=== PATIENT | male | born 1945 | race Caucasian/White ===

== ENCOUNTER 2021-06-12 15:45 | Emergency (ER) | payer MEDICARE, SELFPAY ==
--- NOTE | 2021-06-12 16:05 | XRR_ITS ---
PROCEDURE INFORMATION: Exam: XR Chest Exam date and time: 06/12/2021 4:05 PM Age: 75 years old Clinical indication: Angina pectoris. Chest pain. Altered mental status. TECHNIQUE: Imaging protocol: XR of the chest. Views: 1 view. COMPARISON: CR Chest 1 [place] [id number] 04/17/2017 2:41 PM FINDINGS: Lungs: Unchanged nodules in the left upper lobe that are likely calcified. These likely reflect granulomata. Possible left basilar/retrocardiac opacity that could reflect pneumonia. Pleural spaces: No pleural effusion.. No pneumothorax. Heart/Mediastinum: The cardiac silhouette is unchanged. No gross evidence of pneumomediastinum. Bones/joints: No gross fracture. XR/XR chest 1V portable [id number] IMPRESSION: Possible left basilar/retrocardiac opacity that could reflect pneumonia. Consider CT to further assess if clinically warranted. Radiation Dose CTDIVOL = (mGy): DLP = (mGy-cm)
--- NOTE | 2021-06-12 16:05 | CTR_ITS ---
PROCEDURE INFORMATION: Exam: CT Head Without Contrast Exam date and time: 06/12/2021 4:05 PM Age: 75 years old Clinical indication: Altered mental status/memory loss; Additional info: AMS TECHNIQUE: Imaging protocol: Computed tomography of the head without contrast. Sagittal and coronal reformatted images were created and reviewed. Radiation optimization: All CT scans at this facility use at least one of these dose optimization techniques: automated exposure control; mA and/or kV adjustment per patient size (includes targeted exams where dose is matched to clinical indication); or iterative reconstruction. COMPARISON: No relevant prior studies available. RADIATION DOSE METRICS: Total DLP (mGy-cm): 963.61 FINDINGS: Brain: No intra-axial or extra-axial masses. Valdes-white matter differentiation is preserved. No cerebral edema. No extra-axial fluid collections. No evidence for Chiari 1 malformation. No acute intracranial hemorrhage. No acute infarct. No midline shift. Mild atrophy of the brain parenchyma. Mildly decreased attenuation in the deep white matter, consistent with mild chronic microangiopathic change. Cerebral ventricles: No hydrocephalus. Paranasal sinuses: Visualized paranasal sinuses are clear. Mastoid air cells: Visualized mastoid air cells are clear. Orbital cavity: No acute abnormality in the visualized orbits. Vasculature: Atherosclerotic changes in the visualized arteries. Bones/joints: No acute fracture. Soft tissues: No acute abnormality of the extracranial soft tissues. CT/CT head wo con* [id number] IMPRESSION: 1. No acute abnormality of the brain. 2. Mild atrophy of the brain parenchyma. 3. Mild chronic white matter microangiopathic change. 4. Incidental/nonacute findings are listed in the report. Radiation Dose CTDIVOL = (mGy): DLP = 963.61 (mGy-cm)
--- NOTE | 2021-06-12 16:09 | ED_ITS ---
HPI - Altered Mental Status General: Chief Complaint: Weakness Stated Complaint: AMS Time Seen by Provider: 06/12/21 16:05 History of Present Illness: HPI narrative: Mr. Moreno is a 75-year-old gentleman with significant past medical history of diabetes who presents emergency department due to altered mental status. He was last known well at 1345. He reportedly went to play pool and was normal for period of time until he felt lightheaded and off. He had previously taken his insulin and thought that maybe that would make him feel better. He denies focal weakness, headache, speech difficulty. He has not had similar episodes in past. Upon arrival he reports feeling generally unwell but no focal symptoms. He otherwise denies changes in health, specific known exacerbating, provoking, or alleviating factors. Review of Systems General: Reports: 10 or more systems reviewed and unremarkable except in HPI and below PFSH ED PFSH: Medical History BPH loc w urin obs/LUTS Other specified urinary incontinence Family History Father , 60 Hypertension CAD (coronary artery disease) Mother Cancer Social History Smoking and tobacco status: current some day smoker cigars Alcohol intake: never Marital status: Physical Exam Narrative: EXAM NARRATIVE: GENERAL/CONSTITUTIONAL -somewhat ill appearing. No acute distress. Eyes - PERRL, no conjunctival injection ENMT - Atraumatic external nose and ears. Moist mucous membranes NECK - supple. trachea midline CARDIOVASCULAR - regular rate and rhythm. RESPIRATORY -clear to auscultation bilaterally. ABDOMEN/GI - Nontender, Nondistended. MSK - Extremities without obvious deformity or tenderness to palpation SKIN - Warm, Dry NEURO - alert and appropriately oriented. Cranial nerves II through XII intact strength and sensation intact. Moves all extremities equally. Mildly slowed responses however NIHSS 0 Course ED course: - Patient was seen and evaluated by me at bedside - Patient placed on cardiac monitors, IV access obtained - Initial evaluation notable for somewhat ill appearance, NIHSS 0 - Labs notable for minimal leukocytosis. No acute metabolic abnormality to explain patient's symptoms, creatinine elevated with unclear baseline. Patient does not provide clinical history consistent for concern over SCOTT - Imaging notable for no acute intracranial hemorrhage or mass. Scattered intracranial and extracranial vessel disease which is mild - Orthostatics positive. Fluids given - Upon serial reexamination after treatment the patient was improved - Discussed with neurology on-call - Based on patient history, evaluation, labs, and imaging as interpreted the most likely cause of the patient's condition is unclear TIA like episode, Dehydration with positive orthostasis though this may be chronic secondary to baseline medical conditions. - The results of ED evaluation were discussed with the patient including prescriptions and/or symptomatic cares (if applicable) including appropriate and responsible use, followup plan, and return precautions. The patient verbalized understanding and felt safe for discharge. - Patient discharged in satisfactory condition. Vital Signs: Vital signs: Vital Signs Temperature 98.2 F 06/12/21 16:25 Pulse Rate 74 06/12/21 23:01 Respiratory Rate 18 06/12/21 23:01 Blood Pressure 162/98 06/12/21 23:01 Pulse Oximetry 94 06/12/21 23:01 MDM - Altered Mental Status Medical Records: Attestation: I reviewed the patient's medical records. Lab Data: Attestation: I reviewed the patient's lab results. Labs: Lab Results 06/12/21 06/12/21 06/12/21 17:15 17:15 17:15 WBC 10.9 10^3/uL H 10 ^3/uL (4.0-10.0) RBC 4.53 10^6/uL 10^6 /uL (4.1-5.3) Hgb 13.2 g/dL g/dL (11.7-16.6) Hct 41.4 % L % (42.0-52.0) MCV 91.4 fl fl (80-94) MCH 29.1 pg pg (28.0-34.0) MCHC 31.9 g/dL g/dL (30.0-36.0) RDW 14.0 % % (12.1-15.1) Plt Count 190 10^3/cmm 10^3 /cmm (130-400) MPV 10.6 fL H fL (7.4-10.4) Neut % (Auto) 76.1 % % Lymph % (Auto) 15.0 % % [place] % (Auto) 7.7 % % Eos % (Auto) 0.3 % % Baso % (Auto) 0.5 % % Neut # (Auto) 8.33 10^3/uL H 10 ^3/uL (1.8-7.7) Lymph # (Auto) 1.6 10^3/uL 10^3/ uL (0.8-4.8) [place] # (Auto) 0.8 10^3/uL 10^3/ uL (0.2-0.9) Eos # (Auto) 0.0 10^3/uL 10^3/ uL (0.0-0.8) Baso # (Auto) 0.1 10^3/uL 10^3/ uL (0.0-0.1) Nucleated RBC % (a uto) 0 % % Nucleated RBCs # 0.0 /100WBC /100W BC PT INR APTT Sodium 135 mmol/L L mmol /L (136-145) Potassium 5.3 mmol/L H mmol /L (3.5-5.1) Chloride 99 mmol/L mmol/L (98-107) Carbon Dioxide 22 mmol/L mmol/L (22-29) Anion Gap 19.3 H (5-19) BUN 37 mg/dL H mg/dL (8-23) Creatinine 2.2 mg/dL H mg/dL (0.7-1.2) GFR Calculation Not Reportable Glucose 212 mg/dL H mg/dL (65-115) Calculated Osmolal ity 295 mOsm/kg mOsm/ kg (285-295) Lactic Acid 2.9 mmol/L H mmol /L (0.5-2.2) Lactic Acid (Sepsi s) Calcium 8.5 mg/dL mg/dL (8.5-10.5) Total Bilirubin 0.4 mg/dL mg/dL (0.15-1.2) AST 11 U/L U/L (0-40) ALT 10 U/L U/L (0-41) Alkaline Phosphata se 55 IU/L IU/L (40-130) Troponin T Baselin e Troponin T 120 Min [place] Troponin T Total Protein 6.1 g/dL L g/dL (6.6-8.7) Albumin 3.9 g/dL g/dL (3.5-5.2) Globulin 2.2 g/dL g/dL (1.3-4.6) TSH 3.57 uIU/mL uIU/m L (0.27-4.20) Urine Color Urine Appearance Urine pH Ur Specific Gravit y Urine Protein Urine Glucose (UA) Urine Ketones Urine Blood Urine Nitrate Urine Bilirubin Urine Urobilinogen Ur Leukocyte Joyce ase Urine RBC Urine WBC Ur Squamous Epith Cells Ur Renal Epithelia l Cell Amorphous Sediment Urine Bacteria Urine Mucus Urine Opiates Scre en Ur Barbiturates Sc reen Ur Phencyclidine S crn Ur Amphetamines Sc reen U Benzodiazepines Scrn Urine Cocaine Scre en U Marijuana (THC) Screen Serum Ketones 06/12/21 06/12/21 06/12/21 17:15 17:15 17:15 WBC RBC Hgb Hct MCV MCH MCHC RDW Plt Count MPV Neut % (Auto) Lymph % (Auto) [place] % (Auto) Eos % (Auto) Baso % (Auto) Neut # (Auto) Lymph # (Auto) [place] # (Auto) Eos # (Auto) Baso # (Auto) Nucleated RBC % (a uto) Nucleated RBCs # PT Cancelled INR Cancelled APTT Cancelled Sodium Potassium Chloride Carbon Dioxide Anion Gap BUN Creatinine GFR Calculation Glucose Calculated Osmolal ity Lactic Acid Lactic Acid (Sepsi s) Calcium Total Bilirubin AST ALT Alkaline Phosphata se Troponin T Baselin e 22 ng/L H ng/L (0-15) Troponin T 120 Min [place] Troponin T Total Protein Albumin Globulin TSH Urine Color Urine Appearance Urine pH Ur Specific Gravit y Urine Protein Urine Glucose (UA) Urine Ketones Urine Blood Urine Nitrate Urine Bilirubin Urine Urobilinogen Ur Leukocyte Joyce ase Urine RBC Urine WBC Ur Squamous Epith Cells Ur Renal Epithelia l Cell Amorphous Sediment Urine Bacteria Urine Mucus Urine Opiates Scre en Ur Barbiturates Sc reen Ur Phencyclidine S crn Ur Amphetamines Sc reen U Benzodiazepines Scrn Urine Cocaine Scre en U Marijuana (THC) Screen Serum Ketones Negative (Negative) 06/12/21 06/12/21 06/12/21 17:44 17:44 18:34 WBC RBC Hgb Hct MCV MCH MCHC RDW Plt Count MPV Neut % (Auto) Lymph % (Auto) Huntington % (Auto) Eos % (Auto) Baso % (Auto) Neut # (Auto) Lymph # (Auto) [place] # (Auto) Eos # (Auto) Baso # (Auto) Nucleated RBC % (a uto) Nucleated RBCs # PT INR APTT Sodium Potassium Chloride Carbon Dioxide Anion Gap BUN Creatinine GFR Calculation Glucose Calculated Osmolal ity Lactic Acid Lactic Acid (Sepsi s) Calcium Total Bilirubin AST ALT Alkaline Phosphata se Troponin T Baselin e Troponin T 120 Min [place] 17.99 ng/L H ng/L (0-15) Delta Troponin T -4.01 ABS# L ABS# (0-10) Total Protein Albumin Globulin TSH Urine Color Yellow (Yellow) Urine Appearance Hazy A (CLEAR) Urine pH 5 (5-7) Ur Specific Gravit y 1.020 (1.005-1.030) Urine Protein 1+ H (Negative) Urine Glucose (UA) 2+ H (Normal) Urine Ketones Negative (Negative) Urine Blood Neg (Negative) Urine Nitrate Negative (Negative) Urine Bilirubin 1+ H (Negative) Urine Urobilinogen Norm mg/dL mg/dL (Negative) Ur Leukocyte Joyce ase Negative (Negative) Urine RBC 0-4 /hpf H /hpf (0-2) Urine WBC 0-4 /hpf H /hpf (0-5) Ur Squamous Epith Cells 5-10 /hpf H /hpf (0-5) Ur Renal Epithelia l Cell 0-4 /hpf /hpf Amorphous Sediment 2+ /hpf /hpf Urine Bacteria 1+ /hpf H /hpf (NONE) Urine Mucus Trace /hpf /hpf Urine Opiates Scre en Negative ng/mL ng /mL (Negative) Ur Barbiturates Sc reen Negative ng/mL ng /mL (Negative) Ur Phencyclidine S crn Negative ng/mL ng /mL (Negative) Ur Amphetamines Sc reen Negative ng/mL ng /mL (Negative) U Benzodiazepines Scrn Negative ng/mL ng /mL (Negative) Urine Cocaine Scre en Negative ng/mL ng /mL (Negative) U Marijuana (THC) Screen Negative ng/mL ng /mL (Negative) Serum Ketones 06/12/21 06/12/21 18:34 18:34 WBC RBC Hgb Hct MCV MCH MCHC RDW Plt Count MPV Neut % (Auto) Lymph % (Auto) [place] % (Auto) Eos % (Auto) Baso % (Auto) Neut # (Auto) Lymph # (Auto) [place] # (Auto) Eos # (Auto) Baso # (Auto) Nucleated RBC % (a uto) Nucleated RBCs # PT 14.00 SECONDS SEC ONDS (12.1-14.9) INR 1.05 (0.8-1.2) APTT 29.7 SECONDS SECO NDS (23.9-36.7) Sodium Potassium Chloride Carbon Dioxide Anion Gap BUN Creatinine GFR Calculation Glucose Calculated Osmolal ity Lactic Acid Lactic Acid (Sepsi s) 1.2 mmol/L mmol/L (0.5-2.2) Calcium Total Bilirubin AST ALT Alkaline Phosphata se Troponin T Baselin e Troponin T 120 Min [place] Troponin T Total Protein Albumin Globulin TSH Urine Color Urine Appearance Urine pH Ur Specific Gravit y Urine Protein Urine Glucose (UA) Urine Ketones Urine Blood Urine Nitrate Urine Bilirubin Urine Urobilinogen Ur Leukocyte Joyce ase Urine RBC Urine WBC Ur Squamous Epith Cells Ur Renal Epithelia l Cell Amorphous Sediment Urine Bacteria Urine Mucus Urine Opiates Scre en Ur Barbiturates Sc reen Ur Phencyclidine S crn Ur Amphetamines Sc reen U Benzodiazepines Scrn Urine Cocaine Scre en U Marijuana (THC) Screen Serum Ketones EKG Data^: EKG 1: Attestation: I personally reviewed and interpreted this EKG as follows: EKG interpretation date: 06/12/21 EKG interpretation time: 18:59 Interpretation: Twelve-lead EKG shows a regular rhythm at a rate of 62. WI interval 159, QRS duration 107, QTc 413. Normal axis. Interpretation: Sinus rhythm EKG 2: Attestation: I personally reviewed and interpreted this EKG as follows: EKG interpretation date: 06/12/21 EKG interpretation time: 22:15 Interpretation: Twelve-lead EKG shows a regular rhythm at a rate of 57. WI interval 174, QRS duration 101, QTc 384. Normal axis. Interpretation: Sinus rhythm Discharge Plan Discharge Patient Disposition: Home Clinical Impression: Stroke-like episode, Creatinine elevation, Malaise and fatigue, Orthostatic hypotension, Hypertension Condition: Stable Prescriptions: New aspirin 81 mg tablet,delayed release (DR/EC) 81 mg PO DAILY Qty: 30 RF: 0 Plavix 75 mg tablet 75 mg PO DAILY Qty: 30 RF: 0 Discharge Orders: Discharge ED (Routine); Ordered 06/12/21 Ordered By: Gino Rutledge Referrals: Ramón Dean, [Primary Care Provider] - Discharge Diet: Advance as tolerated and Clear Liquid Discharge Activity: Resume usual activity Activity Restrictions/Additional Instructions: Thank you for visiting the emergency department. You were seen and evaluated for sudden onset generalized symptoms. The exact cause of the symptoms is unclear. Your creatinine is elevated and you are likely somewhat dehydrated. No other clear source of infection was identified. You were noted to have atherosclerosis of your blood vessels to your brain. Please follow-up with your primary care provider. You require repeat labs within 1 week to evaluate creatinine. Please follow-up with neurology. Please return to the emergency department for anything as discussed including new neurologic symptoms, or anything else that you are concerned about and feel needs emergency department evaluation. Coding Level of Care Code ED Hog Killer for Clement Delarosa
--- NOTE | 2021-06-12 16:19 | CTR_ITS ---
PROCEDURE INFORMATION: Exam: CT Angiography Head With Contrast, Arteriography Exam date and time: 06/12/2021 4:19 PM Age: 75 years old Clinical indication: Weakness and other: Confusion TECHNIQUE: Imaging protocol: Computed tomography angiography of the head with contrast. Exam focused on the arteries. 3D rendering (Not supervised by radiologist): MIP and/or 3D reconstructed images were created by the technologist. Radiation optimization: All CT scans at this facility use at least one of these dose optimization techniques: automated exposure control; mA and/or kV adjustment per patient size (includes targeted exams where dose is matched to clinical indication); or iterative reconstruction. Contrast material: VISI 320; Contrast volume: 95 ml; Contrast route: INTRAVENOUS (IV); COMPARISON: CT head wo con* [id number] 06/12/2021 5:59 PM RADIATION DOSE METRICS: Total DLP (mGy-cm): 2593.26 FINDINGS: ANTERIOR CIRCULATION: Right internal carotid artery: Noncalcified plaque with up to 25% stenosis at the mastoid segment. Calcified plaque and noncalcified plaque without significant stenosis at the cavernous and supraclinoid segments. No occlusion, thrombosis, extravasation, dissection, or aneurysm. Right middle cerebral artery: Unremarkable. No occlusion, thrombosis, stenosis, extravasation, dissection, or aneurysm. Right anterior cerebral artery: Unremarkable. No occlusion, thrombosis, stenosis, extravasation, dissection, or aneurysm. Anterior communicating artery: The anterior communicating artery is unremarkable. Left internal carotid artery: Mild noncalcified plaque at the horizontal segment. Mild calcified plaque at the cavernous and supraclinoid segments. No occlusion, thrombosis, stenosis, extravasation, dissection, or aneurysm. Left middle cerebral artery: Unremarkable. No occlusion, thrombosis, stenosis, extravasation, dissection, or aneurysm. Left anterior cerebral artery: Mild noncalcified plaque at the A1 segment with 20% stenosis. No occlusion, thrombosis, extravasation, dissection, or aneurysm. POSTERIOR CIRCULATION: Right vertebral artery: Noncalcified plaque at the level of the foramen magnum with 25% stenosis. No occlusion, thrombosis, extravasation, dissection, or aneurysm. Left vertebral artery: Unremarkable. No occlusion, thrombosis, stenosis, extravasation, dissection, or aneurysm. Basilar artery: Unremarkable. No occlusion, thrombosis, stenosis, extravasation, dissection, or aneurysm. Right posterior cerebral artery: Unremarkable. No occlusion, thrombosis, stenosis, dissection, or aneurysm. Left posterior cerebral artery: Unremarkable. No occlusion, thrombosis, stenosis, extravasation, dissection, or aneurysm. Right posterior communicating artery: The right posterior communicating artery is not visualized. The right posterior communicating artery may be congenitally absent, or may be too small for the resolution capabilities of this study. Left posterior communicating artery: The left posterior communicating artery is not visualized. The left posterior communicating artery may be congenitally absent, or may be too small for the resolution capabilities of this study. Brain: No definite mass, mass effect, or midline shift. Cerebral ventricles: No hydrocephalus. Orbital cavity: Globes and lenses, extraocular muscles, and optic nerves are intact bilaterally. No acute intraorbital abnormality. Bones/joints: No acute fracture. Mastoid air cells: Mastoid air cells are clear bilaterally. Soft tissues: No acute abnormality of the extracranial soft tissues. Paranasal sinuses: Paranasal sinuses are clear. IMPRESSION: Atherosclerotic disease. Mild stenoses in the right internal carotid artery, right vertebral artery, and left anterior cerebral artery. No occlusion, thrombosis, extravasation, dissection, or aneurysm. PROCEDURE INFORMATION: Exam: CT Angiography Neck With Contrast Exam date and time: 06/12/2021 4:19 PM Age: 75 years old Clinical indication: Weakness and other: Confusion TECHNIQUE: Imaging protocol: Computed tomography angiography of the neck with contrast. 3D rendering (Not supervised by radiologist): MIP and/or 3D reconstructed images were created by the technologist. Radiation optimization: All CT scans at this facility use at least one of these dose optimization techniques: automated exposure control; mA and/or kV adjustment per patient size (includes targeted exams where dose is matched to clinical indication); or iterative reconstruction. Contrast material: VISI 320; Contrast volume: 95 ml; Contrast route: INTRAVENOUS (IV); COMPARISON: CT head wo con* [id number] 06/12/2021 5:59 PM RADIATION DOSE METRICS: Total DLP (mGy-cm): 2593.26 FINDINGS: Right common carotid artery: Minimal calcified plaque at the carotid bulb. No occlusion, thrombosis, stenosis, extravasation, dissection, or aneurysm. Right internal carotid artery: .Right internal carotid artery: Unremarkable. No occlusion, thrombosis, stenosis, extravasation, dissection, or aneurysm. Right external carotid artery: Unremarkable. No occlusion, thrombosis, stenosis, extravasation, dissection, or aneurysm. Left common carotid artery: Moderate calcified plaque at the distal left common carotid artery with 20% stenosis. No occlusion, thrombosis, extravasation, dissection, or aneurysm. Left internal carotid artery: Unremarkable. No occlusion, thrombosis, stenosis, extravasation, dissection, or aneurysm. Mild to moderate calcified plaque at the origin with 31% stenosis using NASCET criteria. No occlusion, thrombosis, extravasation, dissection, or aneurysm. Left external carotid artery: Mild calcified and noncalcified plaque at the origin.. No occlusion, thrombosis, stenosis, extravasation, dissection, or aneurysm. Right vertebral artery: Unremarkable. No occlusion, thrombosis, stenosis, extravasation, dissection, or aneurysm. Left vertebral artery: Mild calcified plaque at the origin and in the distal cervical segment. No occlusion, thrombosis, stenosis, extravasation, dissection, or aneurysm. Brachiocephalic artery: Unremarkable. No occlusion, thrombosis, stenosis, extravasation, dissection, or aneurysm. Subclavian arteries: Mild calcified plaque at the origin of the right subclavian artery and in the proximal left subclavian artery. No occlusion, thrombosis, stenosis, extravasation, dissection, or aneurysm. Aorta: Mild calcified plaque in the visualized proximal descending thoracic aorta. No occlusion, thrombosis, stenosis, extravasation, dissection, or aneurysm. Lymph nodes: Calcified mediastinal and bilateral hilar lymph nodes. No lymphadenopathy. Soft tissues: No soft tissue swelling. No radiopaque foreign body. Bones/joints: Multilevel degenerative changes of varying severity in the visualized spine. Lungs: Visualized lungs are clear. CT/CT angio headneck* [id number] IMPRESSION: 1. Mild atherosclerotic disease. Mild stenoses in the right common carotid artery and left internal carotid artery. No occlusion, thrombosis, extravasation, dissection, or aneurysm. 2. Incidental/nonacute findings are listed in the report. REFERENCES: NASCET CRITERIA. The degree of internal carotid artery stenosis is based on NASCET criteria. Normal is no stenosis. Mild is less than 50% stenosis. Moderate is 50-69% stenosis. Severe is 70% to 99% stenosis. Total occlusion is no detectable patent lumen. Radiation Dose CTDIVOL = (mGy): DLP = 2593.26~2593.26 (mGy-cm)
[2021-06-12 16:25] VITALS: BP 85/47; PULSE 67; RESP 18; TEMP 36.8; O2SAT 94; BMI 34.2
[2021-06-12 17:40] LABS: Basophils # 0.1 10^3/uL (0.0-0.1); Basophils % 0.5 %; Eosinophils % 0.3 %; Hematocrit 41.4 % (42.0-52.0); Hemoglobin 13.2 g/dL (11.7-16.6); Lymphocytes # 1.6 10^3/uL (0.8-4.8); Mean Corpuscular HGB Conc 31.9 g/dL (30.0-36.0); Mean Corpuscular Hemoglobin 29.1 pg (28.0-34.0); Mean Corpuscular Volume 91.4 fl (80-94); Mean Platelet Volume 10.6 fL (7.4-10.4); Monocytes # 0.8 10^3/uL (0.2-0.9); Monocytes % 7.7 %; Neutrophils # 8.33 10^3/uL (1.8-7.7); Neutrophils % 76.1 %; Nucleated Red Blood Cells % 0 %; Platelet Count 190 10^3/cmm (130-400); Red Blood Count 4.53 10^6/uL (4.1-5.3); White Blood Count 10.9 10^3/uL (4.0-10.0)
[2021-06-12 17:56] LABS: Ketone (Acetest) Serum Negative (Negative)
[2021-06-12 18:01] VITALS: BP 136/98; PULSE 98; RESP 16; O2SAT 94
[2021-06-12 18:01] LABS: Lactic Sepsis W/Reflex 2.9 mmol/L (0.5-2.2)
[2021-06-12 18:04] LABS: Troponin(5th) Baseline 22 ng/L (0-15)
[2021-06-12] MEDS: sodium chloride 0.9% 1,000 ML 999 ML IV (18:05)
[2021-06-12 18:14] LABS: Alanine Aminotransferase 10 U/L (0-41); Albumin Level 3.9 g/dL (3.5-5.2); Alkaline Phosphatase 55 IU/L (40-130); Anion Gap 19.3 (5-19); Aspartate Amino Transferase 11 U/L (0-40); Blood Urea Nitrogen 37 mg/dL (8-23); Calcium 8.5 mg/dL (8.5-10.5); Carbon Dioxide 22 mmol/L (22-29); Chloride 99 mmol/L (98-107); Globulin 2.2 g/dL (1.3-4.6); Glucose 212 mg/dL (65-115); Osmolality Calculated 295 mOsm/kg (285-295); Potassium 5.3 mmol/L (3.5-5.1); Sodium 135 mmol/L (136-145); Thyroid Stimulating Hormone 3.57 uIU/mL (0.27-4.20); Total Bilirubin 0.4 mg/dL (0.15-1.2); Total Protein 6.1 g/dL (6.6-8.7)
--- NOTE | 2021-06-12 18:20 | ECG_ITS ---
[facility] Test Date: 2021-06-12 Pat Name: Medardo Moreno Department: Room: Gender: Male Gray Tender: : 1945 Requested By: Gino Rutledge Order Number: [id number] Neftali MD: Memo De Leon M.D. Measurements Intervals [place] Rate: 62 P: 26 CA: 159 QRS: 37 QRSD: 107 T: 78 QT: 405 QTc: 413 Interpretive Statements SINUS RHYTHM NONSPECIFIC T-WAVE ABNORMALITY Compared to ECG 04/17/2017 14:56:44 T-wave abnormality now present Myocardial infarct finding no longer present Electronically Signed On 06-13-2021 22:48:48 PATCH WORKER by Memo De Leon M.D. [id number]
[2021-06-12 18:24] VITALS: BP 158/93; PULSE 70; RESP 16; O2SAT 99
[2021-06-12 19:01] LABS: Urine Appearance Hazy (CLEAR); Urine Color Yellow (Yellow)
[2021-06-12 19:02] LABS: Add Urine Microscopic? YES; Bilirubin Urine 1+ (Negative); Blood Urine Neg (Negative); Glucose Urine UA 2+ (Normal); Ketones Urine Negative (Negative); Leukocyte Esterase Urine Negative (Negative); Nitrate Urine Negative (Negative); Protein Urine 1+ (Negative); RBC Urine 0-4 /hpf (0-2); Urobilinogen Urine Norm (Negative); WBC Urine 0-4 /hpf (0-5); pH Urine 5 (5-7)
[2021-06-12 19:03] LABS: Add Urine Culture? No; Amorphous Sediment Urine 2+ /hpf; Bacteria Urine 1+ /hpf; Mucus Urine TRACE /hpf; Renal Epithelial Cells Urine 0-4 /hpf
[2021-06-12 19:04] LABS: Amphetamines Screen Urine Negative (Negative); Barbiturates Screen Urine Negative (Negative); Benzodiazepines Screen Urine Negative (Negative); Cocaine Screen Urine Negative (Negative); Opiate Screen Urine Negative (Negative); PCP Screen Urine Negative (Negative); THC Screen Urine Negative (Negative)
[2021-06-12 19:19] LABS: Reflex Lactate Order REFLEX LACTIC ORDERD
--- NOTE | 2021-06-12 19:42 | PC.NURSE ---
Orthostatics: Lying 66, 171/109 Sitting 69, 163/82 Stand 79 116/73
[2021-06-12 19:43] VITALS: BP 130/76; PULSE 79; RESP 18; O2SAT 94
[2021-06-12 19:51] LABS: INR 1.05 (0.8-1.2)
[2021-06-12 19:52] LABS: Partial Thromboplastin Time 29.7 SECONDS (23.9-36.7)
[2021-06-12 19:58] LABS: Lactic Acid level (Lactate) 1.2 mmol/L (0.5-2.2)
[2021-06-12 20:03] LABS: Troponin 5 2HR 17.99 ng/L (0-15)
[2021-06-12 20:04] LABS: Troponin 5 2HR Delta -4.01 ABS# (0-10)
[2021-06-12] MEDS: lactated ringers 1,000 ML 999 ML IV (20:32)
[2021-06-12 22:00] VITALS: BP 146/104; BP 166/99; BP 167/108; PULSE 62; PULSE 63; PULSE 71
--- NOTE | 2021-06-12 22:20 | ECG_ITS ---
[facility] Test Date: 2021-06-12 Pat Name: Medardo Moreno Department: Room: Gender: Male Manager Emergency: : 1945 Requested By: Gino Rutledge Order Number: [id number] Neftali MD: Memo De Leon M.D. Measurements Intervals [place] Rate: 57 P: 31 MI: 174 QRS: 37 QRSD: 101 T: 126 QT: 393 QTc: 384 Interpretive Statements SINUS BRADYCARDIA NONSPECIFIC T-WAVE ABNORMALITY Compared to ECG 06/12/2021 18:49:47 Sinus rhythm no longer present T-wave abnormality still present Electronically Signed On 06-13-2021 22:49:23 DIGITAL ADVERTISING SPECIALIST by Memo De Leon M.D. [id number]
[2021-06-12] MEDS: aspirin 81 mg Chew Tablet 324 MG PO (22:36)
[2021-06-12] MEDS: clopidogrel 300 mg Tablet PO (22:37)
[2021-06-12 23:01] VITALS: BP 162/98; PULSE 74; RESP 18; O2SAT 94
--- NOTE | 2021-06-13 09:56 | DCPLANNER ---
retail district manager had message to schedule a follow up appointment for patient with neurology. retail district manager emailed patients information to the neurology clinic. Patients information will be printed and reviewed. Clinic will call patient with appointment information.
--- NOTE | 2021-07-12 07:29 | DCPLANNER ---
manager development checked with the office of Dr. Pérez concerning follow up appointment. manager development was told by Elayne Wilson that when clinic contacted patient to schedule a follow up appointment that patient requested to see [facility] NURSE PRACTITIONER Rogelio Reyna. It is understood that he will not be back in the office until July, and that an appointment will be scheduled for patient at that time.
== END 2021-06-12 22:46 | disposition home or self-care (01) ==
PROVIDERS: Physician Assistant; Emergency Provider Emergency Medicine; PCP Internal Medicine
DX: R53.81 Other malaise (principal); R53.83 Other fatigue; I95.1 Orthostatic hypotension; I10 Essential (primary) hypertension; R79.9 Abnormal finding of blood chemistry, unspecified; Z79.82 Long term (current) use of aspirin; Z79.02 Long term (current) use of antithrombotics/antiplatelets; F17.210 Nicotine dependence, cigarettes, uncomplicated
CPT/HCPCS: 70450; 70496; 70498; 71045; 80053; 80306; 81001; 82009; 83605; 84443; 84484; 85025; 85610; 85730; 87040; 93005; 96360; 96361; 99284; J7030

== ENCOUNTER 2021-11-02 14:02 | Inpatient (IN) | payer MEDICARE, SELFPAY ==
[2021-11-02] VITALS (7 sets, daily range): BP systolic 103–169; BP diastolic 72–97; PULSE 58–84; RESP 14–20; TEMP 36.4–36.8; O2SAT 92–95; BMI 36.9; BMI 35.2
--- NOTE | 2021-11-02 14:11 | ED_ITS ---
HPI - Syncope General: Chief Complaint: Syncope Stated Complaint: SYNCOPAL EPISODE Time Seen by Provider: 11/02/21 14:11 Source: patient Mode of arrival: EMS Limitations: no limitations History of Present Illness: 76-year-old male who was at a local senior center was playing pool he had sat down and was waiting for his turn became lightheaded and dizzy and fell out of his chair. He was down for 30 seconds to a minute according the local bystanders he denies any chest pain. He is not having shortness of breath at this time. Not had any vomiting or diaphoresis. MD complaint: collapsed Onset (ago): minute(s) Duration of episode: 60 -: second(s) Description of event: post-event confusion (Mild) Prodromal symptoms: lightheaded Witnessed: Yes - by Bystander Context: at rest Injuries sustained associated with event: none Associated symptoms: Reports lightheadedness; Deny abdominal pain, chest pain, fever(s), headache(s), nausea, short of breath, vertigo or weakness Treatments prior to arrival: none Review of Systems Const: Reports: chills; Denies: fever(s) ENMT: Denies: throat pain, ear or mastoid pain, nasal discharge or nasal congestion Card: Reports: lightheadedness; Denies: chest pain or palpitations Resp: Denies: dyspnea, productive cough or non-productive cough GI: Denies: abdominal pain, nausea or vomiting : Denies: flank pain, dysuria, urinary frequency or urinary urgency Skin/Breast: Denies: rash or pruritus Neuro: Denies: headache(s) or vertigo PFSH ED PFSH: Medical History Acute lower UTI BPH loc w urin obs/LUTS Diabetes Gait instability Microhematuria Neurogenic bladder Other specified urinary incontinence Surgical History S/P tonsillectomy Family History Father , 60 Hypertension CAD (coronary artery disease) Mother Cancer Social History Smoking and tobacco status: current some day smoker cigars Alcohol intake: never Marital status: Physical Exam Const: GENERAL APPEARANCE: cooperative and comfortable ORIENTATION/CONSCIOUSNESS: Yes awake, Yes oriented to person, Yes oriented to place and Yes oriented to time HENMT: COMMON NORMALS: normocephalic, atraumatic, hearing grossly normal bilaterally, external ears normal, EAC's normal, TM's normal bilaterally, Normal nasal mucous membranes and turbinates present, moist oral mucous membranes and oropharynx normal HEAD & SCALP: normocephalic and atraumatic NOSE: Normal nasal mucous membranes and turbinates present EXTERNAL EAR: Yes external ears normal EXTERNAL AUDITORY CANAL: EAC's normal TYMPANIC MEMBRANE: TM's normal bilaterally Eye: COMMON NORMALS: Equal, round and reactive pupils present, EOMs intact bilaterally, conjunctivae normal and no scleral icterus CONJUNCTIVA: Yes conjunctivae normal PUPIL: Yes Equal, round and reactive pupils present Neck/C-Spine: COMMON NORMALS: full ROM, no lymphadenopathy, supple and no JVD Lymph: LYMPHATIC: no lymphadenopathy noted and no lymphedema noted Resp: COMMON NORMALS: normal respiratory effort, No retractions, No use of accessory muscles and clear to auscultation bilaterally AUSCULTATION: clear to auscultation bilaterally Cardio: COMMON NORMALS: no JVD, regular rate, regular rhythm and No murmurs present (Cardio) RATE: regular rate RHYTHM: regular rhythm GI: COMMON NORMALS: Soft to palpation and No hepatosplenomegaly present AUSCULTATION: Yes normoactive bowel sounds PALPATION: Yes Soft to palpation, No Tenderness to palpation present (GI), No Guarding due to palpation present (GI) and Yes No hepatosplenomegaly present Extremity: COMMON NORMALS: normal to inspection, capillary refill normal, no clubbing, cyanosis or edema, no calf tenderness and no pedal edema Neuro: SENSORIUM/ORIENTATION: Yes oriented to person, Yes oriented to place and Yes oriented to time Skin: COMMON NORMALS: no rashes or lesions noted GENERAL SKIN EXAM: no rashes or lesions noted Course Vital Signs: Vital signs: Vital Signs Temperature 97.5 F L 11/02/21 15:03 Pulse Rate 58 L 11/02/21 17:37 Respiratory Rate 14 11/02/21 17:37 Blood Pressure 127/80 11/02/21 17:37 Pulse Oximetry 94 11/02/21 17:37 MDM - Syncope Medical Decision Making Syncopal episode unknown etiology. We will go ahead and admit the patient further evaluate including echocardiogram and carotid. Additionally she has hyponatremia hyperkalemia mild chronic renal disease. EKG and troponins unremarkable. Medical Records I reviewed the patient's medical records. Lab Data I reviewed the patient's lab results. : 11/02/21 14:38 11/02/21 14:38 Radiology Impressions Chest X-Ray 11/02/21 14:12 IMPRESSION: No acute chest abnormality. Head CT 11/02/21 16:18 IMPRESSION: 1. Negative for intracranial hemorrhage or mass effect 2. Mild diffuse ventricular prominence similar to prior exam may be related to chronic underlying age-related parenchymal atrophy. 3. Mild diffuse white matter disease likely reflecting chronic microvascular ischemic changes Laboratory Results WBC 8.5 10^3/uL (4.0-10.0) 11/02/21 14:38 RBC 5.19 10^6/uL (4.1-5.3) 11/02/21 14:38 Hgb 15.3 g/dL (11.7-16.6) 11/02/21 14:38 Hct 46.5 % (42.0-52.0) 11/02/21 14:38 MCV 89.6 fl (80-94) 11/02/21 14:38 MCH 29.5 pg (28.0-34.0) 11/02/21 14:38 MCHC 32.9 g/dL (30.0-36.0) 11/02/21 14:38 RDW 13.8 % (12.1-15.1) 11/02/21 14:38 Plt Count 231 10^3/cmm (130-400) 11/02/21 14:38 MPV 10.0 fL (7.4-10.4) 11/02/21 14:38 Neut % (Auto) 76.5 % 11/02/21 14:38 Lymph % (Auto) 16.5 % 11/02/21 14:38 C[place] % (Auto) 5.5 % 11/02/21 14:38 Eos % (Auto) 0.6 % 11/02/21 14:38 Baso % (Auto) 0.5 % 11/02/21 14:38 Neut # (Auto) 6.50 10^3/uL (1.8-7.7) 11/02/21 14:38 Lymph # (Auto) 1.4 10^3/uL (0.8-4.8) 11/02/21 14:38 [place]es # (Auto) 0.5 10^3/uL (0.2-0.9) 11/02/21 14:38 Eos # (Auto) 0.1 10^3/uL (0.0-0.8) 11/02/21 14:38 Baso # (Auto) 0.0 10^3/uL (0.0-0.1) 11/02/21 14:38 Nucleated RBC % (auto) 0 % 11/02/21 14:38 Nucleated RBCs # 0.0 /100WBC 11/02/21 14:38 D-Dimer 1.98 ug/mIFEU (0-0.59) H 11/02/21 14:38 Sodium 133 mmol/L (136-145) L 11/02/21 14:38 Potassium 5.6 mmol/L (3.5-5.1) H 11/02/21 14:38 Chloride 97 mmol/L (98-107) L 11/02/21 14:38 Carbon Dioxide 24 mmol/L (22-29) 11/02/21 14:38 Anion Gap 17.6 (5-19) 11/02/21 14:38 BUN 26 mg/dL (8-23) H 11/02/21 14:38 Creatinine 1.3 mg/dL (0.7-1.2) H 11/02/21 14:38 GFR Calculation Not Reportable 11/02/21 14:38 Glucose 389 mg/dL (65-115) H 11/02/21 14:38 Calculated Osmolality 297 mOsm/kg (285-295) H 11/02/21 14:38 Calcium 9.3 mg/dL (8.5-10.5) 11/02/21 14:38 Total Bilirubin 0.6 mg/dL (0.15-1.2) 11/02/21 14:38 AST 11 U/L (0-40) 11/02/21 14:38 ALT 10 U/L (0-41) 11/02/21 14:38 Alkaline Phosphatase 81 IU/L (40-130) 11/02/21 14:38 Troponin T Baseline 18 ng/L (0-15) H 11/02/21 14:38 Total Protein 6.6 g/dL (6.6-8.7) 11/02/21 14:38 Albumin 4.2 g/dL (3.5-5.2) 11/02/21 14:38 Globulin 2.4 g/dL (1.3-4.6) 11/02/21 14:38 Discharge Plan Discharge Patient Disposition: Admitted As Inpatient Admit Provider: Ismael Espinoza Clinical Impression: Syncope and collapse, Hyperkalemia, SCOTT (acute kidney injury), BPH loc w urin obs/LUTS Condition: Stable Coding Level of Care Code 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
--- NOTE | 2021-11-02 14:12 | XR_ITS ---
WS: [id number] XR chest 1V portable [id number] REASON FOR EXAM: dyspnea/cough FINDINGS: The chest is unchanged compared to 06/12/2021. Moderate tortuosity and ectasia of the thoracic aorta. Mild dilatation of the ascending thoracic aort a. The heart size is within normal limits. Calcified granulomatous disease in both hemithoraces. No active pulmonary parenchymal or pleural disease. Moderate to severe degenerative spondylosis in the mid and lower thoracic spine. XR/XR chest 1V portable [id number] IMPRESSION: No acute chest abnormality.
--- NOTE | 2021-11-02 14:13 | ECG_ITS ---
[facility] Test Date: 2021-11-02 Pat Name: Medardo Moreno Department: Room: Gender: Male Hoseman: : 1945 Requested By: Foreign Rizzo Order Number: [id number] Neftali MD: Sarbjit Kendrick M.D. Measurements Intervals [place] Rate: 65 P: 21 MN: 145 QRS: 37 QRSD: 103 T: 78 QT: 410 QTc: 426 Interpretive Statements SINUS RHYTHM NONSPECIFIC T-WAVE ABNORMALITY Compared to ECG 06/12/2021 22:10:40 Sinus bradycardia no longer present T-wave abnormality still present Electronically Signed On 11-02-2021 16:00:26 CDT by Sarbjit Kendrick M.D. [id number]
[2021-11-02 14:45] LABS: Basophils % 0.5 %; Eosinophils # 0.1 10^3/uL (0.0-0.8); Eosinophils % 0.6 %; Hematocrit 46.5 % (42.0-52.0); Hemoglobin 15.3 g/dL (11.7-16.6); Lymphocytes # 1.4 10^3/uL (0.8-4.8); Lymphocytes % 16.5 %; Mean Corpuscular HGB Conc 32.9 g/dL (30.0-36.0); Mean Corpuscular Hemoglobin 29.5 pg (28.0-34.0); Mean Corpuscular Volume 89.6 fl (80-94); Monocytes # 0.5 10^3/uL (0.2-0.9); Monocytes % 5.5 %; Neutrophils % 76.5 %; Nucleated Red Blood Cells % 0 %; Platelet Count 231 10^3/cmm (130-400); Red Blood Count 5.19 10^6/uL (4.1-5.3); Red Cell Distribution Width 13.8 % (12.1-15.1); White Blood Count 8.5 10^3/uL (4.0-10.0)
--- NOTE | 2021-11-02 14:49 | PC.PHAR ---
pt states he takes care of his own medications-pt states he is not taking plavix rx last filled 06/13/21 30d/s for 75mg daily with no refills-pt states he uses tresiba flextouch u-200 26 units daily rx last filled 05/28/21 for 34 units hs-
[2021-11-02 15:05] LABS: Alanine Aminotransferase 10 U/L (0-41); Albumin Level 4.2 g/dL (3.5-5.2); Alkaline Phosphatase 81 IU/L (40-130); Anion Gap 17.6 (5-19); Aspartate Amino Transferase 11 U/L (0-40); Blood Urea Nitrogen 26 mg/dL (8-23); Calcium 9.3 mg/dL (8.5-10.5); Carbon Dioxide 24 mmol/L (22-29); Chloride 97 mmol/L (98-107); Globulin 2.4 g/dL (1.3-4.6); Glucose 389 mg/dL (65-115); Osmolality Calculated 297 mOsm/kg (285-295); Potassium 5.6 mmol/L (3.5-5.1); Sodium 133 mmol/L (136-145); Total Bilirubin 0.6 mg/dL (0.15-1.2); Total Protein 6.6 g/dL (6.6-8.7)
[2021-11-02 15:06] LABS: Troponin(5th) Baseline 18 ng/L (0-15)
--- NOTE | 2021-11-02 16:13 | ECG_ITS ---
[facility] Test Date: 2021-11-02 Pat Name: Medardo Moreno Department: Room: Gender: Male Mail Rider: : 1945 Requested By: Foreign Rizzo Order Number: [id number] Neftali MD: Sarbjit Kendrick M.D. Measurements Intervals [place] Rate: 63 P: 34 OK: 167 QRS: 48 QRSD: 98 T: 85 QT: 407 QTc: 417 Interpretive Statements SINUS RHYTHM Compared to ECG 11/02/2021 14:39:01 T-wave abnormality no longer present Electronically Signed On 11-02-2021 22:45:32 CDT by Sarbjit Kendrick M.D. [email or web address].[id number]
--- NOTE | 2021-11-02 16:18 | CTR_ITS ---
PROCEDURE INFORMATION: Exam: CT Head Without Contrast Exam date and time: 11/02/2021 4:28 PM Age: 76 years old Clinical indication: Syncope and collapse; Patient HX: Syncope episode - C/O bump R forehead; Additional info: Loc/fall TECHNIQUE: Imaging protocol: Computed tomography of the head without contrast. Radiation optimization: All CT scans at this facility use at least one of these dose optimization techniques: automated exposure control; mA and/or kV adjustment per patient size (includes targeted exams where dose is matched to clinical indication); or iterative reconstruction. COMPARISON: CT head wo con* [id number] 06/12/2021 5:59 PM RADIATION DOSE METRICS: Total DLP (mGy-cm): 959.24 FINDINGS: Brain: Mild diffuse white matter disease likely reflecting chronic microvascular ischemic changes Cerebral ventricles: Mild diffuse ventricular prominence similar to prior exam may be related to chronic underlying age-related parenchymal atrophy. Paranasal sinuses: Visualized sinuses are unremarkable. No fluid levels. Mastoid air cells: Visualized mastoid air cells are well aerated. Bones/joints: Unremarkable. No acute fracture. Soft tissues: Unremarkable. CT/CT head wo con* [id number] IMPRESSION: 1. Negative for intracranial hemorrhage or mass effect 2. Mild diffuse ventricular prominence similar to prior exam may be related to chronic underlying age-related parenchymal atrophy. 3. Mild diffuse white matter disease likely reflecting chronic microvascular ischemic changes
--- NOTE | 2021-11-02 16:27 | PM.HP ---
Providers/Chief Complaint Primary Care Provider: Ramón Dean DO Chief Complaint: SYNCOPAL EPISODE History of Present Illness Medardo Moreno is a 76 year old male who carries history of poorly controlled diabetes, presents today after an episode of syncopal event. Patient was at [facility] when all of a sudden he lost consciousness, fell on the ground and hit his head on the right side. He did not get any warning symptoms, no previous history of seizure, IL, CHF or coronary artery disease. Patient is stating that he stayed on the floor for about a minute and when he woke up he did not notice any tongue bite, urinary or fecal incontinence. He did not experience any chest pain. Blood sugar was not checked at that time. EMS was called who brought him to the ER. In the ER he was hemodynamically stable, EKG showed sinus rhythm. Afebrile, CT head has been requested During my evaluation patient's was at the bedside, she raised questions regarding his gait instability, bladder distention, nocturia, his nocturia is very bad, he can tell when he has to go to the bathroom at all, he has been seeing Dr. España, he has been diagnosed with BPH I do not see any BPH medication however seems very concerned that on daily basis he has been swallowing his bedsheet and that is a real problem which she thinks has not been addressed. Patient is denying history of malignancy, no recent back trauma, he is endorsing gait instability, has good sensations of the inside of his thighs, not endorsing back pain, I did discuss the possibility of neuropathy related to poorly controlled diabetes and neurogenic bladder, self cath might be an option which has not been discussed with Dr. España yet with him as of now I am going to go ahead order echo, carotid Doppler, CT scan of lumbar and thoracic area Check PSA Admit to telemetry floor Diagnosed with SCOTT Patient is stating that for last few months he has been experiencing loose stools he tries to drink a lot of fluid not to keep his blood sugar under control and keep himself hydrated but it is very easy for him to get dehydrated Review of Systems Const: Denies: fever(s) Eyes: Denies: change in vision ENMT: Denies: throat pain Card: Reports: lightheadedness and syncope; Denies: chest pain Resp: Denies: dyspnea GI: Denies: abdominal pain : Reports: urinary incontinence Musc: Denies: neck pain Skin/Breast: Reports: dry skin Neuro: Denies: headache(s) Psych: Denies: anxiety Endo: Reports: polyuria Gerson/Lymph: Denies: easy bruising All/Imm: Denies: urticaria Medications/Allergies Home Medications Medication Instructions Recorded Confirmed Last Taken Type aspirin 81 mg tablet,delayed 81 mg PO QAM 11/02/21 11/02/21 11/02/21 10:00 History release atorvastatin 20 mg tablet 20 mg PO BEDTIME 11/02/21 11/02/21 11/01/21 History insulin degludec 200 unit/mL (3 26 unit SUBCUT DAILY 11/02/21 11/02/21 11/01/21 History mL) subcutaneous pen (Tresiba see pharmacy FlexTouch U-200 insulin) comment lisinopril 20 mg tablet 20 mg PO QAM 11/02/21 11/02/21 11/02/21 10:00 History metformin 500 mg tablet,extended 1,000 mg PO BID 11/02/21 11/02/21 11/02/21 10:00 History release 24 hr Allergies Allergy/AdvReac Type Severity Reaction Status Date / Time No Known Allergies Allergy Verified 11/02/21 14:46 PFSH Acute PFSH: Medical History Acute lower UTI BPH loc w urin obs/LUTS Diabetes Gait instability Microhematuria Neurogenic bladder Other specified urinary incontinence Surgical History S/P tonsillectomy Family History Father , 60 Hypertension CAD (coronary artery disease) Mother Cancer Social History Smoking and tobacco status: current some day smoker cigars Alcohol intake: never Marital status: Vitals/I&O/Wt Last Vital Signs Temp 97.5 F L 11/02/21 15:03 Pulse 58 L 11/02/21 15:52 Resp 14 11/02/21 15:03 BP 127/80 11/02/21 15:52 Pulse Ox 94 11/02/21 15:03 Weight last 48 hrs Weight 127.006 kg Physical Exam Narrative: Alert pleasant cooperative male Who is laying flat Has good sensations inside of his thighs Good motor strength of upper and lower extremity S1, S2 No murmur appreciated Looks dehydrated Dry skin Hemodynamically stable at the bedside Abdomen soft distended visceral obesity Bowel sounds present Breathing well, saturating well on room air Nonlabored breathing Data : 11/02/21 14:38 11/02/21 14:38 A&P Assessment and plan (1) Syncope and collapse: Status: Acute (2) SCOTT (acute kidney injury): Status: Acute (3) Hyperkalemia: Status: Acute Plan Syncope Rule out cardiogenic etiology, request echo Check TSH Check magnesium level Admit to telemetry floor Continue IV fluids overnight Check orthostatics before starting IV fluids EKG without QTC prolongation Sinus rhythm on EKG No previous history of IL or CHF Neurogenic bladder We will do bladder scan every 4 hours, I am not sure why he has been dealing with over distended bladder without any sensation to void which is making his quality of life very poor, my concern is related diabetic neuropathy is denying back pain, prostate cancer, previous colonoscopies unremarkable as per the patient and his , He is endorsing gait instability No signs of cauda equina I will go ahead order CT scan of lumbar and thoracic area No active back pain SCOTT related to dehydration and drugs Related to dehydration Hyperkalemia: Give Kayexalate Continue IV fluids Discontinue lisinopril Poorly controlled diabetes check A1c level He has been started on insulin lately Full code Cardiac consistent carb diet Echo in the morning Carotid Doppler CT scan of back Attestations Medical Necessity Statement*: Patient needs work-up for syncope, CT scan of back for gait instability, neurogenic bladder, need less than 2 midnights in the hospital for further evaluation Time Spent in Patient Care: 40mins Coding Level of Care Code 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
[2021-11-02 17:15] LABS: Troponin 5 2HR 17.55 ng/L (0-15)
[2021-11-02 17:18] LABS: Troponin 5 2HR Delta -0.45 ABS# (0-10)
[2021-11-02 17:31] LABS: Ketone (Acetest) Serum Negative (Negative)
[2021-11-02 17:55] LABS: Vitamin B12 484 pg/mL (232-1245)
--- NOTE | 2021-11-02 18:04 | CTR_ITS ---
PROCEDURE INFORMATION: Exam: CT Thoracic Spine Without Contrast Exam date and time: 11/02/2021 6:20 PM Age: 76 years old Clinical indication: Weakness; Additional info: Neurogenic bladder TECHNIQUE: Imaging protocol: Computed tomography images of the thoracic spine without contrast. Radiation optimization: All CT scans at this facility use at least one of these dose optimization techniques: automated exposure control; mA and/or kV adjustment per patient size (includes targeted exams where dose is matched to clinical indication); or iterative reconstruction. COMPARISON: CR XR chest 1V portable [id number] 11/02/2021 2:27 PM RADIATION DOSE METRICS: Total DLP (mGy-cm): 2525.28 FINDINGS: Vertebrae: No acute fracture. Normal alignment. Diffuse mild degenerative changes are noted with endplate osteophytes and sclerosis. Discs/Spinal canal/Neural foramina: No si there is mild dextroscoliosis. gnificant disc protrusion. No severe spinal canal stenosis. No significant neural foraminal narrowing. Soft tissues: There is an incidental fat containing left sided Bochdalek's hernia. Lungs: There is some hazy density in the dependent lung bases compatible with atelectasis or mild pneumonitis. This could simply be compressive atelectasis from the Bochdalek's hernia. CT/CT thoracic spin wo con* [id number] IMPRESSION: 1. No acute bony abnormality. 2. Hazy density in the lung bases left greater than right that may reflect atelectasis or mild pneumonitis. There is a left-sided fat containing Bochdalek's hernia in this may simply be compressive atelectasis from the hernia.
--- NOTE | 2021-11-02 18:04 | USR_ITS ---
PROCEDURE INFORMATION: Exam: US Duplex Bilateral Extracranial Arteries, Carotid Arteries Exam date and time: 11/02/2021 7:26 PM Age: 76 years old Clinical indication: Syncope and collapse; Additional info: Syncope, patient in CT @1830 TECHNIQUE: Imaging protocol: Real-time Duplex ultrasound scan of the bilateral carotid and vertebral arteries combining strong scale, color Doppler and spectral waveform analysis. Bilateral exam. Exam focused on the carotid arteries. COMPARISON: CT angio headneck* [id number] 06/12/2021 6:02 PM FINDINGS: Right common carotid artery: Mild atherosclerotic plaque. No occlusion or stenosis. Waveforms are normal. Peak velocity 109.2 cm/s. Right internal carotid artery: Moderate atherosclerotic plaque. No occlusion or stenosis. Waveforms are normal. Right ICA/CCA ratio: Within normal limits. ICA/CCA PS 0.83 and ICA/CCA ED 0.75 Right external carotid artery: No stenosis in the origin. Right vertebral artery: Unremarkable. Antegrade flow. Left common carotid artery: Mild atherosclerotic plaque. Peak velocity is 113 cm/s proximal and 59.8 centimeter/seconds mid Common carotid artery. No occlusion or critical stenosis. Waveforms are normal. Left internal carotid artery: Moderate atherosclerotic plaque. No occlusion or stenosis. Waveforms are normal. Left ICA/CCA ratio: ICA/CCA PS 0.61 and ICA/CCA ED 0.91 Left external carotid artery: Prominent atherosclerotic plaque Left vertebral artery: Unremarkable. Antegrade flow. US/CV carotid duplex BI* [id number] IMPRESSION: No significant right carotid arterial stenosis. There is stenosis of the left common carotid artery measuring 52 69% with marked decrease in the velocity in the proximal to mid left common carotid artery and elevated ED ratio. REFERENCES: SRU CRITERIA. The degree of internal carotid artery stenosis is based on criteria defined by the Society of Radiologists in Ultrasound (SRU). Normal is no stenosis. Mild is less than 50% stenosis. Moderate is 50-69% stenosis. Severe is greater than 69% stenosis to near occlusion. Near occlusion is a markedly narrowed lumen. Total occlusion is no detectable patent lumen.
--- NOTE | 2021-11-02 18:04 | CTR_ITS ---
PROCEDURE INFORMATION: Exam: CT Lumbar Spine Without Contrast Exam date and time: 11/02/2021 6:23 PM Age: 76 years old Clinical indication: Weakness; Additional info: Syncope , neurogenic bladder TECHNIQUE: Imaging protocol: Computed tomography images of the lumbar spine without contrast. Radiation optimization: All CT scans at this facility use at least one of these dose optimization techniques: automated exposure control; mA and/or kV adjustment per patient size (includes targeted exams where dose is matched to clinical indication); or iterative reconstruction. COMPARISON: CT thoracic spin wo con* [id number] 11/02/2021 6:20 PM RADIATION DOSE METRICS: Total DLP (mGy-cm): 2221.59 FINDINGS: Vertebrae: There is no acute fracture. Moderate to severe diffuse facet degenerative changes are noted especially in the lower lumbar spine. There is disc space narrowing with vacuum disc and mild degenerative retrolisthesis of L 3 on L4. Discs/Spinal canal/Neural foramina: At L2-L3, there is a tiny disc bulge without significant stenosis. At L4-L5, there is a right paracentral disc protrusion resulting in moderate narrowing of the central canal and bilateral foraminal narrowing right greater than left accentuated by facet and ligamentum flavum hypertrophy. At L3-L4, there is less prominent mild to moderate narrowing of the central canal and symmetric moderate bilateral foraminal narrowing due to endplate osteophytes, small broad-based disc bulge and marked facet and ligamentum flavum hypertrophy. At L5-S1, there is a tiny disc bulge but no stenosis or significant foraminal narrowing. Kidneys and ureters: There is left nephrolithiasis. There is no evidence of hydronephrosis. Vasculature: The aorta demonstrates mild atherosclerotic calcification. Soft tissues: Unremarkable. CT/CT lumbar spine wo con* [id number] IMPRESSION: 1. At L4-L5, there is a right paracentral disc protrusion resulting in moderate narrowing of the central canal and bilateral foraminal narrowing right greater than left accentuated by facet and ligamentum flavum hypertrophy. 2. At L3-L4, there is less prominent mild to moderate narrowing of the central canal and symmetric moderate bilateral foraminal narrowing due to endplate osteophytes, small broad-based disc bulge and marked facet and ligamentum flavum hypertrophy. 3. Moderate degenerative changes. No acute bony abnormality.
--- NOTE | 2021-11-02 18:04 | USCV_ITS ---
Medardo Moreno Age: 76 Gender: M : 1945 Exam Date: 11/02/2021 19:56 Ordering Phys: Ismael Espinoza MD Technologist: Jhony Dickerson Exam Location: [facility] [place] Indication: syncope BP: 127 / 80 HR: 74 Rhythm: Sinus Technical Quality: Adequate MEASUREMENTS (Male / Female) Normal Values 2D ECHO LV Diastolic Diameter PLAX 3.0 cm 4.2 - 5.9 / 3.9 - 5.3 cm LV Systolic Diameter PLAX 2.0 cm IVS Diastolic Thickness 2.2 cm 0.6 - 1.0 / 0.6 - 0.9 cm IVS Systolic Thickness 2.6 cm LVPW Diastolic Thickness 1.3 cm 0.6 - 1.0 / 0.6 - 0.9 cm LVPW Systolic Thickness 1.8 cm LVOT Diameter 2.2 cm LV Ejection Fraction 2D Teich 57.9 % LV Ejection Fraction MOD 2C 62.0 % LV Ejection Fraction 2C AL 60.3 % LA Diameter 3.2 cm LA Width 4.7 cm LA Height 4.7 cm RA Width 4.6 cm RA Height 6.3 cm Aorta at Sinotubular Diameter 3.1 cm M-MODE Aortic Annulus Diameter 3.8 cm LA Ao Ratio MM 0.9 DOPPLER AV Peak Velocity 147.5 cm/s LVOT Peak Velocity 168.0 cm/s AV Area Cont Eq vti 3.1 cm squared AV Area Cont Eq pk 4.3 cm squared MV Area PHT 4.5 cm squared Mitral E to A Ratio 1.2 MV E' Velocity 36.5 cm/s Mitral E to MV E' Ratio 9.3 Mitral E to LV E' Lateral Ratio 6.7 Mitral E to LV E' Septal Ratio 15.9 Right Atrial Pressure 5.0 mmHg PV Peak Velocity 134.0 cm/s FINDINGS Left Ventricle Normal left ventricular size and systolic function, EF 60%. Moderate concentric left ventricular hypertrophy.Grade I/IV diastolic dysfunction (abnormal relaxation filling pattern), normal to mildly elevated filling pressures. Right Ventricle The right ventricle is normal in size and function. Right Atrium The right atrium is normal in size. Left Atrium Mildly increased left atrial size. Mitral Valve Thickened mitral valve. Aortic Valve Thickened aortic valve. Tricuspid Valve Tricuspid valve not well visualized. Pulmonic Valve Pulmonic valve not well visualized. Pericardium Normal pericardium without effusion. Aorta Normal ascending aorta dimension. CONCLUSIONS Normal left ventricular size and systolic function, EF 60%. Moderate concentric left ventricular hypertrophy.Grade I/IV diastolic dysfunction (abnormal relaxation filling pattern), normal to mildly elevated filling pressures. Minimally thickened aortic and mitral valves. There is no pericardial effusion. Technically difficult study because of the poor ultrasonic window. Dr Memo De Leon MD FACC (Electronically Signed) Final Date: 03 November 2021 14:44 S
[2021-11-02 18:08] LABS: Glucose Point of Care 334 mg/dL (70-110)
[2021-11-02 18:15] LABS: D Dimer 1.98 ug/mIFEU (0-0.59)
[2021-11-02] MEDS: insulin lispro 100 unit/1 mL SUBCUT (18:27)
[2021-11-02] MEDS: sodium polystyrene sulfonate 15 gm/60 mL Btl PO (19:24)
[2021-11-02] MEDS: sodium chloride 0.9% 1,000 ML 75 ML IV (19:33)
[2021-11-02 19:58] LABS: Estmated Average Glucose 220; Hemoglobin A1C 9.3 % (4.0-6.0)
[2021-11-02] MEDS: atorvastatin 40 mg Tablet 20 MG PO (20:03)
--- NOTE | 2021-11-02 20:13 | ECG_ITS ---
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 Measurements Intervals [place] Rate: 70 P: 22 IA: 142 QRS: 30 QRSD: 109 T: 83 QT: 367 QTc: 396 Interpretive Statements SINUS RHYTHM POSSIBLE LEFT ATRIAL ENLARGEMENT [-0.1mV P-WAVE IN V1/V2] NONSPECIFIC ST & T-WAVE ABNORMALITY Compared to ECG 11/02/2021 16:21:20 T-wave abnormality now present Electronically Signed On 11-02-2021 22:41:57 CDT by Sarbjit Kendrick M.D. [id number]
[2021-11-02 21:15] LABS: Glucose Point of Care 333 mg/dL (70-110)
[2021-11-02 21:41] LABS: Anion Gap 18.4 (5-19); Blood Urea Nitrogen 33 mg/dL (8-23); Calcium 9.3 mg/dL (8.5-10.5); Carbon Dioxide 24 mmol/L (22-29); Chloride 95 mmol/L (98-107); Glucose 296 mg/dL (65-115); Osmolality Calculated 294 mOsm/kg (285-295); Potassium 4.4 mmol/L (3.5-5.1); Sodium 133 mmol/L (136-145)
[2021-11-02 21:42] LABS: Troponin 5 6HR 19.33 ng/L (0-15)
[2021-11-02 21:49] LABS: Troponin 5 6HR Delta 1.33 ng/L (0-12)
[2021-11-03] VITALS (8 sets, daily range): BP systolic 121–161; BP diastolic 67–94; PULSE 62–91; RESP 16–17; TEMP 36.4–37.1; O2SAT 91–97
[2021-11-03] MEDS: acetaminophen 500 mg Tablet PO (04:26)
[2021-11-03 04:32] LABS: Add Urine Microscopic? YES; Bilirubin Urine Neg (Negative); Blood Urine Neg (Negative); Glucose Urine UA 4+ (Normal); Ketones Urine 1+ (Negative); Leukocyte Esterase Urine Negative (Negative); Nitrate Urine Negative (Negative); Protein Urine 1+ (Negative); Urine Appearance Clear (CLEAR); Urine Color Yellow (Yellow); Urobilinogen Urine Norm (Negative); pH Urine 5 (5-7)
[2021-11-03 04:33] LABS: Basophils % 0.2 %; Eosinophils % 0.1 %; Hematocrit 41.3 % (42.0-52.0); Hemoglobin 13.5 g/dL (11.7-16.6); Lymphocytes # 1.2 10^3/uL (0.8-4.8); Lymphocytes % 11.1 %; Mean Corpuscular HGB Conc 32.7 g/dL (30.0-36.0); Mean Corpuscular Hemoglobin 28.9 pg (28.0-34.0); Mean Corpuscular Volume 88.4 fl (80-94); Mean Platelet Volume 10.8 fL (7.4-10.4); Monocytes # 0.7 10^3/uL (0.2-0.9); Monocytes % 6.1 %; Neutrophils # 8.71 10^3/uL (1.8-7.7); Neutrophils % 82.1 %; Nucleated Red Blood Cells % 0 %; Platelet Count 198 10^3/cmm (130-400); Red Blood Count 4.67 10^6/uL (4.1-5.3); White Blood Count 10.6 10^3/uL (4.0-10.0)
[2021-11-03 04:37] LABS: Add Urine Culture? No; Bacteria Urine TRACE /hpf; Mucus Urine 4+ /hpf; RBC Urine 0-4 /hpf (0-2); Squamous Epithelial Cell Urine 0-4 /hpf (0-5); WBC Urine 0-4 /hpf (0-5)
[2021-11-03 04:51] LABS: Alanine Aminotransferase 10 U/L (0-41); Albumin Level 4.1 g/dL (3.5-5.2); Alkaline Phosphatase 74 IU/L (40-130); Anion Gap 15.1 (5-19); Aspartate Amino Transferase 12 U/L (0-40); Blood Urea Nitrogen 34 mg/dL (8-23); Calcium 9.2 mg/dL (8.5-10.5); Carbon Dioxide 26 mmol/L (22-29); Chloride 96 mmol/L (98-107); Globulin 2.2 g/dL (1.3-4.6); Glucose 336 mg/dL (65-115); Magnesium 1.9 mg/dL (1.7-2.3); Osmolality Calculated 295 mOsm/kg (285-295); Potassium 5.1 mmol/L (3.5-5.1); Sodium 132 mmol/L (136-145); Total Bilirubin 0.5 mg/dL (0.15-1.2); Total Protein 6.3 g/dL (6.6-8.7)
[2021-11-03] MEDS: aspirin 81 mg EC Tablet PO (05:12)
--- NOTE | 2021-11-03 05:32 | PC.NURSE ---
Patient AAOx4, elevated BP and asymptomatic, no c/o pain but once during shift to left shoulder which is a chronic pain. Patient OOB to bathroom with loose stools. No new events or concerns at this time. Room is clean and clutter free with call light in reach. Will report and handoff at shift change to oncoming nurse. Wallet locked in [employer] with cohen.
[2021-11-03] MEDS: sodium chloride 0.9% 1,000 ML 75 ML IV ×2 (06:34→20:30)
[2021-11-03 06:42] LABS: Glucose Point of Care 278 mg/dL (70-110)
[2021-11-03] MEDS: insulin lispro 100 unit/1 mL SUBCUT ×3 (08:55→17:25)
[2021-11-03 11:52] LABS: Glucose Point of Care 221 mg/dL (70-110)
--- NOTE | 2021-11-03 14:05 | P.PN_ITS ---
Subjective Subjective: CT scan findings reviewed, hemoglobin A1c 9.3, patient may need long-term insulin, D-dimer high, will do VQ scan once kidney function is slightly better, SCOTT improved with IV fluids Left-sided carotid disease will need outpatient evaluation by Dr. Harris, orthostatic positive Continue IV fluids Still having loose stools, check C. difficile, echo still pending Vitals/I&O/Wt Last Vital Signs Temp 98.5 F 11/03/21 11:34 Pulse 62 11/03/21 11:34 Resp 16 11/03/21 11:34 BP 125/76 11/03/21 11:34 Pulse Ox 93 11/03/21 11:34 11/02/21 11/03/21 11/03/21 22:59 06:59 14:59 Intake Total 200 / 200 946.25 / 1146.25 Output Total 200 / 200 Balance 200 / 200 746.25 / 946.25 Weight last 48 hrs Weight 117.39 kg Weight 117.934 kg Weight 127.006 kg Physical Exam Narrative: Patient was able to walk to the bathroom on his own without much assistance Romberg negative Nonfocal neuro exam Hydration status improved Abdomen soft S1, S2 EOMI, PERRLA Saturating well on room air at the bedside Data : 11/03/21 03:50 11/03/21 03:50 A&P Assessment and plan (1) Hyperkalemia: Status: Acute (2) SCOTT (acute kidney injury): Status: Acute (3) Syncope and collapse: Status: Acute (4) Other specified urinary incontinence: Status: Acute (5) BPH loc w urin obs/LUTS: Status: Acute Plan Syncopal event, orthostatic positive Continue IV fluid SCOTT: Improving with IV fluids, hyperkalemia: Treated Secondary to high D-dimer I would like to rule out PE, will request VQ scan on Friday, if creatinine is better might be able to pursue CTA chest Hemoglobin A1c 9.3, will need long-term insulin that he has recently started at home Sinus rhythm noted, no QTC prolongation Will need event monitor at the time of discharge No signs of cauda equina, patient did not retain urine overnight, bladder scan done twice, CT scan of spine noted, no significant changes noted other than osteoarthritis He is able to walk, no sensory abnormality, no signs of cauda equina Nonfocal neuro exam I do believe he does have underlying neuropathy which causes over distended bladder, overflow incontinence Diarrhea: Rule out C. difficile Patient is full code Consistent carb diet Echo report is still pending Patient will stay in the hospital until Friday for the VQ scan Attestations Medical Necessity Statement*: Continue hospitalization Time Spent in Patient Care: 30mins Coding Level of Care Code Acute Receptionist Secretary for Chg Fwd Diagnoses Hyperkalemia E87.5 SCOTT (acute kidney injury) N17.9 Syncope and collapse R55 Other specified urinary incontinence N39.498 BPH loc w urin obs/LUTS N40.1
[2021-11-03 16:35] LABS: Glucose Point of Care 189 mg/dL (70-110)
[2021-11-03] MEDS: atorvastatin 40 mg Tablet 20 MG PO (20:17)
[2021-11-04] VITALS (14 sets, daily range): BP systolic 94–175; BP diastolic 54–103; PULSE 58–115; RESP 13–24; TEMP 36.4–36.9; O2SAT 91–95
[2021-11-04 04:21] LABS: Anion Gap 14.3 (5-19); Blood Urea Nitrogen 24 mg/dL (8-23); Calcium 8.7 mg/dL (8.5-10.5); Carbon Dioxide 25 mmol/L (22-29); Chloride 104 mmol/L (98-107); Glucose 226 mg/dL (65-115); Osmolality Calculated 299 mOsm/kg (285-295); Potassium 4.3 mmol/L (3.5-5.1); Sodium 139 mmol/L (136-145)
[2021-11-04] MEDS: aspirin 81 mg EC Tablet PO (05:45)
--- NOTE | 2021-11-04 05:58 | PC.NURSE ---
PATIENT ENCOURAGED TO GET IN CHAIR THIS MORNING. VERBALIZED UNDERSTANDING AND STATED HE WOULD GET IN CHAIR ONCE HIS BREAKFAST ARRIVED.
[2021-11-04 06:45] LABS: Glucose Point of Care 224 mg/dL (70-110)
--- NOTE | 2021-11-04 07:28 | USR_ITS ---
PROCEDURE INFORMATION: Exam: US Duplex Lower Extremity Veins, Bilateral Exam date and time: 11/04/2021 7:43 AM Age: 76 years old Clinical indication: Other: Syncope with pe TECHNIQUE: Imaging protocol: Real-time Duplex ultrasound of the bilateral extremities with 2-D strong scale, color Doppler flow and spectral waveform analysis with image documentation. Complete exam focused on the bilateral lower extremity veins. COMPARISON: [facility] [place] Knees AP Standing 12/24/2018 11:17 AM FINDINGS: Right deep veins: Eccentric, echogenic debris noted within the right common femoral, proximal right superficial femoral vein, popliteal and peroneal calf veins. The mid and distal superficial femoral vein is occluded. Right superficial veins: Saphenofemoral junction is patent without thrombus. 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 Left deep veins: Eccentric, echogenic debris noted within the left common femoral through the superficial femoral, popliteal, and peroneal calf veins. Left superficial veins: Saphenofemoral junction is patent without thrombus. Soft tissues: Suspected Mays cyst in the right popliteal fossa measuring up to 2.8 cm in length. US/[place] [id number] IMPRESSION: 1. Nonocclusive thrombus within the right common femoral, proximal superficial femoral, and popliteal and peroneal calf veins. The mid and distal superficial femoral vein is occluded. The clot appears chronic. 2. Nonocclusive thrombus from the left common femoral vein through the superficial femoral vein, popliteal vein, and into the peroneal calf veins. This also appears chronic. 3. 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
--- NOTE | 2021-11-04 07:28 | CTR_ITS ---
PROCEDURE INFORMATION: Exam: CTA Chest With Contrast Exam date and time: 11/04/2021 9:53 AM Age: 76 years old Clinical indication: Syncope TECHNIQUE: Imaging protocol: Computed tomographic angiography of the chest with contrast. 3D rendering (Not supervised by radiologist): MIP and/or 3D reconstructed images were created by the technologist. Radiation optimization: All CT scans at this facility use at least one of these dose optimization techniques: automated exposure control; mA and/or kV adjustment per patient size (includes targeted exams where dose is matched to clinical indication); or iterative reconstruction. Contrast material: OMNI 350; Contrast volume: 80 ml; Contrast route: INTRAVENOUS (IV); COMPARISON: CR XR chest 1V portable [id number] 11/02/2021 2:27 PM RADIATION DOSE METRICS: Total DLP (mGy-cm): 562.83 FINDINGS: Pulmonary arteries: Assessment for pulmonary embolus is compromised by motion artifact. Small pulmonary embolus in a branch of the left pulmonary artery to the lingula. Aorta: There is aneurysmal dilatation of the ascending thoracic aorta measuring 5 cm. There is no gross evidence of rupture or dissection. Lungs: There is mild peribronchial wall thickening. Foci of subsegmental atelectasis in the lower lobes. Calcified granulomata in the left upper lobe. No pulmonary mass. Pleural spaces: No pleural effusion. No pneumothorax. Heart: Coronary arterial calcifications are noted. No pericardial effusion. Heart RV/LV ratio: The RV to LV ratio is Lymph nodes: A periportal lymph node measures 1.1 x 1.3 cm. There are calcified mediastinal and bilateral hilar lymph nodes. Diaphragm: No hiatal hernia. Spleen: The spleen is enlarged measuring at least 14.4 cm. Simple right hepatic cyst measuring 0.8 cm. Indeterminate right adrenal nodule measuring 2.3 cm. Simple right renal cyst measuring 3.2 cm. Nonobstructive right renal stone. Bones/joints: No acute fracture is identified. Soft tissues: Small fat containing diaphragmatic hernia on the left. CT/CT angio chest PE protcl [id number] IMPRESSION: 1. Assessment for pulmonary embolus is compromised by motion artifact. Small pulmonary embolus in a branch of the left pulmonary artery to the lingula. There is no evidence of right heart strain. 2. There is aneurysmal dilatation of the ascending thoracic aorta measuring 5 cm. There is no gross evidence of rupture or dissection. 3. There is mild peribronchial wall thickening; query viral infection/bronchitis, chronic bronchitis and/or asthma. 4. Splenomegaly with mild periportal lymphadenopathy. 5. Indeterminate right adrenal nodule. Recommend nonemergent MR abdomen to better characterize. 6. Nonobstructive right renal stone. 7. Small fat containing diaphragmatic hernia on the left. 8. Coronary artery disease. COMMENTS: Consistent with the [employer]'s Incidental Findings Committee white paper (J Am Yu Radiol 2018): Any incidental renal lesion less than 1 cm or classified as too small to characterize, or any incidental cystic renal lesion characterized as simple-appearing, is likely benign. No follow-up imaging is recommended for these lesions per consensus recommendations based on imaging criteria.
--- NOTE | 2021-11-04 07:31 | CTR_ITS ---
PROCEDURE INFORMATION: Exam: CT Angiography Head With Contrast, Arteriography Exam date and time: 11/04/2021 9:57 AM Age: 76 years old Clinical indication: Other: Syncope; Additional info: Syncope, can do with cta chest TECHNIQUE: Imaging protocol: Computed tomography angiography of the head with contrast. Exam focused on the arteries. 3D rendering (Not supervised by radiologist): MIP and/or 3D reconstructed images were created by the technologist. Radiation optimization: All CT scans at this facility use at least one of these dose optimization techniques: automated exposure control; mA and/or kV adjustment per patient size (includes targeted exams where dose is matched to clinical indication); or iterative reconstruction. Contrast material: OMNI 350; Contrast volume: 70 ml; Contrast route: INTRAVENOUS (IV); COMPARISON: 1. CT angio headneck* [id number] 06/12/2021 6:02 PM 2. US CV carotid duplex BI* [id number] 11/02/2021 7:26 PM RADIATION DOSE METRICS: Total DLP (mGy-cm): 2715.91 FINDINGS: ANTERIOR CIRCULATION: Right internal carotid artery: Unremarkable. Intracranial segment is patent with no significant stenosis. No aneurysm. Right middle cerebral artery: Unremarkable. No occlusion or significant stenosis. No aneurysm. Right anterior cerebral artery: Unremarkable. No occlusion or significant stenosis. No aneurysm. Left internal carotid artery: Unremarkable. Intracranial segment is patent with no significant stenosis. No aneurysm. Left middle cerebral artery: Unremarkable. No occlusion or significant stenosis. No aneurysm. Left anterior cerebral artery: Unremarkable. No occlusion or significant stenosis. No aneurysm. POSTERIOR CIRCULATION: Right vertebral artery: Unremarkable. No occlusion or significant stenosis. No aneurysm. Left vertebral artery: Unremarkable. No occlusion or significant stenosis. No aneurysm. Basilar artery: Unremarkable. No occlusion or significant stenosis. No aneurysm. Right posterior cerebral artery: Unremarkable. No occlusion or significant stenosis. No aneurysm. Left posterior cerebral artery: Unremarkable. No occlusion or significant stenosis. No aneurysm. Brain: Probable meningioma along the right frontal parafalcine region appears similar to prior and measures up to 1.2 cm. No evidence of acute large vascular territory ischemia by CT. No acute hemorrhage, mass effect or midline shift. Cerebral ventricles: Ventricular enlargement may reflect ex vacuo dilation, similar to prior. Bones/joints: Unremarkable. No acute fracture. Soft tissues: Unremarkable. PROCEDURE INFORMATION: Exam: CT Angiography Neck With Contrast Exam date and time: 11/04/2021 9:57 AM Age: 76 years old Clinical indication: Other: Syncope; Additional info: Syncope, can do with cta chest TECHNIQUE: Imaging protocol: Computed tomography angiography of the neck with contrast. 3D rendering (Not supervised by radiologist): MIP and/or 3D reconstructed images were created by the technologist. Radiation optimization: All CT scans at this facility use at least one of these dose optimization techniques: automated exposure control; mA and/or kV adjustment per patient size (includes targeted exams where dose is matched to clinical indication); or iterative reconstruction. Contrast material: OMNI 350; Contrast volume: 70 ml; Contrast route: INTRAVENOUS (IV); COMPARISON: 1. CT angio headneck* [id number] 06/12/2021 6:02 PM 2. US CV carotid duplex BI* [id number] 11/02/2021 7:26 PM RADIATION DOSE METRICS: Total DLP (mGy-cm): 2715.91 FINDINGS: Right common carotid artery: No stenosis. No dissection or occlusion. Right internal carotid artery: No stenosis of the extracranial segment. No dissection or occlusion. Right external carotid artery: No occlusion or stenosis of the origin. Left common carotid artery: No stenosis. No dissection or occlusion. Left internal carotid artery: No stenosis of the extracranial segment. No dissection or occlusion. Left external carotid artery: No occlusion or stenosis of the origin. Right vertebral artery: No stenosis. No dissection or occlusion. Left vertebral artery: Mild luminal irregularity of the left V3 segment appears similar to 06/12/2021 and may reflect changes of atherosclerotic disease versus a chronic dissection. There is no significant stenosis, occlusion or aneurysm. Soft tissues: Normal. No significant soft tissue swelling. Bones/joints: No acute fracture. Lungs: Calcified granulomas are seen in the lungs bilaterally. CT/CT angio headneck* [id number] IMPRESSION: No large vessel stenosis or occlusion. IMPRESSION: No significant stenosis or occlusion. REFERENCES: NASCET CRITERIA. The degree of internal carotid artery stenosis is based on NASCET criteria. Normal is no stenosis. Mild is less than 50% stenosis. Moderate is 50-69% stenosis. Severe is 70% to 99% stenosis. Total occlusion is no detectable patent lumen.
[2021-11-04] MEDS: lisinopril 10 mg Tablet PO (07:56)
[2021-11-04] MEDS: insulin lispro 100 unit/1 mL SUBCUT ×3 (07:56→17:31)
[2021-11-04 08:44] LABS: Glucose Point of Care 228 mg/dL (70-110)
--- NOTE | 2021-11-04 09:27 | PM.PN ---
Subjective Subjective: This morning venous Doppler revealed bilateral DVT I have requested CTA chest, echo is showing grade 1 diastolic dysfunction, no signs of AAS, EF 60% No syncope. Patient is not endorsing any complaints Laying supine On room air Hypertensive, he was taking lisinopril secondary to high creatinine, add lisinopril today We will give IV push of hydralazine Bradycardia noted overnight Patient was orthostatic positive Patient has been able to void on his own No urine retention Vitals/I&O/Wt Last Vital Signs Temp 97.9 F 11/04/21 07:18 Pulse 58 L 11/04/21 07:18 Resp 16 11/04/21 07:18 BP 175/103 11/04/21 07:18 Pulse Ox 93 11/04/21 07:18 11/03/21 11/04/21 11/04/21 22:59 06:59 14:59 Intake Total 1050 / 1050 Output Total 450 / 450 Balance 1050 / 1050 -450 / 600 Weight last 48 hrs Weight 117.39 kg Weight 117.934 kg Weight 127.006 kg Physical Exam Narrative: Patient is pleasant and cooperative Nonfocal neuro exam Bilateral lower extremity trace edema Right-sided popliteal aneurysm Looks euvolemic otherwise Abdomen soft S1, S2 Saturating well on room air Nonfocal neuro exam Data : 11/03/21 03:50 11/04/21 02:58 A&P Assessment and plan (1) Hyperkalemia: Status: Acute (2) SCOTT (acute kidney injury): Status: Acute (3) Syncope and collapse: Status: Acute (4) Other specified urinary incontinence: Status: Acute (5) BPH loc w urin obs/LUTS: Status: Acute (6) DVT (deep venous thrombosis): Status: Acute (7) Carotid arterial disease: Status: Acute (8) Popliteal aneurysm: Status: Acute Plan 76-year-old male who presented to hospital after 1 syncopal event, patient was playing pool with his friends, fell on the floor, no seizure-like activity,, he was orthostatic positive, dehydrated, SCOTT improved with IV fluid hydration has been diagnosed with DVT on 11/04, requested venous Doppler and CTA because of high D-dimer, echo did not show any aortic stenosis or remarkable findings other than EF 60% grade 1 diastolic function Syncopal event Related to dehydration Rule out PE Positive bilateral DVT No arrhythmia noted on telemetry Isolated findings of bradycardia, sinus bradycardia, He is not on any AV germán blocking agent Bradycardia could be related to vagal tone overnight Will need event monitor at the time of discharge He was orthostatic positive Bilateral DVT Sedentary lifestyle Start Eliquis 10 mg twice daily loading dose for 7 days then 5 mg twice daily for at least 3 months, he will need outpatient reevaluation after 3 months Rule out PE, CTA chest requested SCOTT: Improved with IV fluids Started lisinopril today Hypertensive: Hydralazine IV as needed, started lisinopril, discontinue IV fluids which most likely is the cause of hypertension, avoid AV germán blocking agent, at the time of discharge we can continue his lisinopril, may add hydralazine BPH Follows with Dr. España Diabetic neuropathy which results in over distended bladder sometimes No signs of cauda equina Lumbar spine unremarkable Did not retain urine during hospitalization, bladder scan unremarkable Patient has been having diarrhea As per the he drinks 1 gallon of milk every day, patient counseled, less likely to be C. difficile Arterial disease: Popliteal and carotid disease We will need outpatient evaluation by Dr. Harris for carotid disease and popliteal aneurysm Dimensions of aneurysms are large, and now we are starting on Eliquis, will need closer follow-up plan with Dr. Harris Blood pressure control, Poorly controlled type 2 diabetes recently started insulin as per his , hemoglobin A1c is 9.3 Has been hyperglycemic here, he might need to increase long-acting insulin dose to 30 units Full code Cardiac diet Attestations Medical Necessity Statement*: Discharge on Friday if stable Time Spent in Patient Care: 30mins Coding Level of Care Code Acute Oracle Data Warehouse Developer for Chg Fwd Diagnoses Hyperkalemia E87.5 SCOTT (acute kidney injury) N17.9 Syncope and collapse R55 Other specified urinary incontinence N39.498 BPH loc w urin obs/LUTS N40.1 DVT (deep venous thrombosis) I82.409 Carotid arterial disease I77.9 Popliteal aneurysm I72.4
[2021-11-04] MEDS: iohexol 350 mg/mL 100 mL Btl IV ×2 (10:02→10:04)
[2021-11-04] MEDS: apixaban 5 mg Tablet 10 MG PO (10:03)
[2021-11-04] MEDS: NON-FORMULARY MEDICATION (Insulin Degludec [Tresiba Flextouch U-200] 200 unit/mL (3 mL) in 26 EACH SUBCUT (10:04)
--- NOTE | 2021-11-04 10:05 | PC.NURSE ---
back from CT
[2021-11-04] MEDS: isosorbide mononitrate ER 30 mg Tablet PO (10:24)
--- NOTE | 2021-11-04 11:37 | PC.NURSE ---
Patient transferred to [facility] room 108. Report called and then moved to room by this nurse and the tech. All personal items sent with gathered and sent with patient
[2021-11-04 12:10] LABS: Glucose Point of Care 232 mg/dL (70-110)
--- NOTE | 2021-11-04 15:42 | PC.NURSE ---
Counted money in wallet it RN from med surg. Patient has $276 in his wallet. Wallet was placed in pyxis in CSU med room.
[2021-11-04 17:14] LABS: Glucose Point of Care 250 mg/dL (70-110)
[2021-11-04 19:40] LABS: Glucose Point of Care 255 mg/dL (70-110)
[2021-11-04] MEDS: atorvastatin 40 mg Tablet 20 MG PO (21:17)
[2021-11-04] MEDS: enoxaparin 120 mg/0.8 mL Syringe SUBCUT (21:18)
[2021-11-05] VITALS (11 sets, daily range): BP systolic 134–161; BP diastolic 82–101; PULSE 61–111; RESP 12–26; TEMP 36.3–36.6; O2SAT 92–95
[2021-11-05] MEDS: acetaminophen 500 mg Tablet PO (03:00)
[2021-11-05 04:18] LABS: Basophils # 0.1 10^3/uL (0.0-0.1); Basophils % 0.6 %; Eosinophils # 0.2 10^3/uL (0.0-0.8); Eosinophils % 1.8 %; Hematocrit 36.9 % (42.0-52.0); Hemoglobin 12.3 g/dL (11.7-16.6); Lymphocytes # 1.9 10^3/uL (0.8-4.8); Lymphocytes % 22.6 %; Mean Corpuscular HGB Conc 33.3 g/dL (30.0-36.0); Mean Corpuscular Hemoglobin 29.7 pg (28.0-34.0); Mean Corpuscular Volume 89.1 fl (80-94); Mean Platelet Volume 11.2 fL (7.4-10.4); Monocytes # 0.7 10^3/uL (0.2-0.9); Monocytes % 7.6 %; Neutrophils # 5.71 10^3/uL (1.8-7.7); Neutrophils % 66.9 %; Nucleated Red Blood Cells % 0 %; Platelet Count 146 10^3/cmm (130-400); Red Blood Count 4.14 10^6/uL (4.1-5.3); Red Cell Distribution Width 13.9 % (12.1-15.1); White Blood Count 8.5 10^3/uL (4.0-10.0)
[2021-11-05 04:36] LABS: Blood Urea Nitrogen 24 mg/dL (8-23); Calcium 8.7 mg/dL (8.5-10.5); Carbon Dioxide 26 mmol/L (22-29); Chloride 101 mmol/L (98-107); Glucose 199 mg/dL (65-115); Osmolality Calculated 292 mOsm/kg (285-295); Sodium 136 mmol/L (136-145)
[2021-11-05 06:21] LABS: Glucose Point of Care 221 mg/dL (70-110)
[2021-11-05] MEDS: insulin lispro 100 unit/1 mL SUBCUT ×3 (07:51→17:30)
[2021-11-05] MEDS: clopidogrel 75 mg Tablet PO (07:52)
[2021-11-05] MEDS: isosorbide mononitrate ER 30 mg Tablet PO (07:52)
[2021-11-05] MEDS: lisinopril 10 mg Tablet PO ×2 (07:52→20:14)
[2021-11-05] MEDS: NON-FORMULARY MEDICATION (Insulin Degludec [Tresiba Flextouch U-200] 200 unit/mL (3 mL) in 26 EACH SUBCUT (09:32)
[2021-11-05] MEDS: enoxaparin 120 mg/0.8 mL Syringe SUBCUT ×2 (09:33→20:14)
--- NOTE | 2021-11-05 09:55 | PC.CHAP ---
Pastoral Care Encounter/Spiritual Assessment Type of Contact [] Declined service desk associate visit [] Patient/Family/Request visit [] Outpatient visit [] Follow-up visit [] Physician referral [] Code/Alert [x] Routine visit [] Staff referral [] Actively dying [] Patient sleeping [] Family support [] [] Out of room [] Palliative care [] [x] Receiving care in room [] Pre-surgical visit [] Trauma [] Long length of stay [] ICU visit [] Other: Relational/Emotional Strength [] Patient feels connected with others/family/visitors/staff [] Distress [] Loneliness/isolation [] Abandonment Spirituality of Patient [] Person of Mary [] Attends Yarsanism of their Mary [] Believes in Prayer [] Reads Bible or Baptist materials [] There are Spiritual issues to be addressed Veterinary Practitioner Interventions [x] Prayer [] Active listening [] Non-anxious presence [] Spiritual/emotional support [] Crisis/trauma care [] Spiritual counseling [] Bereavement support [] Provided bereavement packet [] Provided Bible/devotional materials [] Provided toy/stuffed animal, coloring book to patient or family member [] Provided Communion [] Anointing/[place] [] Salvation [x] Completed spiritual assessment [] Other: Impact on Illness or Injury [] Angry [] Fearful [] Anxious [] Often cries [] Exhaustion [] Unable to work [] Unable to attend druze [] Unable to walk/stand [] Unable to read [] Unable to drive [] Unable to eat/drink [] Unable to sleep [] Unable to be with family [] Patient intubated [] Other: Summary Time spent with patient
--- NOTE | 2021-11-05 10:29 | CT_ITS ---
WS: [id number] CT ABDOMEN AND PELVIS WITH CONTRAST HISTORY: rule out malignancy, Pt has PE, DVT, TECHNIQUE: Imaging performed of the abdomen and pelvis with IV contrast. Single phase imaging of the abdomen. Coronal and sagittal reformats are submitted. All CT scans at [facility] use at [address] one of these dose optimization techniques: automated exposure control; mA and/or kV adjustment per patient size (includes targeted exams where dose is matched to clinical indication); or iterative re construction. IV CONTRAST: Omnipaque 300; 95 mL IV. Oral contrast: No DLP: 2109.29 mGy.cm COMPARISON: CT thoracic spine 11/02/2021 Lower thorax: LEFT Bochdalek hernia. There is omental fat in the posterior LEFT thorax with adjacent minimal atelectasis. Heart is normal size. No hiatal hernia. Liver/biliary system: 9 mm area of decreased attenuation in the superior RIGHT liver just beneath the diaphragm. 2 small to characterize completely. No additional abnormalities. Portal vein is normal. Gallbladder: Normal. No gallstones or wall thickening. No pericholecystic fluid. Pancreas: Normal size pancreas and pancreatic duct. No adjacent inflammation. Spleen: Normal size spleen. No mass or infarct. Adrenal glands: Well-circumscribed nodule RIGHT adrenal gland measures 18 x 14 mm. Hounsfield units a re very slightly elevated. With no history of malignancy this is probably an adenoma. LEFT adrenal gl and is normal. Right kidney: Exophytic cyst upper pole extends posterior measures 3.1 x 2.3 cm. Very minimal perinep hric stranding. No obstruction. Left kidney: Mild perinephric stranding with no obstruction. Aorta: Mild atherosclerosis with no aneurysm. Limited enhancement and opacification of the celiac axi s and SMA. No filling defect identified. IVC: There is mixed enhancement within the infrarenal IVC. Area of decreased enhancement extends into the IVC bifurcation and the LEFT common and external iliac arteries. Lymphadenopathy: None. Free fluid: None. GI tract: Nondistended stomach. No small bowel obstruction. Mild variable density within the lumen of the proximal small bowel. Very nonspecific. No obstructive pattern. The appendix is not definitely i dentified. No inflammatory changes. Mild tortuosity of the distal colon and fecal retention. Abdominal wall: Fat containing umbilical hernia. Pelvis: Moderately enlarged prostate gland extends over length of 5.4 cm x 5.8 x 4.0 cm with central calcifications. There is encroachment into the urinary bladder. Diffuse bladder wall thickening with a small diverticulum at the apex measuring 13 mm. There is high density contrast filling the urinary bladder which is from the contrast injection on 11/04/2021. Bones: Mild straightening of the normal lumbar lordosis. Disc space narrowing and osteophytosis. Bone island in the RIGHT femoral neck. CT/CT abdomen pelvis w con* [id number] IMPRESSION: 1. LEFT Bochdalek hernia. 2. Highly suspicious for thrombus partially occluding the infrarenal IVC with extension into the LEFT common iliac artery and probably within the LEFT [employer] passenger train al iliac artery. 3. Low-attenuation, too small to characterize 9 mm lesion in the liver. May be a very small hepatic cysts. Early metastatic lesion would appear similar. 4. RIGHT adrenal mass measures 1.8 x 1.4 cm. With no history of malignancy thi s is statistically benign. 5. No pancreatic mass. 6. RIGHT renal cyst. 7. Prostate gland enlargement and heterogeneity with encroachment into the bas e of the urinary bladder. 8. Small bladder diverticulum at the bladder apex with diffuse bladder wall th ickening. No focal thickening. Probably due to partial outlet obstruction. 9. No splenomegaly. 10. No ascites or adenopathy.
--- NOTE | 2021-11-05 10:31 | P.PN_ITS ---
Subjective Subjective: Patient was seen and examined this morning. He appears in good spirits. Denies any shortness of breath, chest pain, nausea, vomiting. Patient's mother had pancreatic cancer. Patient does have a small pulmonary embolism and bilateral DVT as evidenced on venous Dopplers. There is also presence of large popliteal aneurysm and aortic thoracic aneurysm. Blood pressure 145/98 early this morning. Vitals/I&O/Wt Last Vital Signs Temp 97.8 F 11/05/21 07:38 Pulse 70 11/05/21 08:35 Resp 16 11/05/21 08:35 BP 145/98 11/05/21 07:38 Pulse Ox 93 11/05/21 08:35 11/04/21 11/05/21 11/05/21 22:59 06:59 14:59 Intake Total 480 / 720 0 / 720 236 / 236 Output Total 150 / 150 650 / 800 Balance 330 / 570 -650 / -80 236 / 236 Physical Exam Narrative: General: Alert oriented x3, patient seen sitting up in bed appearing comfortable, large obese male. HEENT:EOMI, breathing normally. Cardio: Regular rate rhythm, normal S1-S2, no gross murmurs Respiratory: Good bilateral air entry, no wheezes no rhonchi appreciated GI: Abdomen soft, nontender, bowel sounds present, obese abdomen Behavior: Appropriate and cooperative Extremities: Trace edema Data : 11/05/21 02:52 11/05/21 02:52 A&P Assessment and plan (1) Popliteal aneurysm: Status: Acute (2) Carotid arterial disease: Status: Acute (3) DVT (deep venous thrombosis): Status: Acute (4) Hyperkalemia: Status: Acute (5) SCOTT (acute kidney injury): Status: Acute (6) Syncope and collapse: Status: Acute (7) Other specified urinary incontinence: Status: Acute (8) BPH loc w urin obs/LUTS: Status: Acute Plan 76-year-old male who presented to hospital after 1 syncopal event, patient was playing pool with his friends, fell on the floor, no seizure-like activity,, he was orthostatic positive, dehydrated, SCOTT improved with IV fluid hydration has been diagnosed with DVT on 11/04, requested venous Doppler and CTA because of high D-dimer, echo did not show any aortic stenosis or remarkable findings other than EF 60% grade 1 diastolic function #Syncopal event #Bilateral DVT #Acute kidney injury?resolved #BPH?follows with Dr. 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 ?Patient has not experienced any syncope while in the hospital and this could very well be related to dehydration. ?He does have a small PE and branch of left pulmonary artery to the lingula, popliteal artery aneurysm. ?He has been started on Lovenox full dose twice daily. Will transition to Eliquis at discharge. ?Overnight bradycardia was noted in previous days. Patient will be requiring an event monitor at discharge ?Orthostatic positive on admission which is now resolved. ?He has also been hypertensive during hospital stay. IV fluids were discon tinued yesterday. Lisinopril was added. This morning he was again hypertensive but had not had his morning lisinopril yet. Will monitor blood pressure for now. ?SCOTT improved with fluids. -Diarrhea reported on admission has also resolved at this point. ?Continue insulin for diabetes. He will need close follow-up with primary care physician for optimization of his diabetes regimen. ?I will consult Dr. Harris for patient's arterial disease. -Patient has a family history of pancreatic cancer. His mother had it. Patient also has report of splenomegaly on CT chest. I will order CT abdomen with contrast to rule out abdominal pathology given his presentation of bilateral DVT, PE and family history. ?Patient was updated at bedside. Full code Cardiac diet Attestations Medical Necessity Statement*: Requires cardiothoracic consultation blood pressure regimen optimization. Expected to stay another 24 hours. Time Spent in Patient Care: 20 Coding Level of Care Code Established Pt Acute Russian Language Instructor for Chg Fwd Patient Type Established Exam Expanded Problem Focused Diagnoses Popliteal aneurysm I72.4 Carotid arterial disease I77.9 DVT (deep venous thrombosis) I82.409 Hyperkalemia E87.5 SCOTT (acute kidney injury) N17.9 Syncope and collapse R55 Other specified urinary incontinence N39.498 BPH loc w urin obs/LUTS N40.1 Time Spent (min) 25
[2021-11-05] MEDS: iohexol 300 mg/mL 100 mL Btl IV (11:09)
[2021-11-05 11:38] LABS: Glucose Point of Care 234 mg/dL (70-110)
--- NOTE | 2021-11-05 15:59 | PC.NURSE ---
Physician Orders Discontinue Q4h bladder scan and straight cath
--- NOTE | 2021-11-05 16:13 | PC.NURSE ---
unable to measure rest of urine output, accidentally spilled urinal prior to measuring.
[2021-11-05 16:18] LABS: Glucose Point of Care 143 mg/dL (70-110)
[2021-11-05] MEDS: chlorthalidone 25 mg Tablet 12.5 MG PO (20:13)
[2021-11-05] MEDS: atorvastatin 40 mg Tablet 20 MG PO (20:14)
[2021-11-05 20:15] LABS: Glucose Point of Care 180 mg/dL (70-110)
[2021-11-05] MEDS: LORazepam 2 mg/mL INJ 1 mL 0.5 MG IVP (20:15)
[2021-11-06] VITALS (15 sets, daily range): BP systolic 104–170; BP diastolic 66–117; PULSE 59–75; RESP 14–24; TEMP 36.6–37.1; O2SAT 20–95
[2021-11-06] MEDS: labetalol 5 mg/mL SDV 20mL 10 MG IVP (02:06)
[2021-11-06] MEDS: acetaminophen 500 mg Tablet PO (02:13)
[2021-11-06] MEDS: hyDRALAzine 20 mg/mL INJ 1 mL 10 MG IVP (03:54)
--- NOTE | 2021-11-06 04:23 | PC.NURSE ---
Pt incontinent of urine. Pt cleaned, dried and changed. Bed linens changed. Pt now lying in bed resting with eyes closed. No c/o pain or discomfort at the present time. No needs voiced. Call light in reach.
[2021-11-06 05:00] LABS: Basophils % 0.4 %; Eosinophils # 0.1 10^3/uL (0.0-0.8); Eosinophils % 1.2 %; Hematocrit 38.8 % (42.0-52.0); Hemoglobin 12.9 g/dL (11.7-16.6); Lymphocytes # 1.3 10^3/uL (0.8-4.8); Lymphocytes % 15.5 %; Mean Corpuscular HGB Conc 33.2 g/dL (30.0-36.0); Mean Corpuscular Hemoglobin 29.5 pg (28.0-34.0); Mean Corpuscular Volume 88.8 fl (80-94); Mean Platelet Volume 10.2 fL (7.4-10.4); Monocytes # 0.7 10^3/uL (0.2-0.9); Monocytes % 7.9 %; Neutrophils # 6.19 10^3/uL (1.8-7.7); Neutrophils % 74.6 %; Nucleated Red Blood Cells % 0 %; Platelet Count 177 10^3/cmm (130-400); Red Blood Count 4.37 10^6/uL (4.1-5.3); Red Cell Distribution Width 13.7 % (12.1-15.1); White Blood Count 8.3 10^3/uL (4.0-10.0)
--- NOTE | 2021-11-06 05:10 | PC.NURSE ---
Unable to measure urine output. Patient had incontinent episode in bed.
[2021-11-06 05:23] LABS: Anion Gap 12.9 (5-19); Blood Urea Nitrogen 15 mg/dL (8-23); Calcium 9.1 mg/dL (8.5-10.5); Carbon Dioxide 24 mmol/L (22-29); Chloride 102 mmol/L (98-107); Glucose 175 mg/dL (65-115); Magnesium 2.1 mg/dL (1.7-2.3); Osmolality Calculated 285 mOsm/kg (285-295); Potassium 3.9 mmol/L (3.5-5.1); Sodium 135 mmol/L (136-145)
--- NOTE | 2021-11-06 05:35 | PC.NURSE ---
Dr. Walker notified that blood pressure lowered for short period of time after receiving IV Hydralazine. Notified that blood pressure is currently back up to 187/104. Ordered to give 0900 PO blood pressure medications now.
[2021-11-06] MEDS: chlorthalidone 25 mg Tablet PO (05:45)
[2021-11-06] MEDS: isosorbide mononitrate ER 30 mg Tablet PO (05:46)
[2021-11-06] MEDS: lisinopril 20 mg Tablet PO ×2 (05:46→17:12)
--- NOTE | 2021-11-06 06:09 | P.CONIM_ITS ---
Providers/Reason For Consult Consulting Physician/Specialty*: Dr. Harris/cardiothoracic surgery Reason for Consult*: 1. Ascending aortic aneurysm 2. Right popliteal artery aneurysm #3. Syncopal episode #4. DVT #5. Segmental PE Requesting Physician: Dr. Cartagena Attending Physician: Pilar Cartagena MD Primary Care Provider: Ramón Dean DO History of Present Illness History of Present Illness Medardo Moreno is a 76 year old male with a long history of diabetes mellitus. He was admitted after presenting to the emergency department on November 02 with a syncopal episode while playing billiards. This was witnessed and lasted appr oximately 30 seconds. There were no focal or localizing signs reported. No nausea/vomiting, chest pain, dyspnea, or visual disturbances. Upon evaluation by Dr. Camp from our emergency room department upon presentation, he was alert and oriented. He did complain of fatigue and malaise. He was noted to have some acute kidney injury as documented by a BUN of 26 and creatinine 1.3 which was not his normal baseline. He also had mild hyperkalemia at 5.6. Initial evaluation including CT scan of the head was negative for acute findings, hemorrhage/infarction. Chest x-ray was clear. He was subcu admitted for further evaluation and hydration. His evaluation has included a venous duplex study of November 04 which revealed: 1. Nonocclusive thrombus within the right common femoral, proximal superficial femoral, and popliteal and peroneal calf veins. The mid and distal superficial femoral vein is occluded. The clot appears chronic. 2. Nonocclusive thrombus from the left common femoral vein through the superficial femoral vein, popliteal vein, and into the peroneal calf veins. This also appears chronic. 3. 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 Transthoracic echo of November 02 reveals preserved LV function with thickened aortic valve but no substantial aortic insufficiency noted. Carotid duplex study of November 02 revealed normal ICA/CCA ratios on both sides though there was suggestion of left common carotid artery stenosis of 50/69%. This was not described on the CTA of the chest. Chest CTA of November 04 revealed: 1. Assessment for pulmonary embolus is compromised by motion artifact. Small pulmonary embolus in a branch of the left pulmonary artery to the lingula. There is no evidence of right heart strain. 2. There is aneurysmal dilatation of the ascending thoracic aorta measuring 5 cm. There is no gross evidence of rupture or dissection. 3. There is mild peribronchial wall thickening; query viral infection/bronchitis, chronic bronchitis and/or asthma. 4. Splenomegaly with mild periportal lymphadenopathy. 5. Indeterminate right adrenal nodule. Recommend nonemergent MR abdomen to better characterize. 6. Nonobstructive right renal stone. 7. Small fat containing diaphragmatic hernia on the left. 8. Coronary artery disease Head/neck CTA of November 04 demonstrated no significant stenoses of the common or extracranial carotid arteries on either side. Vertebral arteries were unremarkable as was the right and left posterior cerebral arteries and basilar arteries. Also unremarkable including the middle cerebral and anterior cerebral arteries and the intracranial carotid arteries. Anterior circulation was also u nremarkable Abdomen/pelvis CT scan of November 05 noted: . 1.? LEFT Bochdalek hernia. 2.? Highly suspicious for thrombus partially occluding the infrarenal IVC with extension into the LEFT common iliac artery and probably within the LEFT external iliac artery. 3.? Low-attenuation, too small to characterize 9 mm lesion in the liver. May be a very small hepatic cysts. Early metastatic lesion would appear similar. 4.? RIGHT adrenal mass measures 1.8 x 1.4 cm. With no history of malignancy this is? statistically benign. 5.? No pancreatic mass. 6.? RIGHT renal cyst. 7.? Prostate gland enlargement and heterogeneity with encroachment into the base of the urinary bladder. 8.? Small bladder diverticulum at the bladder apex with diffuse bladder wall thickening. No focal thickening. Probably due to partial outlet obstruction. 9.? No splenomegaly. 10.? No ascites or adenopathy. ? I believe there is a misprint on the report of the abdomen/pelvis CT scan does have thrombus of the infrarenal IVC I believe extends into the left common iliac vein and left external iliac vein (not artery) Renal function has normalized since admission. He currently is on 1120 mg subcu every 12 hours. Work continues to normalize and stabilize his blood pressure, currently being on lisinopril, labetalol as needed, hydralazine as needed, nicardipine as needed and chlorthalidone. Patient was not tentatively plan for discharge yesterday, though he and his son elected to wait until they could speak with me concerning the ascending aortic aneurysm and popliteal artery aneurysm. Mr. Moreno was asleep on my morning rounds. I will return later this morning when he is awake and hopefully his son is present. Medications/Allergies Home Medications Medication Instructions Recorded Confirmed Last Taken Type aspirin 81 mg tablet,delayed 81 mg PO QAM 11/02/21 11/02/21 11/02/21 10:00 History release atorvastatin 20 mg tablet 20 mg PO BEDTIME 11/02/21 11/02/21 11/01/21 History insulin degludec 200 unit/mL (3 26 unit SUBCUT DAILY 11/02/21 11/02/21 11/01/21 History mL) subcutaneous pen ([facility] FlexTouch U-200 insulin) comment lisinopril 20 mg tablet 20 mg PO QAM 11/02/21 11/02/21 11/02/21 10:00 History metformin 500 mg tablet,extended 1,000 mg PO BID 11/02/21 11/02/21 11/02/21 10:00 History release 24 hr Allergies Allergy/AdvReac Type Severity Reaction Status Date / Time No Known Allergies Allergy Verified 11/02/21 14:46 Current Medications Generic Name Dose Route Start Last Admin Trade Name Freq PRN Reason Stop Dose Admin Acetaminophen 500 mg 11/02/21 18:04 11/06/21 02:13 Acetaminophen 500 Mg Tablet PO 500 mg Q4H PRN Administration fever Atorvastatin Calcium 20 mg 11/02/21 21:00 11/05/21 20:14 Atorvastatin 40 Mg Tablet PO 20 mg BEDTIME LYNNETTE Administration Chlorthalidone 25 mg 11/06/21 09:00 11/06/21 05:45 Chlorthalidone 25 Mg Tablet PO 25 mg DAILY LYNNETTE Administration Enoxaparin Sodium 120 mg 11/04/21 22:00 11/05/21 20:14 Enoxaparin 120 Mg/0.8 Ml Syringe SUBCUT 120 mg Q12H LYNNETTE Administration Hydralazine HCl 10 mg 11/06/21 03:38 11/06/21 03:54 Hydralazine 20 Mg/Ml Inj 1 Ml IVP 10 mg Q4H PRN Administration HYPERTENSION Insulin Human Lispro 0 unit 11/02/21 18:04 11/05/21 17:30 Insulin Lispro 100 Unit/1 Ml SUBCUT 2 unit TIDWM LYNNETTE Administration Protocol Isosorbide Mononitrate 30 mg 11/04/21 09:40 11/06/21 05:46 Isosorbide Mononitrate Er 30 Mg Tablet PO 30 mg DAILY LYNNETTE Administration Labetalol HCl 10 mg 11/04/21 09:45 11/06/21 02:06 Labetalol 5 Mg/Ml Sdv 20ml IVP 10 mg Q4H PRN Administration bp >170/100 Lisinopril 20 mg 11/06/21 09:00 11/06/21 05:46 Lisinopril 20 Mg Tablet PO 20 mg BID LYNNETTE Administration Lorazepam 0.5 mg 11/05/21 17:55 11/05/21 20:15 Lorazepam 2 Mg/Ml Inj 1 Ml IVP 0.5 mg Q4H PRN Administration ANXIETY Non-Formulary Medication 26 unit 11/03/21 09:00 11/05/21 09:32 Insulin Degludec [Tresiba Flextouch U-200] SUBCUT 26 unit DAILY LYNNETTE Administration PFSH Acute PFSH: Medical History Acute lower UTI BPH loc w urin obs/LUTS Diabetes Gait instability Microhematuria Neurogenic bladder Other specified urinary incontinence Surgical History S/P tonsillectomy Family History Father , 60 Hypertension CAD (coronary artery disease) Mother Cancer Social History Smoking and tobacco status: current some day smoker cigars Alcohol intake: never Marital status: Vitals/I&O/Wt Last Vital Signs Temp 97.9 F 11/06/21 03:16 Pulse 64 11/06/21 04:23 Resp 23 H 11/06/21 03:16 BP 145/89 11/06/21 03:16 Pulse Ox 90 11/06/21 03:16 11/05/21 11/05/21 11/06/21 14:59 22:59 06:59 Intake Total 956 / 956 290 / 1246 100 / 1346 Output Total 300 / 300 175 / 475 250 / 725 Balance 656 / 656 115 / 771 -150 / 621 Physical Exam Const: COMMON NORMALS: patient oriented x3 HENMT: COMMON NORMALS: normocephalic, atraumatic, hearing grossly normal bilaterally and external ears normal HEAD & SCALP: normocephalic and atraumatic EXTERNAL EAR: Yes external ears normal Eye: COMMON NORMALS: Equal, round and reactive pupils present, EOMs intact bilaterally and no scleral icterus PUPIL: Yes Equal, round and reactive pupils present Neck/C-Spine: COMMON NORMALS: full ROM Resp: COMMON NORMALS: normal respiratory effort, No retractions and No use of accessory muscles GI: INSPECTION: Yes central obesity Extremity: NARRATIVE EXTREMITY EXAM: 1+ bilateral pretibial edema Neuro: COMMON NORMALS: patient oriented x3, moves all extremities, no focal motor deficits and no sensory deficits noted Psych: COMMON NORMALS: mental status grossly normal, Normal thought process present and speech normal SPEECH: Yes normal speech THOUGHT PROCESS: Normal thought process present Data : 11/06/21 04:24 11/06/21 04:24 A&P Assessment and plan (1) Ascending aortic aneurysm: We can continue follow-up of the ascending aortic aneurysm on outpatient basis. In the interim, he will need consistent and meticulous blood pressure control. I have recommended that he keep a blood pressure diary at home with daily recordings to be reviewed with his primary care provider, Dr. Dean. He will also need continued anticoagulation related to his bilateral DVTs, left segmental lingular pulmonary embolism, and potential inferior vena cava thrombus. We can discuss further on outpatient setting concerning his right popliteal artery aneurysm and options for management which may include open bypass or endovascular technique. Given his comorbidities, it may be advisable to seek tertiary referral for endovascular options. I did confer with Mr. Tran this evening, with family member present. His son, unfortunately, could not be at bedside due to prior commitment. In relation to his hypertensive medical management, I have asked he and his family to confer with his primary care physician, Dr. Dean as well as with our hospitalist colleagues. Status: Acute Consult Attestations Medical Necessity Statement: 5 cm ascending aortic aneurysm; right popliteal artery aneurysm at 3 cm, bilateral DVT, left lingula pulmonary embolism Time Spent in Patient Care: Greater than 35 minutes Coding Level of Care Code Acute Payment Collector for Chg Fwd Diagnoses Ascending aortic aneurysm I71.2
[2021-11-06 06:32] LABS: Glucose Point of Care 180 mg/dL (70-110)
[2021-11-06] MEDS: insulin lispro 100 unit/1 mL SUBCUT ×3 (08:00→17:11)
[2021-11-06] MEDS: NON-FORMULARY MEDICATION (Insulin Degludec [Tresiba Flextouch U-200] 200 unit/mL (3 mL) in 26 EACH SUBCUT (08:02)
--- NOTE | 2021-11-06 08:36 | PC.SOCIAL ---
IMM Update Pg. 2 of IMM updated and reviewed with patient, who verbalized understanding. Copy provided.
[2021-11-06] MEDS: enoxaparin 120 mg/0.8 mL Syringe SUBCUT ×2 (10:38→21:19)
[2021-11-06 11:28] LABS: Glucose Point of Care 260 mg/dL (70-110)
[2021-11-06] MEDS: amlodipine 10 mg Tablet PO (11:43)
--- NOTE | 2021-11-06 12:17 | P.PN_ITS ---
Subjective Subjective: Seen this AM. Patient had episode of high blood pressure overnight 170/133. He was given hydralazine and labetalol IV push. Pt's son states pt has anxiety and depression. He was given ativan yesterday evening. Pt is not feeling anxious at this time and has no complaints to offer. He said he did not sleep well due to being woken to take BP. He is waiting to see Dr. Shields today. Vitals/I&O/Wt Last Vital Signs Temp 97.9 F 11/06/21 03:16 Pulse 71 11/06/21 08:00 Resp 20 H 11/06/21 08:00 BP 117/68 11/06/21 08:00 Pulse Ox 94 11/06/21 07:40 11/05/21 11/06/21 11/06/21 22:59 06:59 14:59 Intake Total 290 / 1246 100 / 1346 Output Total 175 / 475 250 / 725 Balance 115 / 771 -150 / 621 Physical Exam Narrative: General: Alert oriented x3, patient seen sitting laying in bed appearing comfortable, large obese male. HEENT:EOMI, breathing normally. Cardio: Regular rate rhythm, normal S1-S2, no gross murmurs Respiratory: Good bilateral air entry, no wheezes no rhonchi appreciated GI: Abdomen soft, nontender, bowel sounds present, obese abdomen Behavior: Appropriate and cooperative Extremities: Trace edema Data : 11/06/21 04:24 11/06/21 04:24 A&P Assessment and plan (1) Ascending aortic aneurysm: Status: Acute (2) Popliteal aneurysm: Status: Acute (3) Carotid arterial disease: Status: Acute (4) DVT (deep venous thrombosis): Status: Acute (5) SCTOT (acute kidney injury): Status: Acute (6) Syncope and collapse: Status: Acute Plan 76-year-old male who presented to hospital after 1 syncopal event, patient was playing pool with his friends, fell on the floor, no seizure-like activity,, he was orthostatic positive, dehydrated, SCOTT improved with IV fluid hydration has been diagnosed with DVT on 11/04, requested venous Doppler and CTA because of high D-dimer, echo did not show any aortic stenosis or remarkable findings other than EF 60% grade 1 diastolic function #Syncopal event #Bilateral DVT #Acute kidney injury?resolved #BPH?follows with Dr. 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 #Anxiety ?Patient has not experienced any syncope while in the hospital and this could very well be related to dehydration vs arrythmia. ?He does have a small PE and branch of left pulmonary artery to the lingula, popliteal artery aneurysm. ?He has been started on Lovenox full dose twice daily.? Will transition to Eliquis at discharge. ?Overnight bradycardia was noted in previous days.? We will set up event monitor at discharge. ?Orthostatic vitals this morning negative. ?He has had uncontrolled hypertension during hospital stay. Patient currently on lisinopril 20 mg twice daily, chlorthalidone 25 daily, Imdur 30 daily. I will add amlodipine 10 mg daily starting today. I believe anxiety is playing a part in hypertensive episodes. Would also use Ativan as needed. Patient would benefit from Lexapro as a long-term treatment for his anxiety and depression. I will discuss this with the patient. Patient son was updated over the phone. He stated he will also talk to his father regarding anxiety medication. ?CT abdomen pelvis did not show any apparent mass. Patient will need to follow- up with his primary care doctor after discharge. ?I would also refer him to hematology oncology for further work-up of his splenomegaly and hypercoagulable state as an outpatient. ?Awaiting cardiothoracic surgery consult. Full code Cardiac diet Attestations Medical Necessity Statement*: Cardiothoracic consult pending Coding Level of Care Code Acute Clinical Account Executive for g Fwd Diagnoses Ascending aortic aneurysm I71.2 Popliteal aneurysm I72.4 Carotid arterial disease I77.9 DVT (deep venous thrombosis) I82.409 SCOTT (acute kidney injury) N17.9 Syncope and collapse R55 Time Spent (min) 25
--- NOTE | 2021-11-06 14:58 | PC.NURSE ---
patient is incontinent of large amts urine.unable to measure urine output
[2021-11-06 16:49] LABS: Glucose Point of Care 164 mg/dL (70-110)
[2021-11-06 19:29] LABS: Glucose Point of Care 279 mg/dL (70-110)
[2021-11-06] MEDS: atorvastatin 40 mg Tablet 20 MG PO (20:19)
[2021-11-06] MEDS: LORazepam 2 mg/mL INJ 1 mL 0.5 MG IVP (20:23)
[2021-11-06 21:23] LABS: Glucose Point of Care 212 mg/dL (70-110)
[2021-11-07] VITALS (12 sets, daily range): BP systolic 83–171; BP diastolic 48–103; PULSE 56–110; RESP 18–22; TEMP 36.6–36.7; O2SAT 89–94
[2021-11-07 06:29] LABS: Glucose Point of Care 131 mg/dL (70-110)
[2021-11-07 06:41] LABS: Basophils # 0.1 10^3/uL (0.0-0.1); Basophils % 0.6 %; Eosinophils # 0.2 10^3/uL (0.0-0.8); Eosinophils % 2.4 %; Hematocrit 40.2 % (42.0-52.0); Hemoglobin 13.1 g/dL (11.7-16.6); Lymphocytes # 1.8 10^3/uL (0.8-4.8); Mean Corpuscular HGB Conc 32.6 g/dL (30.0-36.0); Mean Corpuscular Hemoglobin 29.1 pg (28.0-34.0); Mean Corpuscular Volume 89.3 fl (80-94); Mean Platelet Volume 11.2 fL (7.4-10.4); Monocytes # 0.6 10^3/uL (0.2-0.9); Monocytes % 7.8 %; Neutrophils # 5.13 10^3/uL (1.8-7.7); Neutrophils % 65.8 %; Nucleated Red Blood Cells % 0 %; Platelet Count 187 10^3/cmm (130-400); Red Cell Distribution Width 13.8 % (12.1-15.1); White Blood Count 7.8 10^3/uL (4.0-10.0)
[2021-11-07 06:59] LABS: Blood Urea Nitrogen 16 mg/dL (8-23); Carbon Dioxide 25 mmol/L (22-29); Chloride 102 mmol/L (98-107); Glucose 133 mg/dL (65-115); Osmolality Calculated 287 mOsm/kg (285-295); Sodium 137 mmol/L (136-145)
[2021-11-07] MEDS: isosorbide mononitrate ER 30 mg Tablet PO (09:07)
[2021-11-07] MEDS: amlodipine 10 mg Tablet PO (09:09)
[2021-11-07] MEDS: chlorthalidone 25 mg Tablet PO (09:10)
[2021-11-07] MEDS: enoxaparin 120 mg/0.8 mL Syringe SUBCUT (09:11)
[2021-11-07] MEDS: lisinopril 20 mg Tablet PO ×2 (09:11→17:41)
[2021-11-07 11:13] LABS: Glucose Point of Care 233 mg/dL (70-110)
--- NOTE | 2021-11-07 11:52 | P.PN_ITS ---
Subjective Subjective: Seen this morning. Patient states he does not feel ready to go home yet since he is worried about his blood pressure. Blood pressure trend all evening yesterday has been normal range 140/80, 125/88 with 1 spike of 171/101. This morning when seen blood pressure was 115/77. Not require any IV medication overnight for blood pressure. Patient also saw Dr. Harris yesterday who recommended outpatient follow-up of his aneurysms. Vitals/I&O/Wt Last Vital Signs Temp 97.8 F 11/07/21 07:55 Pulse 110 H 11/07/21 11:12 Resp 22 H 11/07/21 11:12 BP 83/48 11/07/21 11:12 Pulse Ox 91 11/07/21 11:12 11/06/21 11/07/21 11/07/21 22:59 06:59 14:59 Intake Total 360 / 600 358 / 358 Output Total 400 / 400 170 / 170 Balance -40 / 200 188 / 188 Physical Exam Narrative: General: Alert oriented x3, patient seen sitting laying in bed appearing comfortable, large obese male. HEENT:EOMI, breathing normally. Cardio: Regular rate rhythm, normal S1-S2, no gross murmurs Respiratory: Good bilateral air entry, no wheezes no rhonchi appreciated GI: Abdomen soft, nontender, bowel sounds present, obese abdomen Behavior: Appropriate and cooperative Extremities: Trace edema Neuro: Nonfocal Data : 11/07/21 05:49 11/07/21 05:49 A&P Assessment and plan (1) Ascending aortic aneurysm: Status: Acute (2) Popliteal aneurysm: Status: Acute (3) Carotid arterial disease: Status: Acute (4) DVT (deep venous thrombosis): Status: Acute (5) SCOTT (acute kidney injury): Status: Acute (6) Syncope and collapse: Status: Acute Plan 76-year-old male who presented to hospital after 1 syncopal event, patient was playing pool with his friends, fell on the floor, no seizure-like activity,, he was orthostatic positive, dehydrated, SCOTT improved with IV fluid hydration has been diagnosed with DVT on 11/04, requested venous Doppler and CTA because of high D-dimer, echo did not show any aortic stenosis or remarkable findings other than EF 60% grade 1 diastolic function. Patient is now on full dose Lovenox which will be transitioned to Eliquis at discharge. For his uncontrolled hypertensive episodes he was optimized on lisinopril 20 twice daily, chlorthalidone 25 daily, Imdur 30 daily. He will be receiving an event monitor at discharge. Patient will need hematology oncology referral for further work- up of splenomegaly and hypercoagulable state as an outpatient. He will also need to follow-up with cardiothoracic surgery as an outpatient for follow-up on his thoracic aneurysm and popliteal aneurysm and further management. He will need close follow-up with primary care doctor for management of hypertension. #Syncopal event #Bilateral DVT #Acute kidney injury?resolved #BPH?follows with Dr. 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 #Anxiety ?Patient has not experienced any syncope while in the hospital and this could very well be related to dehydration vs occult arrythmia. ?He does have a small PE and branch of left pulmonary artery to the lingula, popliteal artery aneurysm. ?I will stop Lovenox and switch to Eliquis today. ?Overnight bradycardia was noted in previous days.? We will set up event monitor at discharge. ?Orthostatic vitals have been negative. ?He has had uncontrolled hypertension during hospital stay.? Patient currently on lisinopril 20 mg twice daily, chlorthalidone 25 daily, Imdur 30 daily.? Amlodipine 10 mg daily was added yesterday. Patient's blood pressure was a lot better after 1 dose yesterday. Today after second dose of amlodipine blood pressure dropped down to 83/48. I will decrease amlodipine to 5 mg daily. I did discuss with the patient regarding his anxiety and depression and to maybe start an antidepressant. He asked me to discuss this with his son. I believe he would benefit from Lexapro. I would encourage him to follow-up with his primary care physician regarding this. ?CT abdomen pelvis did not show any apparent mass.? Patient will need to follow- up with his primary care doctor after discharge. ?I would also refer him to hematology oncology for further work-up of his splenomegaly and hypercoagulable state as an outpatient. -Patient seen by CT surgery. Outpatient follow-up recommended at this time. Full code Cardiac diet Attestations Medical Necessity Statement*: Blood pressure medication adjustments have been made today we will need to monitor patient for blood pressure optimization. Discharge tomorrow. Coding Level of Care Code Acute It Network Architect for Chg Fwd Diagnoses Ascending aortic aneurysm I71.2 Popliteal aneurysm I72.4 Carotid arterial disease I77.9 DVT (deep venous thrombosis) I82.409 SCOTT (acute kidney injury) N17.9 Syncope and collapse R55
[2021-11-07] MEDS: insulin lispro 100 unit/1 mL SUBCUT ×2 (11:56→17:41)
[2021-11-07] MEDS: sodium chloride 0.9% 500 ML 250 ML IV (14:47)
--- NOTE | 2021-11-07 15:07 | PC.NURSE ---
pt's bp's became soft approx 2 hours after a.m. meds given.dr lion notified and she ordered a 500 cc ns bolus.bp's improved rapidly.
--- NOTE | 2021-11-07 16:22 | PC.NURSE ---
stool sample sent for occult blood.lab called unit and stated test could not be performed on hard,dry stool.
[2021-11-07 16:40] LABS: Glucose Point of Care 163 mg/dL (70-110)
[2021-11-07] MEDS: docusate sodium 100 mg Capsule PO (17:41)
[2021-11-07] MEDS: atorvastatin 40 mg Tablet 20 MG PO (19:38)
[2021-11-07] MEDS: apixaban 5 mg Tablet 10 MG PO (19:38)
[2021-11-07] MEDS: acetaminophen 500 mg Tablet PO (19:42)
[2021-11-07 20:05] LABS: Glucose Point of Care 276 mg/dL (70-110)
[2021-11-07 21:52] LABS: Basophils % 0.5 %; Eosinophils # 0.2 10^3/uL (0.0-0.8); Eosinophils % 2.6 %; Hematocrit 36.3 % (42.0-52.0); Hemoglobin 11.8 g/dL (11.7-16.6); Lymphocytes % 25.7 %; Mean Corpuscular HGB Conc 32.5 g/dL (30.0-36.0); Mean Corpuscular Hemoglobin 29.4 pg (28.0-34.0); Mean Corpuscular Volume 90.5 fl (80-94); Mean Platelet Volume 10.2 fL (7.4-10.4); Monocytes # 0.6 10^3/uL (0.2-0.9); Neutrophils # 4.78 10^3/uL (1.8-7.7); Neutrophils % 62.5 %; Nucleated Red Blood Cells % 0 %; Platelet Count 210 10^3/cmm (130-400); Red Blood Count 4.01 10^6/uL (4.1-5.3); Red Cell Distribution Width 13.9 % (12.1-15.1); White Blood Count 7.6 10^3/uL (4.0-10.0)
[2021-11-08] VITALS (10 sets, daily range): BP systolic 113–148; BP diastolic 77–88; PULSE 56–68; RESP 16–22; TEMP 36.2–37; O2SAT 92–99
--- NOTE | 2021-11-08 01:50 | ECG_ITS ---
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 Measurements Intervals [place] Rate: 57 P: 26 AL: 182 QRS: 36 QRSD: 109 T: 127 QT: 414 QTc: 406 Interpretive Statements SINUS BRADYCARDIA NONSPECIFIC T-WAVE ABNORMALITY Compared to ECG 11/02/2021 20:03:16 Sinus rhythm no longer present T-wave abnormality still present Electronically Signed On 11-08-2021 18:14:55 CDT by Sarbjit Kendrick M.D. [id number]
[2021-11-08 06:01] LABS: Glucose Point of Care 141 mg/dL (70-110)
[2021-11-08] MEDS: apixaban 5 mg Tablet 10 MG PO ×2 (08:59→19:05)
[2021-11-08] MEDS: lisinopril 20 mg Tablet PO ×2 (08:59→17:29)
[2021-11-08] MEDS: chlorthalidone 25 mg Tablet PO (09:00)
[2021-11-08] MEDS: isosorbide mononitrate ER 30 mg Tablet PO (09:00)
[2021-11-08] MEDS: insulin lispro 100 unit/1 mL SUBCUT ×3 (09:00→17:28)
[2021-11-08] MEDS: NON-FORMULARY MEDICATION (Insulin Degludec [Tresiba Flextouch U-200] 200 unit/mL (3 mL) in 26 EACH SUBCUT (09:02)
[2021-11-08 10:52] LABS: Glucose Point of Care 204 mg/dL (70-110)
--- NOTE | 2021-11-08 10:53 | PC.SOCIAL ---
IMM update IMM updated with patient. Verbalized an understanding. Copy Pg 2 provided. Initialled, dated, timed, and placed in chart.
--- NOTE | 2021-11-08 12:45 | P.DS_ITS ---
Discharge Providers Date of Admission: 11/03/21 14:10 Date of Discharge: November 08, 2021 Attending Provider at Admission: Ismael Paz MD Attending Provider at Discharge: Pilar Cartagena MD Primary Care Provider: Ramón Dean DO Diagnoses at Discharge Discharge Diagnosis (1) Ascending aortic aneurysm: Status: Acute (2) Popliteal aneurysm: Status: Acute (3) Carotid arterial disease: Status: Acute (4) DVT (deep venous thrombosis): Status: Acute (5) SCOTT (acute kidney injury): Status: Acute (6) Syncope and collapse: Status: Acute Reason for Visit Reason for Visit: SYNCOPAL EPISODE Brief History: HPI as per Dr. Alexis Batres Brain Moreno is a 76 year old male who carries history of poorly controlled diabetes, presents today after an episode of syncopal event.? Patient [facility] in [facility] when all of a sudden he lost consciousness, fell on the ground and hit his head on the right side.? He did not get any warning symptoms, no previous history of seizure, MT, CHF or coronary artery disease.? Patient is stating that he stayed on the floor for about a minute and when he woke up he did not notice any tongue bite, urinary or fecal incontinence.? He did not experience any chest pain.? Blood sugar was not checked at that time.? EMS was called who brought him to the ER.? In the ER he was hemodynamically stable, EKG showed sinus rhythm.? Afebrile, CT head has been requested During my evaluation patient's was at the bedside, she raised questions regarding his gait instability, bladder distention, nocturia, his nocturia is very bad, he can tell when he has to go to the bathroom at all, he has been seeing Dr. España, he has been diagnosed with BPH I do not see any BPH medication however seems very concerned that on daily basis he has been swallowing his bedsheet and that is a real problem which she thinks has not been addressed. Patient is denying history of malignancy, no recent back trauma, he is endorsing gait instability, has good sensations of the inside of his thighs, not endorsing back pain, I did discuss the possibility of neuropathy related to poorly controlled diabetes and neurogenic bladder, self cath might be an option which has not been discussed with Dr. España yet with him as of now I am going to go ahead order echo, carotid Doppler, CT scan of lumbar and thoracic area Check PSA Admit to telemetry floor Diagnosed with SCOTT Patient is stating that for last few months he has been experiencing loose stools he tries to drink a lot of fluid not to keep his blood sugar under control and keep himself hydrated but it is very easy for him to get dehydrated Hospital Course Hospital Course 76-year-old male who presented to hospital after 1 syncopal event, patient was playing pool with his friends, fell on the floor, no seizure-like activity,, he was orthostatic positive, dehydrated, SCOTT improved with IV fluid hydration has been diagnosed with DVT on 11/04, requested venous Doppler and CTA because of high D-dimer, echo did not show any aortic stenosis or remarkable findings other than EF 60% grade 1 diastolic function.? She received full dose Lovenox for 3 days and then was transitioned to Eliquis. He will need follow-up with Dr. Quiñones for further hypercoagulable work-up including a splenomegaly. CT abdomen did not show any suspicious mass. During hospital stay patient experienced uncontrolled hypertension and he was finally optimized on lisinopril 20 twice daily, chlorthalidone 25 daily, Imdur 30 daily. He will need tight blood pressure control due to his 5 cm thoracic aneurysm and popliteal aneurysm. Patient was seen by Dr. Harris as an inpatient in consult who recommended outpatient follow-up with him in his clinic. Patient's family (, son) or updated quite frequently during patient's hospital stay and all questions were answered to their satisfaction. Patient will be requiring an event monitor at discharge to rule out occult arrhythmia as cause of his syncope. Please see previous progress notes for further detail. Patient will be discharged home in stable condition today with follow-up with primary care, hematology, cardiothoracic surgery. There was a question of anxiety and depression. Overall and patient's elevated blood pressure. I have advised patient to follow-up with his primary care doctor in regards to that. Evaluation was done prior to discharge and patient did not qualify for home oxygen. I attempted to call his primary care physician to discuss transition of care however he was unavailable today. was updated over the phone today. Physical Exam Narrative: General: Alert oriented x3, patient seen sitting laying in bed appearing comfortable, large obese male. HEENT:EOMI, breathing normally on room air Cardio: Regular rate rhythm, normal S1-S2, no gross murmurs Respiratory: Good bilateral air entry, no wheezes no rhonchi appreciated GI: Abdomen soft, nontender, bowel sounds present, obese abdomen Behavior: Appropriate and cooperative Extremities: Trace edema Neuro: Nonfocal Discharge Data Studies Completed and Pending Completed Studies During Hospitalization Category Date Time Status CT abdomen pelvis w con* [id number] Urgent Cat Scan 11/05/21 10:[address] head wo con* [id number] Stat Cat Scan 11/02/21 16:[address] lumbar spine wo con* [id number] Urgent Cat Scan 11/02/21 18:[address] thoracic spine wo con [CT thoracic spin wo con* Cat Scan 11/02/21 18:04 Completed [id number]] Urgent CTA chest [CT angio chest PE protcl [id number]] Stat Cat Scan 11/04/21 07:28 Completed CTA head neck [CT angio headneck* [id number]] Stat Cat Scan 11/04/21 07:31 Completed XR chest 1V portable [id number] Stat Exams 11/02/21 14:12 Completed CV carotid duplex BI* [id number] Urgent Ultrasound 11/02/21 18:04 Completed CV. echo complete* [id number] Routine Ultrasound 11/02/21 18:04 Completed US venous duplex lower extremity bilat [CV venous Ultrasound 11/04/21 07:28 [place] [id number]] Routine Pending at discharge Category Date Time Status MCT/Event Monitor 21 Days Routine Exams 11/05/21 14:52 Ordered Radiology Impressions Chest X-Ray 11/02/21 14:12 IMPRESSION: No acute chest abnormality. Head CT 11/02/21 16:18 IMPRESSION: 1. Negative for intracranial hemorrhage or mass effect 2. Mild diffuse ventricular prominence similar to prior exam may be related to chronic underlying age-related parenchymal atrophy. 3. Mild diffuse white matter disease likely reflecting chronic microvascular ischemic changes Carotid Doppler Study 11/02/21 18:04 IMPRESSION: No significant right carotid arterial stenosis. There is stenosis of the left common carotid artery measuring 52 69% with marked decrease in the velocity in the proximal to mid left common carotid artery and elevated ED ratio. REFERENCES: SRU CRITERIA. The degree of internal carotid artery stenosis is based on criteria defined by the Society of Radiologists in Ultrasound (SRU). Normal is no stenosis. Mild is less than 50% stenosis. Moderate is 50-69% stenosis. Severe is greater than 69% stenosis to near occlusion. Near occlusion is a markedly narrowed lumen. Total occlusion is no detectable patent lumen. Lumbar Spine CT 11/02/21 18:04 IMPRESSION: 1. At L4-L5, there is a right paracentral disc protrusion resulting in moderate narrowing of the central canal and bilateral foraminal narrowing right greater than left accentuated by facet and ligamentum flavum hypertrophy. 2. At L3-L4, there is less prominent mild to moderate narrowing of the central canal and symmetric moderate bilateral foraminal narrowing due to endplate osteophytes, small broad-based disc bulge and marked facet and ligamentum flavum hypertrophy. 3. Moderate degenerative changes. No acute bony abnormality. Thoracic Spine CT 11/02/21 18:04 IMPRESSION: 1. No acute bony abnormality. 2. Hazy density in the lung bases left greater than right that may reflect atelectasis or mild pneumonitis. There is a left-sided fat containing Bochdalek's hernia in this may simply be compressive atelectasis from the hernia. Chest CTA 11/04/21 07:28 IMPRESSION: 1. Assessment for pulmonary embolus is compromised by motion artifact. Small pulmonary embolus in a branch of the left pulmonary artery to the lingula. There is no evidence of right heart strain. 2. There is aneurysmal dilatation of the ascending thoracic aorta measuring 5 cm. There is no gross evidence of rupture or dissection. 3. There is mild peribronchial wall thickening; query viral infection/bronchitis, chronic bronchitis and/or asthma. 4. Splenomegaly with mild periportal lymphadenopathy. 5. Indeterminate right adrenal nodule. Recommend nonemergent MR abdomen to better characterize. 6. Nonobstructive right renal stone. 7. Small fat containing diaphragmatic hernia on the left. 8. Coronary artery disease. COMMENTS: Consistent with the [employer]'s Incidental Findings Committee white paper (J Am Yu Radiol 2018): Any incidental renal lesion less than 1 cm or classified as too small to characterize, or any incidental cystic renal lesion characterized as simple-appearing, is likely benign. No follow-up imaging is recommended for these lesions per consensus recommendations based on imaging criteria. ADDENDUM: 11/04/21 1113 Findings discussed with ISMAEL PAZ at 11/04/2021 11:11 AM CDT. Venous Duplex 11/04/21 07:28 IMPRESSION: 1. Nonocclusive thrombus within the right common femoral, proximal superficial femoral, and popliteal and peroneal calf veins. The mid and distal superficial femoral vein is occluded. The clot appears chronic. 2. Nonocclusive thrombus from the left common femoral vein through the superficial femoral vein, popliteal vein, and into the peroneal calf veins. This also appears chronic. 3. 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 ADDENDUM: 11/04/21 0914 Findings were discussed with Kris Barnett RN at 11/04/2021 9:11 AM CDT. Head/Neck CTA 11/04/21 07:31 IMPRESSION: No large vessel stenosis or occlusion. IMPRESSION: No significant stenosis or occlusion. REFERENCES: NASCET CRITERIA. The degree of internal carotid artery stenosis is based on NASCET criteria. Normal is no stenosis. Mild is less than 50% stenosis. Moderate is 50-69% stenosis. Severe is 70% to 99% stenosis. Total occlusion is no detectable patent lumen. Abdomen/Pelvis CT 11/05/21 10:29 IMPRESSION: 1. LEFT Bochdalek hernia. 2. Highly suspicious for thrombus partially occluding the infrarenal IVC with extension into the LEFT common iliac artery and probably within the LEFT external iliac artery. 3. Low-attenuation, too small to characterize 9 mm lesion in the liver. May be a very small hepatic cysts. Early metastatic lesion would appear similar. 4. RIGHT adrenal mass measures 1.8 x 1.4 cm. With no history of malignancy this is statistically benign. 5. No pancreatic mass. 6. RIGHT renal cyst. 7. Prostate gland enlargement and heterogeneity with encroachment into the base of the urinary bladder. 8. Small bladder diverticulum at the bladder apex with diffuse bladder wall thickening. No focal thickening. Probably due to partial outlet obstruction. 9. No splenomegaly. 10. No ascites or adenopathy. Laboratory Results WBC 7.6 10^3/uL (4.0-10.0) 11/07/21 21:40 RBC 4.01 10^6/uL (4.1-5.3) L 11/07/21 21:40 Hgb 11.8 g/dL (11.7-16.6) 11/07/21 21:40 Hct 36.3 % (42.0-52.0) L 11/07/21 21:40 MCV 90.5 fl (80-94) 11/07/21 21:40 MCH 29.4 pg (28.0-34.0) 11/07/21 21:40 MCHC 32.5 g/dL (30.0-36.0) 11/07/21 21:40 RDW 13.9 % (12.1-15.1) 11/07/21 21:40 Plt Count 210 10^3/cmm (130-400) 11/07/21 21:40 MPV 10.2 fL (7.4-10.4) 11/07/21 21:40 Neut % (Auto) 62.5 % 11/07/21 21:40 Lymph % (Auto) 25.7 % 11/07/21 21:40 Towner % (Auto) 8.0 % 11/07/21 21:40 Eos % (Auto) 2.6 % 11/07/21 21:40 Baso % (Auto) 0.5 % 11/07/21 21:40 Neut # (Auto) 4.78 10^3/uL (1.8-7.7) 11/07/21 21:40 Lymph # (Auto) 2.0 10^3/uL (0.8-4.8) 11/07/21 21:40 Towner # (Auto) 0.6 10^3/uL (0.2-0.9) 11/07/21 21:40 Eos # (Auto) 0.2 10^3/uL (0.0-0.8) 11/07/21 21:40 Baso # (Auto) 0.0 10^3/uL (0.0-0.1) 11/07/21 21:40 Nucleated RBC % (auto) 0 % 11/07/21:40 Nucleated RBCs # 0.0 /100WBC 11/07/21 21:40 D-Dimer 1.98 ug/mIFEU (0-0.59) H 11/02/21 14:38 Sodium 137 mmol/L (136-145) 11/07/21 05:49 Potassium 4.0 mmol/L (3.5-5.1) 11/07/21 05:49 Chloride 102 mmol/L (98-107) 11/07/21 05:49 Carbon Dioxide 25 mmol/L (22-29) 11/07/21 05:49 Anion Gap 14.0 (5-19) 11/07/21 05:49 BUN 16 mg/dL (8-23) 11/07/21 05:49 Creatinine 0.8 mg/dL (0.7-1.2) 11/07/21 05:49 GFR Calculation Not Reportable 11/07/21 05:49 Glucose 133 mg/dL (65-115) H 11/07/21 05:49 POC Glucose 204 mg/dL (70-110) H 11/08/21 10:44 Estimat Average Glucose 220 11/02/21 16:50 Hemoglobin A1c 9.3 % (4.0-6.0) H 11/02/21 16:50 Calculated Osmolality 287 mOsm/kg (285-295) 11/07/21 05:49 Calcium 9.0 mg/dL (8.5-10.5) 11/07/21 05:49 Magnesium 2.1 mg/dL (1.7-2.3) 11/06/21 04:24 Total Bilirubin 0.5 mg/dL (0.15-1.2) 11/03/21 03:50 AST 12 U/L (0-40) 11/03/21 03:50 ALT 10 U/L (0-41) 11/03/21 03:50 Alkaline Phosphatase 74 IU/L (40-130) 11/03/21 03:50 Troponin T Baseline 18 ng/L (0-15) H 11/02/21 14:38 Troponin T 120 Minute 17.55 ng/L (0-15) H 11/02/21 16:50 Delta Troponin T -0.45 ABS# (0-10) L 11/02/21 16:50 Troponin T Hi Sens 6Hr 19.33 ng/L (0-15) H 11/02/21 21:16 Troponin T Hi Sens 6Hr Delta 1.33 ng/L (0-12) 11/02/21 21:16 Total Protein 6.3 g/dL (6.6-8.7) L 11/03/21 03:50 Albumin 4.1 g/dL (3.5-5.2) 11/03/21 03:50 Globulin 2.2 g/dL (1.3-4.6) 11/03/21 03:50 Vitamin B12 484 pg/mL (232-1245) 11/02/21 16:50 Prolactin 15.50 ng/mL (4.0-15.2) H 11/02/21 16:50 Urine Color Yellow (Yellow) 11/03/21 04:15 Urine Appearance Clear (CLEAR) 11/03/21 04:15 Urine pH 5 (5-7) 11/03/21 04:15 Ur Specific Kimball 1.020 (1.005-1.030) 11/03/21 04:15 Urine Protein 1+ (Negative) H 11/03/21 04:15 Urine Glucose (UA) 4+ (Normal) H 11/03/21 04:15 Urine Ketones 1+ (Negative) H 11/03/21 04:15 Urine Blood Neg (Negative) 11/03/21 04:15 Urine Nitrate Negative (Negative) 11/03/21 04:15 Urine Bilirubin Neg (Negative) 11/03/21 04:15 Urine Urobilinogen Norm mg/dL (Negative) 11/03/21 04:15 Ur Leukocyte Esterase Negative (Negative) 11/03/21 04:15 Urine RBC 0-4 /hpf (0-2) H 11/03/21 04:15 Urine WBC 0-4 /hpf (0-5) H 11/03/21 04:15 Ur Squamous Epith Cells 0-4 /hpf (0-5) H 11/03/21 04:15 Amorphous Sediment Not Reportable 11/03/21 04:15 Urine Bacteria Trace /hpf (NONE) 11/03/21 04:15 Hyaline Casts 10-15 /lpf H 11/03/21 04:15 Urine Mucus 4+ /hpf 11/03/21 04:15 Serum Ketones Negative (Negative) 11/02/21 16:50 Vitals Last Vital Signs Temp 97.1 F L 11/08/21 11:59 Pulse 61 11/08/21 11:56 Resp 20 H 11/08/21 11:56 BP 113/77 11/08/21 11:56 Pulse Ox 94 11/08/21 12:14 Discharge Plan Discharge Patient Disposition: Home Condition: Stable Prescriptions: New lisinopril 20 mg Tablet 20 mg PO BID 30 Days Qty: 60 0RF isosorbide mononitrate 30 mg Tablet Extended Release 24 Hr 30 mg PO DAILY 30 Days Qty: 30 0RF chlorthalidone 25 mg Tablet 25 mg PO DAILY 30 Days Qty: 30 0RF Eliquis 5 mg tablet 5 mg PO .custom 30 Days Qty: 60 1RF Rx Instructions: 10 mg twice a day for 3 days 5 mg twice a day thereafter Continued atorvastatin 20 mg tablet 20 mg PO BEDTIME 0RF metformin 500 mg tablet extended release 24 hr 1,000 mg PO BID 0RF Tresiba FlexTouch U-200 200 unit/mL (3 mL) insulin pen 26 unit SUBCUT DAILY 0RF Discontinued lisinopril 20 mg tablet 20 mg PO QAM 0RF aspirin 81 mg tablet,delayed release (DR/EC) 81 mg PO QAM 0RF Discharge Orders: Discharge Order (Routine); Ordered 11/08/21 Ordered By: Pilar Cartagena Other Ambulatory Orders: MCT/Event Monitor 21 Days (Routine) Timeframe: 1 Day Facility: [facility] - Location: Radiology Ordered By: Pilar Cartagena Referrals: Angel Harris MD [Physician] - 11/22/21 11:15 am (You have an appointment at [facility] with Dr. Harris on November 22 at 11:15am) Rosette Wilkes MD [Physician] - 2 weeks (Cardiac event monitor follow up) Scarlett Quiñones MD [Staff Physician] - 1 week (Splenomegaly and b/l DVT and PE. Hypercoagulable state. Will need further workup. Thank you. ) Ramón Dean DO [Primary Care Provider] - 11/14/21 10:00 am (You have an appointment at [facility] with Dr. Dean on November 23 at 10:00am) Discharge Diet: Cardiac Discharge Activity: Increase activity as tolerated Patient Instructions: Atenolol/Chlorthalidone (By mouth) (Tenoretic 100, Tenoretic 50), Lisinopril (By mouth) (Prinivil, Zestril), Isosorbide Mononitrate (By mouth) (Imdur, Imdur ER, Ismo), Apixaban (By mouth) (Eliquis), Opioid Safety Activity Restrictions/Additional Instructions: Please follow up closely with your primary care doctor and attend all your appointments. Please check your blood pressure at home and keep a log sheet to take to your pcp for your follow up. If you develop symptoms including but not limited to chest pain, shortness of breath, lightheadedness, passing out, please check blood pressure, pulse and call your PCP or go to the nearest ER. Discharge Attestations Time Spent in Discharge Care*: greater than 30 min Quality Metrics Clinical Quality Measures [ No reported AMI, CVA or VTE this stay] Coding Level of Care Code Acute Chg FW DC note Diagnoses Ascending aortic aneurysm I71.2 Popliteal aneurysm I72.4 Carotid arterial disease I77.9 DVT (deep venous thrombosis) I82.409 SCOTT (acute kidney injury) N17.9 Syncope and collapse R55
[2021-11-08 16:52] LABS: Glucose Point of Care 163 mg/dL (70-110)
[2021-11-08] MEDS: atorvastatin 40 mg Tablet 20 MG PO (19:04)
--- NOTE | 2021-11-09 11:35 | PC.NURSE ---
pharmacy called 11/09 in am rgarding eliquis rx. pts insurance would not cover for less than 400/mo. They requested switch to xarelto. I contacted dr Cartagena via phone and she said that was indeed ok and voalted over the rx order. I called back to pts pharmacy and verbally gave xarelto order per Dr. Cartagena's instructions.
== END 2021-11-08 19:10 | disposition home or self-care (01) | DRG 683 ==
LOC: ER 15:20 → MEDSURG 18:26 → CSU 11-04 11:28
PROVIDERS: Admitting Provider Internal Medicine; Emergency Provider Family Medicine; PCP Internal Medicine; Visit Provider Internal Medicine
DX: N17.9 Acute kidney failure, unspecified (principal); I82.403 Acute embolism and thrombosis of unspecified deep veins of lower extremity, bilateral; E11.9 Type 2 diabetes mellitus without complications; N40.1 Benign prostatic hyperplasia with lower urinary tract symptoms; R35.1 Nocturia; E86.0 Dehydration; I71.2 Thoracic aortic aneurysm, without rupture; I72.4 Aneurysm of artery of lower extremity; I77.9 Disorder of arteries and arterioles, unspecified; F17.290 Nicotine dependence, other tobacco product, uncomplicated; E87.5 Hyperkalemia; I50.9 Heart failure, unspecified; I25.10 Atherosclerotic heart disease of native coronary artery without angina pectoris; I95.1 Orthostatic hypotension; N39.498 Other specified urinary incontinence; F41.9 Anxiety disorder, unspecified; I11.0 Hypertensive heart disease with heart failure; Z79.4 Long term (current) use of insulin; Z79.84 Long term (current) use of oral hypoglycemic drugs; Z79.82 Long term (current) use of aspirin
CPT/HCPCS: 36415; 36416; 51798; 70450; 70496; 70498; 71045; 71275; 72128; 72131; 74177; 80048; 80053; 81001; 82009; 82607; 82962; 83036; 83735; 84146; 84484; 85025; 85378; 93005; 93228; 93306; 93880; 93970; 96372; 99285; G0378; J0360; J1650; J1815; J2060; J3490; J7030; J7040; Q9967

== ENCOUNTER 2021-11-14 10:19 | Emergency (ER) | payer MEDICARE, SELFPAY ==
[2021-11-14 10:45] VITALS: BP 82/51; PULSE 69; RESP 20; TEMP 36.4; O2SAT 92; BMI 39.3
--- NOTE | 2021-11-14 10:47 | CT_ITS ---
WS: [id number] CT HEAD TECHNIQUE: Noncontrast CT of the head obtained from the skullbase to the vertex. CLINICAL INFORMATION: AMS COMPARISON: CT November 02, 2021 DLP: 1274.[address] scans at [facility] use at least one of these dose optimization techniques: automated e xposure control; mA and/or kV adjustment per patient size (includes targeted exams where dose is matc hed to clinical indication); or iterative reconstruction. FINDINGS: No evidence of intracranial hemorrhage or mass effect. Ventricular system and basal cisterns are mendoza nt. Mild small vessel changes with moderate parenchymal volume loss. A few tiny chronic lacunar infar cts in the basal ganglia. Intracranial vascular calcification. No extra-axial fluid collections. No e vidence of mass or mass effect. Paranasal sinuses and mastoid air cells are well aerated. .Normal visualized soft tissues. CT/CT head wo con* [id number] IMPRESSION: 1. No evidence of intracranial hemorrhage or mass effect. 2. Mild small vessel changes. Moderate RIGHT, volume loss. 3. A few tiny chronic lacunar infarcts in the basal ganglia. 4. No significant changes since November 02, 2021
--- NOTE | 2021-11-14 10:47 | ECG_ITS ---
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 Measurements Intervals [place] Rate: 71 P: 27 [place]: 156 QRS: 44 QRSD: 118 T: 78 QT: 395 QTc: 430 Interpretive Statements SINUS RHYTHM MODERATE INTRAVENTRICULAR CONDUCTION DELAY [110+ ms QRS DURATION] NONSPECIFIC T-WAVE ABNORMALITY Compared to ECG 11/08/2021 01:58:47 Intraventricular conduction delay now present Sinus bradycardia no longer present T-wave abnormality still present Electronically Signed On 11-14-2021 22:15:03 CDT by Sarbjit Kendrick M.D. [id number]
[2021-11-14] MEDS: lactated ringers 1,000 ML 999 ML IV (11:00)
--- NOTE | 2021-11-14 11:00 | ED_ITS ---
HPI - SOB/Dyspnea General: Chief Complaint: Syncope Stated Complaint: Weakness, confusions Time Seen by Provider: 11/14/21 10:45 Source: patient Mode of arrival: wheelchair Limitations: no limitations History of Present Illness: HPI Narrative: 76-year-old male presents emergency room with weakness and confusion. He was going to his primary care doctor's office, very weak and confused was directed to the emergency room. On arrival here he is extremely hypotensive. He was r ecently hospitalized on a DVT acute kidney injury after a syncopal episode. He does have an aortic aneurysm is about 5 cm he is in a follow-up with Dr. Harris with that he denies any chest pain or shortness of breath at this time just very weak. Still mildly confused as well he is on Eliquis. No hematochezia melena hematemesis coffee-ground emesis no fever sweats or chills. Timing: intermittent Severity: moderate Exacerbating factors: movement (Change in posture) Relieving factors: rest Associated symptoms: Deny abdominal pain, chest congestion, chest pain, cough, diaphoresis, dizziness, extremity pain, fever(s), hemoptysis, lightheadedness, myalgias, nausea, orthopnea, palpitations, paresthesias, polydipsia, polyuria, rash, sense of impending doom, syncope or vomiting Treatment prior to arrival: none Review of Systems Const: Denies: fever(s) or diaphoresis ENMT: Denies: throat pain, ear or mastoid pain, nasal discharge or nasal congestion Card: Denies: chest pain, palpitations, lightheadedness, syncope or orthopnea Resp: Denies: hemoptysis or chest congestion GI: Denies: abdominal pain, nausea or vomiting : Denies: flank pain, dysuria, urinary frequency or urinary urgency Musc: Denies: extremity pain Skin/Breast: Denies: rash or pruritus Neuro: Denies: dizziness Endo: Denies: polyuria or polydipsia PFSH ED PFSH: Medical History Acute lower UTI BPH loc w urin obs/LUTS Diabetes Gait instability Microhematuria Neurogenic bladder Other specified urinary incontinence Surgical History S/P tonsillectomy Family History Father , 60 Hypertension CAD (coronary artery disease) Mother Cancer Social History Smoking and tobacco status: current some day smoker cigars Alcohol intake: never Marital status: Physical Exam Const: GENERAL APPEARANCE: cooperative and comfortable ORIENTATION/CONSCIOUSNESS: Yes awake, Yes oriented to person, Yes oriented to place and Yes oriented to time HENMT: COMMON NORMALS: normocephalic, atraumatic and hearing grossly normal bilaterally HEAD & SCALP: normocephalic and atraumatic Eye: COMMON NORMALS: Equal, round and reactive pupils present, EOMs intact bilaterally, conjunctivae normal and no scleral icterus CONJUNCTIVA: Yes conjunctivae normal PUPIL: Yes Equal, round and reactive pupils present Neck/C-Spine: COMMON NORMALS: full ROM, no lymphadenopathy, supple and no JVD Lymph: LYMPHATIC: no lymphadenopathy noted and no lymphedema noted Resp: COMMON NORMALS: normal respiratory effort, No retractions, No use of accessory muscles and clear to auscultation bilaterally AUSCULTATION: clear to auscultation bilaterally Cardio: COMMON NORMALS: no JVD, regular rate, regular rhythm and No murmurs present (Cardio) RATE: regular rate RHYTHM: regular rhythm GI: COMMON NORMALS: Soft to palpation and No hepatosplenomegaly present AUSCULTATION: Yes normoactive bowel sounds PALPATION: Yes Soft to palpation, No Tenderness to palpation present (GI), No Guarding due to palpation present (GI) and Yes No hepatosplenomegaly present Extremity: COMMON NORMALS: normal to inspection, capillary refill normal, no clubbing, cyanosis or edema, no calf tenderness and no pedal edema Neuro: SENSORIUM/ORIENTATION: Yes oriented to person, Yes oriented to place and Yes oriented to time Skin: COMMON NORMALS: no rashes or lesions noted GENERAL SKIN EXAM: no rashes or lesions noted Course Vital Signs: Vital signs: Vital Signs Temperature 97.5 F L 11/14/21 10:45 Pulse Rate 63 11/14/21 14:56 Respiratory Rate 18 11/14/21 14:56 Blood Pressure 129/73 11/14/21 14:56 Pulse Oximetry 94 11/14/21 14:56 MDM - SOB/Dyspnea Medical Decision Making Patient improved after fluids. He still somewhat postural. Harsha have him hold his chlorthalidone. 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 Any worsening or change symptoms return return. Time discharge he has no focal neurologic deficits he has no chest pain or discomfort his breathing is normal exam is normal. Medical Records I reviewed the patient's medical records. Lab Data I reviewed the patient's lab results. : 11/14/21 10:57 11/14/21 10:57 Labs/Radiology: Radiology Impressions Head CT 11/14/21 10:47 IMPRESSION: 1. No evidence of intracranial hemorrhage or mass effect. 2. Mild small vessel changes. Moderate RIGHT, volume loss. 3. A few tiny chronic lacunar infarcts in the basal ganglia. 4. No significant changes since November 02, 2021 Laboratory Results WBC 8.8 10^3/uL (4.0-10.0) 11/14/21 10:57 RBC 4.39 10^6/uL (4.1-5.3) 11/14/21 10:57 Hgb 12.8 g/dL (11.7-16.6) 11/14/21 10:57 Hct 38.9 % (42.0-52.0) L 11/14/21 10:57 MCV 88.6 fl (80-94) 11/14/21 10:57 MCH 29.2 pg (28.0-34.0) 11/14/21 10:57 MCHC 32.9 g/dL (30.0-36.0) 11/14/21 10:57 RDW 13.6 % (12.1-15.1) 11/14/21 10:57 Plt Count 257 10^3/cmm (130-400) 11/14/21 10:57 MPV 10.2 fL (7.4-10.4) 11/14/21 10:57 Neut % (Auto) 69.0 % 11/14/21 10:57 Lymph % (Auto) 23.2 % 11/14/21 10:57 [place] % (Auto) 5.9 % 11/14/21 10:57 Eos % (Auto) 0.7 % 11/14/21 10:57 Baso % (Auto) 0.7 % 11/14/21 10:57 Neut # (Auto) 6.09 10^3/uL (1.8-7.7) 11/14/21 10:57 Lymph # (Auto) 2.1 10^3/uL (0.8-4.8) 11/14/21 10:57 [place] # (Auto) 0.5 10^3/uL (0.2-0.9) 11/14/21 10:57 Eos # (Auto) 0.1 10^3/uL (0.0-0.8) 11/14/21 10:57 Baso # (Auto) 0.1 10^3/uL (0.0-0.1) 11/14/21 10:57 Nucleated RBC % (auto) 0 % 11/14/21 10:57 Nucleated RBCs # 0.0 /100WBC 11/14/21 10:57 Specimen Type Arterial 11/14/21 10:57 Sample Site Radial, right 11/14/21 10:57 ABG pH 7.39 (7.35-7.45) 11/14/21 10:57 ABG pCO2 35.6 mmHg (35-45) 11/14/21 10:57 ABG pO2 105.0 mmHg (80.0-100.0) H 11/14/21 10:57 ABG HCO3 21.4 mmol/L (22-26) L 11/14/21 10:57 ABG O2 Saturation 98.7 11/14/21 10:57 ABG Base Excess -3.0 mmol/L (-2.0-2.0) L 11/14/21 10:57 Narayan Test Pos 11/14/21 10:57 A-a O2 Gradient 17.5 mmHg (5-10) H 11/14/21 10:57 Hematocrit 40.4 % (42-52) L 11/14/21 10:57 Hgb O2 Saturation 96.8 % (95-100) 11/14/21 10:57 Carboxyhemoglobin 1.0 %THgb (0.4-20.1) 11/14/21 10:57 Methemoglobin 0.9 % (0.4-1.5) 11/14/21 10:57 Total Hemoglobin 13.2 g/dL (14-18) L 11/14/21 10:57 Sodium 136.0 mmol/L (131-143) 11/14/21 10:57 Potassium 4.0 mmol/L (3.5-5.0) 11/14/21 10:57 Glucose 212.0 mg/dL (70-115) H 11/14/21 10:57 Ionized Calcium 1.2 mmol/L (1.1-1.4) 11/14/21 10:57 O2 Delivery Device Nc 11/14/21 10:57 O2 Liters/Min 5.0 % 11/14/21 10:57 FiO2 40.0 % 11/14/21 10:57 Investigative Agent ID Monro 11/14/21 10:57 Sodium 139 mmol/L (136-145) 11/14/21 10:57 Potassium 4.4 mmol/L (3.5-5.1) 11/14/21 10:57 Chloride 101 mmol/L (98-107) 11/14/21 10:57 Carbon Dioxide 23 mmol/L (22-29) 11/14/21 10:57 Anion Gap 19.4 (5-19) H 11/14/21 10:57 BUN 38 mg/dL (8-23) H 11/14/21 10:57 Creatinine 1.2 mg/dL (0.7-1.2) 11/14/21 10:57 GFR Calculation Not Reportable 11/14/21 10:57 Glucose 202 mg/dL (65-115) H 11/14/21 10:57 Calculated Osmolality 303 mOsm/kg (285-295) H 11/14/21 10:57 Lactic Acid 2.0 mmol/L (0.5-2.2) 11/14/21 11:06 Calcium 9.7 mg/dL (8.5-10.5) 11/14/21 10:57 Total Bilirubin 0.5 mg/dL (0.15-1.2) 11/14/21 10:57 AST 11 U/L (0-40) 11/14/21 10:57 ALT 12 U/L (0-41) 11/14/21 10:57 Alkaline Phosphatase 61 IU/L (40-130) 11/14/21 10:57 Creatine Kinase 32 U/L (39-308) L 11/14/21 10:57 Troponin T Baseline 22 ng/L (0-15) H 11/14/21 10:57 Troponin T 120 Minute 19.38 ng/L (0-15) H 11/14/21 12:35 Delta Troponin T -2.62 ABS# (0-10) L 11/14/21 12:35 Total Protein 7.2 g/dL (6.6-8.7) 11/14/21 10:57 Albumin 4.1 g/dL (3.5-5.2) 11/14/21 10:57 Globulin 3.1 g/dL (1.3-4.6) 11/14/21 10:57 Urine Color Yellow (Yellow) 11/14/21 13:05 Urine Appearance Clear (CLEAR) 11/14/21 13:05 Urine pH 5 (5-7) 11/14/21 13:05 Ur Specific [place] 1.015 (1.005-1.030) 11/14/21 13:05 Urine Protein Neg (Negative) 11/14/21 13:05 Urine Glucose (UA) Trace (Normal) H 11/14/21 13:05 Urine Ketones Negative (Negative) 11/14/21 13:05 Urine Blood Neg (Negative) 11/14/21 13:05 Urine Nitrate Negative (Negative) 11/14/21 13:05 Urine Bilirubin Neg (Negative) 11/14/21 13:05 Urine Urobilinogen Norm mg/dL (Negative) 11/14/21 13:05 Ur Leukocyte Esterase Negative (Negative) 11/14/21 13:05 Coronavirus 229E (PCR) Not detected (NOT DETECT) 11/14/21 11:09 SARS-CoV-2 (PCR) Not detected (NOT DETECT) 11/14/21 11:09 Discharge Plan Discharge Patient Disposition: Home Clinical Impression: Syncope due to orthostatic hypotension, DVT (deep venous thrombosis) Condition: Stable Prescriptions: Discontinued chlorthalidone 25 mg tablet 25 mg PO QAM 0RF No Action atorvastatin 20 mg tablet 20 mg PO BEDTIME 0RF metformin 500 mg tablet extended release 24 hr 1,000 mg PO BID 0RF Tresiba FlexTouch U-200 200 unit/mL (3 mL) insulin pen 26 unit SUBCUT QAM 0RF lisinopril 20 mg tablet 20 mg PO DAILY 0RF tamsulosin 0.4 mg capsule 0.4 mg PO BEDTIME 0RF Xarelto 15 mg tablet 15 mg PO BID 0RF Rx Instructions: for 18 days isosorbide mononitrate 30 mg tablet extended release 24 hr 30 mg PO QAM 0RF Discharge Orders: Discharge ED (Routine); Ordered 11/14/21 Ordered By: Foreign Tafoya Referrals: Ramón Dean DO [Primary Care Provider] - Discharge Diet: Usual diet Discharge Activity: Limit activity as instructed Patient Instructions: Opioid Safety Activity Restrictions/Additional Instructions: Follow-up with your doctor within the next 2 days. Coding Level of Care Code ED Councilperson for [facility]
[2021-11-14 11:08] LABS: ABG PCO2 35.6 mmHg (35-45); ABG PH Result 7.39 (7.35-7.45); Alveolar-Arterial Oxygen Gradi 17.5 mmHg (5-10); Arterial Blood Gas Hematocrit 40.4 % (42-52); Basophils # 0.1 10^3/uL (0.0-0.1); Basophils % 0.7 %; Blood Gas Allen Test Pos; Blood Gas Operator Identificat MONRO; Blood Gas Sample Site Radial, right; Blood Gas Sample Type Arterial; Eosinophils # 0.1 10^3/uL (0.0-0.8); Eosinophils % 0.7 %; HCO3 ABG 21.4 mmol/L (22-26); HGB O2 Sat 96.8 % (95-100); Hematocrit 38.9 % (42.0-52.0); Hemoglobin 12.8 g/dL (11.7-16.6); Ionized Calcium Level - ABG 1.2 mmol/L (1.1-1.4); Lymphocytes # 2.1 10^3/uL (0.8-4.8); Lymphocytes % 23.2 %; Mean Corpuscular HGB Conc 32.9 g/dL (30.0-36.0); Mean Corpuscular Hemoglobin 29.2 pg (28.0-34.0); Mean Corpuscular Volume 88.6 fl (80-94); Mean Platelet Volume 10.2 fL (7.4-10.4); Methemoglobin 0.9 % (0.4-1.5); Monocytes # 0.5 10^3/uL (0.2-0.9); Monocytes % 5.9 %; Neutrophils # 6.09 10^3/uL (1.8-7.7); Nucleated Red Blood Cells % 0 %; Oxygen Device NC; Oxygen Saturation ABG 98.7; Platelet Count 257 10^3/cmm (130-400); Red Blood Count 4.39 10^6/uL (4.1-5.3); Red Cell Distribution Width 13.6 % (12.1-15.1); Total Hemoglobin 13.2 g/dL (14-18); White Blood Count 8.8 10^3/uL (4.0-10.0)
[2021-11-14 11:34] LABS: Troponin(5th) Baseline 22 ng/L (0-15)
[2021-11-14 11:38] LABS: Alanine Aminotransferase 12 U/L (0-41); Albumin Level 4.1 g/dL (3.5-5.2); Alkaline Phosphatase 61 IU/L (40-130); Anion Gap 19.4 (5-19); Aspartate Amino Transferase 11 U/L (0-40); Blood Urea Nitrogen 38 mg/dL (8-23); Calcium 9.7 mg/dL (8.5-10.5); Carbon Dioxide 23 mmol/L (22-29); Chloride 101 mmol/L (98-107); Creatine Phosphokinase 32 U/L (39-308); Globulin 3.1 g/dL (1.3-4.6); Glucose 202 mg/dL (65-115); Osmolality Calculated 303 mOsm/kg (285-295); Potassium 4.4 mmol/L (3.5-5.1); Sodium 139 mmol/L (136-145); Total Bilirubin 0.5 mg/dL (0.15-1.2); Total Protein 7.2 g/dL (6.6-8.7)
[2021-11-14 12:39] VITALS: BP 123/70; PULSE 71; RESP 19; O2SAT 99
--- NOTE | 2021-11-14 12:47 | ECG_ITS ---
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 Measurements Intervals [place] Rate: 58 P: 24 [place]: 174 QRS: 40 QRSD: 114 T: 79 QT: 405 QTc: 400 Interpretive Statements SINUS BRADYCARDIA MODERATE INTRAVENTRICULAR CONDUCTION DELAY [110+ ms QRS DURATION] NONSPECIFIC T-WAVE ABNORMALITY Compared to ECG 11/14/2021 10:45:40 Sinus rhythm no longer present T-wave abnormality still present Electronically Signed On 11-14-2021 22:26:59 CDT by Sarbjit Kendrick M.D. [id number]
[2021-11-14 13:06] VITALS: BP 107/60; PULSE 54; RESP 20; O2SAT 99
[2021-11-14 13:08] LABS: Add Urine Microscopic? NO; Charge for UA Resulting for Rev
[2021-11-14 13:11] LABS: Troponin 5 2HR 19.38 ng/L (0-15)
[2021-11-14 13:14] LABS: Adenovirus Not Detected (NOT DETECT); Chlamydia Pneumoniae Not Detected (NOT DETECT); Coronavirus 229E,HKU1,NL63,OC4 Not Detected (NOT DETECT); Human Metapneumovirus Not Detected (NOT DETECT); Human Rhinovirus/Enterovirus Not Detected (NOT DETECT); Influenza A Not Detected (NOT DETECT); Influenza A H1 Not Detected (NOT DETECT); Influenza A H1-2009 Not Detected (NOT DETECT); Influenza A H3 Not Detected (NOT DETECT); Influenza B Not Detected (NOT DETECT); Mycoplasma Pneumoniae Not Detected (NOT DETECT); Parainfluenza Virus Type 1 Not Detected (NOT DETECT); Parainfluenza Virus Type 2 Not Detected (NOT DETECT); Parainfluenza Virus Type 3 Not Detected (NOT DETECT); Parainfluenza Virus Type 4 Not Detected (NOT DETECT); Respiratory Syncytial Virus A Not Detected (NOT DETECT); Respiratory Syncytial Virus B Not Detected (NOT DETECT); SARS-COV-2 Not Detected (NOT DETECT)
[2021-11-14 13:18] LABS: Bilirubin Urine Neg (Negative); Blood Urine Neg (Negative); Glucose Urine UA Trace (Normal); Ketones Urine Negative (Negative); Leukocyte Esterase Urine Negative (Negative); Nitrate Urine Negative (Negative); Protein Urine Neg (Negative); Specific Gravity, Urine 1.015 (1.005-1.030); Urine Appearance Clear (CLEAR); Urine Color Yellow (Yellow); Urobilinogen Urine Norm (Negative); pH Urine 5 (5-7)
[2021-11-14 13:20] LABS: Troponin 5 2HR Delta -2.62 ABS# (0-10)
[2021-11-14 13:44] VITALS: BP 102/67; BP 128/74; BP 92/60; BP 97/62; PULSE 62; PULSE 65; PULSE 75; PULSE 79; RESP 21; O2SAT 95
[2021-11-14 14:56] VITALS: BP 129/73; PULSE 63; RESP 18; O2SAT 94
== END 2021-11-14 14:57 | disposition home or self-care (01) ==
PROVIDERS: Emergency Provider Family Medicine; PCP Internal Medicine
DX: I95.1 Orthostatic hypotension (principal); F17.210 Nicotine dependence, cigarettes, uncomplicated; Z79.84 Long term (current) use of oral hypoglycemic drugs; Z79.01 Long term (current) use of anticoagulants; I71.4 Abdominal aortic aneurysm, without rupture; E11.9 Type 2 diabetes mellitus without complications
CPT/HCPCS: 36415; 36600; 51701; 70450; 80051; 80053; 81003; 82330; 82550; 82805; 83605; 84484; 85025; 87040; 87205; 87635; 93005; 96360; 99284

== ENCOUNTER 2021-11-16 12:45 | Emergency (ER) | payer MEDICARE, SELFPAY ==
[2021-11-16 13:08] VITALS: BP 115/66; PULSE 93; RESP 20; TEMP 36.6; O2SAT 97; BMI 35.6
--- NOTE | 2021-11-16 15:35 | ECG_ITS ---
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 Measurements Intervals [place] Rate: 61 P: 9 [place]: 156 QRS: -1 QRSD: 114 T: -9 QT: 393 QTc: 398 Interpretive Statements SINUS RHYTHM MODERATE INTRAVENTRICULAR CONDUCTION DELAY [110+ ms QRS DURATION] NONSPECIFIC T-WAVE ABNORMALITY Compared to ECG 11/14/2021 12:55:41 Sinus bradycardia no longer present T-wave abnormality still present Electronically Signed On 11-16-2021 23:34:17 CDT by Memo De Leon M.D. [id number]
[2021-11-16 16:14] VITALS: BP 145/85; PULSE 62; RESP 16; O2SAT 97
--- NOTE | 2021-11-16 16:28 | PC.PHAR ---
PTS STATES PT STILL TAKES ATORVASTATIN AND METFORMIN, [facility] LAST FILLED BOTH MEDICATIONS 07/24/21 FOR 90 DS. PTS HAD ELIQUIS 5MG WRITTEN ON HUSBANDS MED LIST BUT [facility] HAS NEVER FILLED THIS MED FOR THIS PATIENT. UNSURE IF HE TAKES IT OR NOT.
[2021-11-16 16:43] LABS: Basophils % 0.3 %; Eosinophils # 0.1 10^3/uL (0.0-0.8); Eosinophils % 0.5 %; Hematocrit 40.2 % (42.0-52.0); Hemoglobin 13.3 g/dL (11.7-16.6); Lymphocytes # 1.6 10^3/uL (0.8-4.8); Lymphocytes % 14.9 %; Mean Corpuscular HGB Conc 33.1 g/dL (30.0-36.0); Mean Corpuscular Hemoglobin 29.6 pg (28.0-34.0); Mean Corpuscular Volume 89.5 fl (80-94); Mean Platelet Volume 10.1 fL (7.4-10.4); Monocytes # 0.5 10^3/uL (0.2-0.9); Monocytes % 4.9 %; Neutrophils # 8.39 10^3/uL (1.8-7.7); Neutrophils % 78.8 %; Nucleated Red Blood Cells % 0 %; Platelet Count 285 10^3/cmm (130-400); Red Blood Count 4.49 10^6/uL (4.1-5.3); Red Cell Distribution Width 13.8 % (12.1-15.1); White Blood Count 10.6 10^3/uL (4.0-10.0)
--- NOTE | 2021-11-16 16:55 | ED_ITS ---
HPI - Weakness General: Chief complaint: Weakness Stated complaint: vomiting/low BP/ slow thinking Time Seen by Provider: 11/16/21 16:05 [facility]: Medical History Acute lower UTI BPH loc w urin obs/LUTS Diabetes Gait instability Microhematuria Neurogenic bladder Other specified urinary incontinence Surgical History S/P tonsillectomy Family History Father , 60 Hypertension CAD (coronary artery disease) Mother Cancer Social History Smoking and tobacco status: current some day smoker cigars Alcohol intake: never Marital status: Course Vital Signs: Vital signs: Vital Signs Temperature 97.9 F 11/16/21 13:08 Pulse Rate 62 11/16/21 16:14 Respiratory Rate 16 11/16/21 16:14 Blood Pressure 145/85 11/16/21 16:14 Pulse Oximetry 97 11/16/21 16:14 MDM - Weakness Lab Data : 11/16/21 16:22 11/16/21 16:22 Laboratory Results WBC 10.6 10^3/uL (4.0-10.0) H 11/16/21 16:22 RBC 4.49 10^6/uL (4.1-5.3) 11/16/21 16:22 Hgb 13.3 g/dL (11.7-16.6) 11/16/21 16:22 Hct 40.2 % (42.0-52.0) L 11/16/21 16:22 MCV 89.5 fl (80-94) 11/16/21 16:22 MCH 29.6 pg (28.0-34.0) 11/16/21 16:22 MCHC 33.1 g/dL (30.0-36.0) 11/16/21 16:22 RDW 13.8 % (12.1-15.1) 11/16/21 16:22 Plt Count 285 10^3/cmm (130-400) 11/16/21 16:22 MPV 10.1 fL (7.4-10.4) 11/16/21 16: Neut % (Auto) 78.8 % 11/16/21 16: Lymph % (Auto) 14.9 % 11/16/21 16:22 [place] % (Auto) 4.9 % 11/16/21 16: Eos % (Auto) 0.5 % 11/16/21 16: Baso % (Auto) 0.3 % 11/16/21 16: Neut # (Auto) 8.39 10^3/uL (1.8-7.7) H 11/16/21 16: Lymph # (Auto) 1.6 10^3/uL (0.8-4.8) 11/16/21 16: [place] # (Auto) 0.5 10^3/uL (0.2-0.9) 11/16/21 16: Eos # (Auto) 0.1 10^3/uL (0.0-0.8) 11/16/21 16: Baso # (Auto) 0.0 10^3/uL (0.0-0.1) 11/16/21 16: Nucleated RBC % (auto) 0 % 11/16/21 16: Nucleated RBCs # 0.0 /100WBC 11/16/21 16:22 Discharge Plan Discharge Condition: Stable Prescriptions: No Action atorvastatin 20 mg tablet 20 mg PO BEDTIME 0RF metformin 500 mg tablet extended release 24 hr 1,000 mg PO BID 0RF Tresiba FlexTouch U-200 200 unit/mL (3 mL) insulin pen 26 unit SUBCUT QAM 0RF lisinopril 20 mg tablet 20 mg PO DAILY 0RF tamsulosin 0.4 mg capsule 0.4 mg PO BEDTIME 0RF Xarelto 15 mg tablet 15 mg PO BID 0RF Rx Instructions: for 18 days isosorbide mononitrate 30 mg tablet extended release 24 hr 30 mg PO QAM 0RF Referrals: Ramón Dean DO [Primary Care Provider] - Coding Level of Care Code 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
--- NOTE | 2021-11-16 16:58 | ED_ITS ---
HPI - General Adult General: Chief complaint: Weakness Stated complaint: vomiting/low BP/ slow thinking Time Seen by Provider: 11/16/21 16:05 History of Present Illness: Patient is a 76-year-old male with history of UTI, diabetes, gait instability, aortic aneurysm follow-up with Dr. Harris presenting to the emergency room for multiple complaints today including low blood pressure, transient lightheadedness, nausea and vomiting. Patient tells me that he was seen initially 3 days ago for similar complaints. At that point time, patient was had an FEN monitor that was placed for low blood pressure. Since then, patient states that he continues to have intermittent low blood pressure. Earlier today around 12:00 patient was eating lunch when he suddenly vomited. Patient denies choking on food but reports nausea and vomiting. Patient also reported having low blood pressure at home of 90/50. Patient went to Dr. Dietz's clinic for reassessment noticed the blood pressure was again low. Patient was then told to come to the emergency room for further evaluation. On arrival, patient denies any acute abdominal pain, nausea/vomiting fever/chills, chest pain, shortness or palpitation. Patient has had multiple blood pressure reading in the ER as normotensive. Patient denies any melena/hematochezia, urinary complaints, focal neurological weakness, or other complaints at this time. Onset: 3 days ago Duration:ongoing Location:home Severity:moderate Associated symptoms: Reports nausea and vomiting (1 episode of vomiting); Deny chest pain, dyspnea, rash or palpitations Review of Systems 2 Const: Reports: fatigue; Denies: fever(s) or chills Eyes: Denies: change in vision ENMT: Denies: mouth pain Card: Denies: chest pain or palpitations Resp: Denies: dyspnea or non-productive cough GI: Reports: nausea and vomiting (1 episode of vomiting); Denies: abdominal pain or diarrhea : Denies: dysuria Musc: Denies: extremity pain Skin/Breast: Denies: rash or new lesions Neuro: Denies: weakness in extremities Psych: Reports: other (Normal mood) Gerson/Lymph: Denies: easy bruising PFSH ED 2 PFSH: Medical History Anxiety and depression Ascending aortic aneurysm 11/04/21 - 5 cm Bochdalek hernia BPH loc w urin obs/LUTS Carotid arterial disease 11/02/21 - By ultrasound 52-69% stenosis of left common carotid artery with decreased velocity and elevated ED ratio, but CTA head/neck 11/04/21 with no stenosis noted in same vessel, mild luminal irregularities of V3 branch of left vertebral artery COVID-19 vaccine administered [employer] History of echocardiogram 10/2021 - Normal left ventricular size and systolic function, EF 60%. Moderate concentric left ventricular hypertrophy. Grade I/IV diastolic dysfunction. 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 Right adrenal mass 11/16 1.8 x 1.4 cm Sleep apnea Type 2 diabetes mellitus treated with insulin 11/16 - A1c 9.3 Surgical History History of colonoscopy 2013 - colon polyps S/P tonsillectomy Family History Father , 60 Hypertension CAD (coronary artery disease) Mother Cancer Social History Smoking and tobacco status: former smoker Alcohol intake: former Former alcohol use details: some years ago, previous drank 6 pack per day, none now Substance/Drug Use: never Household members: spouse Marital status: 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 NO guarding rebound, guarding, rigidity. No CVA tenderness to percussion. Neg Mcclelland/Neg McBurney's point tenderness, no suprabupic tenderness to palpation. Extremity: COMMON NORMALS: full ROM Neuro: SENSORIUM/ORIENTATION: Yes alert MOTOR EXAM: No Abnormal motor strength present and Other motor observations present (no focal motor deficits) OTHER: Mental status? Awake, alert, and oriented to self, year, month, location, and situation.? Following simple axial and appendicular commands.? Has appropriate fund of knowledge, comprehension, and insight.? Able to recall and understands pertinent aspects of medical history and current treatment status.? ? Language? Speech is fluent without word-finding difficulties.? 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 ? Cranial nerves? 2,3,4,6: PERRL, EOMI with no nystagmus. 5: Intact sensation to light touch, symmetric? 7: Smile symmetrical, no facial droop.? 8: Hearing grossly intact.? 9,10: Normal palate movement.? 11: Normal strength in trapezius bilaterally 12: Tongue protrudes midline.? ? Motor examination? Normal bulk & tone. Strength as follows (R/L): Delts (5/5), Biceps (5/5), Triceps (5/5), Wrist ext (5/5), hip flexors (5/5), plantarflexors (5/5), dorsiflexors (5/5). Sensation? Light Touch: Grossly intact and equal in upper and lower extremities bilaterally? Romberg: Negative.? Distal joint position sense intact ? Coordination? Tjdwyu-nw-pfwu-finger movements intact without dysmetria or past-pointing.? Rapid fingertaps: preserved amplitude without decriment.? No tremor, myoclonus or truncal ataxia.? ? Gait/stance? Steady, normal narrow base gait with appropriate arm swing and turning.? Tandem gait without hesitation or loss of balance. Psych: COMMON NORMALS: speech normal SPEECH: Yes normal speech MOOD & AFFECT: Yes euthymic mood Course Vital Signs: Vital signs: Vital Signs Temperature 97.9 F 11/16/21 13:08 Pulse Rate 80 11/16/21 21:12 Respiratory Rate 16 11/16/21 21:12 Blood Pressure 155/86 11/16/21 21:12 Pulse Oximetry 94 11/16/21 21:12 MDM - General Adult Medical Decision Making 76M w/ hx of UTI, diabetes, gait instability, aortic aneurysm follow-up with Dr. Harris presenting to the emergency room for multiple complaints today including low blood pressure, transient lightheadedness, nausea and vomiting. BP normal on arrival. Received IVF and continues to be stable. Troponins x 2 wnl. EKG is non ischemic. Cr of 1.5 up from baseline, s/p repletion of IVF. Instructed to follow up with PCP for evaluation of low BP of unknown etiology. Disposition: Discharge. Patient counseled regarding diagnostic impression, treatment plan. Patient given ED strict return precautions to return for continuation, worsening, or development of new symptoms. Instructed to f/u w/ PCP regarding symptoms today. Patient verbalized understanding. Lab Data : 11/16/21 16:22 11/16/21 16: Laboratory Results WBC 10.6 10^3/uL (4.0-10.0) H 11/16/21 16: RBC 4.49 10^6/uL (4.1-5.3) 11/16/21 16: Hgb 13.3 g/dL (11.7-16.6) 11/16/21 16: Hct 40.2 % (42.0-52.0) L 11/16/21 16: MCV 89.5 fl (80-94) 11/16/21 16: MCH 29.6 pg (28.0-34.0) 11/16/21 16: MCHC 33.1 g/dL (30.0-36.0) 11/16/21 16: RDW 13.8 % (12.1-15.1) 11/16/21 16: Plt Count 285 10^3/cmm (130-400) 11/16/21 16: MPV 10.1 fL (7.4-10.4) 11/16/21 16: Neut % (Auto) 78.8 % 11/16/21 16: Lymph % (Auto) 14.9 % 11/16/21 16: [place] % (Auto) 4.9 % 11/16/21 16: Eos % (Auto) 0.5 % 11/16/21 16: Baso % (Auto) 0.3 % 11/16/21 16: Neut # (Auto) 8.39 10^3/uL (1.8-7.7) H 11/16/21 16: Lymph # (Auto) 1.6 10^3/uL (0.8-4.8) 11/16/21 16:22 [place] # (Auto) 0.5 10^3/uL (0.2-0.9) 11/16/21 16:22 Eos # (Auto) 0.1 10^3/uL (0.0-0.8) 11/16/21 16:22 Baso # (Auto) 0.0 10^3/uL (0.0-0.1) 11/16/21 16:22 Nucleated RBC % (auto) 0 % 11/16/21 16:22 Nucleated RBCs # 0.0 /100WBC 11/16/21 16:22 Sodium 132 mmol/L (136-145) L 11/16/21 16:22 Potassium 5.0 mmol/L (3.5-5.1) 11/16/21 16:22 Chloride 94 mmol/L (98-107) L 11/16/21 16:22 Carbon Dioxide 24 mmol/L (22-29) 11/16/21 16:22 Anion Gap 19.0 (5-19) 11/16/21 16:22 BUN 28 mg/dL (8-23) H 11/16/21 16:22 Creatinine 1.5 mg/dL (0.7-1.2) H 11/16/21 16:22 GFR Calculation Not Reportable 11/16/21 16:22 Glucose 173 mg/dL (65-115) H 11/16/21 16:22 Calculated Osmolality 284 mOsm/kg (285-295) L 11/16/21 16:22 Calcium 8.6 mg/dL (8.5-10.5) 11/16/21 16:22 Total Bilirubin 0.6 mg/dL (0.15-1.2) 11/16/21 16:22 AST 14 U/L (0-40) 11/16/21 16:22 ALT 13 U/L (0-41) 11/16/21 16:22 Alkaline Phosphatase 61 IU/L (40-130) 11/16/21 16:22 Troponin T Baseline 17 ng/L (0-15) H 11/16/21 16:22 Troponin T 120 Minute 16.52 ng/L (0-15) H 11/16/21 18:28 Delta Troponin T -0.48 ABS# (0-10) L 11/16/21 18:28 Total Protein 7.4 g/dL (6.6-8.7) 11/16/21 16:22 Albumin 4.2 g/dL (3.5-5.2) 11/16/21 16:22 Globulin 3.2 g/dL (1.3-4.6) 11/16/21 16:22 Lipase 58 U/L (13-60) 11/16/21 16:22 Urine Color Yellow (Yellow) 11/16/21 Unknown Urine Appearance Clear (CLEAR) 11/16/21 Unknown Urine pH 5 (5-7) 11/16/21 Unknown Ur Specific [place] 1.015 (1.005-1.030) 11/16/21 Unknown Urine Protein Neg (Negative) 11/16/21 Unknown Urine Glucose (UA) Trace (Normal) H 11/16/21 Unknown Urine Ketones Negative (Negative) 11/16/21 Unknown Urine Blood Neg (Negative) 11/16/21 Unknown Urine Nitrate Negative (Negative) 11/16/21 Unknown Urine Bilirubin Neg (Negative) 11/16/21 Unknown Urine Urobilinogen Norm mg/dL (Negative) 11/16/21 Unknown Ur Leukocyte Esterase Negative (Negative) 11/16/21 Unknown Discharge Plan Discharge Patient Disposition: Home Clinical Impression: Blood pressure alteration Condition: Stable Prescriptions: No Action atorvastatin 20 mg tablet 20 mg PO BEDTIME 0RF metformin 500 mg tablet extended release 24 hr 1,000 mg PO BID 0RF Tresiba FlexTouch U-200 200 unit/mL (3 mL) insulin pen 26 unit SUBCUT QAM 0RF lisinopril 20 mg tablet 5 mg PO BID 0RF tamsulosin 0.4 mg capsule 0.4 mg PO BEDTIME 0RF Xarelto 15 mg tablet 15 mg PO BID 0RF Rx Instructions: for 18 days isosorbide mononitrate 30 mg tablet extended release 24 hr 30 mg PO QAM 0RF Discharge Orders: Discharge ED (Routine); Ordered 11/16/21 Ordered By: Paulina Bejarano Referrals: Ramón Dean DO [Primary Care Provider] - Discharge Diet: Advance as tolerated Discharge Activity: Increase activity as tolerated Activity Restrictions/Additional Instructions: Please follow-up with Dr. Dean for reevaluation of your low blood pressure. Please lower your dose of lisinopril to 10 mg morning and night. Come back to the emergency room if he has any chest pain, shortness breath, focal weakness, nausea/vomiting fever/chills, or any new concerning complaints. Coding Level of Care Code ED Principal Software Engineer for Clement Delarosa Exam Comprehensive
[2021-11-16 17:02] LABS: Alanine Aminotransferase 13 U/L (0-41); Albumin Level 4.2 g/dL (3.5-5.2); Alkaline Phosphatase 61 IU/L (40-130); Aspartate Amino Transferase 14 U/L (0-40); Blood Urea Nitrogen 28 mg/dL (8-23); Calcium 8.6 mg/dL (8.5-10.5); Carbon Dioxide 24 mmol/L (22-29); Chloride 94 mmol/L (98-107); Globulin 3.2 g/dL (1.3-4.6); Glucose 173 mg/dL (65-115); Lipase 58 U/L (13-60); Osmolality Calculated 284 mOsm/kg (285-295); Sodium 132 mmol/L (136-145); Total Bilirubin 0.6 mg/dL (0.15-1.2); Total Protein 7.4 g/dL (6.6-8.7)
[2021-11-16 17:04] LABS: Troponin(5th) Baseline 17 ng/L (0-15)
[2021-11-16 17:41] VITALS: BP 126/80; PULSE 60; RESP 16; O2SAT 93
[2021-11-16 18:58] LABS: Troponin 5 2HR 16.52 ng/L (0-15)
[2021-11-16 18:59] LABS: Troponin 5 2HR Delta -0.48 ABS# (0-10)
[2021-11-16 19:04] VITALS: BP 140/92; PULSE 61; RESP 20; O2SAT 97
[2021-11-16 19:26] LABS: Add Urine Microscopic? NO; Charge for UA Resulting for Rev
[2021-11-16 19:34] LABS: Specific Gravity, Urine 1.015 (1.005-1.030); Urine Appearance Clear (CLEAR); Urine Color Yellow (Yellow); pH Urine 5 (5-7)
[2021-11-16 19:35] LABS: Bilirubin Urine Neg (Negative); Blood Urine Neg (Negative); Glucose Urine UA Trace (Normal); Ketones Urine Negative (Negative); Leukocyte Esterase Urine Negative (Negative); Nitrate Urine Negative (Negative); Protein Urine Neg (Negative); Urobilinogen Urine Norm (Negative)
[2021-11-16 20:48] VITALS: BP 155/86; PULSE 80; RESP 16; O2SAT 94
[2021-11-16 21:12] VITALS: BP 155/86; PULSE 80; RESP 16; O2SAT 94
== END 2021-11-16 21:15 | disposition home or self-care (01) ==
PROVIDERS: Emergency Provider Emergency Medicine; PCP Internal Medicine
DX: I95.9 Hypotension, unspecified (principal); Z87.440 Personal history of urinary (tract) infections; E11.9 Type 2 diabetes mellitus without complications; R26.89 Other abnormalities of gait and mobility; I71.4 Abdominal aortic aneurysm, without rupture; R42 Dizziness and giddiness; R11.2 Nausea with vomiting, unspecified; Z87.891 Personal history of nicotine dependence
CPT/HCPCS: 80053; 81003; 83690; 84484; 85025; 93005; 99284

== ENCOUNTER 2021-11-21 09:36 | Observation (INO) | payer MEDICARE, SELFPAY ==
[2021-11-21] VITALS (9 sets, daily range): BP systolic 80–163; BP diastolic 54–88; PULSE 55–68; RESP 12–18; TEMP 36.3–36.4; O2SAT 92–97; BMI 36.1
--- NOTE | 2021-11-21 09:38 | ECG_ITS ---
[facility] Test Date: 2021-11-21 Pat Name: Medardo Moreno Department: Room: Gender: Male Communication Assistant: : 1945 Requested By: Foreign Rizzo Order Number: [id number] Neftali MD: Jose Mccauley M.D. Measurements Intervals [place] Rate: 55 P: 43 AK: 148 QRS: 30 QRSD: 118 T: 83 QT: 432 QTc: 416 Interpretive Statements SINUS BRADYCARDIA WITH OCCASIONAL VENTRICULAR PREMATURE COMPLEXES MODERATE INTRAVENTRICULAR CONDUCTION DELAY [110+ ms QRS DURATION] NONSPECIFIC T-WAVE ABNORMALITY Compared to ECG 11/16/2021 16:21:58 Ventricular premature complex(es) now present Sinus rhythm no longer present T-wave abnormality still present Electronically Signed On 11-21-2021 16:53:04 CDT by Jose Mccauley M.D. [id number]
--- NOTE | 2021-11-21 09:38 | CT_ITS ---
WS: [id number] CT HEAD NONCONTRAST HISTORY: AMS TECHNIQUE: Contiguous axial imaging performed through the brain in 2.5 mm imaging. Bone and soft tiss ue windows. Sagittal and coronal reformats reviewed. All CT scans at [facility] use at least one of these dose optimization techniques: automated exposure control; mA and/or kV adjustment per pa tient size (includes targeted exams where dose is matched to clinical indication); or iterative recon struction. DLP: 1015.94 mGy.cm COMPARISON: 11/14/2021 No acute intracranial hemorrhage, midline shift or mass effect. Mild atrophy and small vessel ischemic disease. There are a few very tiny lacunar infarcts in the bas al ganglia as described on the prior study. No large infarct. No focal area of sulcal effacement. Ventricles: Mild prominence of ventricular system on the basis of atrophy. Heavy calcification in the intracranial carotid arteries. Paranasal sinuses: As visualized are clear. Mastoid air cells: Well pneumatized. Calvarium and scalp: Skull is intact with no soft tissue edema or swelling. CT/CT head wo con* [id number] IMPRESSION: 1. No acute intracranial hemorrhage or edema. 2. Stable noncontrast head CT since 11/14/2021. 3. Atrophy with small vessel ischemic disease.
--- NOTE | 2021-11-21 09:38 | XR_ITS ---
WS: [id number] Portable AP upright chest, 11/21/2021 Clinical Data: dyspnea/cough Comparison: Portable chest, 11/02/2021. Findings: No nodules, masses or effusions are seen. The heart is normal. The pulmonary vascularity is not increased. No pneumonia or pneumothorax is seen. The aortic arch and descending thoracic aorta s how tortuosity. Monitor leads are on the chest wall. XR/XR chest 1V portable [id number] Impression: Atherosclerosis.
--- NOTE | 2021-11-21 09:51 | ED_ITS ---
HPI - Syncope General: Chief Complaint: Syncope Stated Complaint: PERIODOF UNRESPONSIVENESS Time Seen by Provider: 11/21/21 09:38 Source: patient Limitations: no limitations History of Present Illness: 76-year-old male presents emergency room via EMS. Is been seen several times recently he has been hypotensive he [employer] is near syncopal episodes we initially decreased his chlorthalidone and then decreased his lisinopril. Prior to that he had a syncopal episode and he was admitted he was found to have a DVT is small PE and an aortic aneurysm. Before the patient arrived today family member came to the ER asking about transfer to tertiary care. He mentioned that previously it had been suggested to them. I do find a note from Dr. Harris about referring him to tertiary care at a later date to further evaluate the clot and the aneurysm does not look like anything was suggested emergently. On arrival here patient is awake and alert and oriented he can recall getting to the doctor's office he states when he went to get out of the vehicle he started lightheaded dizzy does not really remember much until the ambulance brought him here. He has a Holter monitor in place. He states he has made the recommended adjustments to his medications previously is hypotensive on arrival. I talked his primary care doctor who called that they were sending him here by ambulance. He was completely nonresponsive at the doctor's office. Although he reports that the blood pressure was stable at the doctor's office on arrival here he is 80/54 with a heart rate of 60. He is denying any chest pain or shortness of breath any abdominal pain leg pain headache nausea vomiting diarrhea any change in vision or speech. Initial eval uation he has no facial asymmetry or droop, no pronator drift and can do leg lifts without any difficulty. There are no focal neurologic deficits. There was no seizure-like activity. MD complaint: loss of consciousness Onset (ago): minute(s) -: minutes(s) Prodromal symptoms: none Witnessed: Yes - by Bystander Context: standing up Injuries sustained associated with event: none Associated symptoms: Reports lightheadedness and weakness; Deny abdominal pain, chest pain, fever(s), headache(s), nausea, short of breath or vertigo History: previous syncopal episode Treatments prior to arrival: IV fluids Review of Systems Const: Denies: fever(s) ENMT: Denies: throat pain, ear or mastoid pain, nasal discharge or nasal congestion Card: Reports: lightheadedness; Denies: chest pain Resp: Denies: dyspnea, productive cough or non-productive cough GI: Denies: abdominal pain or nausea : Denies: flank pain, dysuria, urinary frequency or urinary urgency Skin/Breast: Denies: rash or pruritus Neuro: Denies: headache(s) or vertigo PFSH ED PFSH: Medical History Anxiety and depression Ascending aortic aneurysm 11/04/21 - 5 cm Bochdalek hernia BPH loc w urin obs/LUTS Carotid arterial disease 11/02/21 - By ultrasound 52-69% stenosis of left common carotid artery with decreased velocity and elevated ED ratio, but CTA head/neck 11/04/21 with no stenosis noted in same vessel, mild luminal irregularities of V3 branch of left vertebral artery COVID-19 vaccine administered [employer] History of echocardiogram 10/2021 - Normal left ventricular size and systolic function, EF 60%. Moderate concentric left ventricular hypertrophy. Grade I/IV diastolic dysfunction. 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 Right adrenal mass 11/16 1.8 x 1.4 cm Sleep apnea Type 2 diabetes mellitus treated with insulin 11/16 - A1c 9.3 Surgical History History of colonoscopy 2013 - colon polyps S/P tonsillectomy Family History Father , 60 Hypertension CAD (coronary artery disease) Mother Cancer Social History Smoking and tobacco status: former smoker Alcohol intake: former Former alcohol use details: some years ago, previous drank 6 pack per day, none now Substance/Drug Use: never Household members: spouse Marital status: 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 Exam Const: GENERAL APPEARANCE: cooperative and comfortable ORIENTATION/CONSCIOUSNESS: Yes awake, Yes oriented to person, Yes oriented to place and Yes oriented to time HENMT: COMMON NORMALS: normocephalic, atraumatic and hearing grossly normal bilaterally HEAD & SCALP: normocephalic and atraumatic Eye: COMMON NORMALS: Equal, round and reactive pupils present, EOMs intact bilaterally, conjunctivae normal and no scleral icterus CONJUNCTIVA: Yes conjunctivae normal PUPIL: Yes Equal, round and reactive pupils present Neck/C-Spine: COMMON NORMALS: no JVD Resp: COMMON NORMALS: normal respiratory effort, No retractions, No use of accessory muscles and clear to auscultation bilaterally AUSCULTATION: clear to auscultation bilaterally Cardio: COMMON NORMALS: no JVD, regular rate, regular rhythm and No murmurs present (Cardio) RATE: regular rate RHYTHM: regular rhythm GI: COMMON NORMALS: Soft to palpation and No hepatosplenomegaly present AUSCULTATION: Yes normoactive bowel sounds PALPATION: Yes Soft to palpation, No Tenderness to palpation present (GI), No Guarding due to palpation present (GI) and Yes No hepatosplenomegaly present Extremity: COMMON NORMALS: normal to inspection, capillary refill normal, no clubbing, cyanosis or edema, no calf tenderness and no pedal edema Neuro: SENSORIUM/ORIENTATION: Yes oriented to person, Yes oriented to place and Yes oriented to time Skin: COMMON NORMALS: no rashes or lesions noted GENERAL SKIN EXAM: no rashes or lesions noted Course Vital Signs: Vital signs: Vital Signs Temperature 97.9 F 11/22/21 07:48 Pulse Rate 63 11/22/21 08:21 Respiratory Rate 16 11/22/21 07:48 Blood Pressure 107/63 11/22/21 07:48 Pulse Oximetry 92 11/22/21 08:21 MDM - Syncope Medical Decision Making Patient has had a couple of syncopal episodes seems to be recurrent regularly when he goes to stand. She has a Holter monitor on but unfortunately it was not recording while this episode happened. Discussed with hospitalist will put him on observation for further evaluation suspect he will need further adjustment of his medications he is still on antihypertensives which I think are contributing to this including his isosorbide and tamsulosin 1 as well as lisinopril. Discussed with the family. He has no focal neurologic deficits at this time. Medical Records I reviewed the patient's medical records. Lab Data I reviewed the patient's lab results. : 11/21/21 09:27 11/22/21 06:10 Radiology Impressions Chest X-Ray 11/21/21 09:38 Impression: Atherosclerosis. Head CT 11/21/21 09:38 IMPRESSION: 1. No acute intracranial hemorrhage or edema. 2. Stable noncontrast head CT since 11/14/2021. 3. Atrophy with small vessel ischemic disease. Laboratory Results WBC 10.2 10^3/uL (4.0-10.0) H 11/21/21 09:27 RBC 4.52 10^6/uL (4.1-5.3) 11/21/21 09: Hgb 13.1 g/dL (11.7-16.6) 11/21/21 09: Hct 39.4 % (42.0-52.0) L 11/21/21 09: MCV 87.2 fl (80-94) 11/21/21 09: MCH 29.0 pg (28.0-34.0) 11/21/21 09: MCHC 33.2 g/dL (30.0-36.0) 11/21/21 09: RDW 13.6 % (12.1-15.1) 11/21/21 09: Plt Count 242 10^3/cmm (130-400) 11/21/21 09: MPV 11.1 fL (7.4-10.4) H 11/21/21 09:27 Neut % (Auto) 72.4 % 11/21/21 09:27 Lymph % (Auto) 20.2 % 11/21/21 09:27 [place] % (Auto) 5.7 % 11/21/21 09:27 Eos % (Auto) 0.7 % 11/21/21 09:27 Baso % (Auto) 0.5 % 11/21/21 09:27 Neut # (Auto) 7.37 10^3/uL (1.8-7.7) 11/21/21 09: Lymph # (Auto) 2.1 10^3/uL (0.8-4.8) 11/21/21 09:27 [place] # (Auto) 0.6 10^3/uL (0.2-0.9) 11/21/21 09:27 Eos # (Auto) 0.1 10^3/uL (0.0-0.8) 11/21/21 09:27 Baso # (Auto) 0.1 10^3/uL (0.0-0.1) 11/21/21 09:27 Nucleated RBC % (auto) 0 % 11/21/21 09:27 Nucleated RBCs # 0.0 /100WBC 11/21/21 09:27 Specimen Type Arterial 11/21/21 09:48 Sample Site Brachial, left 11/21/21 09:48 ABG pH 7.37 (7.35-7.45) 11/21/21 09:48 ABG pCO2 39.8 mmHg (35-45) 11/21/21 09:48 ABG pO2 60.7 mmHg (80.0-100.0) L 11/21/21 09:48 ABG HCO3 22.8 mmol/L (22-26) 11/21/21 09:48 ABG O2 Saturation 91.7 11/21/21 09:48 ABG Base Excess -2.4 mmol/L (-2.0-2.0) L 11/21/21 09:48 Narayan Test N/a 11/21/21 09:48 A-a O2 Gradient 5.4 mmHg (5-10) 11/21/21 09:48 Hematocrit 38.3 % (42-52) L 11/21/21 09:48 Hgb O2 Saturation 90.0 % (95-100) L 11/21/21 09:48 Carboxyhemoglobin 1.1 %THgb (0.4-20.1) 11/21/21 09:48 Methemoglobin 0.7 % (0.4-1.5) 11/21/21 09:48 Total Hemoglobin 12.5 g/dL (14-18) L 11/21/21 09:48 Sodium 138.0 mmol/L (131-143) 11/21/21 09:48 Potassium 3.8 mmol/L (3.5-5.0) 11/21/21 09:48 Glucose 169.0 mg/dL (70-115) H 11/21/21 09:48 Ionized Calcium 1.2 mmol/L (1.1-1.4) 11/21/21 09:48 O2 Delivery Device Room air 11/21/21 09:48 FiO2 21.0 % 11/21/21 09:48 Caustic Plant Worker ID Amh 11/21/21 09:48 Sodium 138 mmol/L (136-145) 11/21/21 09:27 Potassium 4.2 mmol/L (3.5-5.1) 11/21/21 09:27 Chloride 101 mmol/L (98-107) 11/21/21 09:27 Carbon Dioxide 23 mmol/L (22-29) 11/21/21 09:27 Anion Gap 18.2 (5-19) 11/21/21 09:27 BUN 24 mg/dL (8-23) H 11/21/21 09:27 Creatinine 1.1 mg/dL (0.7-1.2) 11/21/21 09:27 GFR Calculation Not Reportable 11/21/21 09:27 Glucose 164 mg/dL (65-115) H 11/21/21 09:27 Calculated Osmolality 294 mOsm/kg (285-295) 11/21/21 09:27 Calcium 8.6 mg/dL (8.5-10.5) 11/21/21 09:27 Magnesium 1.6 mg/dL (1.7-2.3) L 11/21/21 09:27 Total Bilirubin 0.5 mg/dL (0.15-1.2) 11/21/21 09:27 AST 13 U/L (0-40) 11/21/21 09:27 ALT 9 U/L (0-41) 11/21/21 09:27 Alkaline Phosphatase 62 IU/L (40-130) 11/21/21 09:27 Troponin T Baseline 18 ng/L (0-15) H 11/21/21 09:27 Troponin T 120 Minute 14.94 ng/L (0-15) 11/21/21 11:40 Delta Troponin T -3.06 ABS# (0-10) L 11/21/21 11:40 Total Protein 6.5 g/dL (6.6-8.7) L 11/21/21 09:27 Albumin 4.1 g/dL (3.5-5.2) 11/21/21 09:27 Globulin 2.4 g/dL (1.3-4.6) 11/21/21 09:27 Procalcitonin 0.09 ng/mL (0-0.5) 11/21/21 09:27 Random Cortisol 26.34 ug/dL (2.47-19.5) H 11/21/21 09:27 Discharge Plan Discharge Patient Disposition: Admitted As Inpatient Admit Provider: Tessa Saha Clinical Impression: Syncope due to orthostatic hypotension, Gait instability, Pulmonary embolus, left, Chronic anticoagulation, Deep vein thrombosis of bilateral lower extremities, Type 2 diabetes mellitus treated with insulin, Ascending aortic aneurysm, BPH loc w urin obs/LUTS, Labile blood pressure Condition: Stable Coding Level of Care Code ED Professional Builder for Chg Fwd Exam Comprehensive
[2021-11-21 09:55] LABS: Basophils # 0.1 10^3/uL (0.0-0.1); Basophils % 0.5 %; Eosinophils # 0.1 10^3/uL (0.0-0.8); Eosinophils % 0.7 %; Hematocrit 39.4 % (42.0-52.0); Hemoglobin 13.1 g/dL (11.7-16.6); Lymphocytes # 2.1 10^3/uL (0.8-4.8); Lymphocytes % 20.2 %; Mean Corpuscular HGB Conc 33.2 g/dL (30.0-36.0); Mean Corpuscular Volume 87.2 fl (80-94); Mean Platelet Volume 11.1 fL (7.4-10.4); Monocytes # 0.6 10^3/uL (0.2-0.9); Monocytes % 5.7 %; Neutrophils # 7.37 10^3/uL (1.8-7.7); Neutrophils % 72.4 %; Nucleated Red Blood Cells % 0 %; Platelet Count 242 10^3/cmm (130-400); Red Blood Count 4.52 10^6/uL (4.1-5.3); Red Cell Distribution Width 13.6 % (12.1-15.1); White Blood Count 10.2 10^3/uL (4.0-10.0)
[2021-11-21 10:00] LABS: ABG PCO2 39.8 mmHg (35-45); ABG PH Result 7.37 (7.35-7.45); Alveolar-Arterial Oxygen Gradi 5.4 mmHg (5-10); Arterial Blood Gas Hematocrit 38.3 % (42-52); Base Excess ABG -2.4 mmol/L (-2.0-2.0); Blood Gas Operator Identificat AMH; Blood Gas Sample Site Brachial, left; Blood Gas Sample Type Arterial; Carboxyhemoglobin 1.1 %THgb (0.4-20.1); HCO3 ABG 22.8 mmol/L (22-26); Ionized Calcium Level - ABG 1.2 mmol/L (1.1-1.4); Methemoglobin 0.7 % (0.4-1.5); Oxygen Device ROOM AIR; Oxygen Saturation ABG 91.7; PO2 ABG 60.7 mmHg (80.0-100.0); Potassium Level - ABG 3.8 mmol/L (3.5-5.0); Total Hemoglobin 12.5 g/dL (14-18)
--- NOTE | 2021-11-21 10:07 | PC.PHAR ---
pts son verified pts medications-pts son states changed lisinopril to 10mg bid-ext med history shows last filled 11/08/21 30d/s for 20mg bid-pts son states the 81mg aspirin and the chllorthalidone 25mg daily was dced-notes are made in the pharmacy comments
[2021-11-21 10:20] LABS: Troponin(5th) Baseline 18 ng/L (0-15)
[2021-11-21 10:21] LABS: Alanine Aminotransferase 9 U/L (0-41); Albumin Level 4.1 g/dL (3.5-5.2); Alkaline Phosphatase 62 IU/L (40-130); Anion Gap 18.2 (5-19); Aspartate Amino Transferase 13 U/L (0-40); Blood Urea Nitrogen 24 mg/dL (8-23); Calcium 8.6 mg/dL (8.5-10.5); Carbon Dioxide 23 mmol/L (22-29); Chloride 101 mmol/L (98-107); Globulin 2.4 g/dL (1.3-4.6); Glucose 164 mg/dL (65-115); Magnesium 1.6 mg/dL (1.7-2.3); Osmolality Calculated 294 mOsm/kg (285-295); Potassium 4.2 mmol/L (3.5-5.1); Sodium 138 mmol/L (136-145); Total Bilirubin 0.5 mg/dL (0.15-1.2); Total Protein 6.5 g/dL (6.6-8.7)
--- NOTE | 2021-11-21 10:32 | PC.NURSE ---
cardiology notified and they will review monitor, then update ED physician.
--- NOTE | 2021-11-21 10:44 | PC.NURSE ---
patient ok this morning, transferred to a wheelchair d/t weakness, seen by PCP (Dr Dean) then had an unresponsive episode, then EMS was called- information per and son
--- NOTE | 2021-11-21 11:17 | PC.NURSE ---
EKG done at 1115
[2021-11-21 11:24] LABS: Procalcitonin 0.09 ng/mL (0-0.5)
--- NOTE | 2021-11-21 11:38 | ECG_ITS ---
[facility] Test Date: 2021-11-21 Pat Name: Medardo Moreno Department: Room: Gender: Male Post Commander: : 1945 Requested By: Foreign Rizzo Order Number: [id number] Neftali MD: Jose Mccauley M.D. Measurements Intervals [place] Rate: 52 P: 46 NM: 158 QRS: 42 QRSD: 113 T: 73 QT: 437 QTc: 410 Interpretive Statements SINUS BRADYCARDIA WITH OCCASIONAL VENTRICULAR PREMATURE COMPLEXES MODERATE INTRAVENTRICULAR CONDUCTION DELAY [110+ ms QRS DURATION] Compared to ECG 11/21/2021 09:49:11 T-wave abnormality no longer present Electronically Signed On 11-21-2021 17:04:17 CDT by Jose Mccauley M.D. [id number]
[2021-11-21 12:11] LABS: Troponin 5 2HR 14.94 ng/L (0-15)
--- NOTE | 2021-11-21 13:12 | PC.NURSE ---
report to [facility] nurse- Nurse tech is taking to floor via cart
[2021-11-21 13:41] LABS: Troponin 5 2HR Delta -3.06 ABS# (0-10)
--- NOTE | 2021-11-21 15:25 | PM.HP ---
Providers/Chief Complaint Admitting Physician: Tessa Saha MD Primary Care Provider: Ramón Dean DO Chief Complaint: PERIOD OF UNRESPONSIVENESS History of Present Illness Medardo Moreno is a 76 year old male who presented to the emergency room via EMS from Dr. Dean's office. He was going to see Dr. Dean for follow-up from recent hospitalizations and ED visits. He has a complex recent history which I will describe below. Today seem like a normal day when he woke up. He was able to attend to all of his activities of daily living himself unassisted. He got up earlier than usual because the doctor's appointment was scheduled for 8:30 AM. He took his morning medications which include isosorbide, a decreased dose of lisinopril, metformin, Xarelto and Tresiba about that time. Blood sugar this morning when he got up was 90 prior to him eating. Blood pressure was within normal range though does not recall the exact numbers. Mr. Moreno was able to walk and get himself into the car. He ate breakfast for the first part of the drive in the car. It takes about 30 minutes usually to get into town from [place]. Patient is not normally very conversive during this ride. His who was with him did not think anything of him not responding. She did not notice any abnormal movements. In talking with Medardo however he remembers being in the car sometime before they actually made it within the [place] but he does not recall actually getting into [place]. He does not recall arriving at [facility], being helped inside or seeing Dr. Dean. His next recollection is being in an ambulance on the way to the emergency room. He does not recall getting into the ambulance or EMS evaluating him. According to his , he was there but not responding when they got to the clinic. He required full assistance to get out of the car. At one time it looks like he might of been trying to do something with his arms to help but nothing was productive in that regards. Patient continued to be awake but not there in the clinic. It is reported that blood pressure and blood sugar were okay though I do not have values. Patient actually had drooling out of his mouth while in the exam room and had 1 episode of vomiting a large volume of clear liquid. His eyes rolled back in his head, his chin hit the chest and his face was blue . This was witnessed by Dr. Dean. Medardo did not lose pulse and maintained spontaneous respirations. No seizure-like movements were noted. He wears depends and they appear to still be dry with no evidence indicating loss of bowel or bladder function. On arrival here today, blood pressures were 80/54 and pulse was 56. Clinically felt to again of had orthostatic hypotension. Understanding was that syncope or syncope-like state was associated with position change. Given comorbid conditions and recurrent episode he is being admitted for further evaluation and treatment as indicated. Patient's is understandably scared by the repeated events. She states that this was the worst one and that each episode seems to be getting progressively worse. She is scared that the next one be even worse. Presently patient is resting in bed without any complaints acutely beyond no recall of the days events that led to him being back in the hospital. Patient has a chronic history of diabetes, hypertension and hyperlipidemia as well as prostatic hypertrophy and incontinence. To the emergency room on November 02 after an episode of syncope while playing pool. He had no preceding symptoms at the time. He was noted to be orthostatic with acute kidney injury in the emergency room. Blood pressure and renal function improved with fluids. Further work-up during that hospital stay however revealed evidence of extensive bilateral PEs, small pulmonary embolism in a branch of the left pulmonary artery extending to the lingula, 5 cm a sending aortic aneurysm as well as a popliteal aneurysm. Antihypertensives were initially held due to findings at presentation. His home lisinopril dosing of 20 mg once daily was ultimately restarted. Blood pressures however were subsequently noted to be as high as 170s over 100s. Lisinopril dosing was subsequently increased to 20 mg twice a day, Imdur was added, chlorthalidone was added and then amlodipine was added. Patient developed hypotension while in the hospital and was ultimately discharged on lisinopril 20 mg twice daily, isosorbide mononitrate 30 mg daily and chlorthalidone 25 mg daily on November 08. In addition he was started on Xarelto for bilateral DVT and small PE. His usual Flomax dosing was continued. Acute kidney injury resolved with hydration. Work-up during this hospital stay included head CT without contrast, carotid Doppler, lumbar and thoracic spine CTs, CTA of the chest, bilateral lower extremity venous duplex, CTA of the head and neck, CT of the abdomen and pelvis. CT of the chest indicated possibility of splenomegaly however this was not noted on dedicated CT of the abdomen and pelvis. No obvious foci of malignancy was identified on imaging studies. Incidental right adrenal nodule and right nonobstructing renal stone as well as a fat-containing diaphragmatic hernia on the left were also found. There was concern during this hospital stay for anxiety and depression contributing particularly to elevated blood pressures. Consideration was given to initiation of antidepressant however none were initiated by patient preference. On November 14, patient was on his way to see his doctor. That day he was very weak and confused and was directed to go to the emergency room for evaluation. On arrival in the emergency room his blood pressures were again found to be low and he was documented as being orthostatic. He received fluids in the emergency room. Chlorthalidone was stopped. He overall improved and was discharged home with planned outpatient follow-up. On November 16, patient again was not doing as well and had noted some low blood pressures at home. This was subsequently followed by an episode of dizziness and nausea and vomiting. Again patient on arrival to the emergency room was orthostatic and hypotensive. He received IV fluids with clinical improvement. Lisinopril dosing was lowered at this point in time and patient was discharged home with outpatient follow-up. He had been doing better somewhat since then and his actually had hoped that he might make it to a follow-up appointment without an acute event today given how good things seemed this morning. Reports that they have been recording his blood pressure regularly at home. They do not currently have the blood pressure log here for me to review but state that blood pressure in the morning is always a little bit higher than the rest of the day but generally all have been recently within a normal range. He has not had high nor low blood pressures identified outside of clinical settings with the exception of prior to one of the ER visits. He has had vomiting associated with episodes on the and today the . No complaints of chest pain or worsening dyspnea, diaphoresis, palpitations. He did get an event monitor placed after last admission. The type that was placed is actually an event recorder that requires manual activation to capture rhythms. It was not activated during today's or prior days' events so no rhythm strips are available to review. Patient has been taking his medications correctly by report. This includes his anticoagulant. He has not had wide variations in blood sugars noted. He continues to have difficulties with incontinence and sounds like enuresis. He has known prostatic hypertrophy with chronic lower urinary tract symptoms that do seem to be progressing. He is on Flomax. He sent dosage changes. Had seen Dr. España in the past with last note that I found indicating recommendation to start him on finasteride though I am not seeing follow-up since then. No report of any recent fevers. Echocardiogram done during last hospital stay showed normal ejection fraction, normal diastolic dysfunction although some left ventricular hypertrophy. No wall motion abnormalities or valvular abnormalities described although was a technically difficult study because of poor ultrasonic windows. Dr. Harris saw Mr. Moreno in consultation with recommendations to monitor aneurysm both in the ascending aorta and popliteal area outpatient with no emergent indications for intervention. Follow-up appointment with Dr. Harris was scheduled for tomorrow. He had previously been referred to cardiology but has not seen them yet due to missing appointment from ER visits. EKG has at times demonstrated sinus bradycardia including today. He was transiently on beta-blockade during initial hospitalization at the first of the month but has not been on beta-blockade outside of the hospital setting. No ST elevation has been noted on any EKGs but he has had some nonspecific ST segment changes. PVCs and conduction delays have been present. In addition to missing cardiology role, patient missed an appointment with hematology/oncology as well due to ED visit. Referral was for aberrant finding of splenomegaly on CT of the chest (no splenomegaly noted on dedicated CT of the abdomen) and newly identified extensive DVT/PE. Looks like patient's last colonoscopy report available here is from 2013. It mentions colon polyps but I do not have any pathology reports available to review. Patient has no known personal history of cancer. Review of Systems Const: Reports: fatigue; Denies: fever(s) or chills Eyes: Denies: change in vision or blurry vision ENMT: Reports: other (drooling noted today with event); Denies: hoarseness, oral sores (no bites dawson) or nasal discharge Card: Denies: chest pain, palpitations, edema or orthopnea Resp: Denies: dyspnea, productive cough or non-productive cough GI: Reports: nausea and vomiting; Denies: abdominal pain, diarrhea, constipation, hematochezia or melena : Reports: urinary frequency, urinary urgency, urinary dribbling, difficulty starting urination, nocturia (Including enuresis), urinary incontinence and other (Does not seem to be aware of when he needs to urinate) Musc: Reports: neck pain (Mild, related to injury from initial syncope, improving) and extremity pain (Right shoulder, related to injury from initial syncope, improving) Skin/Breast: Reports: dry skin and other (acrocyanosis today with event); Denies: sores Neuro: Reports: weakness in extremities (General rather than focal), dizziness and confusion; Denies: headache(s) or involuntary movements Psych: Reports: anxiety, depression and memory loss Gerson/Lymph: Denies: easy bruising or easy bleeding Medications/Allergies Home Medications Medication Instructions Recorded Confirmed Last Taken Type atorvastatin 20 mg tablet 20 mg PO BEDTIME 11/02/21 11/21/21 11/13/21 History insulin degludec 200 unit/mL (3 26 unit SUBCUT QA 11/02/21 11/21/21 11/14/21 History mL) subcutaneous pen (Tresiba FlexTouch U-200 insulin) metformin 500 mg tablet,extended 1,000 mg PO BID 11/02/21 11/21/21 11/14/21 History release 24 hr isosorbide mononitrate 30 mg 30 mg PO QAM 11/14/21 11/21/21 11/14/21 History tablet,extended release 24 hr rivaroxaban 15 mg tablet (Xarelto) 15 mg PO BID 11/14/21 11/21/21 11/14/21 08:30 History tamsulosin 0.4 mg capsule 0.4 mg PO BEDTIME 11/14/21 11/21/21 11/13/21 History lisinopril 20 mg tablet 5 mg PO BID 11/16/21 11/21/21 Unknown History Allergies Allergy/AdvReac Type Severity Reaction Status Date / Time No Known Allergies Allergy Verified 11/21/21 10:04 PFSH Acute PFSH: Medical History (Updated 11/21/21 @ 20:25 by Tessa Saha MD) Anxiety and depression Ascending aortic aneurysm 11/04/21 - 5 cm [place] hernia BPH loc w urin obs/LUTS Carotid arterial disease 11/02/21 - By ultrasound 52-69% stenosis of left common carotid artery with decreased velocity and elevated ED ratio, but CTA head/neck 11/04/21 with no stenosis noted in same vessel, mild luminal irregularities of V3 branch of left vertebral artery COVID-19 vaccine administered [employer] [facility] History of echocardiogram 10/2021 - Normal left ventricular size and systolic function, EF 60%. Moderate concentric left ventricular hypertrophy. Grade I/IV diastolic dysfunction. 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 Right adrenal mass 11/16 1.8 x 1.4 cm Sleep apnea Type 2 diabetes mellitus treated with insulin 11/16 - A1c 9.3 Surgical History (Updated 11/21/21 @ 18:04 by Tessa Saha MD) History of colonoscopy 2013 - colon polyps S/P tonsillectomy Family History Father , 60 Hypertension CAD (coronary artery disease) Mother Cancer Social History (Updated 11/21/21 @ 19:07 by Tessa Saha MD) Smoking and tobacco status: former smoker Alcohol intake: former Former alcohol use details: some years ago, previous drank 6 pack per day, none now Substance/Drug Use: never Household members: spouse Marital status: 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 Vitals/I&O/Wt Last Vital Signs Temp 97.6 F 11/21/21 09:39 Pulse 56 L 11/21/21 10:22 Resp 16 11/21/21 10:22 BP 107/66 11/21/21 10:22 Pulse Ox 96 11/21/21 10:22 Weight last 48 hrs Weight 120.656 kg Physical Exam Narrative: Constitutional: Awake and alert, soft-spoken but cooperative HEENT: Normocephalic, atraumatic, pupils are equally reactive, extraocular movements are intact, no nystagmus is noted, nasopharynx is clear, oropharynx with moist mucous membranes, no tongue lesions or other oral sores noted Neck: Good range of motion Respiratory: Clear to auscultation bilaterally without any rales rhonchi or wheezes noted Cardiovascular: Regular bradycardic rhythm, heart sounds are slightly distant, no murmurs noted, no rubs or gallops Abdomen: Soft, nontender, positive bowel sounds Extremities: Edema 2+, no focal calf tenderness noted Skin: Dry and in areas desquamating skin on the lower extremities, not warm or erythematous, capillary refill noted Neuro: Speech clear, face symmetric, handgrip equal, no clonus, toes downgoing Psych: Mildly flat but generally normal affect Data : 11/21/21 09:27 11/21/21 09:27 Other Labs: Radiology Impressions Chest X-Ray 11/21/21 09:38 Impression: Atherosclerosis. Head CT 11/21/21 09:38 IMPRESSION: 1. No acute intracranial hemorrhage or edema. 2. Stable noncontrast head CT since 11/14/2021. 3. Atrophy with small vessel ischemic disease. Laboratory Results WBC 10.2 10^3/uL (4.0-10.0) H 11/21/21 09: RBC 4.52 10^6/uL (4.1-5.3) 11/21/21 09: Hgb 13.1 g/dL (11.7-16.6) 11/21/21 09: Hct 39.4 % (42.0-52.0) L 11/21/21 09: MCV 87.2 fl (80-94) 11/21/21 09: MCH 29.0 pg (28.0-34.0) 11/21/21 09: MCHC 33.2 g/dL (30.0-36.0) 11/21/21 09: RDW 13.6 % (12.1-15.1) 11/21/21 09: Plt Count 242 10^3/cmm (130-400) 11/21/21 09: MPV 11.1 fL (7.4-10.4) H 11/21/21 09:27 Neut % (Auto) 72.4 % 11/21/21 09:27 Lymph % (Auto) 20.2 % 11/21/21 09:27 Gilliam % (Auto) 5.7 % 11/21/21 09: Eos % (Auto) 0.7 % 11/21/21 09: Baso % (Auto) 0.5 % 11/21/21 09:27 Neut # (Auto) 7.37 10^3/uL (1.8-7.7) 11/21/21 09: Lymph # (Auto) 2.1 10^3/uL (0.8-4.8) 11/21/21 09:27 Gilliam # (Auto) 0.6 10^3/uL (0.2-0.9) 11/21/21 09:27 Eos # (Auto) 0.1 10^3/uL (0.0-0.8) 11/21/21 09:27 Baso # (Auto) 0.1 10^3/uL (0.0-0.1) 11/21/21 09:27 Nucleated RBC % (auto) 0 % 11/21/21 09:27 Nucleated RBCs # 0.0 /100WBC 11/21/21 09:27 Specimen Type Arterial 11/21/21 09:48 Sample Site Brachial, left 11/21/21 09:48 ABG pH 7.37 (7.35-7.45) 11/21/21 09:48 ABG pCO2 39.8 mmHg (35-45) 11/21/21 09:48 ABG pO2 60.7 mmHg (80.0-100.0) L 11/21/21 09:48 ABG HCO3 22.8 mmol/L (22-26) 11/21/21 09:48 ABG O2 Saturation 91.7 11/21/21 09:48 ABG Base Excess -2.4 mmol/L (-2.0-2.0) L 11/21/21 09:48 Narayan Test N/a 11/21/21 09:48 A-a O2 Gradient 5.4 mmHg (5-10) 11/21/21 09:48 Hematocrit 38.3 % (42-52) L 11/21/21 09:48 Hgb O2 Saturation 90.0 % (95-100) L 11/21/21 09:48 Carboxyhemoglobin 1.1 %THgb (0.4-20.1) 11/21/21 09:48 Methemoglobin 0.7 % (0.4-1.5) 11/21/21 09:48 Total Hemoglobin 12.5 g/dL (14-18) L 11/21/21 09:48 Sodium 138.0 mmol/L (131-143) 11/21/21 09:48 Potassium 3.8 mmol/L (3.5-5.0) 11/21/21 09:48 Glucose 169.0 mg/dL (70-115) H 11/21/21 09:48 Ionized Calcium 1.2 mmol/L (1.1-1.4) 11/21/21 09:48 O2 Delivery Device Room air 11/21/21 09:48 FiO2 21.0 % 11/21/21 09:48 Investigator ID Amh 11/21/21 09:48 Sodium 138 mmol/L (136-145) 11/21/21 09:27 Potassium 4.2 mmol/L (3.5-5.1) 11/21/21 09:27 Chloride 101 mmol/L (98-107) 11/21/21 09:27 Carbon Dioxide 23 mmol/L (22-29) 11/21/21 09:27 Anion Gap 18.2 (5-19) 11/21/21 09:27 BUN 24 mg/dL (8-23) H 11/21/21 09:27 Creatinine 1.1 mg/dL (0.7-1.2) 11/21/21 09:27 GFR Calculation Not Reportable 11/21/21 09:27 Glucose 164 mg/dL (65-115) H 11/21/21 09:27 Calculated Osmolality 294 mOsm/kg (285-295) 11/21/21 09:27 Calcium 8.6 mg/dL (8.5-10.5) 11/21/21 09:27 Magnesium 1.6 mg/dL (1.7-2.3) L 11/21/21 09:27 Total Bilirubin 0.5 mg/dL (0.15-1.2) 11/21/21 09:27 AST 13 U/L (0-40) 11/21/21 09:27 ALT 9 U/L (0-41) 11/21/21 09:27 Alkaline Phosphatase 62 IU/L (40-130) 11/21/21 09:27 Troponin T Baseline 18 ng/L (0-15) H 11/21/21 09:27 Troponin T 120 Minute 14.94 ng/L (0-15) 11/21/21 11:40 Delta Troponin T -3.06 ABS# (0-10) L 11/21/21 11:40 Total Protein 6.5 g/dL (6.6-8.7) L 11/21/21 09:27 Albumin 4.1 g/dL (3.5-5.2) 11/21/21 09:27 Globulin 2.4 g/dL (1.3-4.6) 11/21/21 09:27 Procalcitonin 0.09 ng/mL (0-0.5) 11/21/21 09:27 Previous Visit Laboratory Tests 11/02/21 11/02/21 11/02/21 14:38 16:50 16:50 D-Dimer 1.98 H Hemoglobin A1c 9.3 H Prolactin 15.50 H 11/14/21 11/16/21 11:09 16:22 Lipase 58 SARS-CoV-2 (PCR) Not detected Other data: Prior or outside records reviewed: All recent ED visits as well as prior hospital stay this month, all imaging studies done this month and overall review of labs Discussed with other providers: ED provider regarding admission, Dr. Pérez with neurology & Dr. Ross with cardiology for consultations and Dr. Harris with CT surgery as patient has an appointment scheduled for tomorrow that will be missed due to hospitalization. A&P Assessment and plan (1) Seizure: Based on description from particularly of patient being awake but not there and is having no recollection of a specified period of time, clinically appears to be having absence seizure's. Event at the clinic's office was witnessed by his PCP who from provided, appears to have been concerned about the same diagnosis. Initial event same sudden onset and occurred while Mr. Tran was playing pool. Subsequent work-up after that hospital stay identified multiple etiologies including extensive bilateral DVTs/small PE, acute kidney injury, orthostasis and hypotension, ascending aortic aneurysm, episodes of significant hypertension and uncontrolled diabetes. The events preceding ED visits are accompanied with confusion and weakness that could be consistent with an absence seizure although that was not the clinical impression at the time. I am concerned that there is something contributing to development of seizures that is being missed or underappreciated. Recurrent PE, even micro emboli, could do this. Arrhythmia is high on differential and patient does in fact have an event monitor but nothing has yet been triggered demonstrating abnormalities. He was noted to have some bradycardia, sinus, during hospital stay but had been on as needed beta-blockade. Sinus bradycardia is again noted today while not on beta-blockade also. Undiagnosed coronary artery disease in a patient with diabetes, hypertension, hyperlipidemia, obesity also has to be considered even in the absence of chest pain. Seems less likely to be psychosomatic from information I have available but it appears that has been at least a transient thought at some point in time. Medication effect particularly Flomax and antihypertensives. Denies any illicit substance use. Vagal events related to bladder issues or even to vomiting is another diagnosis to consider but from best of her recollection, reports episodes have not been chronologically associated with bathroom habits, medication ingestion, or vomiting every time (1 episode had vomiting preceding it and patient did have some vomiting today after acutely worsening). Status: Acute (2) Labile blood pressure: During acute events and within clinical settings. At home all blood pressures have been recorded as generally within normal range though I have not personally visualized the logbook they are keeping at home. With each healthcare encounter recently, patient has had significant hypotension initially. During his hospital stay he developed subsequent significant hypertension. With identification of 5 cm ascending aortic aneurysm blood pressure control became a paramount intervention. On November 01, patient was on lisinopril 20 mg a day for blood pressure control and had been since about this time last year at least. Over the past month he has had several new medications added to achieve increased blood pressure control, but with each episode of hypotension he has had subsequent removal or decreased dosing of antihypertensives secondary to presentations. Clinically there was some consideration of anxiety contributing to some hypertensive episodes during last hospital stay so cannot rule out a whitecoat component. While pressures have been definitively labile, I get a sense that they are secondary to what ever else is going on rather than being the cause of the problem from history obtained today. Status: Acute (3) Pulmonary embolus, left: Small PE noted in a branch of the left pulmonary artery to the lingula earlier this month, not requiring oxygen, on anticoagulation presently with Xarelto. Other than acute events not really describing increasing difficulty breathing or pleurisy, no hemoptysis. Status: Acute (4) Deep vein thrombosis of bilateral lower extremities: Extensive DVT in both lower extremities identified earlier this month etiology of extensive DVTs unclear, occult malignancy probably highest in differential. Has thus far had CT imaging of head neck chest abdomen and pelvis without clear identification of a mass. Looks like last colonoscopy was in 2013 with some colon polyps although pathology on those unknown. On Xarelto for about 1 month now. Denies increase pain or swelling in his legs. Status: Acute Qualifiers: Affected thrombotic vein of extremity: other lower extremity vein Chronicity: acute Qualified Code(s): I82.493 - Acute embolism and thrombosis of other specified deep vein of lower extremity, bilateral (5) Chronic anticoagulation: Started on Xarelto this month for above Status: Chronic (6) Type 2 diabetes mellitus treated with insulin: A1c 9.3 this month, chronically on Tresiba and metformin Status: Chronic (7) Ascending aortic aneurysm: [address] imaging earlier this month Status: Chronic (8) Popliteal aneurysm: Identified in the right lower extremity on venous duplex of the lower extremities earlier this month measuring approximately 2 x 3 x 4 cm Status: Chronic (9) BPH loc w urin obs/LUTS: Chronically on Flomax, no recent dosage changes, symptoms have been progressively worsening over time and associated with significant incontinence. Has had significant urge incontinence problems in the past per review of old records. Status: Chronic (10) Hyperlipidemia: Chronically on statin therapy Status: Chronic Qualifiers: Hyperlipidemia type: mixed hyperlipidemia Qualified Code(s): E78.2 - Mixed hyperlipidemia (11) BMI 36.0-36.9,adult: Status: Chronic Plan Hypomagnesemia Reported gait instability Incidental finding of adrenal mass last admission Reported anxiety and depression History of sleep apnea Inpatient admission Neurology consultation, appreciate Dr. Pérez's assistance Outpatient EEG Start Keppra 500 mg p.o. twice daily Seizure precautions Serial neuro exams Fall precautions Cardiology consultation, appreciate Dr. Ross's assistance Telemetry monitoring Continue serial cardiac enzymes and EKGs Need to see if there is an alternative monitor we can get a range that does not require self activation for ambulatory arrhythmia monitoring Replace magnesium Presently I am going to continue isosorbide and hold lisinopril; need to see blood pressure logs to get a better idea of what ambulatory blood pressures have been doing to come up with disposition medication management. We need to strike a balance between appropriate blood pressure control given the finding of aneurysm but decreasing potential for episodes of acute hypotension contributing to repeated events Continue home atorvastatin Has had echocardiogram this month Has had recent A1c; will check lipid panel Check TSH Check cortisol level Continue Xarelto Check urinalysis I have continued Flomax for now given what sounds like seizure activity today though we may still have to consider holding it with recurrent episodes of syncope or near syncope or syncope like spells. Could consider addition of finasteride or other agents but with everything going on right now I do not want to add another medication to the mix. Check PSA PT/OT evaluations Consider further noninvasive/invasive evaluation pending follow-up of above Lantus and sliding scale insulin for diabetes, hold home metformin PPI for GI prophylaxis Xarelto prescribed at treatment dose for known small PE/DVT bilaterally present on admission Supportive care otherwise Findings, concerns and plans as well as my understanding of prior history were reviewed with patient and his . Both were given an opportunity to ask questions. I also spoke to patient's son who is director of home health care here and updated him on plans. Anticipate discharge home with attempt again at close follow-up; follow-up has been subverted by repeat ED visits since initial discharge from hospital the first half of the month Will need close follow up with Dr Dena Has an appointment scheduled with Dr. Wilkes on December [address] Kendrick here in the hospital and may need sooner follow up depending on clinical course Need to evaluate for alternative outpatient arrhythmia monitor that does not require manual activation Will need outpatient follow-up with Dr. Pérez as per her consultation along with outpatient EEG Will need to have follow-up appointment with Dr. Harris rescheduled for a later date for aneurysms Needs appointment with Dr Mcleod rescheduled for extensive DVT/PE without clear source Will need eventual screenings for cancer done though cannot come off of anticoagulation presently Full code Attestations Medical Necessity Statement*: Currently anticipate an observation level stay less than 2 midnights pending results of above but high potential for transition to inpatient status given repeated events in a short period of time and other complicating issues as described above. 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
--- NOTE | 2021-11-21 15:38 | ECG_ITS ---
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 Measurements Intervals [place] Rate: P: UT: QRS: QRSD: T: QT: QTc: Interpretive Statements SINUS BRADYCARDIA Compared to ECG 11/21/2021 11:13:47 Ventricular premature complex(es) no longer present Intraventricular conduction delay no longer present Electronically Signed On 11-22-2021 17:16:54 CDT by Sarbjit Kendrick M.D. [id number]
[2021-11-21] MEDS: sodium chlor 0.9% + KCl 20 mEq 20 MEQ/1,000 ML BAG 75 MEQ IV (15:56)
[2021-11-21] MEDS: magnesium sulfate premix 2 GM/50 ML PIGGYBACK IV (15:57)
[2021-11-21 16:41] LABS: Troponin 5 6HR 15.11 ng/L (0-15)
[2021-11-21 16:42] LABS: Troponin 5 6HR Delta -2.89 ng/L (0-12)
[2021-11-21 17:19] LABS: Glucose Point of Care 165 mg/dL (70-110)
--- NOTE | 2021-11-21 17:37 | P.CONIM_ITS ---
Providers/Reason For Consult Consulting Physician/Specialty*: Sarbjit Kendrick MD/ Cardiology Reason for Consult*: Syncope Requesting Physician: Dr Saha Attending Physician: Tessa Saha MD Primary Care Provider: Ramón Dean DO History of Present Illness History of Present Illness Medardo Moreno is a 76 year old male with PMH of hypertension, diabetes, DVT, PE on anticoagulation presented with episode of confusion, staring and unresponsiveness that was witnessed by his PCP. Symptoms consistent with seizures and patient has been evaluated by the neurology team ad started on Keppra. He was wearing event monitor and no arrhythmias/pauses have been documented. He is on telemetry now. Troponins have been negative and no EKG changes suggestive of ischemia. Recent echo showed normal LV systolic function. He has thoracic aortic aneurysm and a popliteal artery aneurysm followed by Dr Harris. He had orthostatic hypoten son documented in the past Review of Systems Const: Denies: fever(s) ENMT: Denies: throat pain, ear or mastoid pain, nasal discharge or nasal congestion Card: Reports: lightheadedness; Denies: chest pain Resp: Denies: dyspnea, productive cough or non-productive cough GI: Denies: abdominal pain or nausea : Denies: flank pain, dysuria, urinary frequency or urinary urgency Skin/Breast: Denies: rash or pruritus Neuro: Denies: headache(s) or vertigo Medications/Allergies Home Medications Medication Instructions Recorded Confirmed Last Taken Type atorvastatin 20 mg tablet 20 mg PO BEDTIME 11/02/21 11/21/21 11/13/21 History insulin degludec 200 unit/mL (3 26 unit SUBCUT QA 11/02/21 11/21/21 11/14/21 History mL) subcutaneous pen (Tresiba FlexTouch U-200 insulin) metformin 500 mg tablet,extended 1,000 mg PO BID 11/02/21 11/21/21 11/14/21 History release 24 hr isosorbide mononitrate 30 mg 30 mg PO QAM 11/14/21 11/21/21 11/14/21 History tablet,extended release 24 hr rivaroxaban 15 mg tablet (Xarelto) 15 mg PO BID 11/14/21 11/21/21 11/14/21 08:30 History tamsulosin 0.4 mg capsule 0.4 mg PO BEDTIME 11/14/21 11/21/21 11/13/21 History lisinopril 20 mg tablet 5 mg PO BID 11/16/21 11/21/21 Unknown History Allergies Allergy/AdvReac Type Severity Reaction Status Date / Time No Known Allergies Allergy Verified 11/21/21 10:04 Current Medications Generic Name Dose Route Start Last Admin Trade Name Freq PRN Reason Stop Dose Admin Potassium Chloride/Sodium Chloride 20 meq in 1,000 mls @ 75 mls/hr 11/21/21 15:15 11/21/21 15:56 Sodium Chlor 0.9% + Kcl 20 Meq IV 11/22/21 04:34 75 mls/hr .[id number] LYNNETTE Administration PFSH Acute PFSH: Medical History Anxiety and depression Ascending aortic aneurysm 11/04/21 - 5 cm [place] hernia BPH loc w urin obs/LUTS Carotid arterial disease 11/02/21 - By ultrasound 52-69% stenosis of left common carotid artery with decreased velocity and elevated ED ratio, but CTA head/neck 11/04/21 with no stenosis noted in same vessel, mild luminal irregularities of V3 branch of left vertebral artery COVID-19 vaccine administered [facility] History of echocardiogram 10/2021 - Normal left ventricular size and systolic function, EF 60%. Moderate concentric left ventricular hypertrophy. Grade I/IV diastolic dysfunction. 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 Right adrenal mass 11/16 1.8 x 1.4 cm Sleep apnea Type 2 diabetes mellitus treated with insulin 11/16 - A1c 9.3 Surgical History History of colonoscopy 2013 - colon polyps S/P tonsillectomy Family History Father , 60 Hypertension CAD (coronary artery disease) Mother Cancer Social History Smoking and tobacco status: former smoker Alcohol intake: former Former alcohol use details: some years ago, previous drank 6 pack per day, none now Substance/Drug Use: never Household members: spouse Marital status: 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 Vitals/I&O/Wt Last Vital Signs Temp 97.4 F L 11/21/21 15:09 Pulse 55 L 11/21/21 15:47 Resp 12 11/21/21 15:47 BP 159/88 11/21/21 15:47 Pulse Ox 93 11/21/21 15:47 Weight last 48 hrs Weight 266 lb Physical Exam Const: COMMON NORMALS: no acute distress and patient oriented x3 HENMT: COMMON NORMALS: normocephalic HEAD & SCALP: normocephalic Neck/C-Spine: COMMON NORMALS: no JVD Resp: COMMON NORMALS: normal respiratory effort and clear to auscultation bilaterally AUSCULTATION: clear to auscultation bilaterally Cardio: COMMON NORMALS: no JVD, regular rate, regular rhythm, S1 normal heart sound present and S2 normal heart sound present RATE: regular rate RHYTHM: regular rhythm HEART SOUNDS: S1 normal heart sound present and S2 normal heart sound present GI: COMMON NORMALS: Normal to inspection, nondistended, normoactive bowel sounds present Extremity: COMMON NORMALS: normal to inspection and no pedal edema Neuro: COMMON NORMALS: patient oriented x3 Data : 11/21/21 09:27 11/21/21 09:27 A&P Assessment and plan (1) Ascending aortic aneurysm: Status: Chronic (2) Popliteal aneurysm: Status: Chronic (3) Deep vein thrombosis of bilateral lower extremities: Status: Acute Qualifiers: Affected thrombotic vein of extremity: other lower extremity vein Chronicity: acute Qualified Code(s): I82.493 - Acute embolism and thrombosis of other specified deep vein of lower extremity, bilateral (4) Chronic anticoagulation: Status: Chronic (5) Pulmonary embolus, left: Status: Acute (6) Seizure: Status: Acute (7) Labile blood pressure: Status: Acute Plan Patient has likely seizure episodes,started on medications. No evidecen of pause s/ arrhythmias so far. Keep on Tele monitoring and we will monitor him overnight Continue current medications including anticoagulation Avoid rate controlling medications Thank you for involving us with care of this patient. We will continue to follow. 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
[2021-11-21 17:44] LABS: Add Urine Microscopic? NO; Charge for UA Resulting for Rev
[2021-11-21 17:46] LABS: Bilirubin Urine Neg (Negative); Blood Urine Neg (Negative); Glucose Urine UA 1+ (Normal); Ketones Urine Negative (Negative); Leukocyte Esterase Urine Negative (Negative); Nitrate Urine Negative (Negative); Protein Urine Neg (Negative); Urine Appearance Clear (CLEAR); Urine Color Yellow (Yellow); Urobilinogen Urine Norm (Negative); pH Urine 5 (5-7)
[2021-11-21] MEDS: rivaroxaban 10 mg Tablet 15 MG PO (17:47)
[2021-11-21] MEDS: insulin lispro 100 unit/1 mL SUBCUT ×2 (17:47→20:58)
[2021-11-21] MEDS: levETIRAcetam 500 mg Tablet PO (17:47)
--- NOTE | 2021-11-21 18:38 | P.CONIM_ITS ---
Providers/Reason For Consult Consulting Physician/Specialty*: Dr. Saha/hospitalist Reason for Consult*: Possible seizure Attending Physician: Tessa Saha MD Primary Care Provider: Ramón Dean DO History of Present Illness History of Present Illness Medardo Moreno is a 76 year old man who has had an episode today that was thought to be a seizure. This is not the first time this happened and I went over previous reports in detail. He came to the ER 06/12/2021 with somewhat nonspecific symptoms. He was playing pool and was fine and then suddenly felt lightheaded and off . He reported having had similar episodes prior to that. He was seen by Dr. Rutledge and his la boratory exam was unremarkable. 11/02/2021 he was playing pool at the [employer] [place] when he sat down, felt lightheaded and dizzy and fell out of his chair. He was down for as long as a minute according to witnesses and he was a little bit confused afterwards. His labs were remarkable for mild hyponatremia (sodium 133) potassium 5.[address] of the head showed white matter changes. He was put in and managed by the hospitalists. His commented that he has chronic gait instability. He was found to be orthostatic. His renal function improved with hydration. CT of the abdomen was negative. Echocardiogram was unremarkable. Doppler venous ultrasound of the legs showed a nonocclusive thrombus within the right femoral, popliteal, superficial femoral and peroneal calf veins. For that he was started on blood thinner. CTA suggested a PE of the left pulmonary artery lingula. There was aneurysmal dilation of the ascending thoracic aorta. There was a question of a right adrenal nodule an MRI of the abdomen was recommended for follow-up. During that hospitalization he had a head and neck CTA that showed no sign of stenosis in the posterior or anterior circulation. Abdomen pelvis CT showed a more extensive thrombus in the venous circulation occluding the infrarenal IVC and extending into the left common iliac artery and probably within the left external iliac artery (presumably vein was intended based on the images). 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 Angel Swann 11/06/2021. The patient stayed in the hospital from 11/02/2021 through 11/08/2021 and did not have any syncopal episodes in the hospital. 11/14/2021 he presented with weakness and confusion referred by his primary care physician. On arrival he was extremely hypotensive. His neurologic exam was nonfocal and his labs were unremarkable. CT of the head again showed diffuse white matter changes. He was put on an event detector that showed some runs of sinus tachycardia but so far no other changes but his detector was not triggered by the episode that he had today. 11/16/2021 he was back in the emergency department complaining of vomiting, low blood pressure and slow thinking. He was complaining of lightheadedness, nausea and vomiting. He said that he was eating lunch when he suddenly vomited. He was choking on his food. He went to Dr. Dietz's office where his blood pressure was reportedly low. His blood pressure in the ER was 155/86. His laboratory exam was unremarkable and he was sent home with a diagnosis of transient hypotension. Today he arrived by EMS complaining of lightheadedness and dizziness. Reportedly he was unresponsive at his physician's office. I have tried to contact his physician but have not been able. On arrival to the emergency department today his blood pressure was 80/54 with a heart rate of 60. He had no focal neurologic deficit and no seizure activity was witnessed. The patient is on Xarelto 15 mg twice daily for DVT. He is diabetic on metformin at 1000 mg twice daily. He suffers from hypertension for which he is on lisinopril 5 mg twice daily (dosage reduced) and isosorbide 30 mg in the morning. For prostatism he is on tamsulosin 0.4 mg at at bedtime. I reviewed all of the recorded blood pressures including orthostatic blood pressures from his multiple stays here. Orthostatics from 11/02/2021 showed a 28 mm drop from supine to standing which is barely significant. Orthostatic vitals from 11/06/2021 showed a drop from 117 systolic to 104 systolic from supine to standing. 11/14/2021 102 systolic supine, 97 systolic standing. Documented blood pressure 80/54 on arrival at the emergency department 0939 here today. I reviewed all of his laboratory studies from multiple stays. His creatinine was up to 2.2 on his first visit in May, gradually came down to 1.6 on 11/03 and then has been more or less normal since then. TSH 3.57. B12 484. Hemoglo bin A1c 9.3. I reviewed his CT scans of the head head. 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 Dr. Dean witnessed most of 1 of these episodes. The patient was not feeling anything abnormal when he left the house with his . His realized that something was wrong and drove him to Dr. Dean. and friend helped him into a wheelchair. On arrival to the clinic his blood pressure was unremarkable with a systolic somewhere between 110 and 120. He was seen immediately by Dr. Dean. He had a blank stare but it looks like he was listening to Dr. Dean. Slowly his eyes closed, and he started drooling, drooping down into his chair. He had no response to sternal rub. Normal cardiac exam and normal sinus rhythm. No seizure activity. He was with Dr. Dean for 15 minutes and was basically comatose throughout visit. He was not pale. He was not diaphoretic. Dr. Dean called EMS and while his back was turned the patient's wheeled him across the clinic for the ambulance to pick him up. Dr. Dean ran down to that part of the building and as he arrived, the patient vomited several times and when he finished vomiting he then woke up. I visited with the patient in room 275 this evening. His son Medardo was available by phone and was able to describe an episode that he witnessed a week ago. The patient was scheduled for a follow-up visit with Dr. Dean and his drove him to [facility] but he could not get out of the car. Medardo got there and describes that the patient had a 1000 mile stare and although his eyes were open he was not responding. He was taken to the emergency room and other details are above. Medardo reviewed the patient's medications. He had not been on Flomax or insulin at the time that he was hospitalized 11/02. That was the second episode so it occurred when he was not on Flomax. He is famously noncompliant on his diabetic treatment. He says that since he has been on Flomax he does not think he is any more likely to be continent than he was before. He has had previous postvoid residual that was pretty high. I could not find the actual number it was inappropriately high and he was diagnosed with possible neurogenic bladder at that time. The patient has noticed that his memory might not be quite as good as it used to be. When no one else is noticed or commented. Medardo is noticed that his memory seems to correlate with these episodes and that he seems to do a lot worse during the episodes around the episode. He graduated undergraduate school in [place] and went on to get a masters in administration. 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 He is always been very good pool and paid for some of his undergraduate school through the game. Medications/Allergies Home Medications Medication Instructions Recorded Confirmed Last Taken Type atorvastatin 20 mg tablet 20 mg PO BEDTIME 11/02/21 11/21/21 11/13/21 History insulin degludec 200 unit/mL (3 26 unit SUBCUT QAM 11/02/21 11/21/21 11/14/21 History mL) subcutaneous pen (Tresiba FlexTouch U-200 insulin) metformin 500 mg tablet,extended 1,000 mg PO BID 11/02/21 11/21/21 11/14/21 History release 24 hr isosorbide mononitrate 30 mg 30 mg PO QAM 11/14/21 11/21/21 11/14/21 History tablet,extended release 24 hr rivaroxaban 15 mg tablet (Xarelto) 15 mg PO BID 11/14/21 11/21/21 11/14/21 08:30 History tamsulosin 0.4 mg capsule 0.4 mg PO BEDTIME 11/14/21 11/21/21 11/13/21 History lisinopril 20 mg tablet 5 mg PO BID 11/16/21 11/21/21 Unknown History Allergies Allergy/AdvReac Type Severity Reaction Status Date / Time No Known Allergies Allergy Verified 11/21/21 10:04 Current Medications Generic Name Dose Route Start Last Admin Trade Name Freq PRN Reason Stop Dose Admin Potassium Chloride/Sodium Chloride 20 meq in 1,000 mls @ 75 mls/hr 11/21/21 15:15 11/21/21 15:56 Sodium Chlor 0.9% + Kcl 20 Meq IV 11/22/21 04:34 75 mls/hr .[id number] LYNNETTE Administration Insulin Human Lispro 0 unit 11/21/21 18:00 11/21/21 17:47 Insulin Lispro 100 Unit/1 Ml SUBCUT 2 unit TIDWM LYNNETTE Administration Protocol Levetiracetam 500 mg 11/21/21 18:00 11/21/21 17:47 Levetiracetam 500 Mg Tablet PO 500 mg BID LYNNETTE Administration Rivaroxaban 15 mg 11/21/21 18:00 11/21/21 17:47 Rivaroxaban 10 Mg Tablet PO 15 mg BID LYNNETTE Administration PFSH Acute PFSH: Medical History Anxiety and depression Ascending aortic aneurysm 11/04/21 - 5 cm [place]k hernia BPH loc w urin obs/LUTS Carotid arterial disease 11/02/21 - By ultrasound 52-69% stenosis of left common carotid artery with decreased velocity and elevated ED ratio, but CTA head/neck 11/04/21 with no stenosis noted in same vessel, mild luminal irregularities of V3 branch of left vertebral artery COVID-19 vaccine administered [employer] History of echocardiogram 10/2021 - Normal left ventricular size and systolic function, EF 60%. Moderate concentric left ventricular hypertrophy. Grade I/IV diastolic dysfunction. 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 Right adrenal mass 11/16 1.8 x 1.4 cm Sleep apnea Type 2 diabetes mellitus treated with insulin 11/16 - A1c 9.3 Surgical History History of colonoscopy 2013 - colon polyps S/P tonsillectomy Family History Father , 60 Hypertension CAD (coronary artery disease) Mother Cancer Social History Smoking and tobacco status: former smoker Alcohol intake: former Former alcohol use details: some years ago, previous drank 6 pack per day, none now Substance/Drug Use: never Household members: spouse Marital status: 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 MENTAL STATUS: Grossly he appears to be of above average intelligence. Despite this, he did not know the month and thought it was November. He was oriented to the year but had no idea of the date. He was incorrect on the day of the week. He remembered 3 objects for 3 minutes. I fara a the [place] and he was able to correctly place the numbers but he placed the hands incorrectly at the 10 and the 11 (4 11:10). He was apractic on simple motor commands. He could perform serial sevens but he was distracted, started over and was again correct starting from 99. He was able to spell the word world backward. CRANIAL NERVES: Visual acuity was not tested. Visual triplett were full to confrontation, direct and consensual. Extraocular movements were full without nystagmus. He has visual motor apraxia and saccades to a target. PERRLA. Face was symmetric at rest and with grimace. Hearing was intact to soft spoken voice.. Tongue and palate were midline at rest and with protrusion of the tongue and elevation of the palate. Shoulders were symmetric at rest and with shoulder shrug. MOTOR: There was no drift of the extended arms. He was able on his own power and stand at the bedside and march in place. SENSATION: He has distal vibratory loss, mild. I did not check a Romberg as he is very tall and slightly unsteady. Pin was intact throughout subjectively. COORDINATION: No tremor. No myoclonus. He could maintain stance at the bedside with his eyes open. DEEP TENDON REFLEXES: Absent GAIT: Not tested. He could stand at the bedside. HEENT: Normocephalic without dysmorphic features. Conjunctivae were not injected and sclerae were nonicteric. NECK: Carotid upstroke was strong bilaterally without bruits. The thyroid was not enlarged and there were no palpable lymph nodes. CHEST: Clear to auscultation. CARDIOVASCULAR: The heart sounds were normal without murmur or gallop. Regular rate and rhythm. EXTREMITIES: There was no edema or cyanosis. The skin was unremarkable. The spine exhibited normal thoracic kyphosis and normal lumbar lordosis without deformities. Data : 11/21/21 09:27 11/21/21 09:27 A&P Assessment and plan (1) Neurogenic bladder: I do not know if his high postvoid residual is secondary to neurogenic cause or prostate. This needs to be followed and addressed. He is still incontinent and it might not be a bad idea to get a postvoid ultrasound while he is here and see how he is doing on current treatment. Status: Acute (2) Labile blood pressure: Today he has cognitive dysfunction that may be residual from his earlier event. I have some concern that this could be a progressive multisystem neurologic disorder of degenerative type with Shy-Drager but I am hopeful that seizures explain these events. I am concerned about his neurogenic bladder. Clearly, decompressing his bladder has improved his kidney function. I was concerned that Flomax might be contributing to his orthostatic hypotension but I gather that his first several episodes occurred without Flomax. Status: Acute (3) Seizure: Decision is extremely complicated 76-year-old diabetic who has had recurrent episodes of prolonged alteration of mental status accompanied by reduced postural tone, definitely on multiple occasions found to have hypotension that was moderate but probably not sufficient to account for his symptoms. It sounds like he is having partial complex or focus based seizures with impairment of consciousness. These may be of temporal lobe origin judging by the dry mouth that is his only warning and the diffuse drooling and sometimes vomiting associated with the end of these. We can hope that anticonvulsant therapy will have an influence. It would seem best to start 500 mg of Keppra twice a day and if he tolerates several doses of that I would increase to 750 mg twice daily. If he does well on that I would let him go home day after tomorrow. I reviewed that plan with the patient and his son. I would recommend scheduling MRI of the brain as an outpatient and EEG. We will try to work him in for an EEG as soon as possible after discharge and I will see him back in the office within a couple of weeks. I spent almost 2 hours reviewing this patient's chart. I spent another hour in his company. 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
--- NOTE | 2021-11-21 19:21 | PC.NURSE ---
i reported low pulse 58 to nurse
--- NOTE | 2021-11-21 20:13 | PC.NURSE ---
Patient awake and alert. Dr Pérez in room performing assessment at this time.
[2021-11-21 20:40] LABS: Cortisol Random 26.34 ug/dL (2.47-19.5)
[2021-11-21 20:43] LABS: Glucose Point of Care 247 mg/dL (70-110)
[2021-11-21] MEDS: tamsulosin 0.4 mg Capsule PO (20:57)
[2021-11-21] MEDS: atorvastatin 40 mg Tablet 20 MG PO (20:57)
[2021-11-21] MEDS: insulin glargine 100 units/1 mL 15 UNIT SUBCUT (20:58)
[2021-11-22] VITALS (10 sets, daily range): BP systolic 107–167; BP diastolic 56–97; PULSE 47–66; RESP 16–18; TEMP 36.6–36.9; O2SAT 92–98
[2021-11-22] MEDS: isosorbide mononitrate ER 30 mg Tablet PO (05:59)
[2021-11-22 06:30] LABS: Glucose Point of Care 75 mg/dL (70-110)
[2021-11-22 07:04] LABS: Albumin Level 4.2 g/dL (3.5-5.2); Alkaline Phosphatase 57 IU/L (40-130); Blood Urea Nitrogen 21 mg/dL (8-23); Calcium 8.1 mg/dL (8.5-10.5); Carbon Dioxide 22 mmol/L (22-29); Chloride 102 mmol/L (98-107); Globulin 1.9 g/dL (1.3-4.6); Glucose 68 mg/dL (65-115); Osmolality Calculated 287 mOsm/kg (285-295); Sodium 138 mmol/L (136-145); Total Bilirubin 0.4 mg/dL (0.15-1.2); Total Protein 6.1 g/dL (6.6-8.7)
[2021-11-22 07:05] LABS: Alanine Aminotransferase 10 U/L (0-41); Anion Gap 18.9 (5-19); Aspartate Amino Transferase 21 U/L (0-40); Potassium 4.9 mmol/L (3.5-5.1)
[2021-11-22 07:23] LABS: Chol HDL Ratio 1.45 mg/dL (1.0-5.00); Cholesterol 80 mg/dL (0-200); HDL Cholesterol 55 mg/dL (60-100); LDL Cholesterol Calculated 9 mg/dL (50-129); LDL HDL Ratio 0.16 RATIO (0.00-3.22); Triglycerides 79 mg/dL (0-150)
[2021-11-22 07:35] LABS: Thyroid Stimulating Hormone 1.53 uIU/mL (0.27-4.20)
--- NOTE | 2021-11-22 09:32 | PM.PN ---
Subjective Subjective: Patient is doing well. No more unresponsive episodes. No significant abnormalities on the telemetry noted Vitals/I&O/Wt Last Vital Signs Temp 97.9 F 11/22/21 07:48 Pulse 63 11/22/21 08:21 Resp 16 11/22/21 07:48 BP 107/63 11/22/21 07:48 Pulse Ox 92 11/22/21 08:21 11/21/21 11/22/21 11/22/21 22:59 06:59 14:59 Intake Total 230 / 230 1000 / 1230 Output Total 200 / 200 Balance 230 / 230 800 / 1030 Weight last 48 hrs Weight 266 lb Physical Exam Const: COMMON NORMALS: no acute distress and patient oriented x3 HENMT: COMMON NORMALS: normocephalic HEAD & SCALP: normocephalic Neck/C-Spine: COMMON NORMALS: no JVD Resp: COMMON NORMALS: normal respiratory effort and clear to auscultation bilaterally AUSCULTATION: clear to auscultation bilaterally Cardio: COMMON NORMALS: no JVD, regular rate, regular rhythm, S1 normal heart sound present and S2 normal heart sound present RATE: regular rate RHYTHM: regular rhythm HEART SOUNDS: S1 normal heart sound present and S2 normal heart sound present GI: COMMON NORMALS: Normal to inspection, nondistended, normoactive bowel sounds present Extremity: COMMON NORMALS: normal to inspection and no pedal edema Neuro: COMMON NORMALS: patient oriented x3 Data : 11/22/21 10:35 11/22/21 06:10 A&P Assessment and plan (1) Ascending aortic aneurysm: Status: Chronic (2) Popliteal aneurysm: Status: Chronic (3) Deep vein thrombosis of bilateral lower extremities: Status: Acute (4) Chronic anticoagulation: Status: Chronic (5) Pulmonary embolus, left: Status: Acute (6) Seizure: Status: Acute (7) Labile blood pressure: Status: Acute Plan Patient has likely seizure episodes,started on medications. No evidecen of pauses/ arrhythmias so far. No events noted on overnight tele monitoring Continue current medications including anticoagulation Avoid rate controlling medications For the aortic aneurysm, patient is following with Dr Harris in the office. Thank you for involving us with care of this patient. We will continue to follow. Please call with questions Attestations Medical Necessity Statement*: Care expected to cross 2 midnights, Coding Level of Care Code Acute Senior Administrative Associate for [facility] Fwd Diagnoses Ascending aortic aneurysm I71.2 Popliteal aneurysm I72.4 Deep vein thrombosis of bilateral lower extremities I82.403 Chronic anticoagulation Z79.01 Pulmonary embolus, left I26.99 Seizure R56.9 Labile blood pressure R09.89
[2021-11-22] MEDS: pantoprazole DR 40 mg Tablet PO (09:39)
[2021-11-22] MEDS: levETIRAcetam 500 mg Tablet PO ×2 (09:39→18:31)
[2021-11-22] MEDS: rivaroxaban 10 mg Tablet 15 MG PO ×2 (09:39→18:31)
[2021-11-22 10:13] LABS: Magnesium 1.6 mg/dL (1.7-2.3)
--- NOTE | 2021-11-22 10:50 | PC.CHAP ---
Pastoral Care Encounter/Spiritual Assessment Type of Contact [] Declined manager sign visit [] Patient/Family/Request visit [] Outpatient visit [] Follow-up visit [] Physician referral [] Code/Alert [x] Routine visit [] Staff referral [] Actively dying [] Patient sleeping [] Family support [] [] Out of room [] Palliative care [] [x] Receiving care in room [] Pre-surgical visit [] Trauma [] Long length of stay [] ICU visit [x] Other: Special care Relational/Emotional Strength [] Patient feels connected with others/family/visitors/staff [] Distress [] Loneliness/isolation [] Abandonment Spirituality of Patient [x] Person of Mary [] Attends Anglican of their Mary [] Believes in Prayer [] Reads Bible or Muslim materials [] There are Spiritual issues to be addressed Sheet Roller Operator Interventions [x] Prayer [] Active listening [] Non-anxious presence [] Spiritual/emotional support [] Crisis/trauma care [] Spiritual counseling [] Bereavement support [] Provided bereavement packet [] Provided Bible/devotional materials [] Provided toy/stuffed animal, coloring book to patient or family member [] Provided Communion [] Anointing/[place] [] Salvation [] Completed spiritual assessment [] Other: Impact on Illness or Injury [] Angry [] Fearful [] Anxious [] Often cries [] Exhaustion [] Unable to work [] Unable to attend confucianism [] Unable to walk/stand [] Unable to read [] Unable to drive [] Unable to eat/drink [] Unable to sleep [] Unable to be with family [] Patient intubated [] Other: Summary Special care Time spent with patient 5 mins
[2021-11-22 11:17] LABS: Basophils % 0.4 %; Eosinophils # 0.1 10^3/uL (0.0-0.8); Eosinophils % 1.2 %; Hematocrit 34.2 % (42.0-52.0); Hemoglobin 11.1 g/dL (11.7-16.6); Lymphocytes # 1.5 10^3/uL (0.8-4.8); Lymphocytes % 21.3 %; Mean Corpuscular HGB Conc 32.5 g/dL (30.0-36.0); Mean Corpuscular Hemoglobin 28.8 pg (28.0-34.0); Mean Corpuscular Volume 88.6 fl (80-94); Mean Platelet Volume 10.2 fL (7.4-10.4); Monocytes # 0.4 10^3/uL (0.2-0.9); Neutrophils # 4.86 10^3/uL (1.8-7.7); Neutrophils % 70.8 %; Nucleated Red Blood Cells % 0 %; Platelet Count 190 10^3/cmm (130-400); Red Blood Count 3.86 10^6/uL (4.1-5.3); Red Cell Distribution Width 13.5 % (12.1-15.1); White Blood Count 6.9 10^3/uL (4.0-10.0)
[2021-11-22 11:20] LABS: Glucose Point of Care 169 mg/dL (70-110)
[2021-11-22] MEDS: insulin lispro 100 unit/1 mL SUBCUT ×2 (11:52→21:57)
--- NOTE | 2021-11-22 13:52 | PC.NURSE ---
Pt voided 180 cc in the urinal. bladder scan post void obtained, resulted [address] Sparks notified.
--- NOTE | 2021-11-22 16:42 | PC.OT ---
OT EVALUATION ATTEMPTED TWICE. A.M. PATIENT IS WITH DOCTOR P.M. PATIENT RECEIVING EEG TESTING WILL ATTEMPT AGAIN TOMORROW.
[2021-11-22 17:28] LABS: Glucose Point of Care 98 mg/dL (70-110)
--- NOTE | 2021-11-22 19:01 | P.PN_ITS ---
Subjective Subjective: He feels pretty well. He has not had any spells today. Physical therapy took him for a walk. Maybe he feels a little bit drowsy but its not bad. Vitals/I&O/Wt Last Vital Signs Temp 98.5 F 11/22/21 16:00 Pulse 54 L 11/22/21 16:00 Resp 18 11/22/21 16:00 BP 167/97 11/22/21 16:00 Pulse Ox 96 11/22/21 16:00 11/22/21 11/22/21 11/22/21 06:59 14:59 22:59 Intake Total 1000 / 1230 354 / 354 200 / 554 Output Total 200 / 200 180 / 180 350 / 530 Balance 800 / 1030 174 / 174 -150 / 24 Weight last 48 hrs Weight 266 lb Physical Exam Narrative: He is awake and alert with clear speech. He does not remember my name. I did not do full mental status testing today. He still a little apractic. No motor deficit. No signs of seizure activity. Data : 11/22/21 10:35 11/22/21 06:10 Other Labs: Random cortisol 26.3 which is high normal A&P Assessment and plan (1) Seizure: Repeated episodes of staring without response, sometimes followed by gastrointestinal dysfunction such as vomiting, often followed by hypotension. These are probably focus based seizures with impairment of consciousness, presumably temporal lobe. CAT scan of the head has been normal repeatedly. Since I mention doing an MRI he wants it done now and I will go ahead and order it. I think he should go home tomorrow. He apparently had an EEG today and I have not looked at it yet but will review it in the morning. Increase Keppra 750 mg twice daily. Status: Acute Attestations Medical Necessity Statement*: Repeated episodes of unresponsiveness Coding Level of Care Code Acute Clerical Transcriber for [facility] Diagnoses Seizure R56.9
--- NOTE | 2021-11-22 19:41 | P.PN_ITS ---
Subjective Subjective: He had just finished having his visit with the vp information technology. He reports he is doing fine. Denies any pain or discomfort. Denies any recurrence of symptoms. We discussed recommendations of cardiology, as well as neurology. She and family denied any additional questions. Indicated by his family that he has been feeling anxious. She reports his anxiety about a 6 with fluctuation. He and family are agreeable with follow-up with [facility] for assessment and treatment considerations. Vitals/I&O/Wt Last Vital Signs Temp 98.5 F 11/22/21 16:00 Pulse 54 L 11/22/21 16:00 Resp 18 11/22/21 16:00 BP 167/97 11/22/21 16:00 Pulse Ox 96 11/22/21 16:00 11/22/21 11/22/21 11/22/21 06:59 14:59 22:59 Intake Total 1000 / 1230 354 / 354 200 / 554 Output Total 200 / 200 180 / 180 350 / 530 Balance 800 / 1030 174 / 174 -150 / 24 Weight last 48 hrs Weight 120.656 kg Physical Exam Narrative: and son at bedside. Const: COMMON NORMALS: alert GENERAL APPEARANCE: cooperative ORIENTATION/CONSCIOUSNESS: Yes awake OTHER: Reclined in bed. Gives short answers to questions. HENMT: COMMON NORMALS: normocephalic, EAC's normal, Normal external nose present and moist oral mucous membranes HEAD & SCALP: normocephalic NOSE: Normal external nose present EXTERNAL AUDITORY CANAL: EAC's normal Neck/C-Spine: COMMON NORMALS: no meningeal signs Chest: CHEST: Yes Symmetrical chest wall rise Resp: COMMON NORMALS: clear to auscultation bilaterally AUSCULTATION: clear to auscultation bilaterally Cardio: COMMON NORMALS: regular rate, regular rhythm and No murmurs present (Cardio) RATE: regular rate RHYTHM: regular rhythm GI: COMMON NORMALS: Normal to inspection, nondistended, normoactive bowel sounds present, Soft to palpation and non-tender PALPATION: Yes Soft to palpation Extremity: COMMON NORMALS: no pedal edema Neuro: COMMON NORMALS: moves all extremities SENSORIUM/ORIENTATION: Yes alert MENINGEAL SIGNS: Yes no meningeal signs Psych: COMMON NORMALS: mental status grossly normal Skin: COMMON NORMALS: no wounds RASHES: no rashes Data : 11/22/21 10:35 11/22/21 06:10 A&P Assessment and plan (1) Seizure: Episodes of unresponsiveness with following confusion. Cardiology and neurology evaluations appreciated. MRI ordered for outpatient side, however, I see as per additional discussion it is now to be done inpatient. Likelihood of cardiac etiology of episodes at this time considered low. Keppra dose increased to 750 mg twice daily. Pending EEG. Orthostatic precautions with history of orthostatic hypotension. Status: Acute (2) BPH loc w urin obs/LUTS: Concern for possible neurogenic bladder. Bladder scan assessed today post void was 289 mL. Straight cath obtained with 350 mL but it was 3 hours later likely giving inaccurate picture. Requested repeat post void scan to be obtained. Continues on Flomax. Status: Chronic (3) Labile blood pressure: Continues on Imdur, so far without hypotension, although with variable blood pressure, today as low as 107/63. Lisinopril on hold. Orthostatic precautions. Status: Acute (4) Pulmonary embolus, left: Continue Xarelto for small PEs. Status: Acute (5) Deep vein thrombosis of bilateral lower extremities: Continue Xarelto. Status: Acute (6) Chronic anticoagulation: Status: Chronic (7) Type 2 diabetes mellitus treated with insulin: Continue Lantus, sliding scale. Status: Chronic (8) Ascending aortic aneurysm: [address] imaging earlier this month. Continue outpatient follow- up. Status: Chronic (9) Popliteal aneurysm: Identified in the right lower extremity on venous duplex of the lower extremities earlier this month measuring approximately 2 x 3 x 4 cm Status: Chronic (10) Hyperlipidemia: Chronically on statin therapy Status: Chronic Qualifiers: Hyperlipidemia type: mixed hyperlipidemia Qualified Code(s): E78.2 - Mixed hyperlipidemia (11) BMI 36.0-36.9,adult: Status: Chronic (12) Anxiety: Status: Acute Plan Hypomagnesemia Reported gait instability Incidental finding of adrenal mass last admission Reported anxiety and depression History of sleep apnea Will need close follow up with Dr Dean Has an appointment scheduled with Dr. Wilkes on December [address] Kendrick here in the hospital. Cardiology discussed monitor activation with family. Will need outpatient follow-up with Dr. Pérez as per her consultation Will need to have follow-up appointment with Dr. Harris rescheduled for a later date for aneurysms Needs appointment with Dr Mcleod rescheduled for extensive DVT/PE without clear source Will need eventual screenings for cancer done though cannot come off of anticoagulation presently Attestations Medical Necessity Statement*: Continue hospitalization for assessment and management of recurrent episodes of unresponsiveness, neurologic work-up. Coding Level of Care Code Acute Cotton Farmworker for Chg Fwd Diagnoses Seizure R56.9 Labile blood pressure R09.89 Pulmonary embolus, left I26.99 Deep vein thrombosis of bilateral lower extremities I82.403 Chronic anticoagulation Z79.01 Type 2 diabetes mellitus treated with insulin E11.9; Z79.4 Ascending aortic aneurysm I71.2 Popliteal aneurysm I72.4 BPH loc w urin obs/LUTS N40.1 Hyperlipidemia E78.2 Hyperlipidemia type: mixed hyperlipidemia BMI 36.0-36.9,adult Z68.36 Anxiety F41.9
[2021-11-22] MEDS: atorvastatin 40 mg Tablet 20 MG PO (20:40)
[2021-11-22] MEDS: tamsulosin 0.4 mg Capsule PO (20:41)
[2021-11-22] MEDS: insulin glargine 100 units/1 mL 15 UNIT SUBCUT (20:41)
[2021-11-22 21:34] LABS: Glucose Point of Care 182 mg/dL (70-110)
[2021-11-23] VITALS (7 sets, daily range): BP systolic 116–174; BP diastolic 75–87; PULSE 51–74; RESP 16–18; TEMP 36.3–37.1; O2SAT 93–96
--- NOTE | 2021-11-23 04:35 | PC.NURSE ---
pt refused 2200 and straight cath after bladder scan indicated 304cc retained post void. pt states they did that just a little while ago and it's sore
[2021-11-23] MEDS: isosorbide mononitrate ER 30 mg Tablet PO (05:52)
[2021-11-23 06:42] LABS: Glucose Point of Care 88 mg/dL (70-110)
[2021-11-23] MEDS: rivaroxaban 10 mg Tablet 15 MG PO ×2 (08:02→17:23)
[2021-11-23] MEDS: levETIRAcetam 500 mg Tablet 750 MG PO ×2 (08:02→17:23)
[2021-11-23] MEDS: pantoprazole DR 40 mg Tablet PO (08:03)
--- NOTE | 2021-11-23 08:32 | PC.NURSE ---
void is from last night, patient experienced incontinence in bed and brief.
--- NOTE | 2021-11-23 08:59 | PM.PN ---
Subjective Subjective: Patient is doing well. No complaints of chest pain Vitals/I&O/Wt Last Vital Signs Temp 97.4 F L 11/23/21 08:00 Pulse 74 11/23/21 08:00 Resp 18 11/23/21 08:00 BP 116/75 11/23/21 08:00 Pulse Ox 93 11/23/21 08:00 11/22/21 11/23/21 11/23/21 22:59 06:59 14:59 Intake Total 600 / 954 Output Total 350 / 530 250 / 780 150 / 150 Balance 250 / 424 -250 / 174 -150 / -150 Weight last 48 hrs Weight 266 lb Data : 11/22/21 10:35 11/22/21 06:10 A&P Assessment and plan (1) Ascending aortic aneurysm: Status: Chronic (2) Popliteal aneurysm: Status: Chronic (3) Deep vein thrombosis of bilateral lower extremities: Status: Acute (4) Chronic anticoagulation: Status: Chronic (5) Pulmonary embolus, left: Status: Acute (6) Seizure: Status: Acute (7) Labile blood pressure: Status: Acute Plan Patient has seizure episodes,started on medications. No evidence of pauses/ arrhythmias so far. Patient found to have meningioma and has hydrocephalus. Neurology following Continue current medications including anticoagulation Avoid rate controlling medications For the aortic aneurysm, patient is following with Dr Harris in the office. Thank you for involving us with care of this patient. We will sign off. Please call with questions and follow with cardiology as outpatient Attestations Medical Necessity Statement*: Care expected to cross 2 midnights. Coding Level of Care Code Acute Edger Machine Operator for Clement Delarosa Diagnoses Ascending aortic aneurysm I71.2 Popliteal aneurysm I72.4 Deep vein thrombosis of bilateral lower extremities I82.403 Chronic anticoagulation Z79.01 Pulmonary embolus, left I26.99 Seizure R56.9 Labile blood pressure R09.89
--- NOTE | 2021-11-23 09:30 | MR_ITS ---
WS: [id number] MRI HEAD WITHOUT CONTRAST TECHNIQUE: Sagittal T1, T2 axial, T2 axial FLAIR, axial and coronal T1 images, axial susceptibility w eighted imaging, axial diffusion weighted images, and coronal T2 images were obtained. CLINICAL INFORMATION: Seizures COMPARISON: None. FINDINGS: No evidence of restricted diffusion to suggest acute ischemia. Ventricular system and basal cisterns are patent. Incidental small meningioma overlying the RIGHT parasagittal frontal lobe measuring 15 x 8 mm. Slight contact RIGHT frontal lobe. No underlying edema. Normal posterior fossa. Normal vascular flow voids at the skull base. No extra-axial fluid collection s. No evidence of mass or mass effect. Prominent perivascular spaces in the basal ganglia. Moderate s ymmetric atrophy temporal lobes and hippocampal formations. Paranasal sinuses and mastoid air cells a re well aerated. Normal optic chiasm and pituitary infundibulum. Normal cavernous sinuses and Meckel's cave.Tiny chron ic focus of hemosiderin in the LEFT cerebellum. Normal posterior nasopharynx. Prominent ventricular system with mild bowing of the 3rd ventricle and temporal horns can be seen with normal pressure hydrocephalus in the appropriate clinical setting. MR/MR head wo con* [id number] IMPRESSION: 1. No evidence of restricted diffusion to suggest acute ischemia. 2. RIGHT parasagittal frontal meningioma measuring 15 x 8 mm. This is likely i ncidental. No underlying edema or mass effect. 3. Mild small vessel changes with mild parenchymal volume loss. 4. Moderate dilatation of the ventricular system somewhat prominent relative t o volume loss. Mild bowing of the 3rd ventricle and temporal horns. This can be seen with normal pressure hydrocephalus in the appropriate clinical setting. 5. Moderate symmetric atrophy temporal lobes and hippocampal formations.
[2021-11-23 12:38] LABS: Glucose Point of Care 126 mg/dL (70-110)
--- NOTE | 2021-11-23 13:05 | PM.MISC ---
Miscellaneous Note Purpose of Documentation: EEG Note: ORDERING PHYSICIAN: Dr. Pérez. REASON FOR STUDY: Episodic alteration in consciousness with lack of response suggesting seizures STUDY: This was a 21 channel digital electroencephalogram performed using the 10-20 international system of electrode placement. This study was non-sleep deprived and the patient was awake, and drowsy. Photic stimulation and hyperventilation were included. FINDINGS: The waking background was characterized by well-modulated posterior alpha at 9-10 hertz, symmetric and of moderate voltage. There were periods of drowsiness characterized by mild diffuse slowing. The patient was restless throughout and there was a moderate amount of movement artifact seen throughout the tracing. Photic stimulation produced a bilateral driving response in the occipital leads without any evidence of a photoconvulsive response. Hyperventilation for three minutes was performed well and had an alerting effect. No focal, lateralizing or epileptiform activity was seen. IMPRESSION: This was a normal routine EEG, awake and drowsy with no behavioral or electrographic epileptiform activity. A normal EEG does not exclude a diagnosis of epilepsy. A sleep deprived tracing is recommended if seizures are strongly suspected. Duration of EE.1
[2021-11-23 13:18] LABS: Magnesium 1.8 mg/dL (1.7-2.3)
--- NOTE | 2021-11-23 16:53 | PM.PN ---
Subjective Subjective: His described the seizure that she witnessed day before yesterday. They ate at [employer] and he was eating all the way to the [facility] face but when she pulled into the parking lot he was staring straight ahead and not responsive when she talked with him. His hands were in the air making nonspecific reaching movements, as he typically does during these episodes. He was wheeled into [facility] and [place] with eyes half closed not responding while Dr. Dean interviewed him. She moved him to be picked up by the ambulance and as she did he became deathly pale and developed severe sialorrhea, which is typical for him. He vomited multiple times and turned ashen strong. She pulled his head up and as she did so he took a big breath and his color recovered. This is typical. He has developed a gait disorder over the last 6 months. He does not pick his feet up. He told me he was walking all over the place and that his gait was fine but she says it is not. He had a 300 cc residual in his bladder. I talked with Dr. Sparks and I do not think that there is any reason to do straight cath. He is incontinent. His thinks his memory is good. He sleeps all the time. He is in a deep dark hole and has been depressed all of his life. Vitals/I&O/Wt Last Vital Signs Temp 97.5 F L 11/23/21 15:39 Pulse 57 L 11/23/21 15:39 Resp 18 11/23/21 15:39 BP 152/84 11/23/21 15:39 Pulse Ox 95 11/23/21 15:39 11/23/21 11/23/21 11/23/21 06:59 14:59 22:59 Intake Total 600 / 600 Output Total 250 / 780 150 / 150 Balance -250 / 174 450 / 450 Physical Exam Narrative: He seen more with it cognitively. He is not apractic on motor commands today like he was several days ago but he has apractic magnetic gait. Data : 11/22/21 10:35 11/22/21 06:10 Micro: Microbiology 11/23/21 14:48 Blood Culture - Preliminary Blood SPECIMEN COLLECTED 11/23/21 14:42 Blood Culture - Preliminary Blood SPECIMEN COLLECTED A&P Assessment and plan (1) Gait instability: He has an apractic gait. I was afraid to examine his gait previously because he was still rather obtunded after he arrived but he is wide-awake today and he can walk without the walker but he does not pick his feet up, consistent with a magnetic gait and consistent with concern for normal pressure hydrocephalus. The radiologist report of his MRI is appreciated and I went over this in detail with the patient and his . He has unexplained urinary incontinence, as he only has 300 mL residual in his bladder. This is a pretty good story for NPH. My plan is to reexamine his cognitive function in a couple of weeks after he is been on anticonvulsant therapy, probably repeat his EEG as an outpatient. He will need repeat MRI to follow his right frontal meningioma but also to follow his hydrocephalus. I spent a significant amount of time reviewing his imaging and reviewing the results with the patient and his including actual images that I brought with me to the room to illustrate his findings. I also have concern that he is dementing. He thinks his memory is fine and so does his but he is sleeping all of the time. Maybe that is depression and we definitely need to address his depression. Start citalopram 20 mg and he agreed to that. Switch Keppra xr 750 mg 2 daily. I explained that the risk of sudden in epilepsy is 1-6 in the thousand and that it is unlikely that he will from his seizures. We have documented that he does not have cardiac arrhythmia during these episodes. I went over that in detail. Status: Acute (2) Meningioma, cerebral: Status: Acute (3) Seizure: Status: Acute (4) Localization-related (focal) (partial) symptomatic epilepsy and epileptic syndromes with complex partial seizures, intractable, without status epilepticus: Status: Acute Attestations Medical Necessity Statement*: Recurrent episodes of profound obtundation accompanied by cyanosis. His thought he was dying. She is afraid to take him home. Time Spent in Patient Care: 45 min Coding Level of Care Code Acute Records Management Specialist for Cherelleg Isaura Diagnoses Gait instability R26.81 Meningioma, cerebral D32.0 Seizure R56.9 Localization-related (focal) (partial) symptomatic epilepsy and epileptic syndromes with complex partial seizures, intractable, without status epilepticus G40.219
[2021-11-23 17:21] LABS: Glucose Point of Care 163 mg/dL (70-110)
[2021-11-23] MEDS: insulin lispro 100 unit/1 mL SUBCUT (17:32)
--- NOTE | 2021-11-23 19:35 | P.PN_ITS ---
Subjective Subjective: Overnight reported again having urinary retention, bladder scan with 300 mL, this morning also was reported to have had incontinence. This morning he sitting up in chair, denies any pain or discomfort. Reports he is doing quite well. Had a good lunch, and is preparing to work with physical therapy. Visit again later in the day, denies any questions regarding their discussion with neurology. Vitals/I&O/Wt Last Vital Signs Temp 97.5 F L 11/23/21 15:39 Pulse 57 L 11/23/21 15:39 Resp 18 11/23/21 15:39 BP 152/84 11/23/21 15:39 Pulse Ox 95 11/23/21 15:39 11/23/21 11/23/21 11/23/21 06:59 14:59 22:59 Intake Total 600 / 600 360 / 960 Output Total 250 / 780 150 / 150 Balance -250 / 174 450 / 450 360 / 810 Physical Exam Const: COMMON NORMALS: alert GENERAL APPEARANCE: cooperative ORIENTATION/CONSCIOUSNESS: Yes awake OTHER: Sitting up in chair. HENMT: COMMON NORMALS: normocephalic, EAC's normal, Normal external nose present and moist oral mucous membranes HEAD & SCALP: normocephalic NOSE: Normal external nose present EXTERNAL AUDITORY CANAL: EAC's normal Neck/C-Spine: COMMON NORMALS: no meningeal signs Chest: CHEST: Yes Symmetrical chest wall rise Resp: COMMON NORMALS: clear to auscultation bilaterally AUSCULTATION: clear to auscultation bilaterally Cardio: COMMON NORMALS: regular rate, regular rhythm and No murmurs present (Cardio) RATE: regular rate RHYTHM: regular rhythm GI: COMMON NORMALS: Normal to inspection, nondistended, normoactive bowel sounds present, Soft to palpation and non-tender PALPATION: Yes Soft to palpation Extremity: COMMON NORMALS: no pedal edema Neuro: COMMON NORMALS: moves all extremities SENSORIUM/ORIENTATION: Yes alert MENINGEAL SIGNS: Yes no meningeal signs Psych: COMMON NORMALS: mental status grossly normal Skin: COMMON NORMALS: no wounds RASHES: no rashes Data : 11/22/21 10:35 11/22/21 06:10 Micro: Microbiology 11/23/21 14:48 Blood Culture - Preliminary Blood SPECIMEN COLLECTED 11/23/21 14:42 Blood Culture - Preliminary Blood SPECIMEN COLLECTED A&P Assessment and plan (1) Acquired cerebral ventriculomegaly: With gait apraxia, urinary incontinence, with changes in weight sleep pattern, concerns regarding possibility of cognitive impairment, he will further follow- up with neurology for additional battery of tests as well as consideration of lumbar puncture. With possible contribution of depression and with complaints of anxiety he is to be started on citalopram prior to reassessment. Status: Acute (2) Seizure: Results of EEG and MRI appreciated. Discussed with neurology. Continue increased Keppra dosing. Consideration is to switch to Keppra XR 750 mg, 2 daily at discharge. Episodes of unresponsiveness with following confusion. Was reassessed by cardiology. As per discussion likelihood of cardiac etiology of episodes at this time considered low. Continue quality assurance monitor body for the remaining duration. Unremarkable EEG. Orthostatic precautions with history of orthostatic hypotension. Status: Acute (3) BPH loc w urin obs/LUTS: Urinary retention, last night on bladder scan again noted to have 300 mL, although declined straight cath. This morning also with report of urinary incontinence overnight. Continue Flomax, will request also follow-up with neurology who will also follow-up regarding symptoms at subsequent visit. Concern for possible neurogenic bladder. Requested repeat post void scan to be obtained. Continues on Flomax. Status: Chronic (4) Labile blood pressure: Continues on Imdur, so far without hypotension, although with variable blood pressure. Lisinopril on hold. Orthostatic precautions. Status: Acute (5) Pulmonary embolus, left: Continue Xarelto for small PEs. Status: Acute (6) Deep vein thrombosis of bilateral lower extremities: Continue Xarelto. Status: Acute (7) Chronic anticoagulation: Continue Xarelto, aspirin stopped according to cardiology recommendation. Status: Chronic (8) Type 2 diabetes mellitus treated with insulin: Continue Lantus, sliding scale. Status: Chronic (9) Ascending aortic aneurysm: [address] imaging earlier this month. Continue outpatient follow- up. Status: Chronic (10) Popliteal aneurysm: Identified in the right lower extremity on venous duplex of the lower extremities earlier this month measuring approximately 2 x 3 x 4 cm Status: Chronic (11) Hyperlipidemia: Chronically on statin therapy Status: Chronic Qualifiers: Hyperlipidemia type: mixed hyperlipidemia Qualified Code(s): E78.2 - Mixed hyperlipidemia (12) BMI 36.0-36.9,adult: Status: Chronic (13) Anxiety: Started on citalopram. Initially discussion was for behavioral health care follow-up, but on discussion with neurology would like him to first follow-up in office for additional cognitive assessment. Status: Acute (14) Gait instability: Status: Acute (15) Meningioma, cerebral: 15 x 8 mm right parasagittal frontal meningioma. Status: Acute Plan Hypomagnesemia Reported gait instability Incidental finding of adrenal mass last admission Reported anxiety and depression History of sleep apnea Will need close follow up with Dr Dean Has an appointment scheduled with Dr. Wilkes on December [address] Kendrick here in the hospital. Cardiology discussed monitor activation with family. Will need outpatient follow-up with Dr. Pérez as per her consultation Will need to have follow-up appointment with Dr. Harris rescheduled for a later date for aneurysms Needs appointment with Dr Mcleod rescheduled for extensive DVT/PE without clear source Will need eventual screenings for cancer done though cannot come off of anticoagulation presently Attestations Medical Necessity Statement*: Admission continued for neurologic assessment of episodes of unresponsiveness with suspected seizure, possible NPH, post discharge planning and arrangements. Coding Level of Care Code Acute Substation Manager for Chg Fwd Diagnoses Seizure R56.9 BPH loc w urin obs/LUTS N40.1 Labile blood pressure R09.89 Pulmonary embolus, left I26.99 Deep vein thrombosis of bilateral lower extremities I82.403 Chronic anticoagulation Z79.01 Type 2 diabetes mellitus treated with insulin E11.9; Z79.4 Ascending aortic aneurysm I71.2 Popliteal aneurysm I72.4 Hyperlipidemia E78.2 Hyperlipidemia type: mixed hyperlipidemia BMI 36.0-36.9,adult Z68.36 Anxiety F41.9 Gait instability R26.81 Meningioma, cerebral D32.0 Acquired cerebral ventriculomegaly G91.1
[2021-11-23] MEDS: atorvastatin 40 mg Tablet 20 MG PO (21:02)
[2021-11-23] MEDS: tamsulosin 0.4 mg Capsule PO (21:03)
[2021-11-23] MEDS: insulin glargine 100 units/1 mL 15 UNIT SUBCUT (21:03)
[2021-11-24] VITALS: BP 161/85; BP 167/90; PULSE 58; PULSE 59; RESP 16; TEMP 36.6; TEMP 36.8; O2SAT 93
[2021-11-24 04:00] VITALS: BP 143/84; BP 167/90; PULSE 55; PULSE 58; RESP 16; TEMP 36.4; TEMP 36.6; O2SAT 96
[2021-11-24 05:05] VITALS: PULSE 51
[2021-11-24 05:13] LABS: Magnesium 1.9 mg/dL (1.7-2.3)
[2021-11-24] MEDS: isosorbide mononitrate ER 30 mg Tablet PO (06:23)
[2021-11-24 08:00] VITALS: BP 152/84; PULSE 54; RESP 20; TEMP 36.6; O2SAT 93
[2021-11-24] MEDS: rivaroxaban 10 mg Tablet 15 MG PO (08:39)
[2021-11-24] MEDS: pantoprazole DR 40 mg Tablet PO (08:39)
[2021-11-24] MEDS: levETIRAcetam 500 mg Tablet 750 MG PO (08:39)
[2021-11-24 10:58] VITALS: BP 136/77; PULSE 53; RESP 22; TEMP 36.8; O2SAT 95
--- NOTE | 2021-11-24 11:51 | PC.NURSE ---
THIS NURSE CALLED IN PATIENT PRESCRIPTIONS TO [facility].
--- NOTE | 2021-11-24 15:56 | PM.DCS ---
Discharge Providers Date of Admission: 11/21/21 11:50 Date of Discharge: November 24, 2021 Attending Provider at Admission: Tessa Saha MD Attending Provider at Discharge: Ricki Sparks Primary Care Provider: Ramón Dean DO Diagnoses at Discharge Discharge Diagnosis (1) Ascending aortic aneurysm: Status: Chronic Permanent problem details: 11/04/21 - 5 cm (2) Popliteal aneurysm: Status: Chronic Permanent problem details: 11/16 RLE, 3.0 x 2.8 x 4.4 cm (3) Deep vein thrombosis of bilateral lower extremities: Status: Acute (4) Chronic anticoagulation: Status: Chronic Permanent problem details: Xarelto, due to DVT/PE (5) Pulmonary embolus, left: Status: Acute Permanent problem details: branch of left pulmonary artery to lingula (6) Seizure: Status: Acute (7) Labile blood pressure: Status: Acute Reason for Visit Reason for Visit: PERIOD OF UNRESPONSIVENESS Hospital Course Hospital Course Pleasant 76-year-old gentleman was reassessed again in the hospital due to episodes of unresponsiveness, staring, sometimes reported moving his arms in the air, with residual confusion, hypotension, with one of the episodes witnessed by primary provider in office. Neurology documentation includes an excellent description and detailed chronology of the recent events. He has been wearing his event monitor, he was monitored on telemetry while in hospital and no arrhythmias/pauses have been documented. Troponins have been negative, and EKG not suggestive of ischemia. Recent echocardiogram with normal left ventricular systolic function. With known thoracic aortic aneurysm and popliteal artery aneurysms for which he has been followed by cardiovascular surgeon. He also has known orthostatic hypotension, labile blood pressures, mild bradycardia. With also known DVT and small PE without right heart strain for which he is on anticoagulation. He has noted chronic gait instability. He had also been recently started on Flomax due to urinary symptoms, after some of the episodes had already occurred. He recently had changes in sleep habits, frequently sleeping during the day. And also has been suffering from anxiety. He may have also noticed some memory issues, especially worse around the episodes. He has not been noted to be hypoglycemic. His A1c was noted to be 9.3. Thyroid function noncontributory. B12 normal. Work-up during the current hospitalization included head CT without acute intracranial hemorrhage or edema, atrophy with small vessel ischemic disease. Unremarkable chest x-ray and UA. Serum cortisol was not low. Renal function has been improving. Mild hypomagnesemia was replaced. 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 Neurology initiated him on Keppra 500 mg twice daily advanced to 750 mg twice a day. With reports of urinary symptoms, with noted few episodes of urinary retention in the hospital of about 300 mL on bladder scan postvoid, labile blood pressures, considerations were also given to other explanations including progressive multisystem degenerative disorder. He was also assessed by cardiology with assessment of low likelihood of cardiac causes being responsible for the episodes, with recommendation of carrying out cardiac monitoring to completion and to avoid rate controlling medications. He will follow up with cardiology as outpatient. He was additionally assessed by EEG which was unremarkable, and had additional assessment by MRI of the brain which showed no evidence suggestive of acute ischemia, with noted moderate dilation of the ventricular system somewhat prominent relative to volume loss, mild bowing of third ventricle and temporal horns, in association with his other symptoms concerning for possibility of NPH. Additional findings included mild parenchymal volume loss, moderate symmetric atrophy of temporal lobes and hippocampal formations. 15 x 8 mm right parasagittal frontal meningioma. He tolerated initiation of anticonvulsant well while in the hospital, and will continue on Keppra 2 tablets 750 mg extended release and follow-up with neurology for reassessment, additional cognitive testing, consideration of LP. With anxiety/mood disorder possibly contributing to his symptoms, [facility] referral was considered, but for now deferred pending additional neurologic assessment, he is for now started on citalopram 20 mg a day. He continues on Flomax and is referred for additional assessment by urology for intermittent LUTS with bladder symptoms to be followed up also with neurology. He is otherwise asked to continue follow-up with cardiovascular surgery with regards to aneurysms. He is asked to monitor blood pressures closely, lisinopril for now is withheld due to labile, occasional low blood pressures. Continue follow-up regarding adrenal nodule. Hypomagnesemia noted during hospitalization replaced, consider reassessment of magnesium level. Due to gait instability he is set up with home health for further therapy. Physical Exam Narrative: He is awake and alert, sitting up in bed playing a game on his phone. Denies any recurrence of symptoms or any pain or discomfort. Const: COMMON NORMALS: alert GENERAL APPEARANCE: cooperative and comfortable ORIENTATION/CONSCIOUSNESS: Yes awake HENMT: COMMON NORMALS: normocephalic, EAC's normal, Normal external nose present and moist oral mucous membranes HEAD & SCALP: normocephalic NOSE: Normal external nose present EXTERNAL AUDITORY CANAL: EAC's normal Neck/C-Spine: COMMON NORMALS: no meningeal signs Chest: CHEST: Yes Symmetrical chest wall rise Resp: COMMON NORMALS: clear to auscultation bilaterally AUSCULTATION: clear to auscultation bilaterally Cardio: COMMON NORMALS: regular rate, regular rhythm and No murmurs present (Cardio) RATE: regular rate RHYTHM: regular rhythm GI: COMMON NORMALS: Normal to inspection, nondistended, normoactive bowel sounds present, Soft to palpation and non-tender PALPATION: Yes Soft to palpation Extremity: COMMON NORMALS: no pedal edema Neuro: COMMON NORMALS: moves all extremities SENSORIUM/ORIENTATION: Yes alert MENINGEAL SIGNS: Yes no meningeal signs Psych: COMMON NORMALS: mental status grossly normal Skin: COMMON NORMALS: no wounds RASHES: no rashes Discharge Data Studies Completed and Pending Completed Studies During Hospitalization Category Date Time Status CT head wo con* [id number] Stat Cat Scan 11/21/21 09:38 Completed XR chest 1V portable [id number] Stat Exams 11/21/21 09:38 Completed MR head wo con* [id number] Routine MRI 11/23/21 09:30 Completed Pending at discharge Category Date Time Status EEG electroencephalogram Routine Exams 11/22/21 12:03 Ordered Blood Culture Stat Lab 11/23/21 14:48 Results Radiology Impressions Chest X-Ray 11/21/21 09:38 Impression: Atherosclerosis. Head CT 11/21/21 09:38 IMPRESSION: 1. No acute intracranial hemorrhage or edema. 2. Stable noncontrast head CT since 11/14/2021. 3. Atrophy with small vessel ischemic disease. Head MRI 11/23/21 09:30 IMPRESSION: 1. No evidence of restricted diffusion to suggest acute ischemia. 2. RIGHT parasagittal frontal meningioma measuring 15 x 8 mm. This is likely incidental. No underlying edema or mass effect. 3. Mild small vessel changes with mild parenchymal volume loss. 4. Moderate dilatation of the ventricular system somewhat prominent relative to volume loss. Mild bowing of the 3rd ventricle and temporal horns. This can be seen with normal pressure hydrocephalus in the appropriate clinical setting. 5. Moderate symmetric atrophy temporal lobes and hippocampal formations. Laboratory Results WBC 6.9 10^3/uL (4.0-10.0) 11/22/21 10:35 Corrected WBC Cancelled 11/22/21 08:33 RBC 3.86 10^6/uL (4.1-5.3) L 11/22/21 10:35 Hgb 11.1 g/dL (11.7-16.6) L 11/22/21 10:35 Hct 34.2 % (42.0-52.0) L 11/22/21 10:35 MCV 88.6 fl (80-94) 11/22/21 10:35 MCH 28.8 pg (28.0-34.0) 11/22/21 10:35 MCHC 32.5 g/dL (30.0-36.0) 11/22/21 10:35 RDW 13.5 % (12.1-15.1) 11/22/21 10:35 Plt Count 190 10^3/cmm (130-400) 11/22/21 10:35 MPV 10.2 fL (7.4-10.4) 11/22/21 10:35 Gran % Cancelled 11/22/21 08:33 Neut % (Auto) 70.8 % 11/22/21 10:35 Lymph % (Auto) 21.3 % 11/22/21 10:35 Kleberg % (Auto) 6.0 % 11/22/21 10:35 Eos % (Auto) 1.2 % 11/22/21 10:35 Baso % (Auto) 0.4 % 11/22/21 10:35 Neut # (Auto) 4.86 10^3/uL (1.8-7.7) 11/22/21 10:35 Lymph # (Auto) 1.5 10^3/uL (0.8-4.8) 11/22/21 10:35 Kleberg # (Auto) 0.4 10^3/uL (0.2-0.9) 11/22/21 10:35 Eos # (Auto) 0.1 10^3/uL (0.0-0.8) 11/22/21 10:35 Baso # (Auto) 0.0 10^3/uL (0.0-0.1) 11/22/21 10:35 Absolute Gran (auto) Cancelled 11/22/21 08:33 Nucleated RBC % (auto) 0 % 11/22/21 10:35 Nucleated RBCs # 0.0 /100WBC 11/22/21 10:35 Specimen Type Arterial 11/21/21 09:48 Sample Site Brachial, left 11/21/21 09:48 ABG pH 7.37 (7.35-7.45) 11/21/21 09:48 ABG pCO2 39.8 mmHg (35-45) 11/21/21 09:48 ABG pO2 60.7 mmHg (80.0-100.0) L 11/21/21 09:48 ABG HCO3 22.8 mmol/L (22-26) 11/21/21 09:48 ABG O2 Saturation 91.7 11/21/21 09:48 ABG Base Excess -2.4 mmol/L (-2.0-2.0) L 11/21/21 09:48 Narayan Test N/a 11/21/21 09:48 A-a O2 Gradient 5.4 mmHg (5-10) 11/21/21 09:48 Hematocrit 38.3 % (42-52) L 11/21/21 09:48 Hgb O2 Saturation 90.0 % (95-100) L 11/21/21 09:48 Carboxyhemoglobin 1.1 %THgb (0.4-20.1) 11/21/21 09:48 Methemoglobin 0.7 % (0.4-1.5) 11/21/21 09:48 Total Hemoglobin 12.5 g/dL (14-18) L 11/21/21 09:48 Sodium 138.0 mmol/L (131-143) 11/21/21 09:48 Potassium 3.8 mmol/L (3.5-5.0) 11/21/21 09:48 Glucose 169.0 mg/dL (70-115) H 11/21/21 09:48 Ionized Calcium 1.2 mmol/L (1.1-1.4) 11/21/21 09:48 O2 Delivery Device Room air 11/21/21 09:48 FiO2 21.0 % 11/21/21 09:48 Commercial Lines Account Executive ID Amh 11/21/21 09:48 Sodium 138 mmol/L (136-145) 11/22/21 06:10 Potassium 4.9 mmol/L (3.5-5.1) 11/22/21 06:10 Chloride 102 mmol/L (98-107) 11/22/21 06:10 Carbon Dioxide 22 mmol/L (22-29) 11/22/21 06:10 Anion Gap 18.9 (5-19) 11/22/21 06:10 BUN 21 mg/dL (8-23) 11/22/21 06:10 Creatinine 1.0 mg/dL (0.7-1.2) 11/22/21 06:10 GFR Calculation Not Reportable 11/22/21 06:10 Glucose 68 mg/dL (65-115) 11/22/21 06:10 POC Glucose 163 mg/dL (70-110) H 11/23/21 17:08 Calculated Osmolality 287 mOsm/kg (285-295) 11/22/21 06:10 Calcium 8.1 mg/dL (8.5-10.5) L 11/22/21 06:10 Magnesium 1.9 mg/dL (1.7-2.3) 11/24/21 04:10 Total Bilirubin 0.4 mg/dL (0.15-1.2) 11/22/21 06:10 AST 21 U/L (0-40) 11/22/21 06:10 ALT 10 U/L (0-41) 11/22/21 06:10 Alkaline Phosphatase 57 IU/L (40-130) 11/22/21 06:10 Troponin T Baseline 18 ng/L (0-15) H 11/21/21 09:27 Troponin T 120 Minute 14.94 ng/L (0-15) 11/21/21 11:40 Delta Troponin T -3.06 ABS# (0-10) L 11/21/21 11:40 Troponin T Hi Sens 6Hr 15.11 ng/L (0-15) H 11/21/21 15:54 Troponin T Hi Sens 6Hr Delta -2.89 ng/L (0-12) L 11/21/21 15:54 Total Protein 6.1 g/dL (6.6-8.7) L 11/22/21 06:10 Albumin 4.2 g/dL (3.5-5.2) 11/22/21 06:10 Globulin 1.9 g/dL (1.3-4.6) 11/22/21 06:10 Triglycerides 79 mg/dL (0-150) 11/22/21 06:10 Cholesterol 80 mg/dL (0-200) 11/22/21 06:10 LDL Cholesterol, Calc 9 mg/dL (50-129) L 11/22/21 06:10 HDL Cholesterol 55 mg/dL (60-100) L 11/22/21 06:10 LDL/HDL Ratio 0.16 RATIO (0.00-3.22) 11/22/21 06:10 Cholesterol/HDL Ratio 1.45 mg/dL (1.0-5.00) 11/22/21 06:10 Prostate Specific Ag Cancelled 11/22/21 06:10 Procalcitonin 0.09 ng/mL (0-0.5) 11/21/21 09:27 TSH Cancelled 11/22/21 06:10 Random Cortisol 26.34 ug/dL (2.47-19.5) H 11/21/21 09:27 Urine Color Yellow (Yellow) 11/21/21 17:26 Urine Appearance Clear (CLEAR) 11/21/21 17:26 Urine pH 5 (5-7) 11/21/21 17:26 Ur Specific [place] 1.020 (1.005-1.030) 11/21/21 17:26 Urine Protein Neg (Negative) 11/21/21 17:26 Urine Glucose (UA) 1+ (Normal) H 11/21/21 17:26 Urine Ketones Negative (Negative) 11/21/21 17:26 Urine Blood Neg (Negative) 11/21/21 17:26 Urine Nitrate Negative (Negative) 11/21/21 17:26 Urine Bilirubin Neg (Negative) 11/21/21 17:26 Urine Urobilinogen Norm mg/dL (Negative) 11/21/21 17:26 Ur Leukocyte Esterase Negative (Negative) 11/21/21 17:26 Vitals Last Vital Signs Temp 98.2 F 11/24/21 10:58 Pulse 53 L 11/24/21 10:58 Resp 22 H 11/24/21 10:58 BP 136/77 11/24/21 10:58 Pulse Ox 95 11/24/21 10:58 Discharge Plan Discharge Patient Disposition: Home Health Service Condition: Stable Prescriptions: New Keppra XR 750 mg tablet extended release 24 hr 1,500 mg PO DAILY Qty: 180 0RF citalopram 20 mg tablet 20 mg PO DAILY Qty: 90 0RF Continued atorvastatin 20 mg tablet 20 mg PO BEDTIME 0RF metformin 500 mg tablet extended release 24 hr 1,000 mg PO BID 0RF tamsulosin 0.4 mg capsule 0.4 mg PO BEDTIME 0RF Xarelto 15 mg tablet 15 mg PO BID 0RF Rx Instructions: for 18 days isosorbide mononitrate 30 mg tablet extended release 24 hr 30 mg PO QAM 0RF Changed Tresiba FlexTouch U-200 200 unit/mL (3 mL) insulin pen 15 unit SUBCUT QAM Qty: 0 0RF Discontinued lisinopril 20 mg tablet 10 mg PO BID 0RF Discharge Orders: Discharge Order (Routine); Ordered 11/24/21 Ordered By: Ricki Sparks Other Ambulatory Orders: DME: Walker (Order) Location: None Selected Ordered By: Ricki Sparks Referrals: Karly Pérez MD [Physician] - 2 weeks (Please call Dr. Pérez's Office at [phone] to schedule a follow up appointment and if you have any questions or concerns. Thank you.) Mikey España MD [Physician] - 1 week (Please call Dr. España's Office at [phone] to schedule a follow up appointment or if you have any questions or concerns. Thank you. Please mention the following note when scheduling: Urine retention, neurogenic bladder also in defferential) Angel Harris MD [Physician] - 2 weeks (Please call Dr. Harris's Office at [phone] to schedule a follow up appointment or if you have any questions or concerns. Thank you.) Alem Ovalles FNP [Nurse Practitioner] - 1 week (Please call Alem Ovalles's Office at [phone] to schedule a follow up appointment or if you have any questions or concerns. Thank you.) Ramón Mcleod MD [Hospitalist] - 1 week (Please call Dr. Mcleod's Office at [phone] to schedule a follow up appointment or if you have any questions or concerns. Thank you.) Dean,Ramón Kd, DO [Primary Care Provider] - 4-7 days (Please call Dr. Dean's Office to schedule a follow up appointment at [phone] or if you have any questions or concerns. Thank you.) Discharge Diet: Diabetic Discharge Activity: Increase activity as tolerated and As per PT/OT instructions Patient Instructions: Tamsulosin (By mouth), Citalopram (By mouth), Levetiracetam (By mouth), Urinary Retention in Men (GEN), Epilepsy (GEN), Hypomagnesemia (GEN), Anxiety (GEN), Fall Prevention (GEN), Opioid Safety Activity Restrictions/Additional Instructions: Please maintain orthostatic precautions. Rise slowly from laying to sitting and sitting to standing, in case you get dizzy or lightheaded lie back down immediately. Monitor blood pressures 3 times a day, write down values to bring to your appointment. Follow-up on outpatient side with neurology regarding seizure, possible NPH, additional cognitive assessment, for follow-up of small right frontal meningioma. Discuss anxiety, citalopram, and timing of referral to behavioral health care. Continue security monitor. In case of any symptoms of concern, push button on the monitor. Follow-up with cardiology in office. Continue Flomax and follow-up with urology regarding minor urinary retention for additional assessment. In case he develops symptoms that you cannot urinate despite feeling like you need to, go to ER. Continue follow-up with vascular surgery regarding aneurysms. Follow-up with hematology as previously for assessment due to splenomegaly, leg blood clot, small lung clots. Discharge Attestations Time Spent in Discharge Care*: greater than 30 min Quality Metrics Clinical Quality Measures [ No reported AMI, CVA or VTE this stay] Coding Level of Care Code Acute Chg FW DC note Diagnoses Ascending aortic aneurysm I71.2 Popliteal aneurysm I72.4 Deep vein thrombosis of bilateral lower extremities I82.403 Chronic anticoagulation Z79.01 Pulmonary embolus, left I26.99 Seizure R56.9 Labile blood pressure R09.89
[2021-11-26 08:04] LABS: Glucose Point of Care 219 mg/dL (70-110)
[2021-11-26 08:04] LABS: Glucose Point of Care 112 mg/dL (70-110)
[2021-11-26 08:04] LABS: Glucose Point of Care 174 mg/dL (70-110)
== END 2021-11-24 12:30 | disposition home health service (06) ==
LOC: ER 12:51 → MEDSURG 12:55
PROVIDERS: Specialist; Admitting Provider Hospitalist; Emergency Provider Family Medicine; PCP Internal Medicine; Visit Provider Internal Medicine
DX: I71.2 Thoracic aortic aneurysm, without rupture (principal); I72.4 Aneurysm of artery of lower extremity; I82.403 Acute embolism and thrombosis of unspecified deep veins of lower extremity, bilateral; Z79.01 Long term (current) use of anticoagulants; I26.99 Other pulmonary embolism without acute cor pulmonale; R56.9 Unspecified convulsions; R09.89 Other specified symptoms and signs involving the circulatory and respiratory systems; G91.1 Obstructive hydrocephalus; G40.219 Localization-related (focal) (partial) symptomatic epilepsy and epileptic syndromes with complex partial seizures, intractable, without status epilepticus; D32.0 Benign neoplasm of cerebral meninges; F41.9 Anxiety disorder, unspecified; G47.30 Sleep apnea, unspecified; Z79.4 Long term (current) use of insulin; Z87.891 Personal history of nicotine dependence; N31.9 Neuromuscular dysfunction of bladder, unspecified; N40.1 Benign prostatic hyperplasia with lower urinary tract symptoms; N13.8 Other obstructive and reflux uropathy; E78.5 Hyperlipidemia, unspecified; I95.1 Orthostatic hypotension
CPT/HCPCS: 36415; 36416; 36600; 51702; 51798; 70450; 70551; 71045; 80051; 80053; 80061; 81003; 82330; 82533; 82805; 82962; 83735; 84145; 84153; 84443; 84484; 85025; 87040; 93005; 96365; 96367; 96372; 97110; 97116; 97161; 97165; 97530; 99285; G0378; J1815 ×2; J3475

== ENCOUNTER → 2021-12-06 13:25 | Outpatient (BNVA) | payer MEDICARE, SELFPAY | PROVIDERS: PCP Internal Medicine; Visit Provider Thoracic Surgery (Cardiothoracic Vascular Surgery) | DX: I72.4 Aneurysm of artery of lower extremity (principal); I71.2 Thoracic aortic aneurysm, without rupture; Z87.891 Personal history of nicotine dependence | CPT/HCPCS: 99213 ==

== ENCOUNTER → 2021-12-21 08:01 | Outpatient (BNVA) | payer MEDICARE, SELFPAY | PROVIDERS: PCP Internal Medicine; Visit Provider Nurse Practitioner Family | DX: N40.1 Benign prostatic hyperplasia with lower urinary tract symptoms (principal); N39.498 Other specified urinary incontinence | CPT/HCPCS: 51798; 81003; 99213 ==

== ENCOUNTER → 2021-12-26 08:50 | Outpatient (BNVA) | payer MEDICARE, SELFPAY | PROVIDERS: PCP Internal Medicine; Visit Provider Nurse Practitioner | DX: R26.89 Other abnormalities of gait and mobility (principal); G40.909 Epilepsy, unspecified, not intractable, without status epilepticus; R32 Unspecified urinary incontinence; G31.84 Mild cognitive impairment of uncertain or unknown etiology | CPT/HCPCS: 96116; 99204 ==

== ENCOUNTER → 2021-12-31 12:50 | Outpatient (BNVA) | payer MEDICARE, SELFPAY | PROVIDERS: PCP Internal Medicine; Visit Provider Internal Medicine Cardiovascular Disease | DX: I72.4 Aneurysm of artery of lower extremity (principal); I71.2 Thoracic aortic aneurysm, without rupture; G40.219 Localization-related (focal) (partial) symptomatic epilepsy and epileptic syndromes with complex partial seizures, intractable, without status epilepticus; I77.9 Disorder of arteries and arterioles, unspecified; N40.1 Benign prostatic hyperplasia with lower urinary tract symptoms; F41.9 Anxiety disorder, unspecified; F32.A Depression, unspecified | CPT/HCPCS: 99213; 99214 ==

== ENCOUNTER 2022-01-11 09:34 | Outpatient (CLI) | payer MEDICARE, SELFPAY ==
--- NOTE | 2022-01-11 09:30 | MR_ITS ---
WS: [id number] MRI BRAIN WITHOUT CONTRAST HISTORY: Prior seizure. COMPARISON: 11/23/2021 TECHNIQUE: Diffusion imaging, multiplanar T1, T2 and FLAIR imaging obtained. No evidence for acute infarct or hemorrhage. Valdes-white matter differentiation is normal. No prior infarcts. There is mild diffuse atrophy. Very mild increased signal surrounding the ventricl es. No prior lacunar. Again noted is a slight change in signal involving the RIGHT parasagittal front al lobe consistent with a small meningioma. No mass effect upon the brain. No increase in size. David agittal meningioma measures approximately 14 x 9 mm. Mild prominence of the extra-axial spaces and the ventricles. Ventricles demonstrate slight increase in size as compared to the amount of atrophy. No inferior displacement of cerebellar tonsils. The sella turcica and pituitary gland are unremarkabl e. Very minimal ischemic changes in the sara bilaterally. Hippocampal formations are symmetric but th ere is mild atrophy. Dural venous sinuses and [place] demonstrate no abnormality on this unenhanced studies. Paranasal sinuses: Clear. Mastoid air cells: Normal. Calvarium and scalp: Intact. MR/MR head wo con* [id number] IMPRESSION: 1. No acute infarct. 2. Again noted mild asymmetry of the moderate dilatation of the ventricular sy stem with respect to the volume loss suggesting early changes of normal pressur e hydrocephalus. 3. Mild atrophy and volume loss is symmetric within the temporal lobes. 4. Stable RIGHT frontal parasagittal meningioma.
--- NOTE | 2022-01-11 12:45 | USCV_ITS ---
Medardo Moreno Age: 76 Gender: M : 1945 Exam Date: 01/11/2022 10:35 Ordering Phys: Angel Harris MD (Andy) ([email or web address]) Technologist: SUKI Exam Location: [facility] [place] Indication: HISTORY OF RIGHT POP ANEURYSM Risk Factors: Previous Vascular Surgery: RIGHT LEFT BP: 181.0 / BP: 181.0/ 0 0 Waveform Velocity (cm/s) Velocity (cm/s) Waveform Triphasic 104.3 Iliac Prox 61.7 Triphasic Triphasic 85.8 Iliac Mid 48.8 Triphasic Triphasic 76.2 Iliac Distal 63.6 Triphasic Triphasic 88.7 PERSONAL DEVELOPMENT MENTOR 83.7 Triphasic Triphasic 84.6 SFA Prox 76.9 Triphasic Triphasic 90.6 SFA Mid 99.1 Triphasic Triphasic 110.3 SFA Dist 72.6 Triphasic Biphasic 38.8 POP 53.0 Triphasic Biphasic 36.3 STAINED GLASS GLAZIER HELPER 149.9 Biphasic Biphasic 88.0 DPA N/A 0.5 JAYLIN 0.8 FINDINGS Bilateral Pop Artery Aneurysm seen, Left larger than Right Aneurysmal dilatation of the popliteal artery on the right side, measuring 1.7 x 1.6 x 2.7 cm. Moderate diffuse plaques were noted on the artery. Organized thrombus is seen in the popliteal artery aneurysm. Aneurysmal dilatation of the left popliteal artery measuring 1.7 x 1.8 x 3.4 cm. Moderate diffuse plaques were noted in this artery as well Resting JAYLIN of 0.5 on the right side and 0.8 on the left side. No Doppler flow signals in the left dorsalis pedis artery CONCLUSIONS 1. Popliteal artery aneurysm bilaterally. On the right side, the aneurysm measured 1.7 x 1.6 x 2.7 cm and on the left side, it measured 1.7 x 1.8 x 3.4 cm. Moderate diffuse plaques are noted in the popliteal artery. Organized thrombus is seen in the popliteal artery aneurysm on the right side 2. Abnormal resting JAYLIN on the right side, suggesting moderately severe peripheral artery disease. 3. Abnormal resting JAYLIN on the left side suggesting mild peripheral artery disease. 4. Possibly occluded right dorsalis pedis artery on the left side No similar previous studies are available for comparison Dr Memo De Leon MD [facility] (Electronically Signed) Final Date: 15 January 2022 07:35 S
== END 2022-01-11 09:35 | disposition home or self-care (01) ==
LOC: RAD 09:39
PROVIDERS: PCP Internal Medicine; Visit Provider Specialist
DX: I72.4 Aneurysm of artery of lower extremity (principal); R56.9 Unspecified convulsions; G31.9 Degenerative disease of nervous system, unspecified; D32.0 Benign neoplasm of cerebral meninges; M79.604 Pain in right leg
CPT/HCPCS: 70551; 93925

== ENCOUNTER → 2022-01-30 10:29 | Outpatient (BNVA) | payer MEDICARE, SELFPAY | PROVIDERS: PCP Internal Medicine; Visit Provider Specialist | DX: R56.9 Unspecified convulsions (principal) | CPT/HCPCS: 95816 ==

== ENCOUNTER 2023-01-07 12:17 | Observation (INO) | payer MEDICARE, SELFPAY ==
[2023-01-07] VITALS (21 sets, daily range): BP systolic 71–162; BP diastolic 45–99; PULSE 63–69; RESP 17–23; O2SAT 70–97; BMI 29.8
--- NOTE | 2023-01-07 12:32 | XRR_ITS ---
PROCEDURE INFORMATION: Exam: XR Chest Exam date and time: 01/07/2023 12:45 PM Age: 77 years old Clinical indication: Cough and dyspnea; Additional info: Dyspnea/cough.No history of trauma or recent surgery is provided. TECHNIQUE: Imaging protocol: Radiologic exam of the chest. 1image(s) are provided. Views: 1 view. COMPARISON: CR XR chest 1V portable [id number] 11/21/2021 9:59 AM FINDINGS: Lungs: There are some calcified granuloma related changes including of the left upper lung zone as well as right mid to lower lung zone.There is linear subsegmental atelectasis versus post inflammatory scarring demonstrated.No lobar consolidation is appreciated. Pleural spaces: There is skin fold, fissure averaging demonstrated. No pneumothorax is appreciated. No significant pleural effusion is appreciated. Heart/Mediastinum: The cardiomediastinal silhouette is upper normal in size.This can be seen with central averaging as well as germán enlargement.No cardiac decompensation is appreciated. Diaphragm: The hemidiaphragms are symmetric. Bones/joints: Osseous alignment is maintained.No interval displaced fracture or dislocation is appreciated. Soft tissues: No radiopaque foreign body or subcutaneous emphysema is appreciated. Other findings: No significant interval changes are appreciated. XR/XR chest 1V portable [id number] IMPRESSION: No lobar consolidation is appreciated.No interval acute cardiopulmonary changes are appreciated.
[2023-01-07 12:50] LABS: Basophils % 0.3 %; Eosinophils % 0.2 %; Hematocrit 39.7 % (42.0-52.0); Hemoglobin 12.9 g/dL (11.7-16.6); Lymphocytes # 1.1 10^3/uL (0.8-4.8); Lymphocytes % 9.4 %; Mean Corpuscular HGB Conc 32.5 g/dL (30.0-36.0); Mean Corpuscular Hemoglobin 29.3 pg (28.0-34.0); Mean Corpuscular Volume 90.2 fl (80-94); Mean Platelet Volume 9.9 fL (7.4-10.4); Monocytes # 0.9 10^3/uL (0.2-0.9); Monocytes % 7.9 %; Neutrophils # 9.44 10^3/uL (1.8-7.7); Neutrophils % 81.8 %; Nucleated Red Blood Cells % 0 %; Platelet Count 258 10^3/cmm (130-400); Red Cell Distribution Width 13.7 % (12.1-15.1); White Blood Count 11.6 10^3/uL (4.0-10.0)
--- NOTE | 2023-01-07 13:00 | XRR_ITS ---
PROCEDURE INFORMATION: Exam: XR Cervical Spine Exam date and time: 01/07/2023 1:11 PM Age: 77 years old Clinical indication: Injury or trauma; Fall; Blunt trauma TECHNIQUE: Imaging protocol: Radiologic exam of the cervical spine. 4image(s) are provided. Views: 2 or 3 views. COMPARISON: CT angio headneck* [id number] 11/04/2021 9:57 AM FINDINGS: Bones/joints: Osseous alignment is maintained.No interval displaced fracture or dislocation is appreciated. There is facet, uncovertebral hypertrophy demonstrated. There is slight developmental elongation of the styloid processes. The odontoid tip lateral masses are partially obscured. There is spurring with chronic appearing disc space narrowing most pronounced at the C5-C6 and C6-C7 levels. Straightening of the spinal curvature is demonstrated. The cervicothoracic junction is obscured on the lateral view. Soft tissues: No abnormal prevertebral soft tissue thickening is appreciated.No radiopaque foreign body or subcutaneous emphysema is appreciated. Lungs: No lung apical pneumothorax or lobar consolidation is appreciated. Other findings: Paranasal sinuses appear well-aerated. No other significant interval changes are appreciated. XR/XR cervical spine 3V* [id number] IMPRESSION: Osseous alignment is maintained with chronic degeneration overall present.No interval fracture or dislocation is appreciated.
--- NOTE | 2023-01-07 13:01 | CT_ITS ---
WS: [id number] CT HEAD NONCONTRAST HISTORY: trauma TECHNIQUE: Contiguous axial imaging performed through the brain in 2.5 mm imaging. Bone and soft tiss ue windows. Sagittal and coronal reformats reviewed. All CT scans at [facility] use at least one of these dose optimization techniques: automated exposure control; mA and/or kV adjustment per pa tient size (includes targeted exams where dose is matched to clinical indication); or iterative recon struction. DLP: 1184.98 mGy.cm COMPARISON: 11/21/2021 No acute intracranial hemorrhage, midline shift or mass effect. Mild atrophy and small vessel ischemic disease. Ventricles: Mild ventriculomegaly. Similar to prior studies. No inferior displacement of cerebellar tonsils. Paranasal sinuses: As visualized are clear. Mastoid air cells: Well pneumatized. Calvarium and scalp: Skull is intact with no soft tissue edema or swelling. Moderate atherosclerotic plaque within the intracranial carotid arteries. CT/CT head wo con* [id number] IMPRESSION: 1. No acute intracranial hemorrhage or edema. 2. Mild atrophy and small vessel ischemic disease. 3. Mild ventriculomegaly is stable. Probably on the basis of volume loss.
--- NOTE | 2023-01-07 13:03 | W.ED.WEAKNES ---
HPI - Weakness General: Chief complaint: Weakness Stated complaint: WEAKNESS Time Seen by Provider: 01/07/23 12:32 Source: patient Mode of arrival: EMS History of Present Illness: 77-year-old male presents emergency room complaining weakness and frequent falls at home. He is fallen several times in the last couple days he has an abrasion over the left lateral supraorbital ridge. He is on Xarelto. He denies having any loss of consciousness. He has not been taking care of himself very well according to family members and he has not been taking his medications regularly. Patient has history of diabetes and seizures he denies any seizures denies chest or abdominal pain no recent fever sweats or chills. MD Complaint: generalized weakness Onset (ago): day(s) Duration: constant Location: generalized Relieving factors: none Exacerbating factors: none Associated symptoms: Denies chest pain, chills, confusion, melena, decreased appetite, diaphoresis, dysuria, easy bruising, fever(s), headache(s), myalgias, nausea, rash, short of breath, syncope or vomiting Review of Systems Const: Reports: fatigue and malaise; Denies: fever(s), chills or diaphoresis ENMT: Denies: throat pain, ear or mastoid pain, nasal discharge or nasal congestion Card: Denies: chest pain or syncope Resp: Denies: dyspnea, productive cough or non-productive cough GI: Denies: abdominal pain, nausea, vomiting or melena : Denies: dysuria, urinary frequency or urinary urgency Skin/Breast: Denies: rash or pruritus Neuro: Denies: headache(s) or confusion [place]/Lymph: Denies: easy bruising PFSH ED PFSH: Medical History Anxiety and depression Ascending aortic aneurysm 11/04/21 - 5 cm BMI 36.0-36.9,adult Bochdalek hernia BPH loc w urin obs/LUTS Carotid arterial disease 11/02/21 - By ultrasound 52-69% stenosis of left common carotid artery with decreased velocity and elevated ED ratio, but CTA head/neck 11/04/21 with no stenosis noted in same vessel, mild luminal irregularities of V3 branch of left vertebral artery Chronic anticoagulation Xarelto, due to DVT/PE COVID-19 vaccine administered Johann & Johann Deep vein thrombosis of bilateral lower extremities History of echocardiogram 10/2021 - Normal left ventricular size and systolic function, EF 60%. Moderate concentric left ventricular hypertrophy. Grade I/IV diastolic dysfunction. 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 Pulmonary embolus, left branch of left pulmonary artery to lingula Right adrenal mass 11/16 1.8 x 1.4 cm Seizure Sleep apnea Syncope due to orthostatic hypotension Type 2 diabetes mellitus treated with insulin 11/16 - A1c 9.3 Surgical History History of colonoscopy 2013 - colon polyps S/P tonsillectomy Family History Father , 60 Hypertension CAD (coronary artery disease) Mother Cancer Social History Smoking and tobacco status: former smoker Quit status (tobacco): has quit using tobacco Year quit tobacco: 1979 Alcohol intake: former Former alcohol use details: some years ago, previous drank 6 pack per day, none now Substance/Drug Use: never Household members: spouse Marital status: 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 Physical Exam Const: GENERAL APPEARANCE: cooperative and comfortable ORIENTATION/CONSCIOUSNESS: Yes awake, Yes oriented to person, Yes oriented to place and Yes oriented to time HENMT: COMMON NORMALS: normocephalic, atraumatic and hearing grossly normal bilaterally HEAD & SCALP: normocephalic and atraumatic Resp: COMMON NORMALS: normal respiratory effort, No retractions, No use of accessory muscles and clear to auscultation bilaterally AUSCULTATION: clear to auscultation bilaterally Cardio: COMMON NORMALS: regular rate, regular rhythm and No murmurs present (Cardio) RATE: regular rate RHYTHM: regular rhythm GI: COMMON NORMALS: Soft to palpation and No hepatosplenomegaly present AUSCULTATION: Yes normoactive bowel sounds PALPATION: Yes Soft to palpation, No Tenderness to palpation present (GI), No Guarding due to palpation present (GI) and Yes No hepatosplenomegaly present : COMMON NORMALS: Yes no CVA tenderness BLADDER/KIDNEY EXAM: Yes no CVA tenderness Back/Pelvis: COMMON NORMALS: no CVA tenderness Extremity: COMMON NORMALS: normal to inspection, capillary refill normal, no clubbing, cyanosis or edema, no calf tenderness and no pedal edema Neuro: SENSORIUM/ORIENTATION: Yes oriented to person, Yes oriented to place and Yes oriented to time Skin: COMMON NORMALS: no rashes or lesions noted GENERAL SKIN EXAM: no rashes or lesions noted Course Vital Signs: Vital signs: Vital Signs Pulse Rate 63 01/08/23 08:00 Respiratory Rate 16 01/08/23 08:00 Blood Pressure 145/99 01/07/23 17:29 Pulse Oximetry 94 01/08/23 08:00 Oxygen Delivery Me thod Room Air 01/08/23 08:00 Oxygen Flow Rate 2 01/07/23 20:00 MDM - Weakness Medical Decision Making After fluid bolus patient states he does feel better but he is unable to stand without getting extremely lightheaded and dizzy. When he did his orthostatics he drops from a systolic of 160 while laying down to a systolic of 60 when standing up he denies any chest pain or shortness of breath. He is not able to really able to care for himself at this point. He was given a second liter of fluids did not really have much improvement at all. His hemoglobin is stable he is on Xarelto as well as tamsulosin. Patient has history of seizure disorder but no seizure-like activity. I suspect this is related to his tamsulosin 1 probably is aggravated by autonomic nerve dysfunction from his diabetes. Discussed with hospitalist will place on observation. Orders written. Medical Records I reviewed the patient's medical records. Lab Data I reviewed the patient's lab results. 01/07/23 12:43 01/08/23 04:52 Radiology Impressions Chest X-Ray 01/07/23 12:32 IMPRESSION: No lobar consolidation is appreciated.No interval acute cardiopulmonary changes are appreciated. Cervical Spine X-Ray 01/07/23 13:00 IMPRESSION: Osseous alignment is maintained with chronic degeneration overall present.No interval fracture or dislocation is appreciated. Head CT 01/07/23 13:01 IMPRESSION: 1. No acute intracranial hemorrhage or edema. 2. Mild atrophy and small vessel ischemic disease. 3. Mild ventriculomegaly is stable. Probably on the basis of volume loss. Laboratory Results WBC 11.6 10^3/uL (4.0-10.0) H 01/07/23 12:43 RBC 4.40 10^6/uL (4.1-5.3) 01/07/23 12:43 Hgb 12.9 g/dL (11.7-16.6) 01/07/23 12:43 Hct 39.7 % (42.0-52.0) L 01/07/23 12:43 MCV 90.2 fl (80-94) 01/07/23 12:43 MCH 29.3 pg (28.0-34.0) 01/07/23 12:43 MCHC 32.5 g/dL (30.0-36.0) 01/07/23 12:43 RDW 13.7 % (12.1-15.1) 01/07/23 12:43 Plt Count 258 10^3/cmm (130-400) 01/07/23 12:43 MPV 9.9 fL (7.4-10.4) 01/07/23 12:43 Neut % (Auto) 81.8 % 01/07/23 12:43 Lymph % (Auto) 9.4 % 01/07/23 12:43 [place] % (Auto) 7.9 % 01/07/23 12:43 Eos % (Auto) 0.2 % 01/07/23 12:43 Baso % (Auto) 0.3 % 01/07/23 12:43 Neut # (Auto) 9.44 10^3/uL (1.8-7.7) H 01/07/23 12:43 Lymph # (Auto) 1.1 10^3/uL (0.8-4.8) 01/07/23 12:43 [place] # (Auto) 0.9 10^3/uL (0.2-0.9) 01/07/23 12:43 Eos # (Auto) 0.0 10^3/uL (0.0-0.8) 01/07/23 12:43 Baso # (Auto) 0.0 10^3/uL (0.0-0.1) 01/07/23 12:43 Nucleated RBC % (auto) 0 % 01/07/23 12:43 Nucleated RBCs # 0.0 /100WBC 01/07/23 12:43 Sodium 137 mmol/L (136-145) 01/07/23 12:43 Potassium 4.8 mmol/L (3.5-5.1) 01/07/23 12:43 Chloride 100 mmol/L (98-107) 01/07/23 12:43 Carbon Dioxide 22 mmol/L (22-29) 01/07/23 12:43 Anion Gap 19.8 (5-19) H 01/07/23 12:43 BUN 27 mg/dL (8-23) H 01/07/23 12:43 Creatinine 1.4 mg/dL (0.7-1.2) H 01/07/23 12:43 GFR Calculation Not Reportable 01/07/23 12:43 Glucose 111 mg/dL (65-115) 01/07/23 12:43 Estimat Average Glucose 160 01/07/23 12:43 Hemoglobin A1c 7.2 % (4.0-6.0) H 01/07/23 12:43 Calculated Osmolality 290 mOsm/kg (285-295) 01/07/23 12:43 Calcium 9.1 mg/dL (8.5-10.5) 01/07/23 12:43 Total Bilirubin 1.1 mg/dL (0.15-1.2) 01/07/23 12:43 AST 33 U/L (0-40) 01/07/23 12:43 ALT 13 U/L (0-41) 01/07/23 12:43 Alkaline Phosphatase 69 U/L (40-130) 01/07/23 12:43 Troponin T Baseline 36 ng/L (0-15) H 01/07/23 12:43 Troponin T 120 Minute 33.17 ng/L (0-15) H 01/07/23 15:03 Delta Troponin T -2.83 ABS# (0-10) L 01/07/23 15:03 Total Protein 6.6 g/dL (6.6-8.7) 01/07/23 12:43 Albumin 3.9 g/dL (3.5-5.2) 01/07/23 12:43 Globulin 2.7 g/dL (1.3-4.6) 01/07/23 12:43 Vitamin B12 444 pg/mL (232-1245) 01/07/23 12:43 TSH 3.12 uIU/mL (0.27-4.20) 01/07/23 12:43 Urine Color Dark yellow (Yellow) 01/07/23 13:33 Urine Appearance Sl hazy (CLEAR) A 01/07/23 13:33 Urine pH 5 (5-7) 01/07/23 13:33 Ur Specific [place] 1.030 (1.005-1.030) 01/07/23 13:33 Urine Protein Neg (Negative) 01/07/23 13:33 Urine Glucose (UA) Norm (Normal) 01/07/23 13:33 Urine Ketones 1+ (Negative) H 01/07/23 13:33 Urine Blood Neg (Negative) 01/07/23 13:33 Urine Nitrate Negative (Negative) 01/07/23 13:33 Urine Bilirubin 1+ (Negative) H 01/07/23 13:33 Urine Urobilinogen Norm mg/dL (Negative) 01/07/23 13:33 Ur Leukocyte Esterase Negative (Negative) 01/07/23 13:33 Urine RBC None /hpf (0-2) 01/07/23 13:33 Urine WBC 0-4 /hpf (0-5) H 01/07/23 13:33 Ur Squamous Epith Cells 0-4 /hpf (0-5) H 01/07/23 13:33 Uric Acid Crystals 15-25 /hpf H 01/07/23 13:33 Amorphous Sediment Not Reportable 01/07/23 13:33 Urine Bacteria 1+ /hpf (NONE) H 01/07/23 13:33 Urine Mucus 1+ /hpf 01/07/23 13:33 Discharge Plan Discharge Patient Disposition: Admitted As Inpatient Admit Provider: Ismael Espinoza Clinical Impression: Autonomic orthostatic hypotension, Gait instability, Neurogenic bladder, Localization-related (focal) (partial) symptomatic epilepsy and epileptic syndromes with complex partial seizures, intractable, without status epilepticus, Acquired cerebral ventriculomegaly Condition: Stable Coding Level of Care Code ED Valet Parking Attendant for Clement Delarosa
[2023-01-07 13:05] LABS: Alanine Aminotransferase 13 U/L (0-41); Albumin Level 3.9 g/dL (3.5-5.2); Alkaline Phosphatase 69 U/L (40-130); Anion Gap 19.8 (5-19); Aspartate Amino Transferase 33 U/L (0-40); Blood Urea Nitrogen 27 mg/dL (8-23); Calcium 9.1 mg/dL (8.5-10.5); Carbon Dioxide 22 mmol/L (22-29); Chloride 100 mmol/L (98-107); Globulin 2.7 g/dL (1.3-4.6); Glucose 111 mg/dL (65-115); Osmolality Calculated 290 mOsm/kg (285-295); Potassium 4.8 mmol/L (3.5-5.1); Sodium 137 mmol/L (136-145); Total Bilirubin 1.1 mg/dL (0.15-1.2); Total Protein 6.6 g/dL (6.6-8.7)
[2023-01-07] MEDS: sodium chloride 0.9% 1,000 ML 999 ML IV ×2 (13:19→14:56)
--- NOTE | 2023-01-07 13:51 | ECG_ITS ---
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 Measurements Intervals [place] Rate: 60 P: 23 MA: 166 QRS: 40 QRSD: 102 T: 115 QT: 409 QTc: 410 Interpretive Statements SINUS RHYTHM NONSPECIFIC ST & T-WAVE ABNORMALITY Compared to ECG 11/21/2021 16:53:12 T-wave abnormality now present Sinus bradycardia no longer present Electronically Signed On 01-07-2023 16:36:02 CDT by Jose Mccauley M.D. [id number]
[2023-01-07 13:59] LABS: Add Urine Microscopic? YES; Bilirubin Urine 1+ (Negative); Blood Urine Neg (Negative); Glucose Urine UA Norm (Normal); Ketones Urine 1+ (Negative); Leukocyte Esterase Urine Negative (Negative); Nitrate Urine Negative (Negative); Protein Urine Neg (Negative); Urine Appearance SL Hazy (CLEAR); Urine Color Dark Yellow (Yellow); Urobilinogen Urine Norm (Negative); pH Urine 5 (5-7)
--- NOTE | 2023-01-07 14:10 | PC.PHAR ---
pts family verified pts medications-pts family states the pt is no longer taking lipitor 20mg hs last filled 09/25/22 30d/s,celexa 20mg daily filled 09/20/22 30d/s or metformin er 500 take 1000mg bid filled 09/20/22 30d/s-pts family states changed the pts tresiba flextouch u-200 to 25 units hs ext shows last filled 34 units daily filled 12/02/22-pts family states the pt is taking bupropion xl 300mg hs filled 01/01/23 30d/s ext also shows 150mg xl daily filled 12/02/22 90d/s states pt is only taking 300mg hs-
[2023-01-07 14:11] LABS: Bacteria Urine 1+ /hpf; Mucus Urine 1+ /hpf; Squamous Epithelial Cell Urine 0-4 /hpf (0-5); WBC Urine 0-4 /hpf (0-5)
[2023-01-07 14:13] LABS: Add Urine Culture? No; Uric Acid Crystals Urine 15-25 /hpf
[2023-01-07 15:25] LABS: Troponin(5th) Baseline 36 ng/L (0-15)
[2023-01-07 15:37] LABS: Troponin 5 2HR 33.17 ng/L (0-15)
[2023-01-07 15:38] LABS: Troponin 5 2HR Delta -2.83 ABS# (0-10)
--- NOTE | 2023-01-07 16:15 | ECG_ITS ---
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 Measurements Intervals [place] Rate: 60 P: -4 NE: 161 QRS: 29 QRSD: 100 T: 130 QT: 401 QTc: 403 Interpretive Statements SINUS RHYTHM POSSIBLE INFERIOR MYOCARDIAL INFARCTION , PROBABLY OLD [30 ms Q WAVE IN II/aVF] Compared to ECG 01/07/2023 13:51:24 Myocardial infarct finding now present T-wave abnormality no longer present Electronically Signed On 01-07-2023 16:45:26 CDT by Jose Mccauley M.D. [id number]
--- NOTE | 2023-01-07 17:05 | PM.HP ---
Providers/Chief Complaint Primary Care Provider: Ramón Dean DO Chief Complaint: WEAKNESS History of Present Illness Medardo Moreno is a 77 year old male who carries history of orthostatic hypotension, seizures, presented today for generalized weakness and recurrent falls. Patient is stating that he is dizzy he did not lose consciousness he just could not balance himself and fell multiple times today. As per the he broke a table because he had no control over his gait. Patient also has incontinence and mild memory deficit. As per the there was an indication for shunt placement as per Dr. Pérez. Patient takes Xarelto for DVT, has diastolic dysfunction history. In the ER he has SCOTT and orthostatic hypotension clinically patient looks dehydrated uric acid crystals in urine Review of Systems Const: Denies: fever(s) Eyes: Denies: change in vision ENMT: Denies: throat pain Card: Denies: chest pain Resp: Denies: dyspnea GI: Denies: abdominal pain : Denies: urinary frequency Musc: Denies: neck pain Skin/Breast: Denies: rash Neuro: Denies: headache(s) Psych: Reports: anxiety Endo: Denies: polyuria Medications/Allergies Home Medications Medication Instructions Recorded Confirmed Last Taken Type rivaroxaban 20 mg tablet (Xarelto) 20 mg PO BEDTIME 12/31/21 01/07/23 01/05/23 History bupropion HCl 300 mg 24 hr tablet, 300 mg PO BEDTIME 01/07/23 01/07/23 01/05/23 History extended release insulin degludec 200 unit/mL (3 25 unit SUBCUT BEDTIME 01/07/23 01/07/23 Unknown History mL) subcutaneous pen (Tresiba FlexTouch U-200 insulin) levetiracetam 750 mg tablet 750 mg PO BID 01/07/23 01/07/23 01/05/23 History tamsulosin 0.4 mg capsule 0.4 mg PO BEDTIME 01/07/23 01/07/23 01/05/23 History Allergies Allergy/AdvReac Type Severity Reaction Status Date / Time No Known Allergies Allergy Verified 01/07/23 14:04 PFSH Acute PFSH: Medical History Anxiety and depression Ascending aortic aneurysm 11/04/21 - 5 cm BMI 36.0-36.9,adult Bochdalek hernia BPH loc w urin obs/LUTS Carotid arterial disease 11/02/21 - By ultrasound 52-69% stenosis of left common carotid artery with decreased velocity and elevated ED ratio, but CTA head/neck 11/04/21 with no stenosis noted in same vessel, mild luminal irregularities of V3 branch of left vertebral artery Chronic anticoagulation Xarelto, due to DVT/PE COVID-19 vaccine administered Johann & Johann Deep vein thrombosis of bilateral lower extremities History of echocardiogram 10/2021 - Normal left ventricular size and systolic function, EF 60%. Moderate concentric left ventricular hypertrophy. Grade I/IV diastolic dysfunction. 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 Pulmonary embolus, left branch of left pulmonary artery to lingula Right adrenal mass 11/16 1.8 x 1.4 cm Seizure Sleep apnea Syncope due to orthostatic hypotension Type 2 diabetes mellitus treated with insulin 11/16 - A1c 9.3 Surgical History History of colonoscopy 2013 - colon polyps S/P tonsillectomy Family History Father , 60 Hypertension CAD (coronary artery disease) Mother Cancer Social History Smoking and tobacco status: former smoker Quit status (tobacco): has quit using tobacco Year quit tobacco: 1979 Alcohol intake: former Former alcohol use details: some years ago, previous drank 6 pack per day, none now Substance/Drug Use: never Household members: spouse Marital status: 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 Vitals/I&O/Wt Last Vital Signs Pulse 63 01/07/23 13:30 Resp 23 H 01/07/23 13:30 BP 158/96 01/07/23 16:15 Pulse Ox 96 01/07/23 16:15 O2 Del Method Nasal Cannula 01/07/23 12:17 O2 Flow Rate 2 01/07/23 12:17 01/07/23 01/07/23 01/07/23 06:59 14:59 22:59 Intake Total 1000 / 1000 Balance 1000 / 1000 Weight last 48 hrs Weight 99.79 kg Physical Exam Narrative: Patient is pleasant cooperative Clinically dehydrated Abdomen soft S1, S2 Currently on room air GCS 15 Nonfocal neuro exam Mild memory deficit Hemodynamically stable Currently on room air doing well Blood pressure 138/50 mmHg Orthostatic positive Nonfocal neuro exam Data 01/07/23 12:43 01/07/23 12:43 A&P Assessment and plan (1) Seizure: (2) Carotid arterial disease: (3) BPH loc w urin obs/LUTS: (4) Meningioma, cerebral: (5) Labile blood pressure: (6) Anxiety and depression: (7) Ascending aortic aneurysm: (8) Acquired cerebral ventriculomegaly: (9) Localization-related (focal) (partial) symptomatic epilepsy and epileptic syndromes with complex partial seizures, intractable, without status epilepticus: Plan Recurrent falls Carries history of orthostatic hypotension Patient carries history of acquired ventriculomegaly however CT head does not show such changes He does not have typical intracranial hypertension signs or symptoms No nausea vomiting or diarrhea history I will start patient on pyridostigmine for orthostatic hypotension I do believe his symptoms are related to orthostatic hypotension related to tamsulosin I will give him gentle fluid hydration overnight previous echo was done in 2021 which showed diastolic dysfunction grade 1 I will continue his Keppra for seizures Check B12 TSH hemoglobin A1c I will continue his Xarelto which he takes for DVT he does have AAA 5 cm Full code Cardiac diet Physical therapy evaluation Plan to discharge within 24 hours Attestations Medical Necessity Statement*: Anticipating discharge within 48 hours will need evaluation for orthostatic hypotension may need fluid hydration overnight Diagnoses Seizure R56.9 Carotid arterial disease I77.9 BPH loc w urin obs/LUTS N40.1 Meningioma, cerebral D32.0 Labile blood pressure R09.89 Anxiety and depression F41.9; F32.A Ascending aortic aneurysm I71.2 Acquired cerebral ventriculomegaly G91.1 Localization-related (focal) (partial) symptomatic epilepsy and epileptic syndromes with complex partial seizures, intractable, without status epilepticus G40.219
[2023-01-07] MEDS: sodium chloride 0.9% 1,000 ML 75 ML IV (18:10)
[2023-01-07] MEDS: levETIRAcetam 500 mg Tablet 750 MG PO (18:10)
[2023-01-07] MEDS: pyridostigmine 60 mg Tablet 30 MG PO ×2 (18:16→18:17)
[2023-01-07 18:43] LABS: Thyroid Stimulating Hormone 3.12 uIU/mL (0.27-4.20); Vitamin B12 444 pg/mL (232-1245)
[2023-01-07 19:05] LABS: Troponin 5 6HR 29.37 ng/L (0-15)
[2023-01-07 19:07] LABS: Troponin 5 6HR Delta -6.63 ng/L (0-12)
[2023-01-07] MEDS: tamsulosin 0.4 mg Capsule PO (20:17)
[2023-01-07] MEDS: rivaroxaban 10 mg Tablet 20 MG PO (20:17)
[2023-01-07] MEDS: buPROPion XL (24 HR) 300 mg Tablet PO (20:17)
--- NOTE | 2023-01-07 20:46 | ECG_ITS ---
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 Measurements Intervals [place] Rate: 66 P: 29 [place]: 169 QRS: 49 QRSD: 106 T: 72 QT: 386 QTc: 407 Interpretive Statements SINUS RHYTHM NONSPECIFIC T-WAVE ABNORMALITY Compared to ECG 01/07/2023 16:15:21 T-wave abnormality now present Myocardial infarct finding no longer present Electronically Signed On 01-08-2023 13:56:25 CDT by Sarbjit Kendrick M.D. [id number]
[2023-01-07 20:56] LABS: Estmated Average Glucose 160; Hemoglobin A1C 7.2 % (4.0-6.0)
[2023-01-08] VITALS (8 sets, daily range): BP systolic 103–149; BP diastolic 66–88; PULSE 58–68; RESP 16–18; TEMP 36.7–36.9; O2SAT 90–95
[2023-01-08 05:40] LABS: Anion Gap 15.7 (5-19); Blood Urea Nitrogen 32 mg/dL (8-23); Calcium 8.1 mg/dL (8.5-10.5); Carbon Dioxide 21 mmol/L (22-29); Chloride 103 mmol/L (98-107); Glucose 104 mg/dL (65-115); Osmolality Calculated 289 mOsm/kg (285-295); Phosphorus 2.9 mg/dL (2.5-4.5); Potassium 3.7 mmol/L (3.5-5.1); Sodium 136 mmol/L (136-145)
[2023-01-08] MEDS: sodium chloride 0.9% 1,000 ML 75 ML IV (06:35)
[2023-01-08] MEDS: pyridostigmine 60 mg Tablet 30 MG PO (09:58)
[2023-01-08] MEDS: sennosides-docusate Tablet 1 TAB PO (09:59)
[2023-01-08] MEDS: levETIRAcetam 500 mg Tablet 750 MG PO (09:59)
[2023-01-08 10:36] LABS: Glucose Point of Care 259 mg/dL (70-110)
--- NOTE | 2023-01-08 11:15 | PM.PN ---
Subjective Subjective: She is afraid to go home, he might need longterm/rehab Request PT There is concern for normal pressure hydrocolpos previous MRI reports reviewed He is on pyridostigmine Repeat orthostatic vitals requested Patient is experiencing hallucination/visual hallucination however nonfocal neuro exam Vitals/I&O/Wt Last Vital Signs Pulse 63 01/08/23 08:00 Resp 16 01/08/23 08:00 BP 145/99 01/07/23 17:29 Pulse Ox 94 01/08/23 08:00 O2 Del Method Room Air 01/08/23 08:00 O2 Flow Rate 2 01/07/23 20:00 01/07/23 01/08/23 01/08/23 22:59 06:59 14:59 Intake Total 999 931.25 / 2931.25 240 / 240 Balance 999 931.25 / 2931.25 240 / 240 Weight last 48 hrs Weight 99.79 kg Physical Exam Narrative: Patient experiencing visual hallucination Hemodynamic stable Currently on room air Blood glucose around 200 Nonfocal neuro exam S1, S2 Abdomen soft Lower extremity mild edema Multiple petechiae and bruises all over his extremities Pleasant and cooperative is at the bedside Data 01/07/23 12:43 01/08/23 04:52 A&P Assessment and plan (1) Autonomic orthostatic hypotension: (2) Seizure: (3) Carotid arterial disease: (4) BPH loc w urin obs/LUTS: (5) Neurogenic bladder: (6) Gait instability: (7) Popliteal aneurysm: (8) Ascending aortic aneurysm: (9) Anxiety and depression: (10) Labile blood pressure: (11) Meningioma, cerebral: (12) Localization-related (focal) (partial) symptomatic epilepsy and epileptic syndromes with complex partial seizures, intractable, without status epilepticus: (13) Acquired cerebral ventriculomegaly: Plan Ataxia, memory loss, incontinence Orthostatics could be related to tamsulosin but he seems to have autonomic dysfunction as well Patient seems to have early signs of normal pressure hydrocephalus Ventriculomegaly on MRI is reported Request PT He might need rehab We will touch base with neurology EEG report did not show epileptiform pattern he is on Keppra Meningioma without significant change in dimensions He does experience visual hallucinations Patient is full code Discontinue IV fluids Repeat orthostatics Requested PT Patient is currently doing well on room air Normal B12, TSH, uric acid crystals in urine related to dehydration Attestations Medical Necessity Statement*: Patient will need PT evaluation today Diagnoses Autonomic orthostatic hypotension I95.1 Seizure R56.9 Carotid arterial disease I77.9 BPH loc w urin obs/LUTS N40.1 Neurogenic bladder N31.9 Gait instability R26.81 Popliteal aneurysm I72.4 Ascending aortic aneurysm I71.2 Anxiety and depression F41.9; F32.A Labile blood pressure R09.89 Meningioma, cerebral D32.0 Localization-related (focal) (partial) symptomatic epilepsy and epileptic syndromes with complex partial seizures, intractable, without status epilepticus G40.219 Acquired cerebral ventriculomegaly G91.1
[2023-01-08 12:12] LABS: Glucose Point of Care 231 mg/dL (70-110)
[2023-01-08] MEDS: insulin lispro 100 unit/1 mL SUBCUT (12:15)
[2023-01-08 16:12] LABS: Glucose Point of Care 94 mg/dL (70-110)
--- NOTE | 2023-01-08 16:15 | PM.CONSULT ---
Providers/Reason For Consult Consulting Physician/Specialty*: Ernesto Perkins MD neurology and epilepsy Reason for Consult*: Abnormal head CT and head MRI suggestive of normal pressure hydrocephalus weakness and falling and memory difficulty and urinary incontinence. Attending Physician: Ismael Espinoza MD Primary Care Provider: Ramón Dean DO History of Present Illness History of Present Illness Medardo Moreno is a 77 year old male with a history of enlarged ventricles on head CT scan performed on 11/02/2021, head MRI performed on 11/23/2021, and 01/01/2022. Patient also has a history of degenerative disc disease of the cervical thoracic and lumbar spine. Lumbar CT scan revealed moderate narrowing of the central canals on the right at L4-L5 and thoracic CT revealed mild degenerative disc disease. X-ray of the C-spine revealed degenerative disc disease changes. CT angiogram of the head and neck performed on 11/04/2021 was unrevealing. Neurology consult was obtained to assess the patient for possible normal pressure hydrocephalus. Patient has a history of recurrent falling episodes. The patient stated that approximately 1 year ago he experienced a seizure at the [facility]. The patient stated that he was playing pool and experienced loss of consciousness. The patient stated that he was hospitalized. According to the patient since that time he has been experiencing recurrent falling episodes with bruises on his extremities. The patient stated that he has fallen several times walking at home when he is attempting to go to the bathroom or to the kitchen to get him something to eat. The patient reports that he fell 5 times on 01/05/2023 and therefore he was brought to the hospital. The patient stated that he lives with his . On examination today patient has multiple bruises on his arms and legs and swelling of his knees left side greater than right. Patient also reports that he has been experiencing weakness in his legs and that is why his legs give away and he falls. He does report some memory difficulty as well as urinary frequency and urinary incontinence. On examination at the bedside the patient thought the year was 2012 and that the current month of the year is September. He did know that he was in the hospital in [place]. Displays no ataxia in the arms or legs he did report pain in the left hamstring with tightness of his hamstrings when attempting [id number] maneuver with the left leg. When attempting to have the patient's stand, he was unable to bear full weight on his legs. The patient stated that he felt weak and therefore I assisted the patient back in bed. Drug allergies: None Home medications: Wellbutrin 300 mg p.o. nightly Keppra 750 mg p.o. twice daily Rivaroxaban 20 mg p.o. nightly Tamsulosin 0.4 mg p.o. nightly Trwsiba Flex Touch U-200 25 units subcutaneously at bedtime Past medical history: Cerebral ventriculomegaly Complex partial seizures, intractable Cerebral meningioma Autonomic orthostatic hypotension Carotid artery disease Benign prostate hypertrophy Neurogenic bladder Gait instability Ascending aortic aneurysm Popliteal aneurysm Anxiety and depression Social history: The patient reports he lives with his Habits: Unknown Review of Systems General: Reports: 10 or more systems reviewed and unremarkable except in HPI and below Const: Reports: fatigue Resp: Reports: dyspnea : Reports: urinary frequency, urinary urgency and urinary incontinence Musc: Reports: extremity pain, extremity swelling, joint pain, joint swelling, limited range of motion and muscle weakness Neuro: Reports: weakness in extremities and difficulty walking Psych: Reports: memory loss Medications/Allergies Home Medications Medication Instructions Recorded Confirmed Last Taken Type rivaroxaban 20 mg tablet (Xarelto) 20 mg PO BEDTIME 12/31/21 01/07/23 01/05/23 History bupropion HCl 300 mg 24 hr tablet, 300 mg PO BEDTIME 01/07/23 01/07/23 01/05/23 History extended release insulin degludec 200 unit/mL (3 25 unit SUBCUT BEDTIME 01/07/23 01/07/23 Unknown History mL) subcutaneous pen (Tresiba FlexTouch U-200 insulin) levetiracetam 750 mg tablet 750 mg PO BID 01/07/23 01/07/23 01/05/23 History tamsulosin 0.4 mg capsule 0.4 mg PO BEDTIME 01/07/23 01/07/23 01/05/23 History Allergies Allergy/AdvReac Type Severity Reaction Status Date / Time No Known Allergies Allergy Verified 01/07/23 14:04 Current Medications Generic Name Dose Route Start Last Admin Trade Name Freq PRN Reason Stop Dose Admin Insulin Human Lispro 0 unit 01/08/23 12:00 01/08/23 12:15 Insulin Lispro 100 Unit/1 Ml SUBCUT 6 unit TIDWM LYNNETTE Administration Protocol PFSH Acute PFSH: Medical History Anxiety and depression Ascending aortic aneurysm 11/04/21 - 5 cm BMI 36.0-36.9,adult [place]k hernia BPH loc w urin obs/LUTS Carotid arterial disease 11/02/21 - By ultrasound 52-69% stenosis of left common carotid artery with decreased velocity and elevated ED ratio, but CTA head/neck 11/04/21 with no stenosis noted in same vessel, mild luminal irregularities of V3 branch of left vertebral artery Chronic anticoagulation Xarelto, due to DVT/PE COVID-19 vaccine administered [employer] Deep vein thrombosis of bilateral lower extremities History of echocardiogram 10/2021 - Normal left ventricular size and systolic function, EF 60%. Moderate concentric left ventricular hypertrophy. Grade I/IV diastolic dysfunction. 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 Pulmonary embolus, left branch of left pulmonary artery to lingula Right adrenal mass 11/16 1.8 x 1.4 cm Seizure Sleep apnea Syncope due to orthostatic hypotension Type 2 diabetes mellitus treated with insulin 11/16 - A1c 9.3 Surgical History History of colonoscopy 2013 - colon polyps S/P tonsillectomy Family History Father , 60 Hypertension CAD (coronary artery disease) Mother Cancer Social History Smoking and tobacco status: former smoker Quit status (tobacco): has quit using tobacco Year quit tobacco: 1979 Alcohol intake: former Former alcohol use details: some years ago, previous drank 6 pack per day, none now Substance/Drug Use: never Household members: spouse Marital status: 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 The patient did know he was in the hospital in [place]. Head atraumatic. Neck revealed no obvious meningeal signs. Cranial nerves II through XII intact pupils equal round and reactive to light and accommodation extraocular movements intact motor testing grossly nonfocal at 5/5 but patient reported weakness in his legs when trying to bear his weight and he was unable to completely stand up even with me assisting the patient at his bedside because he was complaining of his knees feeling weak. [id number]-[id number] maneuvers revealed no ataxia. Czjnqj-egyg-knvdfy revealed no ataxia. Deep tendon reflexes 1+ grossly. There was no obvious reflex elicited at the Achilles bilaterally. Plantar responses flexor bilaterally. There was no clonus. Sensory examination was intact to touch. Throat clear. Lungs clear. Heart regular rhythm and rate. Extremities revealed bruises on his upper and lower extremities. There was swelling of his knees bilaterally worse on the left. There was no cyanosis. Data 01/07/23 12:43 01/08/23 04:52 A&P Assessment and plan (1) Gait instability: Impression: 1. Gait instability possibly related to lower extremity weakness (patient reports that he feels weak in his knees) 2. Memory loss 3. Abnormal head MRI and head CT scans with ventriculomegaly, possibility of normal pressure hydrocephalus cannot be excluded 4. Reports of urinary incontinence and urinary frequency 5. Multiple soft tissue bruises on his upper and lower extremities related to recurrent falls 6. Degenerative disc disease of the cervical thoracic and lumbar spine Plan: 1. Recommend CT of the cervical spine with and without contrast to assess for spinal stenosis 2. Recommend referral to neurosurgery for cisternogram to assess for the possibility of normal pressure hydrocephalus versus enlarged ventricles secondary to atrophy 3. Fall precautions 4. Recommend plain x-rays of the patient's knees since the patient reports weakness in his knees and clinical examination reveals knee swelling bilaterally left side greater than right (2) Leg weakness, bilateral: (3) Memory loss: (4) Abnormal MRI of the head: Consult Attestations Medical Necessity Statement: The patient was evaluated by neurology to assess for normal pressure hydrocephalus and to evaluate gait ataxia and falling Coding Level of Care Code 15275 Diagnoses Gait instability R26.81 Leg weakness, bilateral R29.898 Memory loss R41.3 Abnormal MRI of the head R93.0 Time Spent (min) 30
[2023-01-08] MEDS: levETIRAcetam 1,000 mg/10 mL UDC 750 MG PO (17:31)
[2023-01-08 21:06] LABS: Glucose Point of Care 257 mg/dL (70-110)
[2023-01-08] MEDS: insulin glargine 100 units/1 mL 20 UNIT SUBCUT (21:28)
[2023-01-09] VITALS (9 sets, daily range): BP systolic 87–159; BP diastolic 57–97; PULSE 51–80; RESP 15–20; TEMP 36.4–36.7; O2SAT 88–97
[2023-01-09 03:43] LABS: Basophils % 0.5 %; Eosinophils # 0.1 10^3/uL (0.0-0.8); Eosinophils % 1.5 %; Hematocrit 31.9 % (42.0-52.0); Hemoglobin 10.4 g/dL (11.7-16.6); Lymphocytes # 1.7 10^3/uL (0.8-4.8); Lymphocytes % 21.2 %; Mean Corpuscular HGB Conc 32.6 g/dL (30.0-36.0); Mean Corpuscular Hemoglobin 29.4 pg (28.0-34.0); Mean Corpuscular Volume 90.1 fl (80-94); Mean Platelet Volume 9.3 fL (7.4-10.4); Monocytes # 0.7 10^3/uL (0.2-0.9); Monocytes % 8.3 %; Neutrophils # 5.32 10^3/uL (1.8-7.7); Neutrophils % 68.1 %; Nucleated Red Blood Cells % 0 %; Platelet Count 197 10^3/cmm (130-400); Red Blood Count 3.54 10^6/uL (4.1-5.3); Red Cell Distribution Width 13.6 % (12.1-15.1); White Blood Count 7.8 10^3/uL (4.0-10.0)
[2023-01-09 04:04] LABS: Anion Gap 11.8 (5-19); Blood Urea Nitrogen 28 mg/dL (8-23); Calcium 8.3 mg/dL (8.5-10.5); Carbon Dioxide 22 mmol/L (22-29); Chloride 106 mmol/L (98-107); Glucose 128 mg/dL (65-115); Magnesium 1.8 mg/dL (1.7-2.3); Osmolality Calculated 289 mOsm/kg (285-295); Potassium 3.8 mmol/L (3.5-5.1); Sodium 136 mmol/L (136-145)
[2023-01-09 06:44] LABS: Glucose Point of Care 148 mg/dL (70-110)
[2023-01-09] MEDS: levETIRAcetam 1,000 mg/10 mL UDC 750 MG PO ×2 (09:35→17:56)
[2023-01-09] MEDS: rivaroxaban 10 mg Tablet 20 MG PO (09:36)
--- NOTE | 2023-01-09 10:32 | PC.CHAP ---
Pastoral Care Encounter/Spiritual Assessment Type of Contact [x] Declined sumo wrestler visit [] Patient/Family/Request visit [] Outpatient visit [] Follow-up visit [] Physician referral [] Code/Alert [] Routine visit [] Staff referral [] Actively dying [] Patient sleeping [] Family support [] [] Out of room [] Palliative care [] [] Receiving care in room [] Pre-surgical visit [] Trauma [] Long length of stay [] ICU visit [] Other: Relational/Emotional Strength [] Patient feels connected with others/family/visitors/staff [] Distress [] Loneliness/isolation [] Abandonment Spirituality of Patient [] Person of Mary [] Attends Pentecostal of their Mary [] Believes in Prayer [] Reads Bible or Pentecostalism materials [] There are Spiritual issues to be addressed Manager Desktop Interventions [] Prayer [] Active listening [] Non-anxious presence [] Spiritual/emotional support [] Crisis/trauma care [] Spiritual counseling [] Bereavement support [] Provided bereavement packet [] Provided Bible/devotional materials [] Provided toy/stuffed animal, coloring book to patient or family member [] Provided Communion [] Anointing/[place] [] Salvation [] Completed spiritual assessment [] Other: Impact on Illness or Injury [] Angry [] Fearful [] Anxious [] Often cries [] Exhaustion [] Unable to work [] Unable to attend catholic [] Unable to walk/stand [] Unable to read [] Unable to drive [] Unable to eat/drink [] Unable to sleep [] Unable to be with family [] Patient intubated [] Other: Summary Declined sumo wrestler visit +1 Time spent with patient
[2023-01-09 11:08] LABS: Glucose Point of Care 144 mg/dL (70-110)
--- NOTE | 2023-01-09 11:37 | PM.PN ---
Subjective Subjective: Nephro recommendations reviewed is okay with rehab placement for now and then investigation by neurosurgeon at tertiary center Will request x-ray of his knees, CT scan of his cervical spine Vitals/I&O/Wt Last Vital Signs Temp 97.8 F 01/09/23 07:53 Pulse 57 L 01/09/23 09:23 Resp 15 01/09/23 07:53 BP 147/88 01/09/23 09:23 Pulse Ox 95 01/09/23 07:53 O2 Del Method Room Air 01/09/23 08:00 O2 Flow Rate 2 01/09/23 04:57 01/08/23 01/09/23 01/09/23 22:59 06:59 14:59 Intake Total 360 / 840 Balance 360 / 840 Weight last 48 hrs Weight 99.79 kg Physical Exam Narrative: Patient is laying supine Able to answer simple questions Currently on room air Positive orthostasis Abdomen soft S1, S2 No audible stridor or wheezing Currently doing well on room air Data 01/09/23 03:31 01/09/23 03:31 A&P Assessment and plan (1) Abnormal MRI of the head: (2) Memory loss: (3) Leg weakness, bilateral: (4) Autonomic orthostatic hypotension: (5) Seizure: (6) Carotid arterial disease: (7) BPH loc w urin obs/LUTS: (8) Gait instability: (9) Meningioma, cerebral: Plan Concern for NPH Patient will require cisternogram at tertiary center Recurrent falls Rehab placement We will request cervical spine CT scan along the x-ray Orthostasis positive Increase dose of pyridostigmine Hold tamsulosin Meningioma without neurological deconditioning Continue Keppra for seizures Awaiting placement updated who is at the bedside Attestations Medical Necessity Statement*: Waiting placement Diagnoses Abnormal MRI of the head R93.0 Memory loss R41.3 Leg weakness, bilateral R29.898 Autonomic orthostatic hypotension I95.1 Seizure R56.9 Carotid arterial disease I77.9 BPH loc w urin obs/LUTS N40.1 Gait instability R26.81 Meningioma, cerebral D32.0
[2023-01-09] MEDS: pyridostigmine 60 mg Tablet PO ×2 (12:12→17:56)
[2023-01-09] MEDS: insulin lispro 100 unit/1 mL SUBCUT ×2 (12:12→17:56)
[2023-01-09 17:02] LABS: Glucose Point of Care 149 mg/dL (70-110)
[2023-01-09 20:30] LABS: Glucose Point of Care 165 mg/dL (70-110)
[2023-01-09] MEDS: insulin glargine 100 units/1 mL 20 UNIT SUBCUT (20:48)
[2023-01-10] VITALS (9 sets, daily range): BP systolic 80–164; BP diastolic 50–97; PULSE 50–88; RESP 16–22; TEMP 36.4–37.1; O2SAT 90–96
[2023-01-10 06:51] LABS: Glucose Point of Care 103 mg/dL (70-110)
[2023-01-10] MEDS: pyridostigmine 60 mg Tablet PO ×2 (08:45→17:46)
[2023-01-10] MEDS: lisinopril 10 mg Tablet PO ×2 (08:45→08:49)
[2023-01-10] MEDS: levETIRAcetam 1,000 mg/10 mL UDC 750 MG PO ×2 (08:45→17:45)
[2023-01-10] MEDS: rivaroxaban 10 mg Tablet 20 MG PO (08:45)
[2023-01-10 11:36] LABS: Glucose Point of Care 206 mg/dL (70-110)
[2023-01-10] MEDS: insulin lispro 100 unit/1 mL SUBCUT ×2 (12:08→17:45)
--- NOTE | 2023-01-10 12:35 | P.PN_ITS ---
Subjective Subjective: Persistent orthostasis I have increased the dose of pyridostigmine Patient is asymptomatic today at the bedside Awaiting transfer to rehab Prior authorization has been initiated He might go home to a detention on Friday Vitals/I&O/Wt Last Vital Signs Temp 97.9 F 01/10/23 12:00 Pulse 88 01/10/23 12:00 Resp 16 01/10/23 12:00 BP 99/64 01/10/23 12:00 Pulse Ox 91 01/10/23 12:00 O2 Del Method Room Air 01/10/23 12:00 O2 Flow Rate 2 01/09/23 04:57 01/09/23 01/10/23 01/10/23 22:59 06:59 14:59 Intake Total 240 / 480 950 / 1430 840 / 840 Balance 240 / 480 950 / 1430 840 / 840 Physical Exam Narrative: Nonfocal neuro exam GCS 15 S1, S2 Pleasant and cooperative Currently on room air Looks euvolemic GCS 15 at the bedside Positive orthostasis Data 01/09/23 03:31 01/09/23 03:31 A&P Assessment and plan (1) Abnormal MRI of the head: (2) Memory loss: (3) Leg weakness, bilateral: (4) Autonomic orthostatic hypotension: (5) Seizure: (6) BPH loc w urin obs/LUTS: (7) Other specified urinary incontinence: (8) Neurogenic bladder: (9) Gait instability: (10) Ascending aortic aneurysm: (11) Labile blood pressure: (12) Acquired cerebral ventriculomegaly: (13) Localization-related (focal) (partial) symptomatic epilepsy and epileptic syndromes with complex partial seizures, intractable, without status epilepticus: Plan Recurrent falls Concern for normal pressure hydrocephalus, appreciate neuro recommendations Plan is to send him to rehab because of positive orthostasis and recurrent falls and then go to [facility] for cisternogram and see a neurosurgeon I will obtain cervical spine CT scan and knee x-ray for his bilateral lower extremity weakness Orthostasis: Pyridostigmine on board Autonomic dysfunction Seizure: No breakthrough episodes continue Keppra BPH: I have held tamsulosin for orthostasis Labile blood pressure adjust antihypertensive regimen added lisinopril for hypertension blood pressure dropped after getting lisinopril reduce the dose of lisinopril to 5 mg History of DVT takes Xarelto: Family counseled to stop Xarelto in case of further episodes of falls Full code Cardiac diet Daily PT Daily orthostasis Hyperglycemia continue sliding scale along insulin Anticipating discharge on Friday Attestations Medical Necessity Statement*: Awaiting placement and Moderate MDM includes number and complexity of problems actively addressed during encounter, amount and/or complexity of data reviewed/ordered and described risk of complication, morbidity or mortality of management as doc umented Diagnoses Abnormal MRI of the head R93.0 Memory loss R41.3 Leg weakness, bilateral R29.898 Autonomic orthostatic hypotension I95.1 Seizure R56.9 BPH loc w urin obs/LUTS N40.1 Other specified urinary incontinence N39.498 Neurogenic bladder N31.9 Gait instability R26.81 Ascending aortic aneurysm I71.2 Labile blood pressure R09.89 Acquired cerebral ventriculomegaly G91.1 Localization-related (focal) (partial) symptomatic epilepsy and epileptic syndromes with complex partial seizures, intractable, without status epilepticus G40.219
--- NOTE | 2023-01-10 12:37 | CTR_ITS ---
PROCEDURE INFORMATION: Exam: CT Cervical Spine Without Contrast Exam date and time: 01/10/2023 2:59 PM Age: 77 years old Clinical indication: Injury or trauma; Fall; Blunt trauma; Additional info: Ataxia TECHNIQUE: Imaging protocol: Computed tomography of the cervical spine without contrast. Radiation optimization: All CT scans at this facility use at least one of these dose optimization techniques: automated exposure control; mA and/or kV adjustment per patient size (includes targeted exams where dose is matched to clinical indication); or iterative reconstruction. REPORTING DATA: Count of CT and Cardiac NM exams in prior 12 months: This patient has received [address] and 0 known cardiac nuclear medicine studies in the 12 months prior to the current study. COMPARISON: CR XR cervical spine 3V* [id number] 01/07/2023 1:11 PM RADIATION DOSE METRICS: Total DLP (mGy-cm): 213.87 FINDINGS: Bones/joints: Cervical curvature and alignment is unremarkable. Degenerative changes mid-lower cervical spine with disc space narrowing and end plate osteophytic lipping. No severe stenosis of the central canal or neural foramina evident. No fracture, dislocation or traumatic spondylolisthesis detected. Lungs: Lung apices are normal. Soft tissues: A focal oblong shaped area of ossification in the posterior paraspinal soft tissues, degenerative in nature. No prevertebral paraspinal soft tissue swelling.. CT/CT cervical spin wo con* [id number] IMPRESSION: No acute bony abnormalities.
--- NOTE | 2023-01-10 12:37 | XRR_ITS ---
PROCEDURE INFORMATION: Exam: XR Left Knee Exam date and time: 01/10/2023 11:45 AM Age: 77 years old Clinical indication: Pain; Knee; Bilateral; Additional info: Ataxia TECHNIQUE: Imaging protocol: Radiologic exam of the left knee. Views: 1 or 2 views. COMPARISON: [place] [id number] 12/24/2018 11:17 AM FINDINGS: Bones/joints: Moderate-advanced degenerative changes medial knee compartment stable from previous exam. Less pronounced degenerative changes lateral knee compartment and mild degenerative changes of the patellofemoral joint. No fracture, dislocation or malalignment. Soft tissues: Diffuse arterial calcifications noted. No joint effusion detected. XR/XR knee LT 1-2V [id number] IMPRESSION: Moderate-advanced degenerative changes most pronounced medial knee compartment.
--- NOTE | 2023-01-10 12:37 | XRR_ITS ---
PROCEDURE INFORMATION: Exam: XR Right Knee Exam date and time: 01/10/2023 11:45 AM Age: 77 years old Clinical indication: Pain; Knee; Bilateral; Additional info: Ataxia TECHNIQUE: Imaging protocol: Radiologic exam of the right knee. Views: 1 or 2 views. COMPARISON: [place] [id number] 12/24/2018 11:17 AM FINDINGS: Bones/joints: There are moderate degenerative changes most pronounced along the medial knee compartment with joint space narrowing and subchondral sclerosis. Less pronounced changes noted along the lateral knee compartment and patellofemoral joint. No fracture, dislocation or malalignment. Soft tissues: Diffuse vascular calcifications within the soft tissues. 4 cm circumscribed soft tissue density projecting over the proximal portion of the calcified popliteal artery raising possibility of popliteal artery aneurysm. XR/XR knee RT 1-2V [id number] IMPRESSION: 1. Moderate degenerative changes most pronounced within the medial knee compartment. 2. Diffuse atherosclerotic calcifications with questionable popliteal artery aneurysm which could be better assessed on CTA of the right leg if clinically warranted.
[2023-01-10 16:56] LABS: Glucose Point of Care 200 mg/dL (70-110)
[2023-01-10 20:43] LABS: Glucose Point of Care 176 mg/dL (70-110)
[2023-01-10] MEDS: insulin glargine 100 units/1 mL 24 UNIT SUBCUT (22:20)
[2023-01-11] VITALS (9 sets, daily range): BP systolic 105–164; BP diastolic 67–82; PULSE 51–80; RESP 16–18; TEMP 36.3–36.9; O2SAT 92–97
[2023-01-11 06:11] LABS: Blood Urea Nitrogen 20 mg/dL (8-23); Calcium 8.4 mg/dL (8.5-10.5); Carbon Dioxide 25 mmol/L (22-29); Chloride 103 mmol/L (98-107); Creatinine Clr Calc Pharmacy 97.5858; Glucose 102 mg/dL (65-115); Osmolality Calculated 287 mOsm/kg (285-295); Sodium 137 mmol/L (136-145)
[2023-01-11 06:38] LABS: Glucose Point of Care 114 mg/dL (70-110)
[2023-01-11] MEDS: rivaroxaban 10 mg Tablet 20 MG PO (09:53)
[2023-01-11] MEDS: lisinopril 5 mg Tablet PO (09:53)
[2023-01-11] MEDS: pyridostigmine 60 mg Tablet PO ×2 (09:53→17:17)
[2023-01-11] MEDS: levETIRAcetam 1,000 mg/10 mL UDC 750 MG PO ×2 (09:53→17:17)
[2023-01-11 11:22] LABS: Glucose Point of Care 194 mg/dL (70-110)
--- NOTE | 2023-01-11 12:24 | PC.SOCIAL ---
IMM Not Given Pt is in Observation. IMM not given.
[2023-01-11] MEDS: insulin lispro 100 unit/1 mL SUBCUT (12:38)
[2023-01-11 17:05] LABS: Glucose Point of Care 99 mg/dL (70-110)
[2023-01-11] MEDS: acetaminophen 500 mg Tablet PO (17:17)
[2023-01-11 20:24] LABS: Glucose Point of Care 205 mg/dL (70-110)
--- NOTE | 2023-01-11 21:18 | PM.PN ---
Subjective Subjective: Patient continues to have orthostasis. He reports overall he feels somewhat better today. Denies fevers, chills, nausea or emesis. Medications: Reviewed: Yes Vitals/I&O/Wt Last Vital Signs Temp 97.4 F L 01/11/23 20:00 Pulse 63 01/11/23 20:00 Resp 17 01/11/23 20:00 BP 143/82 01/11/23 20:00 Pulse Ox 97 01/11/23 20:00 O2 Del Method Room Air 01/11/23 19:15 O2 Flow Rate 2 01/09/23 04:57 01/11/23 01/11/23 01/11/23 06:59 14:59 22:59 Intake Total 720 / 720 260 / 980 Balance 720 / 720 260 / 980 Physical Exam Narrative: GENERAL: The patient is awake. Alert. Pleasant. HEENT: Normocephalic, atraumatic. Extraocular muscles intact. NECK: No JVD. CARDIOVASCULAR: Normal S1 and S2. No murmurs, rubs, or gallops. No peripheral edema. RESPIRATORY: Clear to auscultation bilaterally. No wheezing. No rales. No rhonchi. ABDOMEN: Soft. Not tender. Not distended. Bowel sounds present. No guarding. EXTREMITIES: No cyanosis. No clubbing. SKIN: Multiple bruises. No jaundice. CENTRAL NERVOUS SYSTEM: Moves all 4 extremities. No myoclonus. Data 01/09/23 03:31 01/11/23 05:25 A&P Assessment and plan (1) Abnormal MRI of the head: (2) Memory loss: (3) Leg weakness, bilateral: (4) Autonomic orthostatic hypotension: (5) Seizure: (6) BPH loc w urin obs/LUTS: (7) Other specified urinary incontinence: (8) Neurogenic bladder: (9) Gait instability: (10) Ascending aortic aneurysm: (11) Labile blood pressure: (12) Acquired cerebral ventriculomegaly: (13) Localization-related (focal) (partial) symptomatic epilepsy and epileptic syndromes with complex partial seizures, intractable, without status epilepticus: Plan Recurrent falls -Neuro has evaluated, appreciate reccs -Anticipate rehab, possibly as early as Friday -Plan to [facility] for cistern[facility] and see a neurosurgeon -Imaging reviewed Orthostasis Autonomic dysfunction -Persistent -Continue Pyridostigmine Seizure -Keppra BPH -Hold Flomax, plan to dc at discharge Labile blood pressure Hx of DVT -Off AC due to recurrent falls Full code Attestations Medical Necessity Statement*: Patient with continued orthostatic hypotension and weakness requiring ongoing hospitalized care. Coding Level of Care Code Acute Code for Chg Fwd Diagnoses Abnormal MRI of the head R93.0 Memory loss R41.3 Leg weakness, bilateral R29.898 Autonomic orthostatic hypotension I95.1 Seizure R56.9 BPH loc w urin obs/LUTS N40.1 Other specified urinary incontinence N39.498 Neurogenic bladder N31.9 Gait instability R26.81 Ascending aortic aneurysm I71.2 Labile blood pressure R09.89 Acquired cerebral ventriculomegaly G91.1 Localization-related (focal) (partial) symptomatic epilepsy and epileptic syndromes with complex partial seizures, intractable, without status epilepticus G40.219
[2023-01-11] MEDS: insulin glargine 100 units/1 mL 24 UNIT SUBCUT (21:38)
[2023-01-12] VITALS (9 sets, daily range): BP systolic 92–171; BP diastolic 59–86; PULSE 51–77; RESP 16–18; TEMP 36.2–36.8; O2SAT 93–98
[2023-01-12 06:35] LABS: Glucose Point of Care 107 mg/dL (70-110)
[2023-01-12] MEDS: pyridostigmine 60 mg Tablet PO ×2 (08:19→17:15)
[2023-01-12] MEDS: levETIRAcetam 1,000 mg/10 mL UDC 750 MG PO ×2 (08:19→17:15)
[2023-01-12] MEDS: rivaroxaban 10 mg Tablet 20 MG PO (08:19)
[2023-01-12] MEDS: lisinopril 5 mg Tablet PO (08:19)
[2023-01-12 11:24] LABS: Glucose Point of Care 222 mg/dL (70-110)
[2023-01-12] MEDS: insulin lispro 100 unit/1 mL SUBCUT (11:45)
--- NOTE | 2023-01-12 13:09 | PM.PN ---
Subjective Subjective: No overnight events Awaiting placement Orthostatics improving Vitals/I&O/Wt Last Vital Signs Temp 97.5 F L 01/12/23 12:00 Pulse 61 01/12/23 12:00 Resp 18 01/12/23 12:00 BP 112/71 01/12/23 12:00 Pulse Ox 93 01/12/23 12:00 O2 Del Method Room Air 01/12/23 12:00 O2 Flow Rate 2 01/09/23 04:57 01/11/23 01/12/23 01/12/23 22:59 06:59 14:59 Intake Total 500 / 1220 240 / 1460 960 / 960 Balance 500 / 1220 240 / 1460 960 / 960 Physical Exam Narrative: Patient resting comfortably No active complaint Hemodynamically stable Euvolemic GCS 15 Nonfocal neuro exam S1, S2 Data 01/09/23 03:31 01/11/23 05:25 A&P Assessment and plan (1) Abnormal MRI of the head: (2) Memory loss: (3) Leg weakness, bilateral: (4) Autonomic orthostatic hypotension: (5) Seizure: (6) Meningioma, cerebral: (7) Labile blood pressure: (8) Ascending aortic aneurysm: Plan Awaiting placement Orthostatics improving with pyridostigmine Appreciate neuro recommendations Full code Awaiting rehab patient will go to tertiary center for cisternogram Attestations Medical Necessity Statement*: Discharge next 24 to 48 hours Diagnoses Abnormal MRI of the head R93.0 Memory loss R41.3 Leg weakness, bilateral R29.898 Autonomic orthostatic hypotension I95.1 Seizure R56.9 Meningioma, cerebral D32.0 Labile blood pressure R09.89 Ascending aortic aneurysm I71.2
[2023-01-12 16:39] LABS: Glucose Point of Care 109 mg/dL (70-110)
[2023-01-12 19:48] LABS: Glucose Point of Care 242 mg/dL (70-110)
[2023-01-12] MEDS: insulin glargine 100 units/1 mL 24 UNIT SUBCUT (21:49)
[2023-01-13] VITALS (7 sets, daily range): BP systolic 92–168; BP diastolic 59–87; PULSE 56–72; RESP 14–18; TEMP 36.3–36.6; O2SAT 91–95
[2023-01-13 06:41] LABS: Glucose Point of Care 112 mg/dL (70-110)
[2023-01-13] MEDS: levETIRAcetam 1,000 mg/10 mL UDC 750 MG PO (08:13)
[2023-01-13] MEDS: lisinopril 5 mg Tablet PO (08:14)
[2023-01-13] MEDS: rivaroxaban 10 mg Tablet 20 MG PO (08:14)
[2023-01-13] MEDS: pyridostigmine 60 mg Tablet PO (08:14)
[2023-01-13] MEDS: acetaminophen 500 mg Tablet PO (08:14)
--- NOTE | 2023-01-13 11:17 | PM.DCS ---
Discharge Providers Date of Admission: 01/08/23 11:09 Date of Discharge: January 13, 2023 Attending Provider at Admission: Ismael Espinoza MD Attending Provider at Discharge: Ismael Espinoza MD Primary Care Provider: Ramón Dean DO Diagnoses at Discharge Discharge Diagnosis (1) Abnormal MRI of the head: Status: Acute (2) Memory loss: Status: Acute (3) Leg weakness, bilateral: Status: Acute (4) Autonomic orthostatic hypotension: Status: Acute (5) Seizure: Status: Acute (6) Meningioma, cerebral: Status: Acute (7) Labile blood pressure: Status: Acute (8) Ascending aortic aneurysm: Status: Chronic Permanent problem details: 11/04/21 - 5 cm Reason for Visit Reason for Visit: WEAKNESS Hospital Course Hospital Course 77-year-old male who presented to the hospital with chief complaint of recurrent falls, there was concern for normal pressure hydrocephalus however he does not have typical signs at this point, I requested Dr. Perkins to evaluate him who recommended cisternogram to rule it out which will be done at [facility] I will give him referral to see Dr. Robyn Stewart neurosurgery once he is done with his rehab, we recommend rehab at this point because of his persistent orthostasis hypotension for his orthostatic hypotension I have prescribed pyridostigmine which seem to help with his blood pressure, at supine he remains hypertensive for which he will get lisinopril, he has autonomic dysfunction, for his knee pain we will obtain x-ray of his knees which are consistent with compartment degenerative changes consistent with osteoarthritis for his ascending aortic aneurysm and popliteal aneurysm he is following up to Dr. Harris, patient may resume his anticoagulating agent at this point, he has history of sinus bradycardia, he does not have any typical symptoms related to bradycardia at this point patient is denying chest pain syncope shortness of breath or confusion. I will give him event monitor at the time of discharge, lowest heart rate noted during hospitalization was 51. Physical Exam Narrative: Patient is awake and alert GCS 15 Hemodynamically stable Doing well on room air Nonfocal neuro exam Discharge Data Studies Completed and Pending Completed Studies During Hospitalization Category Date Time Status CT cervical spin wo con* [id number] Routine Cat Scan 01/10/23 12:[address] head wo con* [id number] Stat Cat Scan 01/07/23 13:01 Completed XR cervical spine 3V* [id number] Stat Exams 01/07/23 13:00 Completed XR chest 1V portable [id number] Stat Exams 01/07/23 12:32 Completed XR knee LT 1-2V [id number] Routine Exams 01/10/23 12:37 Completed XR knee RT 1-2V [id number] Routine Exams 01/10/23 12:37 Completed Pending at discharge Category Date Time Status KEPPRA [Levetiracetam Immunoassy] Routine Lab 01/08/23 04:52 Received SARS Covid-2 Antigen Routine Lab 01/13/23 10:50 Received Radiology Impressions Chest X-Ray 01/07/23 12:32 IMPRESSION: No lobar consolidation is appreciated.No interval acute cardiopulmonary changes are appreciated. Cervical Spine X-Ray 01/07/23 13:00 IMPRESSION: Osseous alignment is maintained with chronic degeneration overall present.No interval fracture or dislocation is appreciated. Head CT 01/07/23 13:01 IMPRESSION: 1. No acute intracranial hemorrhage or edema. 2. Mild atrophy and small vessel ischemic disease. 3. Mild ventriculomegaly is stable. Probably on the basis of volume loss. Cervical Spine CT 01/10/23 12:37 IMPRESSION: No acute bony abnormalities. Knee X-Ray 01/10/23 12:37 IMPRESSION: Moderate-advanced degenerative changes most pronounced medial knee compartment. Laboratory Results WBC 7.8 10^3/uL (4.0-10.0) 01/09/23 03:31 RBC 3.54 10^6/uL (4.1-5.3) L 01/09/23 03:31 Hgb 10.4 g/dL (11.7-16.6) L 01/09/23 03:31 Hct 31.9 % (42.0-52.0) L 01/09/23 03:31 MCV 90.1 fl (80-94) 01/09/23 03:31 MCH 29.4 pg (28.0-34.0) 01/09/23 03:31 MCHC 32.6 g/dL (30.0-36.0) 01/09/23 03:31 RDW 13.6 % (12.1-15.1) 01/09/23 03:31 Plt Count 197 10^3/cmm (130-400) 01/09/23 03:31 MPV 9.3 fL (7.4-10.4) 01/09/23 03:31 Neut % (Auto) 68.1 % 01/09/23 03:31 Lymph % (Auto) 21.2 % 01/09/23 03:31 [place] % (Auto) 8.3 % 01/09/23 03:31 Eos % (Auto) 1.5 % 01/09/23 03:31 Baso % (Auto) 0.5 % 01/09/23 03:31 Neut # (Auto) 5.32 10^3/uL (1.8-7.7) 01/09/23 03:31 Lymph # (Auto) 1.7 10^3/uL (0.8-4.8) 01/09/23 03:31 [place] # (Auto) 0.7 10^3/uL (0.2-0.9) 01/09/23 03:31 Eos # (Auto) 0.1 10^3/uL (0.0-0.8) 01/09/23 03:31 Baso # (Auto) 0.0 10^3/uL (0.0-0.1) 01/09/23 03:31 Nucleated RBC % (auto) 0 % 01/09/23 03:31 Nucleated RBCs # 0.0 /100WBC 01/09/23 03:31 Sodium 137 mmol/L (136-145) 01/11/23 05:25 Potassium 4.0 mmol/L (3.5-5.1) 01/11/23 05:25 Chloride 103 mmol/L (98-107) 01/11/23 05:25 Carbon Dioxide 25 mmol/L (22-29) 01/11/23 05:25 Anion Gap 13.0 (5-19) 01/11/23 05:25 BUN 20 mg/dL (8-23) 01/11/23 05:25 Creatinine 0.7 mg/dL (0.7-1.2) 01/11/23 05:25 GFR Calculation Not Reportable 01/11/23 05:25 Glucose 102 mg/dL (65-115) 01/11/23 05:25 POC Glucose 112 mg/dL (70-110) H 01/13/23 06:39 Estimat Average Glucose 160 01/07/23 12:43 Hemoglobin A1c 7.2 % (4.0-6.0) H 01/07/23 12:43 Calculated Osmolality 287 mOsm/kg (285-295) 01/11/23 05:25 Calcium 8.4 mg/dL (8.5-10.5) L 01/11/23 05:25 Phosphorus 2.9 mg/dL (2.5-4.5) 01/08/23 04:52 Magnesium 1.8 mg/dL (1.7-2.3) 01/09/23 03:31 Total Bilirubin 1.1 mg/dL (0.15-1.2) 01/07/23 12:43 AST 33 U/L (0-40) 01/07/23 12:43 ALT 13 U/L (0-41) 01/07/23 12:43 Alkaline Phosphatase 69 U/L (40-130) 01/07/23 12:43 Troponin T Baseline 36 ng/L (0-15) H 01/07/23 12:43 Troponin T 120 Minute 33.17 ng/L (0-15) H 01/07/23 15:03 Delta Troponin T -2.83 ABS# (0-10) L 01/07/23 15:03 Troponin T Hi Sens 6Hr 29.37 ng/L (0-15) H 01/07/23 18:38 Troponin T Hi Sens 6Hr Delta -6.63 ng/L (0-12) L 01/07/23 18:38 Total Protein 6.6 g/dL (6.6-8.7) 01/07/23 12:43 Albumin 3.9 g/dL (3.5-5.2) 01/07/23 12:43 Globulin 2.7 g/dL (1.3-4.6) 01/07/23 12:43 Vitamin B12 444 pg/mL (232-1245) 01/07/23 12:43 TSH 3.12 uIU/mL (0.27-4.20) 01/07/23 12:43 Urine Color Dark yellow (Yellow) 01/07/23 13:33 Urine Appearance Sl hazy (CLEAR) A 01/07/23 13:33 Urine pH 5 (5-7) 01/07/23 13:33 Ur Specific [place] 1.030 (1.005-1.030) 01/07/23 13:33 Urine Protein Neg (Negative) 06/13/23 13:33 Urine Glucose (UA) Norm (Normal) 01/07/23 13:33 Urine Ketones 1+ (Negative) H 01/07/23 13:33 Urine Blood Neg (Negative) 01/07/23 13:33 Urine Nitrate Negative (Negative) 01/07/23 13:33 Urine Bilirubin 1+ (Negative) H 01/07/23 13:33 Urine Urobilinogen Norm mg/dL (Negative) 01/07/23 13:33 Ur Leukocyte Esterase Negative (Negative) 01/07/23 13:33 Urine RBC None /hpf (0-2) 01/07/23 13:33 Urine WBC 0-4 /hpf (0-5) H 01/07/23 13:33 Ur Squamous Epith Cells 0-4 /hpf (0-5) H 01/07/23 13:33 Uric Acid Crystals 15-25 /hpf H 01/07/23 13:33 Amorphous Sediment Not Reportable 01/07/23 13:33 Urine Bacteria 1+ /hpf (NONE) H 01/07/23 13:33 Urine Mucus 1+ /hpf 01/07/23 13:33 Vitals Last Vital Signs Temp 97.8 F 01/13/23 08:00 Pulse 59 L 01/13/23 08:25 Resp 16 01/13/23 08:25 BP 130/82 01/13/23 08:00 Pulse Ox 93 01/13/23 08:25 O2 Del Method Room Air 01/13/23 08:25 O2 Flow Rate 2 01/09/23 04:57 Discharge Plan Discharge Patient Disposition: Xfer SNF Condition: Stable Prescriptions: New pyridostigmine bromide 60 mg Tablet 60 mg PO BID Qty: 120 1RF lisinopril 5 mg Tablet 5 mg PO DAILY Qty: 60 0RF Continued Xarelto 20 mg tablet 20 mg PO BEDTIME Rx Instructions: must administer with evening meal levetiracetam 750 mg tablet 750 mg PO BID bupropion HCl 300 mg tablet extended release 24 hr 300 mg PO BEDTIME tamsulosin 0.4 mg capsule 0.4 mg PO BEDTIME Tresiba FlexTouch U-200 200 unit/mL (3 mL) insulin pen 25 unit SUBCUT BEDTIME Discharge Orders: Discharge Order (Routine); Ordered 01/13/23 Ordered By: Ismael Espinoza Referrals: Monroe Carlson MD [Referring] - 1 month (Cisternogram, concern for normal pressure hydrocephalus) Ramón Dean DO [Primary Care Provider] - Discharge Attestations Time Spent in Discharge Care*: greater than 30 min Quality Metrics Clinical Quality Measures [ No reported AMI, CVA or VTE this stay] Coding Level of Care Code Acute Code for Chg Fwd Diagnoses Abnormal MRI of the head R93.0 Memory loss R41.3 Leg weakness, bilateral R29.898 Autonomic orthostatic hypotension I95.1 Seizure R56.9 Meningioma, cerebral D32.0 Labile blood pressure R09.89 Ascending aortic aneurysm I71.2
[2023-01-13 11:29] LABS: SARS Covid-2 Antigen Negative (Negative)
[2023-01-13 11:31] LABS: Glucose Point of Care 189 mg/dL (70-110)
--- NOTE | 2023-01-13 12:05 | PC.NURSE ---
Report called to [facility].
[2023-01-13] MEDS: insulin lispro 100 unit/1 mL SUBCUT (12:16)
[2023-01-13 13:24] LABS: Levetiracetam Immunoassy 19.1 mcg/mL (6.0-46.0)
== END 2023-01-13 12:42 | disposition skilled nursing facility (03) ==
LOC: ER 17:13 → MEDSURG 01-08 09:14
PROVIDERS: Internal Medicine; Admitting Provider Internal Medicine; Emergency Provider Family Medicine; PCP Internal Medicine; Visit Provider Internal Medicine
DX: R93.0 Abnormal findings on diagnostic imaging of skull and head, not elsewhere classified (principal); I95.1 Orthostatic hypotension; I71.20 Thoracic aortic aneurysm, without rupture, unspecified; R29.6 Repeated falls; Z91.81 History of falling; I10 Essential (primary) hypertension; S00.81XA Abrasion of other part of head, initial encounter; W19.XXXA Unspecified fall, initial encounter; Z79.01 Long term (current) use of anticoagulants; Z87.891 Personal history of nicotine dependence; E11.9 Type 2 diabetes mellitus without complications; R53.83 Other fatigue; N17.9 Acute kidney failure, unspecified; E86.0 Dehydration; G40.909 Epilepsy, unspecified, not intractable, without status epilepticus; Z86.718 Personal history of other venous thrombosis and embolism; R44.1 Visual hallucinations; R27.0 Ataxia, unspecified; R41.3 Other amnesia; N31.9 Neuromuscular dysfunction of bladder, unspecified; Z79.4 Long term (current) use of insulin; F41.9 Anxiety disorder, unspecified; F32.A Depression, unspecified; M51.34 Other intervertebral disc degeneration, thoracic region; M50.90 Cervical disc disorder, unspecified, unspecified cervical region; Z75.1 Person awaiting admission to adequate facility elsewhere; M17.0 Bilateral primary osteoarthritis of knee
CPT/HCPCS: 36415; 36416; 70450; 71045; 72040; 72125; 73560; 80048; 80053; 80177; 81001; 82607; 82962; 83036; 83735; 84100; 84443; 84484; 85025; 87426; 93005; 96360; 96361; 96372; 97110; 97116; 97161; 97530; 99285; G0378; J1815; J7030

== ENCOUNTER → 2023-08-21 09:16 | Outpatient (BNVA) | payer MEDICARE, SELFPAY | PROVIDERS: PCP Internal Medicine; Visit Provider Podiatrist Foot & Ankle Surgery | DX: L60.3 Nail dystrophy (principal); G62.9 Polyneuropathy, unspecified; M21.6X1 Other acquired deformities of right foot; M21.6X2 Other acquired deformities of left foot; E11.42 Type 2 diabetes mellitus with diabetic polyneuropathy; Z79.4 Long term (current) use of insulin | CPT/HCPCS: 11721; 99203 ==

== ENCOUNTER → 2023-09-04 09:29 | Outpatient (BNVA) | payer MEDICARE, SELFPAY | PROVIDERS: PCP Internal Medicine; Visit Provider Podiatrist Foot & Ankle Surgery | DX: I73.9 Peripheral vascular disease, unspecified (principal); L60.3 Nail dystrophy; G62.9 Polyneuropathy, unspecified; M21.6X1 Other acquired deformities of right foot; M21.6X2 Other acquired deformities of left foot; E11.42 Type 2 diabetes mellitus with diabetic polyneuropathy; Z79.4 Long term (current) use of insulin | CPT/HCPCS: 99213 ==

== ENCOUNTER 2023-10-07 11:49 | Outpatient (CLI) | payer MEDICARE, SELFPAY ==
--- NOTE | 2023-10-07 12:00 | CTR_ITS ---
PROCEDURE INFORMATION: Exam: CTA Abdominal Aorta and Bilateral Lower Extremities (Run-off) With Contrast Exam date and time: 10/07/2023 12:30 PM Age: 78 years old Clinical indication: Other: Pad, chronic wounds TECHNIQUE: Imaging protocol: Computed tomographic angiography of the of the abdominal aorta, pelvis and bilateral lower extremities with contrast. 3D rendering (Not supervised by radiologist): MIP and/or 3D reconstructed images were created by the technologist. Radiation optimization: All CT scans at this facility use at least one of these dose optimization techniques: automated exposure control; mA and/or kV adjustment per patient size (includes targeted exams where dose is matched to clinical indication); or iterative reconstruction. Contrast material: OMNIPAQUE 350; Contrast volume: 125 ml; Contrast route: INTRAVENOUS (IV); COMPARISON: CT abdomen pelvis w con* [id number] 11/05/2021 11:08 AM RADIATION DOSE METRICS: Total DLP (mGy-cm): 1911.89 FINDINGS: Aorta: No aneurysmal dilatation or dissection of the abdominal aorta. There is mild aneurysmal dilatation of the descending thoracic aorta to approximately 3.2 cm. Suspected aneurysmal dilatation of the ascending thoracic aorta as well, partially visualized. Consider CT angiography of the chest for complete assessment. Celiac trunk and mesenteric arteries: Patent. Renal arteries: Patent. Right iliac arteries: The right prominent external iliac arteries are widely patent. There is extensive mixed atherosclerotic plaque of the right internal iliac artery with mild (less than 50%) stenosis. There is aneurysmal dilatation of the internal iliac artery to 2 cm. Right femoral/popliteal arteries: The common femoral, profunda femoris and superficial femoral arteries are patent. Mixed atherosclerotic plaque results in moderate stenosis of the distal superficial femoral artery resulting in approximately 50% narrowing. There is a thrombosed 3.2 x 2.6 cm aneurysm of the proximal popliteal artery with moderate-severe stenosis of the proximal popliteal artery. There is occlusion of the mid popliteal artery with a thrombosed 5.0 x 3.8 cm popliteal artery aneurysm. Right infrapopliteal arteries: There is arterial occlusion from the mid popliteal artery through the distal right lower extremity, including the anterior tibial, posterior tibial and peroneal arteries. No evidence of flow in the posterior tibial or dorsalis pedis arteries. Left iliac arteries: The left common and external iliac arteries are widely patent. There is extensive mixed atherosclerotic plaque of the internal iliac artery without hemodynamically significant stenosis. There is ectasia of the internal iliac artery to 1.6 cm. Left femoral/popliteal arteries: The common femoral, profunda femoral and superficial femoral arteries are patent. There is a 4.1 x 3.2 cm thrombosed popliteal artery aneurysm with occlusion beyond the mid popliteal artery. Left infrapopliteal arteries: There is complete arterial occlusion from the distal popliteal artery through the distal left lower extremity, including the anterior tibial, posterior tibial, peroneal and dorsalis pedis arteries. Lung bases: Fat containing left-sided Bochdalek's hernia. Liver: Hepatic steatosis. No evidence of focal hepatic lesion. Gallbladder and bile ducts: Grossly unremarkable. No biliary dilatation. Pancreas: Grossly unremarkable. Spleen: Grossly unremarkable. Adrenal glands: Grossly unremarkable. Kidneys and ureters: There is a simple appearing right-sided renal cyst for which dedicated imaging follow-up is not required. Nonobstructive left-sided renal stones measuring up to 4 mm. No hydronephrosis or ureteral stone. Stomach and bowel: Few scattered colonic diverticula without evidence of acute diverticulitis. No evidence of bowel obstruction or perienteric inflammatory changes. Appendix: The appendix is not visualized, however there are no findings to suggest appendicitis. Urinary bladder: Grossly unremarkable. Reproductive: Enlarged prostate measuring 6.5 cm. Consider correlation with serum laboratory findings and outpatient urologic evaluation. Intraperitoneal space: No evidence of pneumoperitoneum or fluid collection. No significant free fluid. Lymph nodes: No lymphadenopathy. Bones/joints: No evidence of acute fracture or aggressive osseous lesion. Severe tricompartmental osteoarthritis of both knees. Moderate midfoot osteoarthritis bilaterally. Of the left, there is evidence of chronic avulsive injury of the inferior tip of the medial malleolus. Prominent dorsal projecting talar head osteophyte on the right. Soft tissues: No evidence of fluid collection or hematoma in the superficial soft tissues. CT/CT angio abd aorta runof [id number] IMPRESSION: 1. 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 2. Two thrombosed right-sided popliteal artery aneurysms. 3. Complete arterial occlusion beyond the mid left popliteal artery. 4. Thrombosed left popliteal artery aneurysm. 5. Aneurysmal dilatation of the thoracic aorta.
[2023-10-07 12:26] LABS: Blood Urea Nitrogen 31 mg/dL (8-23)
[2023-10-07] MEDS: iohexol 350 mg/mL 500 mL Btl (per mL) IV (12:47)
== END 2023-10-07 11:50 | disposition home or self-care (01) ==
LOC: RAD 11:49
PROVIDERS: PCP Internal Medicine; Visit Provider Podiatrist Foot & Ankle Surgery
DX: I74.3 Embolism and thrombosis of arteries of the lower extremities (principal); I71.20 Thoracic aortic aneurysm, without rupture, unspecified; I73.9 Peripheral vascular disease, unspecified
CPT/HCPCS: 75635; 82565; 84520; Q9967

== ENCOUNTER → 2023-11-17 12:29 | Outpatient (BNVA) | payer MEDICARE, SELFPAY | PROVIDERS: PCP Internal Medicine; Visit Provider Thoracic Surgery (Cardiothoracic Vascular Surgery) | DX: I71.21 Aneurysm of the ascending aorta, without rupture (principal); Z87.891 Personal history of nicotine dependence | CPT/HCPCS: 99213 ==

== ENCOUNTER → 2024-09-06 10:57 | Outpatient (BNVA) | payer MEDICARE, SELFPAY | PROVIDERS: PCP Family Medicine; Visit Provider Family Medicine | DX: E11.9 Type 2 diabetes mellitus without complications (principal); Z79.01 Long term (current) use of anticoagulants; F41.9 Anxiety disorder, unspecified | CPT/HCPCS: 80053; 80061; 83036; 84443; 85025 ==